=== PATIENT | female | born 1935 | race Caucasian/White ===

== ENCOUNTER → 2016-07-08 | Outpatient (CLI) | payer OTHER, BC ==
--- NOTE | 2016-07-09 07:48 | DX ---
DEXA Bone Densitometry Technique: DEXA scan was performed on The [employer] W Bone Densitometer Indication: Osteopenia Comparator Study: March 2014 Results: Lumbar Spine BMD: 1.370 T-score: +2.9 Total Hip (Right) BMD: 0.627 T-score: -2.4 Prior BMD: 0.686 % Change: -5.6% Femoral Neck (Right) BMD: 0.632 T-score: -2.0 1/3 Radius BMD: 0.594 T-score: -1.5 % change: -8.8% CONCLUSION: Osteopenia In comparison to the prior study from March 2014, the patient measured BMD in the total hip has d ecreased significantly. The patient's measured BMD in the forearm has decreased significantly ADDITIONAL COMMENTS: By FRA X calculation, the estimated 10 year probability of any major osteoporotic fracture is 15%. T he estimated 10 year probability of hip fracture is 4.2%. This patient meets the national osteoporosis Foundation guidelines for pharmacologic treatment based on 10 year hip fracture risk greater than 3% Recommend further treatment to prevent fractures and increased bone mineral density. Scoliosis is present Severe degenerative changes are present in the lower lumbar spine. This will increase the measured b one density of the lumbar spine. Recommend the use of other sites to assess fracture risk. Consider repeating the study in 2 years NOTE: The risk of osteoporotic fractures increases approximately twofold for each 1.0 SD decrease i n T-score. The T-score represents the standard deviations from a young normal, same sex, reference population. Low bone density is not the only risk factor for fracture. Clinical factors to consider include fal l risk, previous osteoporotic fractures, family history of fractures, smoking, and low body weight. Patients who have an unexpectedly low BMD may need to be evaluated for secondary causes of low bone mineral density. In comparing the present study to a prior study, lack of a significant increase or decrease in BMD m ay signify efficacy of the patient's present treatment. Bone mineral density measurements performed with densitometers produced by different manufacturers a re not comparable. For the most reproducible BMD measurement, subsequent exams should be performed on the same densitometer.
== END ==
LOC: BMCIMAGING 10:25
PROVIDERS: ATTEND Internal Medicine Endocrinology, Diabetes & Metabolism
DX: Z13.820 Encounter for screening for osteoporosis (principal); M85.80 Other specified disorders of bone density and structure, unspecified site

== ENCOUNTER → 2016-07-24 | Outpatient (CLI) | payer OTHER, BC | LOC: BMCIMAGING 09:59 | PROVIDERS: ATTEND Orthopaedic Surgery | PROC: 3E0U3KZ Introduction of Other Diagnostic Substance into Joints, Percutaneous Approach (ICD-10-PCS; principal; 2016-07-24) | DX: M16.11 Unilateral primary osteoarthritis, right hip (principal) ==

== ENCOUNTER 2016-11-28 18:58 | Inpatient (IN) | payer OTHER, BC ==
[2016-11-28] MEDS ORDERED: NS 1,000 ML IV ONE (19:35)
--- NOTE | 2016-11-28 19:39 | EDPHY ---
H & P Time Seen by Provider: 11/28/16 19:20 HPI/ROS: Chief complaint. Left arm pain and swelling HPI. 81-year-old female presents emergency department left arm pain, swelling, redness for 1 day. Yesterday she did feel somewhat lethargic. Today she awoke has increased pain swelling and redness to the left arm. Increased pain with movement. She feels generally weak. Denies shortness of breath though she does have a cough. No chest discomfort. No abdominal pain. Denies urinary symptoms. No trauma to the arm other than leaning on her left elbow while using her walker. She does have a scab on the left elbow. ROS Constitutional. no fever/chills, no weakness Eyes. no problems with vision ENT. no sore throat, no nasal drainage Cardiovascular. no chest pain Respiratory. no shortness of breath, no cough Abdominal. no abdominal pain, no nausea/vomiting, no diarrhea . no problems urinating MS. Left arm redness pain and swelling Skin. no rash Lymph. no swollen glands Neuro. no headache, no dizziness, no difficulty walking or with speech Past Medical/Surgical History: Past medical history pressure wounds, hypertension, hypothyroid, diabetes, GERD , asthma, IBS, hip replacement, pituitary microadenoma, spinal stenosis, osteopenia, anemia Social History: , nonsmoker, no alcohol. Her is currently in the hospital. Smoking Status: Never smoked Physical Exam: General Appearance: Alert well-developed female moderate distress vital signs show the patient be afebrile. O2 sat 91% on room air. Blood pressure is 111/54 Eyes: Pupils equal and round no pallor or injection. ENT, Mouth: Mucous membranes are moist. Respiratory: There are no retractions, lungs are clear to auscultation. Cardiovascular: Regular rate and rhythm. Gastrointestinal: Abdomen is soft and nontender, no masses, bowel sounds normal. Neurological: Awake and alert, sensory and motor exams grossly normal. Skin: Warm and dry, no rashes. Musculoskeletal: Neck is supple nontender. Extremities left arm is erythematous and swollen from the hand to just below the left shoulder. There is a scabbed over abrasion to the left elbow without any drainage. Psychiatric: Patient is oriented X 3, there is no agitation. Constitutional: Initial Vital Signs Temperature (C) 37 C 11/28/16 19:04 Heart Rate 94 11/28/16 19:04 Respiratory Rate 20 11/28/16 19:04 O2 Sat (%) 91 L 11/28/16 19:04 O2 Delivery Mode Room Air O2 (L/minute) 2 Allergies/Adverse Reactions: bacitracin [From Neosporin] Allergy (Intermediate, Verified 02/21/16 10:05) Rash bacitracin zinc [From Neosporin] Allergy (Intermediate, Verified 02/21/16 10:05) Rash gramicidin D [From Neosporin] Allergy (Intermediate, Verified 02/21/16 10:05) Rash neomycin sulfate [From Neosporin] Allergy (Intermediate, Verified 02/21/16 10:05 ) Rash polymyxin B [From Neosporin] Allergy (Intermediate, Verified 02/21/16 10:05) Rash polymyxin B sulfate [From Neosporin] Allergy (Intermediate, Verified 02/21/16 10 :05) Rash esomeprazole magnesium [From Nexium] Allergy (Verified 02/21/16 10:05) Diarrhea lansoprazole [From Prevacid] Allergy (Verified 02/21/16 10:05) Diarrhea omeprazole [From Prilosec] Allergy (Verified 02/21/16 10:05) Diarrhea omeprazole magnesium [From Prilosec] Allergy (Verified 02/21/16 10:05) Diarrhea pantoprazole sodium [From Protonix] Allergy (Verified 02/21/16 10:05) Diarrhea ranitidine HCl [From Zantac] Allergy (Verified 02/21/16 10:05) Diarrhea ENVIRONMENTAL Allergy (Intermediate, Uncoded 12/31/14 21:09) Other-Enter Comments Home Medications: Medication Instructions Recorded Herbals/Supplements -Info Only 1 ea PO DAILY 02/17/15 Ibandronate Sodium 150 mg PO Q30D 01/17/16 Acetaminophen [Tylenol 325mg (*)] 650 mg PO Q4 PRN #0 tab 01/19/16 Calcium Carb W/Vit D [Calcium Carb 500 mg PO BID 04/02/16 W/Vit D 500/200 (*)] Cyanocobalamin [Vitamin B12 (*)] 1,000 mcg PO DAILY 04/02/16 Multivitamins [Multivitamin (*)] 1 tab PO HS 04/02/16 Budesonide/Formoterol 160/4.5 2 puffs IH BID #1 mdi 04/16/16 [Symbicort 160-4.5 Mcg Inh (*)] Cholecalciferol Vit D3 [Vitamin D3 2,000 units PO DAILY #0 each 04/16/16 2000 units tab (OTC)] Estrogens, Conjugated [Premarin] 0.45 mg PO DAILY #30 tablet 04/16/16 Flaxseed Oil 1000mg 1,000 mg PO DAILY 04/16/16 Fluticasone Nasal [Flonase Nasal 2 sprays [place] DAILY #1 mdi 04/16/16 [place]] Hydrocortisone [Cortef 10 mg (*)] 10 mg PO BID #60 tab 04/16/16 Levothyroxine [Synthroid 100 mcg 100 mcg PO DAILY06 #30 tab 04/16/16 (*)] Losartan Potassium [Cozaar] 100 mg PO DAILY #30 tablet 04/16/16 Methocarbamol [Robaxin 750 mg (*)] 750 mg PO TID PRN #60 tab 04/16/16 Metoprolol Tartrate [Lopressor 25 12.5 mg PO BID #14 tab 04/16/16 mg (*)] Montelukast Sodium [Singulair 10 10 mg PO HS #30 tab 04/16/16 mg (*)] Pregabalin [Lyrica] 150 mg PO HS #30 capsule 04/16/16 Rabeprazole Sodium 20 mg PO BID #60 tablet. 04/16/16 Zinc Oxide [Desitin Max Stength 1 gavin TP Q4HRS PRN #0 oint 04/16/16 Oint (*)] amLODIPine BESYLATE [Norvasc 10 mg 10 mg PO DAILY #30 tab 04/16/16 (*)] celeCOXIB [Celebrex (*)] 200 mg PO DAILY #30 cap 04/16/16 guaiFENesin/DEXTROMETHORPHAN 10 ml PO Q4HRS PRN #0 ml 04/16/16 [Robitussin Dm Oral Liquid (*)] oxyCODONE IR [Oxycodone Ir (*)] 5 mg PO Q4HRS PRN #60 tab 04/16/16 Medical Decision Making - Diagnostics EKG Interpretation: EKG interpreted by me shows normal sinus rhythm with normal interval. There is left axis deviation with left bundle branch block. QRS is otherwise normal. There is no significant ST elevation or depression. No arrhythmia. The rate is 92 Imaging Results: Imaging Impressions Chest X-Ray 11/28/16 19:36 Impression: Negative frontal chest radiograph. Extremity Venous Study 11/28/16 19:36 Impression: Thrombosis of left internal jugular vein. I discussed results with Dr. Travis Ho at 2100 hours. One-view chest x-ray reviewed by me is normal Ultrasound reviewed by me and discussed with Dr. Roman shows a thrombosis of the left internal jugular vein but the vessels in her left arm are patent. No evidence for abscess. Procedures: IV normal saline. Septic workup. Tylenol for pain IV vancomycin after cultures ED Course/Re-evaluation: Re-evaluation 8:35 p.m.----patient is stable. The patient and her daughter and I discussed laboratory evaluation, chest x-ray and that the ultrasound result is still pending. We discussed treatment plan including recommendation for admission. They expressed understanding and agreement I consulted and discussed case with Dr. hill, hospitalist, who agrees to the admission Differential Diagnosis: This appears to be cellulitis of the arm. I also considered abscess and veinous thrombosis. She does have thrombosis of the internal jugular vein. - Data Points Laboratory Results: Laboratory Results 11/28/16 20:00 11/28/16 20:00 11/28/16 11/28/16 11/28/16 20:00 20:00 20:00 WBC 25.98 10^3/uL H 10^3/uL (3.80-9.50) RBC 4.49 10^6/uL 10^6/uL (4.18-5.33) Hgb 13.0 g/dL g/dL (12.6-16.3) Hct 40.1 % % (38.0-47.0) MCV 89.3 fL fL (81.5-99.8) MCH 29.0 pg pg (27.9-34.1) MCHC 32.4 g/dL g/dL (32.4-36.7) RDW 14.8 % % (11.5-15.2) Plt Count 152 10^3/uL 10^3/uL (150-400) MPV 11.3 fL fL (8.7-11.7) Neut % (Auto) Not Reported Lymph % (Auto) Not Reported [place] % (Auto) Not Reported Eos % (Auto) Not Reported Baso % (Auto) Not Reported Nucleat RBC Rel Count 0.0 % % (0.0-0.2) Absolute Neuts (auto) Not Reported Absolute Lymphs (auto) Not Reported Absolute Monos (auto) Not Reported Absolute Eos (auto) Not Reported Absolute Basos (auto) Not Reported Absolute Nucleated RBC 0.00 10^3/uL 10^3/uL (0-0.01) Immature Gran % Not Reported Immature Gran # Not Reported Platelet Estimate Pending PT 13.1 SEC SEC (12.0-15.0) INR 1.00 (0.83-1.16) APTT 31.0 SEC SEC (23.0-38.0) VBG Lactic Acid Sodium 133 mEq/L L mEq/L (134-144) Potassium 3.8 mEq/L mEq/L (3.5-5.2) Chloride 101 mEq/L mEq/L (97-110) Carbon Dioxide 21 mEq/l L mEq/l (22-31) Anion Gap 11 mEq/L mEq/L (8-16) BUN 41 mg/dL H mg/dL (7-23) Creatinine 1.7 mg/dL H mg/dL (0.6-1.0) Estimated GFR 29 Glucose 151 mg/dL H mg/dL (70-100) Calcium 8.6 mg/dL mg/dL (8.5-10.4) Total Bilirubin 1.1 mg/dL mg/dL (0.1-1.4) 11/28/16 20:00 WBC RBC Hgb Hct MCV MCH MCHC RDW Plt Count MPV Neut % (Auto) Lymph % (Auto) [place] % (Auto) Eos % (Auto) Baso % (Auto) Nucleat RBC Rel Count Absolute Neuts (auto) Absolute Lymphs (auto) Absolute Monos (auto) Absolute Eos (auto) Absolute Basos (auto) Absolute Nucleated RBC Immature Gran % Immature Gran # Platelet Estimate PT INR APTT VBG Lactic Acid 1.6 mmol/L mmol/L (0.7-2.1) Sodium Potassium Chloride Carbon Dioxide Anion Gap BUN Creatinine Estimated GFR Glucose Calcium Total Bilirubin Medications Given: Discontinued Medications Acetaminophen (Tylenol) 1,000 mg PO EDNOW ONE Stop: 11/28/16 19:53 Last Admin: 11/28/16 20:05 Dose: 1,000 mg Sodium Chloride (Ns) 1,000 mls @ 0 mls/hr IV ONCE ONE; Wide Open PRN Reason: Protocol Stop: 11/28/16 19:36 Last Admin: 11/28/16 20:05 Dose: 1,000 mls Departure - Departure Disposition: [facility] Inpatient Acute Clinical Impression: Cellulitis Qualifiers: Site of cellulitis: extremity Site of cellulitis of extremity: upper extremity Laterality: left Qualified Code(s): L03.114 - Cellulitis of left upper limb Condition: Fair Referrals: Brigette Suresh MD [Primary Care Provider] - As per Instructions
--- NOTE | 2016-11-28 19:42 | CPEKG ---
Heart Rate: 92 RR Interval: 652 P-R Interval: 208 QRSD Interval: 136 QT Interval: 404 QTC Interval: 500 P O'Brien: 75 QRS O'Brien: -56 T Wave O'Brien: 115 EKG Severity - ABNORMAL ECG - EKG Impression: SINUS RHYTHM EKG Impression: ATRIAL PREMATURE COMPLEX EKG Impression: LEFT BUNDLE BRANCH BLOCK Electronically Signed By: Travis Ho 28-Nov-2016 21:18:43
[2016-11-28] MEDS ORDERED: ACETAMINOPHEN 500 MG TAB PO ONE (19:52)
[2016-11-28 20:19] LABS: ADD DIFF? YES; ADD MORPH? NO; ADD SCAN? NO; ATYPICAL LYMPHOCYTE FLAG 0 (0-99); FRAGMENT RBC FLAG 0 (0-99); HEMATOCRIT 40.1 % (38.0-47.0); LEFT SHIFT FLG 30 (0-99); LIPEMIA HEMOLYSIS FLAG 80 (0-99); MEAN CELL HEMOGLOBIN CONCENTR. 32.4 g/dL (32.4-36.7); MEAN CELL VOLUME 89.3 fL (81.5-99.8); MEAN PLATELET VOLUME 11.3 fL (8.7-11.7); PLATELET CLUMPS FLAG 10 (0-99); PLATELET COUNT 152 10^3/uL (150-400); RED BLOOD CELL COUNT 4.49 10^6/uL (4.18-5.33); RED CELL DISTRIBUTION WIDTH 14.8 % (11.5-15.2)
[2016-11-28 20:26] LABS: PROTIME(PATIENT) 13.1 SEC (12.0-15.0)
[2016-11-28 20:31] LABS: ANION GAP 11 mEq/L (8-16); BILIRUBIN,TOTAL 1.1 mg/dL (0.1-1.4); CALCIUM 8.6 mg/dL (8.5-10.4); CARBON DIOXIDE 21 mEq/l (22-31); CHLORIDE 101 mEq/L (97-110); CREATININE 1.7 mg/dL (0.6-1.0); GLOMERULAR FILTRATION RATE 29; GLUCOSE 151 mg/dL (70-100); POTASSIUM 3.8 mEq/L (3.5-5.2); SODIUM 133 mEq/L (134-144)
[2016-11-28] MEDS ORDERED: VANCOMYCIN HCL/NORMAL SALINE 250 ML IV ONE (20:39)
[2016-11-28 21:07] LABS: PLATELET ESTIMATE ADEQUATE (ADEQ)
[2016-11-28] MEDS ORDERED: ONDANSETRON DISINTEGRATING 4 MG TAB PO PRN (21:32)
[2016-11-28] MEDS ORDERED: ONDANSETRON 4 MG/2 ML VIAL IVP PRN (21:32)
[2016-11-28] MEDS ORDERED: HEPARIN 10,000 UNIT/10 ML MDV IVP ONE (21:38)
[2016-11-28] MEDS ORDERED: HEPARIN 10,000 UNIT/10 ML MDV IVP PRN (21:38)
--- NOTE | 2016-11-28 21:43 | PDGENHP ---
History and Physical - Chief Complaint acute upper extremity edema - History of Present Illness primary care provider: Dr. Suresh Primary general surgeon: Dr. Chanel Primary infectious Disease: Dr. Saavedra HPI: 81-year-old female presenting with acute left upper extremity edema and associated erythema, located in the mid proximal left upper extremity and extending distally to the left wrist. Onset of symptoms on the day of presentation and duration has been progressively worsening thereafter. The patient and her daughter notes that she did have abrasion on her left elbow on the day prior to presentation but the edema and erythema seemed to suddenly appear and rapidly expand on the day of this presentation. Pain in the arm is amenable and range of motion is mostly limited secondary to edema and pressure. She otherwise denies any fever or chills but does endorse that she has experienced generalized weakness, oliguria, anorexia on the day of this presentation. History Information - Allergies/Home Medication List Allergies/Adverse Reactions: bacitracin [From Neosporin] Allergy (Intermediate, Verified 02/21/16 10:05) Rash bacitracin zinc [From Neosporin] Allergy (Intermediate, Verified 02/21/16 10:05) Rash gramicidin D [From Neosporin] Allergy (Intermediate, Verified 02/21/16 10:05) Rash neomycin sulfate [From Neosporin] Allergy (Intermediate, Verified 02/21/16 10:05 ) Rash polymyxin B [From Neosporin] Allergy (Intermediate, Verified 02/21/16 10:05) Rash polymyxin B sulfate [From Neosporin] Allergy (Intermediate, Verified 02/21/16 10 :05) Rash esomeprazole magnesium [From Nexium] Allergy (Verified 02/21/16 10:05) Diarrhea lansoprazole [From Prevacid] Allergy (Verified 02/21/16 10:05) Diarrhea omeprazole [From Prilosec] Allergy (Verified 02/21/16 10:05) Diarrhea omeprazole magnesium [From Prilosec] Allergy (Verified 02/21/16 10:05) Diarrhea pantoprazole sodium [From Protonix] Allergy (Verified 02/21/16 10:05) Diarrhea ranitidine HCl [From Zantac] Allergy (Verified 02/21/16 10:05) Diarrhea ENVIRONMENTAL Allergy (Intermediate, Uncoded 12/31/14 21:09) Other-Enter Comments I have personally reviewed and updated: family history, medical history, social history, surgical history - Past Medical History Additional medical history: Long history of sacral pressure ulcer with MR assay and osteomyelitis in 2014. ESBL. Hypertension. Gastroesophageal reflux disease. Adrenal insufficiency. Diabetes mellitus type 2 with most recent hemoglobin A1c 7%. Pseudogout. Asthma. Remote history of upper extremity DVT. Spinal stenosis. Obstructive sleep apnea. Osteopenia. Interval bowel syndrome. Pituitary microadenoma. C difficile colitis in February 2015. Chronic kidney disease stage 3 with baseline creatinine 1.1-1.4 - Surgical History Additional surgical history: primary closure of her sacral ulcer with flap in February of 2016. Left total hip replacement. Lumbar spinal injections. Diskectomy. Right carpal tunnel syndrome release. Basal cell carcinoma. Fibrous breast lumpectomy - Family History Additional family history: both parents age 85, no recent sick family contacts - Social History Smoking Status: Never smoked Alcohol Use: None Drug Use: None Additional social history: currently residing at [facility] Review of Systems ROS: 10pt was reviewed & negative except for what was stated in HPI & below Constitutional: Reports: weakness Genitourinary: Reports: other ( oliguria) Skin: Reports: other ( edema erythema) Physical Exam Temp Pulse Resp BP Pulse Ox 97.1 C H 91 16 118/48 L 99 11/28/16 19:31 11/28/16 21:31 11/28/16 21:31 11/28/16 21:31 11/28/16 21:31 O2 (L/minute) 2 Constitutional: no apparent distress, not in pain, chronically ill appearing, obese Eyes: PERRL, anicteric sclera, EOMI Ears, Nose, Mouth, Throat: hearing normal, other ( tacky mucous membranes) Cardiovascular: systolic murmur ( 2/6 at the sternum), edema ( left upper extremity 2+), No irregularly irregular, No tachycardia Respiratory: no respiratory distress, no rales or rhonchi, clear to auscultation Gastrointestinal: normoactive bowel sounds, soft, non-tender abdomen, no palpable masses, No distension Skin: other ( edema and erythema left upper extremity from wrist to the mid proximal arm, focal abrasion on the skin on the left elbow) Musculoskeletal: other ( tenderness to palpation over the olecranon bursa, full range of motion left wrist without pain, limited range of motion left elbow secondary to edema but no pain) Neurologic: AAOx3, sensation intact bilaterally Psychiatric: interacting appropriately, not anxious, not encephalopathic, thought process linear Lymph, Heme, Immunologic: No lymphangitic streaking Lab Data & Imaging Review 11/28/16 20:00 11/28/16 20:00 WBC 25.98 10^3/uL (3.80-9.50) H 11/28/16 20:00 RBC 4.49 10^6/uL (4.18-5.33) 11/28/16 20:00 Hgb 13.0 g/dL (12.6-16.3) 11/28/16 20:00 Hct 40.1 % (38.0-47.0) 11/28/16 20:00 MCV 89.3 fL (81.5-99.8) 11/28/16 20:00 MCH 29.0 pg (27.9-34.1) 11/28/16 20:00 MCHC 32.4 g/dL (32.4-36.7) 11/28/16 20:00 RDW 14.8 % (11.5-15.2) 11/28/16 20:00 Plt Count 152 10^3/uL (150-400) 11/28/16 20:00 MPV 11.3 fL (8.7-11.7) 11/28/16 20:00 Neut % (Auto) Not Reported 11/28/16 20:00 Lymph % (Auto) Not Reported 11/28/16 20:00 [place] % (Auto) Not Reported 11/28/16 20:00 Eos % (Auto) Not Reported 11/28/16 20:00 Baso % (Auto) Not Reported 11/28/16 20:00 Nucleat RBC Rel Count 0.0 % (0.0-0.2) 11/28/16 20:00 Absolute Neuts (auto) Not Reported 11/28/16 20:00 Absolute Lymphs (auto) Not Reported 11/28/16 20:00 Absolute Monos (auto) Not Reported 11/28/16 20:00 Absolute Eos (auto) Not Reported 11/28/16 20:00 Absolute Basos (auto) Not Reported 11/28/16 20:00 Absolute Nucleated RBC 0.00 10^3/uL (0-0.01) 11/28/16 20:00 Immature Gran % Not Reported 11/28/16 20:00 Seg Neutrophils % 80 % 11/28/16 20:00 Band Neutrophils % 4 % 11/28/16 20:00 Lymphocytes % 5 % 11/28/16 20:00 Monocytes % 10 % 11/28/16 20:00 Eosinophils % 1 % 11/28/16 20:00 Immature Gran # Not Reported 11/28/16 20:00 Absolute Seg Neuts 20.78 10^/uL (1.70-6.50) H 11/28/16 20:00 Absolute Band Neuts 1.04 10^3/uL (0.00-0.70) H 11/28/16 20:00 Absolute Lymphocytes 1.30 10^3/uL (1.00-3.00) 11/28/16 20:00 Absolute Monocytes 2.60 10^3/uL (0.30-0.80) H 11/28/16 20:00 Absolute Eosinophils 0.26 10^3/uL (0.03-0.40) 11/28/16 20:00 RBC/WBC/PLT Morphology NORMAL (NORMAL) 11/28/16 20:00 Platelet Estimate ADEQUATE (ADEQ) 11/28/16 20:00 PT 13.1 SEC (12.0-15.0) 11/28/16 20:00 INR 1.00 (0.83-1.16) 11/28/16 20:00 APTT 31.0 SEC (23.0-38.0) 11/28/16 20:00 VBG Lactic Acid 1.6 mmol/L (0.7-2.1) 11/28/16 20:00 Sodium 133 mEq/L (134-144) L 11/28/16 20:00 Potassium 3.8 mEq/L (3.5-5.2) 11/28/16 20:00 Chloride 101 mEq/L (97-110) 11/28/16 20:00 Carbon Dioxide 21 mEq/l (22-31) L 11/28/16 20:00 Anion Gap 11 mEq/L (8-16) 11/28/16 20:00 BUN 41 mg/dL (7-23) H 11/28/16 20:00 Creatinine 1.7 mg/dL (0.6-1.0) H 11/28/16 20:00 Estimated GFR 29 11/28/16 20:00 Glucose 151 mg/dL (70-100) H 11/28/16 20:00 Calcium 8.6 mg/dL (8.5-10.4) 11/28/16 20:00 Total Bilirubin 1.1 mg/dL (0.1-1.4) 11/28/16 20:00 Visualized and Interpreted Chest x-ray results: Yes Chest X-Ray results: no infiltrate Visualized and Interpreted EKG results: Yes EKG Interpretation: Positive for: left bundle branch block Assessment & Plan Assessment: 81-year-old female presenting with acute cellulitis in the setting of previous MRSA Plan: 1. Cellulitis. Acute, new problem this provider, further workup indicated. Evidenced by erythema, edema left upper extremity with likely source of skin breakage along the left elbow without any evidence of overt olecranon bursitis or deeper joint infection. -ultrasound ruled out upper extremity DVT -blood culture sent, follow -significant leukocytosis, follow white blood cell count on CBC -given her history of MRSA infection, dosed with vancomycin, renally Q 24 hours -given her extensive infectious history, get Infectious Disease consultation as well as wound care consult for the affected area 2. Acute kidney injury on chronic kidney disease stage 3. most likely secondary to hypovolemia in the setting of poor oral intake resulting in oliguria -reviewed outside records including 09/20/2016 most recent outpatient creatinine level, 1.4 -continue IV normal saline overnight, repeat serum creatinine level in a.m., monitor urine output closely -if creatinine worsening in a.m., send urinalysis and fractional excretion of sodium to evaluate for intrinsic renal component, notably ATN 3. Hyponatremia. Acute, secondary to renal hypoperfusion in the setting of above, continue normal saline and repeat level in a.m. 4. Hypoxia. Most likely secondary to underlying obstructive sleep apnea and patient's relative current immobility, continue to monitor -give incentive spirometer -if she so desires, make CPAP available at night 5. Hypertension. Chronic, hold patient's home antihypertensive given her infection 6. Internal jugular vein clot. Present on admission, unusual location not likely to be provoked given that she has not recently been hospitalized -discussed with Dr. John Waller, he has recommended short course of systemic anticoagulation, likely 3 months, with outpatient follow-up and repeat imaging at that time -initiate on heparin drip given her renal insufficiency, bridge to Coumadin, follow up either at primary care provider office or at [facility] cc Diet. Diabetic Prophylaxis. High risk patient, heparin drip Code. Do not resuscitate per patient, her daughter Carol is her MD POA Disposition. Anticipated discharge uncertain this time, anticipated length stay is greater than 48 hours warranting inpatient admission status for acute severe cellulitis in the setting of above high risk comorbid conditions. Patient is a high level of medical complexity patient, with high risk of worsening morbidity and/or mortality, secondary to the issues outlined above.
[2016-11-28] MEDS ORDERED: HEPARIN/DEXTROSE 500 ML IV SCH (21:45)
[2016-11-28] MEDS ORDERED: WARFARIN SODIUM 5 MG TAB PO SCH (21:45)
[2016-11-28] MEDS: NS 1,000 ML IV SCH (22:43)
[2016-11-29] MEDS: HYDROCORTISONE 10 MG TAB PO SCH ×3 (00:29→20:08)
[2016-11-29] MEDS: METHOCARBAMOL 750 MG TAB PO PRN (00:29)
[2016-11-29] MEDS: ACETAMINOPHEN 325 MG TAB PO PRN ×3 (00:30→20:24)
[2016-11-29] MEDS: RABEPRAZOLE SODIUM 20 MG PO SCH ×3 (00:56→20:28)
[2016-11-29] MEDS: FLUTICASONE IH SCH ×3 (00:56→22:15)
[2016-11-29] MEDS: SALMETEROL IH SCH ×3 (00:56→22:15)
[2016-11-29 01:51] LABS: COLOR YELLOW; LEUKOCYTE ESTERASE,URINE 3+ (NEGATIVE); NITRITE,URINE NEGATIVE (NEGATIVE)
[2016-11-29 01:58] LABS: BACTERIA 4+ /hpf (NONE SEEN); MUCUS TRACE /lpf (NONE-1+); WBC,URINE 50-182 /hpf (0-3)
[2016-11-29] MEDS: LEVOTHYROXINE 100 MCG TAB PO SCH (04:18)
[2016-11-29] MEDS: traMADol 50 MG TAB PO PRN ×2 (04:18→17:15)
--- NOTE | 2016-11-29 05:20 | HOSPPROG ---
Hospitalist Progress Note Assessment/Plan: XC note: Called by RN regarding RUE hematoma. She has a small bore IV in right wrist. ARN attempted larger IV in same extremity, but was unable to advance catheter and attempt was aborted. Pressure was held for several minutes and no bleeding was noticed. She was then started on a heparin drip in her original small bore IV and shortly after, RN noted a hematoma in right forearm, thought secondary to IV attempt. The hematoma spread and is now encompassing her entire forearm with fluctuance, but it is not tense. I suspect she bled from the 2nd IV attempt, though cannot rule out infusion of heparin into her tissue with her current sub-optimal IV. The original IV draws back, but I'm not comfortable continuing to infuse heparin in this IV. LULinsey is restricted with edema and cellulitis. Heparin is stopped for now due to active bleeding into her extremity. Will arrange for PICC in am. If hematoma abates, can likely resume heparin. Objective: Vital Signs Temp Pulse Resp BP Pulse Ox 36.7 C 90 14 129/62 H 92 11/29/16 00:00 11/29/16 04:00 11/29/16 04:00 11/29/16 04:00 11/29/16 04:00 11/27/16 11/28/16 11/29/16 05:59 05:59 05:59 Intake Total 2520 Balance 2520 PT 13.1 SEC (12.0-15.0) 11/28/16 20:00 INR 1.00 (0.83-1.16) 11/28/16 20:00 ICD10 Worksheet Patient Problems: Problems Problem Status Onset Cellulitis Acute Acute renal failure Acute C. difficile diarrhea Acute 03/01/15 Decubitus ulcer of buttock Acute Dehydration Acute ESBL (extended spectrum beta-lactamase) producing bacteria infection Acute Hypertensive urgency Acute Hyponatremia Acute Hypoxemia Acute Palliative care encounter Acute UTI (urinary tract infection) Acute Weakness Acute Adrenal insufficiency Chronic Chronic pain Chronic Diabetes Chronic Hypertension Chronic Hypothyroid Chronic
[2016-11-29] MEDS ORDERED: ALTEPLASE 2 MG VIAL IVP PRN (05:29)
[2016-11-29] MEDS ORDERED: Herbals/Supplements -Info Only PO SCH (09:00)
[2016-11-29] MEDS ORDERED: PREGABALIN 150 MG CAP PO SCH (09:00)
[2016-11-29] MEDS: CHOLECALCIFEROL VIT D3 1,000 UNITS TAB PO SCH (09:43)
[2016-11-29] MEDS: CYANO/VITAMIN B12 1000 MCG TAB PO SCH (09:43)
[2016-11-29] MEDS: PRESERVISION AREDS2 FORMULA EYE VIT 1 EACH PO SCH ×2 (09:43→20:08)
[2016-11-29] MEDS: PREGABALIN 75 MG CAP PO SCH ×2 (09:43→20:08)
[2016-11-29] MEDS: METOPROLOL TARTRATE 25 MG TAB PO SCH ×2 (09:44→20:08)
--- NOTE | 2016-11-29 10:05 | HOSPPROG ---
Hospitalist Progress Note Assessment/Plan: * left upper extremity cellulitis * Has received a dose of vancomycin * Would probably continue this as she does have a recent history of MRSA * Infectious Disease will see the patient * right upper extremity hematoma * No evidence of compartment syndrome * Will continue off heparin * left internal jugular vein thrombosis * Probably contributing to left arm swelling * Source of right upper extremity hematoma was the IV * Would like to put PICC line in today and probably restart heparin tomorrow with close watching of hematoma * acute renal failure * Did get some fluid * Will trend * pyuria/bacteriuria * Will defer to Infectious Disease the question of treatment * left bundle branch block * chronic sacral decubitus ulcer * Previous MRSA cellulitis * hypertension * type 2 diabetes * adrenal insufficiency * history of pituitary microadenoma * obstructive sleep apnea * spinal stenosis Subjective: Events overnight noted. Feels overall uncomfortable. Both arms hurt. No shortness of breath Objective: Vital Signs Temp Pulse Resp BP Pulse Ox 36.9 C 90 20 159/73 H 90 L 11/29/16 07:08 11/29/16 09:02 11/29/16 09:02 11/29/16 07:08 11/29/16 09:02 11/28/16 11/29/16 11/30/16 05:59 05:59 05:59 Intake Total 3020 Output Total 700 Balance 2320 PT 13.1 SEC (12.0-15.0) 11/28/16 20:00 INR 1.00 (0.83-1.16) 11/28/16 20:00 - Physical Exam Constitutional: no apparent distress, appears nourished, not in pain Eyes: anicteric sclera, EOMI Ears, Nose, Mouth, Throat: moist mucous membranes, hearing normal Cardiovascular: regular rate and rhythym Respiratory: no respiratory distress, no rales or rhonchi, clear to auscultation , reduced air movement Gastrointestinal: normoactive bowel sounds, soft, non-tender abdomen, no palpable masses Musculoskeletal: other (Right upper extremity with hematoma but no tightness, left upper extremity with significant erythema extending above elbow) Neurologic: AAOx3 Psychiatric: interacting appropriately, not anxious, not encephalopathic, thought process linear ICD10 Worksheet Patient Problems: Problems Problem Status Onset Cellulitis Acute Acute renal failure Acute C. difficile diarrhea Acute 03/01/15 Decubitus ulcer of buttock Acute Dehydration Acute ESBL (extended spectrum beta-lactamase) producing bacteria infection Acute Hypertensive urgency Acute Hyponatremia Acute Hypoxemia Acute Palliative care encounter Acute UTI (urinary tract infection) Acute Weakness Acute Adrenal insufficiency Chronic Chronic pain Chronic Diabetes Chronic Hypertension Chronic Hypothyroid Chronic
--- NOTE | 2016-11-29 10:18 | WOCRNPDOC ---
WOCRN Advanced Assessment Note - Skin Integrity Problem, Advanced Assess Left Elbow Abrasion Dressing Type: Open to Air Exudate Color: Yellow Exudate Characteristic(s): Dried, Serous Jordana Wound Tissue: Erythema (marked to LUE just distal to shoulder), Swollen (+ 3 edema) Jordana Wound Swelling: Moderate Wound Bed Color: Yellow Wound Bed Constitution: Scab Site Measurement - Head-to-Toe Length X Width X Depth (cm): [id number] Skin Integrity Problem Comment: Dried, serous-filled scab noted to L elbow. Entire L arm is very edematous, +3 pitting from hand extending to below the shoulder. Erythema is receding from original markings, and patient denies any pain to site. Recommend covering wound on L elbow, as this was most likely the point of origin for infection. Will put in order for Silvasorb gel and Allevyn. 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 Presently, skin is intact and blanching, w/ no sign of breakdown. Nursing placed foam sacral dressing for prophylaxis, and this is appropriate to continue. In addition, patient has been placed on pressure injury prophylaxis measures, including turns q2 off-loading coccyx at all times and an Accu-max pump on her bed. Wound care will follow up with patient on 12/03.
[2016-11-29] MEDS: FLUTICASONE NASAL 120 SPRAYS/16 GM MDI EACHNARE SCH (11:50)
--- NOTE | 2016-11-29 15:35 | PCMIDPN ---
Assessment/Plan: #EVARISTOE Cellulitis, wound on elbow likely portal. Denies acute injury, reports chronic leaning on elbow. no documented h/o MRSA in our system. 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 She denies any systemic symptoms or specific acute injury. She does note she has had a wound on her left elbow for several weeks. patient received 1 dose of IV vancomycin overnight and does report that her arm is slightly improved. Objective: Vital Signs Temp Pulse Resp BP Pulse Ox 38.1 C 88 20 138/66 H 86 L 11/29/16 11:09 11/29/16 11:09 11/29/16 11:09 11/29/16 11:11/29/16 11:11/28/16 11/29/16 11/30/16 05:59 05:59 05:59 Intake Total 3020 236 Output Total 700 Balance 2320 236 - Physical Exam General Appearance: alert, no apparent distress EENT: pale conjunctiva, dry mucous membranes, No thrush Respiratory: lungs clear, No accessory muscle use Neck: supple Cardiac/Chest: regular rate, rhythm, systolic murmur Extremities: pedal edema, erythema ( Left upper extremity marked swelling and erythema circumferentially encompassing wrist to mid deltoid. 2-3 cm wound with significant slough in the base on elbow), other ( right arm with PICC C/ D/ I with some oozing blood around, right arm ecchymotic) Abdomen: normal bowel sounds, non-tender, soft, No distended Skin: warm/dry, No diaphoresis, No jaundice Neuro/Psych: alert, normal mood/affect, oriented x 3 - Time Spent With Patient Time Spent with Patient: greater than 35 minutes Time Spent with Patient: Greater than 35 minutes spent on this patients care, greater than 50% of time spent counseling, educating, and coordinating care regarding the above mentioned plan. ICD10 Worksheet Patient Problems: Problems Problem Status Onset Cellulitis Acute Acute renal failure Acute C. difficile diarrhea Acute 03/01/15 Decubitus ulcer of buttock Acute Dehydration Acute ESBL (extended spectrum beta-lactamase) producing bacteria infection Acute Hypertensive urgency Acute Hyponatremia Acute Hypoxemia Acute Palliative care encounter Acute UTI (urinary tract infection) Acute Weakness Acute Adrenal insufficiency Chronic Chronic pain Chronic Diabetes Chronic Hypertension Chronic Hypothyroid Chronic
[2016-11-29 16:06] LABS: ADD DIFF? NO; ADD MORPH? NO; ADD SCAN? NO
[2016-11-29 16:57] LABS: ANION GAP 9 mEq/L (8-16); CALCIUM 8.3 mg/dL (8.5-10.4); CARBON DIOXIDE 19 mEq/l (22-31); CHLORIDE 106 mEq/L (97-110); CREATININE 1.4 mg/dL (0.6-1.0); GLOMERULAR FILTRATION RATE 36; GLUCOSE 191 mg/dL (70-100); POTASSIUM 3.8 mEq/L (3.5-5.2); SODIUM 134 mEq/L (134-144)
[2016-11-29] MEDS: MONTELUKAST SODIUM 10 MG TAB PO SCH (17:15)
[2016-11-29] MEDS: MULTIVITAMINS 1 EACH TAB PO SCH (17:15)
[2016-11-29] MEDS ORDERED: VANCOMYCIN 750 MG in D5W 150 ML IV SCH (21:00)
[2016-11-29] MEDS ORDERED: D5W IV SCH (21:00)
[2016-11-29] MEDS ORDERED: VANCOMYCIN 1.25 GM in D5W 250 ML IV SCH (21:00)
[2016-11-29] MEDS ORDERED: VANCOMYCIN IV SCH (21:00)
[2016-11-30] MEDS: NS 1,000 ML IV SCH ×2 (00:37→09:12)
[2016-11-30] MEDS: traMADol 50 MG TAB PO PRN ×3 (01:04→15:05)
[2016-11-30] MEDS: METHOCARBAMOL 750 MG TAB PO PRN ×4 (01:04→21:17)
[2016-11-30] MEDS: LEVOTHYROXINE 100 MCG TAB PO SCH (04:09)
[2016-11-30] MEDS: ACETAMINOPHEN 325 MG TAB PO PRN ×3 (04:09→21:16)
[2016-11-30 05:59] LABS: ANION GAP 9 mEq/L (8-16); CALCIUM 7.8 mg/dL (8.5-10.4); CARBON DIOXIDE 20 mEq/l (22-31); CHLORIDE 107 mEq/L (97-110); CREATININE 1.2 mg/dL (0.6-1.0); GLOMERULAR FILTRATION RATE 43; GLUCOSE 149 mg/dL (70-100); POTASSIUM 3.8 mEq/L (3.5-5.2); SODIUM 136 mEq/L (134-144)
[2016-11-30 06:08] LABS: ADD DIFF? YES; ADD MORPH? NO; ADD SCAN? NO; ATYPICAL LYMPHOCYTE FLAG 0 (0-99); FRAGMENT RBC FLAG 0 (0-99); HEMOGLOBIN 10.9 g/dL (12.6-16.3); LEFT SHIFT FLG 20 (0-99); LIPEMIA HEMOLYSIS FLAG 80 (0-99); MEAN CELL HEMOGLOBIN 29.1 pg (27.9-34.1); MEAN CELL HEMOGLOBIN CONCENTR. 32.1 g/dL (32.4-36.7); MEAN CELL VOLUME 90.7 fL (81.5-99.8); MEAN PLATELET VOLUME 11.7 fL (8.7-11.7); PLATELET CLUMPS FLAG 0 (0-99); PLATELET COUNT 125 10^3/uL (150-400); RED BLOOD CELL COUNT 3.75 10^6/uL (4.18-5.33); RED CELL DISTRIBUTION WIDTH 14.6 % (11.5-15.2)
[2016-11-30 07:06] LABS: PLATELET ESTIMATE DECREASED (ADEQ); POLYCHROMASIA 1+
[2016-11-30] MEDS: RABEPRAZOLE SODIUM 20 MG PO SCH ×2 (08:02→20:46)
[2016-11-30] MEDS: CHOLECALCIFEROL VIT D3 1,000 UNITS TAB PO SCH (09:13)
[2016-11-30] MEDS: METOPROLOL TARTRATE 25 MG TAB PO SCH ×2 (09:13→20:41)
[2016-11-30] MEDS: PREGABALIN 75 MG CAP PO SCH ×2 (09:13→20:40)
[2016-11-30] MEDS: HYDROCORTISONE 10 MG TAB PO SCH ×2 (09:13→20:40)
[2016-11-30] MEDS: CYANO/VITAMIN B12 1000 MCG TAB PO SCH (09:13)
[2016-11-30] MEDS: FLUTICASONE NASAL 120 SPRAYS/16 GM MDI EACHNARE SCH (09:15)
[2016-11-30] MEDS: PRESERVISION AREDS2 FORMULA EYE VIT 1 EACH PO SCH ×2 (09:21→20:40)
[2016-11-30] MEDS ORDERED: HEPARIN 10,000 UNIT/10 ML MDV IVP ONE (09:44)
--- NOTE | 2016-11-30 09:49 | HOSPPROG ---
Hospitalist Progress Note Assessment/Plan: 81-year-old female with multiple medical problems presenting with left arm swelling and cellulitis * left upper extremity cellulitis * Continue IV vancomycin * Infectious Disease is following * left internal jugular vein thrombosis * Probably contributing more to left arm swelling than infection * Restart heparin today * right upper extremity hematoma * Started at previous IV site which has been removed * No evidence of compartment syndrome * Restart heparin with continued close monitoring * acute renal failure * Pretty close to baseline * pyuria/bacteriuria * Will defer to Infectious Disease the question of treatment * left bundle branch block * chronic sacral decubitus ulcer * Previous MRSA cellulitis * Reported when she was at [facility] in fall of last year * hypertension * type 2 diabetes * adrenal insufficiency * history of pituitary microadenoma * obstructive sleep apnea * spinal stenosis Subjective: Left arm feels more swollen Objective: Vital Signs Temp Pulse Resp BP Pulse Ox 36.9 C 93 20 148/96 H 97 11/30/16 08:00 11/30/16 08:00 11/30/16 08:00 11/30/16 08:00 11/30/16 08:00 Microbiology 11/29/16 17:00 Gram Stain - Final Arm - Swab 11/29/16 17:00 Gram Stain - Final Arm - Swab Laboratory Results 11/30/16 04:40 11/30/16 04:40 11/29/16 11/30/16 12/01/16 05:59 05:59 05:59 Intake Total 3020 2487 400 Output Total 700 900 150 Balance 2320 1587 250 PT 13.1 SEC (12.0-15.0) 11/28/16 20:00 INR 1.00 (0.83-1.16) 11/28/16 20:00 - Physical Exam Constitutional: no apparent distress, appears nourished, not in pain Eyes: anicteric sclera, EOMI Ears, Nose, Mouth, Throat: moist mucous membranes, hearing normal, ears appear normal Cardiovascular: regular rate and rhythym, no murmur, rub, or gallop Respiratory: no respiratory distress, no rales or rhonchi, clear to auscultation Gastrointestinal: normoactive bowel sounds, soft, non-tender abdomen, no palpable masses Skin: warm Musculoskeletal: other (Right arm with improvement in hematoma. Left arm with increased swelling but erythema it seems to be less and less warmth) Neurologic: AAOx3 Psychiatric: interacting appropriately, not anxious, not encephalopathic, thought process linear ICD10 Worksheet Patient Problems: Problems Problem Status Onset Cellulitis Acute Acute renal failure Acute C. difficile diarrhea Acute 03/01/15 Decubitus ulcer of buttock Acute Dehydration Acute ESBL (extended spectrum beta-lactamase) producing bacteria infection Acute Hypertensive urgency Acute Hyponatremia Acute Hypoxemia Acute Palliative care encounter Acute UTI (urinary tract infection) Acute Weakness Acute Adrenal insufficiency Chronic Chronic pain Chronic Diabetes Chronic Hypertension Chronic Hypothyroid Chronic
[2016-11-30] MEDS: FLUTICASONE IH SCH ×2 (09:51→21:18)
[2016-11-30] MEDS: SALMETEROL IH SCH ×2 (09:51→21:18)
[2016-11-30 10:26] LABS: INR 1.21 (0.83-1.16); PROTIME(PATIENT) 15.3 SEC (12.0-15.0)
[2016-11-30 10:27] LABS: APTT 30.2 SEC (23.0-38.0)
[2016-11-30] MEDS: HEPARIN/DEXTROSE 500 ML IV SCH (11:22)
[2016-11-30] MEDS ORDERED: D5W IV SCH (11:22)
[2016-11-30] MEDS ORDERED: VANCOMYCIN IV SCH (11:22)
--- NOTE | 2016-11-30 11:22 | PCMIDPN ---
Assessment/Plan: #LUE Cellulitis, wound on elbow likely portal and simultaneous left internal jugular thrombosis. wound cultures now show MRSA. At this point do not think this reflects septic thrombophlebitis as left neck exam is within normal limits and blood cultures negative so far but continue to assess. --Increase dose of vancomycin 1.25 g IV q.day with improving renal function -- continue elevation of left upper extremity -- continue to monitor blood cultures # ARF improving, creatinine 1.2 down from 1.7 #flap closure of a stage IV pressure injury last year - remains healed # klebsiella bacteremia 03/2015 meds vancomycin 1.25gm IV daily, # 3 Microbiology 11/28 blood culture 1 set: NGTD 11/29 blood culture 1 set: Pending 11/29 wound culture from elbow and forearm: MRSA Subjective: patient feels that her left arm is improved. No other complaints Objective: Vital Signs Temp Pulse Resp BP Pulse Ox 37.6 C 96 16 107/98 H 93 11/30/16 11:14 11/30/16 11:14 11/30/16 11:14 11/30/16 11:14 11/30/16 11:14 Microbiology 11/29/16 17:00 Gram Stain - Final Arm - Swab 11/29/16 17:00 Gram Stain - Final Arm - Swab Laboratory Results 11/30/16 04:40 11/30/16 04:40 11/29/16 11/30/16 12/01/16 05:59 05:59 05:59 Intake Total 3020 2487 400 Output Total 700 900 150 Balance 2320 1587 250 - Physical Exam General Appearance: alert, no apparent distress, obese EENT: pale conjunctiva, No scleral icterus Respiratory: other ( shallow inspiratory effort no crackles), No accessory muscle use Neck: supple Cardiac/Chest: regular rate, rhythm Extremities: pedal edema, swelling ( left upper extremity ; right upper extremity also mildly swollen with extensive ecchymosis related to bruising from heparin), erythema ( left upper extremity circumferential, erythema is less intense today as compared to yesterday) Abdomen: non-tender, soft Skin: erythema ( as per extremity exam), No embolic lesions Neuro/Psych: alert, normal mood/affect, oriented x 3 - Line/s RUE PICC Lines: No drainage, No erythema - Time Spent With Patient Time Spent with Patient: greater than 25 minutes Time Spent with Patient: Greater than 25 minutes spent on this patients care, greater than 50% of time spent counseling, educating, and coordinating care regarding the above mentioned plan. ICD10 Worksheet Patient Problems: Problems Problem Status Onset Cellulitis Acute Acute renal failure Acute C. difficile diarrhea Acute 03/01/15 Decubitus ulcer of buttock Acute Dehydration Acute ESBL (extended spectrum beta-lactamase) producing bacteria infection Acute Hypertensive urgency Acute Hyponatremia Acute Hypoxemia Acute Palliative care encounter Acute UTI (urinary tract infection) Acute Weakness Acute Adrenal insufficiency Chronic Chronic pain Chronic Diabetes Chronic Hypertension Chronic Hypothyroid Chronic
[2016-11-30] MEDS: VANCOMYCIN 1.25 GM in D5W 250 ML IV SCH (12:54)
[2016-11-30 13:27] LABS: ALBUMIN 2.5 g/dL (3.5-5.0); BILIRUBIN,TOTAL 0.6 mg/dL (0.1-1.4); BILIRUBIN-CONJUGATED 0.3 mg/dL (0.0-0.5); BILIRUBIN-UNCONJUGATED 0.3 mg/dL (0.0-1.1); TOTAL PROTEIN 4.8 g/dL (6.3-8.2)
[2016-11-30] MEDS: MULTIVITAMINS 1 EACH TAB PO SCH (17:14)
[2016-11-30] MEDS: amLODIPine BESYLATE 5 MG TAB PO SCH (17:14)
[2016-11-30] MEDS: MONTELUKAST SODIUM 10 MG TAB PO SCH (17:14)
[2016-11-30] MEDS: HEPARIN 10,000 UNIT/10 ML MDV IVP PRN (18:33)
[2016-11-30] MEDS ORDERED: amLODIPine BESYLATE 5 MG TAB PO ONE (21:30)
[2016-12-01] MEDS: traMADol 50 MG TAB PO PRN ×4 (00:16→22:11)
[2016-12-01] MEDS: HEPARIN 10,000 UNIT/10 ML MDV IVP PRN ×2 (01:48→22:44)
[2016-12-01] MEDS: HEPARIN/DEXTROSE 500 ML IV SCH ×2 (05:05→21:18)
[2016-12-01] MEDS: LEVOTHYROXINE 100 MCG TAB PO SCH (05:07)
[2016-12-01] MEDS: ACETAMINOPHEN 325 MG TAB PO PRN (05:07)
[2016-12-01] MEDS: METOPROLOL TARTRATE 25 MG TAB PO SCH ×2 (07:33→20:33)
[2016-12-01] MEDS: PREGABALIN 75 MG CAP PO SCH ×2 (07:35→20:33)
[2016-12-01] MEDS: HYDROCORTISONE 10 MG TAB PO SCH ×2 (07:35→20:33)
[2016-12-01] MEDS: CYANO/VITAMIN B12 1000 MCG TAB PO SCH (07:35)
[2016-12-01] MEDS: PRESERVISION AREDS2 FORMULA EYE VIT 1 EACH PO SCH ×2 (07:35→20:33)
[2016-12-01] MEDS: CHOLECALCIFEROL VIT D3 1,000 UNITS TAB PO SCH (07:35)
[2016-12-01] MEDS: FLUTICASONE NASAL 120 SPRAYS/16 GM MDI EACHNARE SCH (07:42)
[2016-12-01] MEDS: RABEPRAZOLE SODIUM 20 MG PO SCH ×2 (07:51→20:35)
[2016-12-01 08:07] LABS: % IMMATURE GRANULYOCYTES 1.2 % (0.0-1.1); ABSOLUTE IMMATURE GRANULOCYTES 0.25 10^3/uL (0.00-0.10); ADD DIFF? NO; ADD MORPH? NO; ADD SCAN? NO; ATYPICAL LYMPHOCYTE FLAG 0 (0-99); FRAGMENT RBC FLAG 0 (0-99); HEMOGLOBIN 10.8 g/dL (12.6-16.3); LEFT SHIFT FLG 30 (0-99); LIPEMIA HEMOLYSIS FLAG 80 (0-99); MEAN CELL HEMOGLOBIN CONCENTR. 32.7 g/dL (32.4-36.7); MEAN CELL VOLUME 88.5 fL (81.5-99.8); MEAN PLATELET VOLUME 11.2 fL (8.7-11.7); PLATELET CLUMPS FLAG 0 (0-99); PLATELET COUNT 128 10^3/uL (150-400); RED BLOOD CELL COUNT 3.73 10^6/uL (4.18-5.33); RED CELL DISTRIBUTION WIDTH 14.6 % (11.5-15.2)
[2016-12-01] MEDS: SALMETEROL IH SCH ×2 (08:07→21:14)
[2016-12-01] MEDS: FLUTICASONE IH SCH ×2 (08:07→21:14)
--- NOTE | 2016-12-01 08:24 | HOSPPROG ---
Hospitalist Progress Note Assessment/Plan: #LUE cellulitis: ID following. Cont IV Vanc. Negative blood culture #LUE swelling: decrease over upper arm today. Radial pulse by doppler, good cap refill. She denies pain, numbness over hand. Monitor closely. Keep elevated #ALPHONSE on CKD: Cr 1.0, at baseline #Thrombocytopenia:due to acute illness. Monitor closely #Left IJ thrombosis: bridging with heparin gtt/coumadin #RUE hematoma: stable #Accelerated HTN: resume Losartan. Cont Norvasc, BB #Hypothyroidism: Lt4 #h/o diastolic dysfunction: on TTE 2014. May add low-dose Lasix, but want to monitor Cr with Losartan first #Type 2 DM #Chronic Stage 4 decubitus ulcer: s/p flap #Pyuria: negative culture #Diet: diabetic #DVT ppx: heparin gtt #Disp: will warrant SNF at [place], awaiting approval once medically clear Subjective: swelling in left arm same. No pain Objective: Vital Signs Temp Pulse Resp BP Pulse Ox 36.7 C 88 16 200/80 H 88 L 12/01/16 07:31 12/01/16 08:11 12/01/16 08:11 12/01/16 07:31 12/01/16 08:11 Microbiology 11/29/16 17:00 Gram Stain - Final Arm - Swab 11/29/16 17:00 Gram Stain - Final Arm - Swab Laboratory Results 12/01/16 07:35 11/30/16 04:40 11/30/16 12/01/16 12/02/16 05:59 05:59 05:59 Intake Total 2487 2142 Output Total 900 2950 425 Balance 1587 -808 -425 PT 15.3 SEC (12.0-15.0) H 11/30/16 10:00 INR 1.21 (0.83-1.16) H 11/30/16 10:00 - Physical Exam Constitutional: no apparent distress, obese Eyes: PERRL Ears, Nose, Mouth, Throat: moist mucous membranes Cardiovascular: regular rate and rhythym, edema (+2-3 LE edema, BL to knees) Respiratory: no respiratory distress, no rales or rhonchi Gastrointestinal: normoactive bowel sounds, soft, non-tender abdomen Genitourinary: no bladder fullness Musculoskeletal: other (LUE with significant swelling to hand. Pulse palpable with doppler, good cap refill. Normal sensation and no pain with touch. Elbow wound healing with some granulation tissue. RUE with swelling, ecchymosis over upper arm. PICC line in place. ) Neurologic: AAOx3, CN II-XII Intact Psychiatric: interacting appropriately ICD10 Worksheet Patient Problems: Problems Problem Status Onset Cellulitis Acute Acute renal failure Acute C. difficile diarrhea Acute 03/01/15 Decubitus ulcer of buttock Acute Dehydration Acute ESBL (extended spectrum beta-lactamase) producing bacteria infection Acute Hypertensive urgency Acute Hyponatremia Acute Hypoxemia Acute Palliative care encounter Acute UTI (urinary tract infection) Acute Weakness Acute Adrenal insufficiency Chronic Chronic pain Chronic Diabetes Chronic Hypertension Chronic Hypothyroid Chronic
[2016-12-01] MEDS ORDERED: hydrALAZINE 10 MG TAB PO PRN (08:48)
[2016-12-01 09:46] LABS: ANION GAP 11 mEq/L (8-16); CALCIUM 8.3 mg/dL (8.5-10.4); CARBON DIOXIDE 20 mEq/l (22-31); CHLORIDE 104 mEq/L (97-110); GLOMERULAR FILTRATION RATE 53; GLUCOSE 196 mg/dL (70-100); POTASSIUM 3.8 mEq/L (3.5-5.2); SODIUM 135 mEq/L (134-144)
[2016-12-01] MEDS: VANCOMYCIN 1.25 GM in D5W 250 ML IV SCH (12:13)
--- NOTE | 2016-12-01 15:45 | PCMIDPN ---
Assessment/Plan: #LUE Cellulitis secondary to MRSA, wound on elbow likely portal and simultaneous left internal jugular thrombosis. Massive swelling of LUE but not tense or painful. Minimal change in redness and swelling today, suspect due to lack of elevation and impaired venous return due to clot --continue vancomycin 1.25 g IV q.day, check trough tomorrow --continue to encourage elevation --re-US to look for extension of clot # ARF resolved. Cr 1.0 # flap closure of a stage IV pressure injury last year - remains healed # klebsiella bacteremia 03/2015 meds vancomycin 1.25gm IV daily, # 4 Microbiology 11/28 blood culture 1 set: NGTD 11/29 blood culture 1 set: NGTD 11/29 wound culture from elbow and forearm: MRSA Subjective: no diarrhea no pain Objective: Vital Signs Temp Pulse Resp BP Pulse Ox 36.6 C 102 H 16 192/118 H 89 L 12/01/16 12:00 12/01/16 15:05 12/01/16 12:00 12/01/16 12:00 12/01/16 15:05 Microbiology 11/29/16 17:00 Gram Stain - Final Arm - Swab Wound Culture - Final MRSA 11/29/16 17:00 Gram Stain - Final Arm - Swab Wound Culture - Final MRSA Laboratory Results 12/01/16 07:35 12/01/16 08:35 11/30/16 12/01/16 12/02/16 05:59 05:59 05:59 Intake Total 2487 2142 Output Total 900 2950 875 Balance 1587 -808 -875 AF General Appearance: alert, no apparent distress, obese EENT: pale conjunctiva, No scleral icterus Respiratory: shallow inspiratory effort, no crackles, No accessory muscle use Neck: supple Cardiac/Chest: regular rate, rhythm Extremities: pedal edema, massive soft swelling left upper extremity, circumferentially, intensity of erythema stable; right upper extremity also mildly swollen with extensive ecchymosis related to bruising from heparin Abdomen: non-tender, soft Skin: erythema LUE, No embolic lesions Neuro/Psych: alert, normal mood/affect, oriented x 3 RUE PICC No drainage, No erythema ICD10 Worksheet Patient Problems: Problems Problem Status Onset Cellulitis Acute Acute renal failure Acute C. difficile diarrhea Acute 03/01/15 Decubitus ulcer of buttock Acute Dehydration Acute ESBL (extended spectrum beta-lactamase) producing bacteria infection Acute Hypertensive urgency Acute Hyponatremia Acute Hypoxemia Acute Palliative care encounter Acute UTI (urinary tract infection) Acute Weakness Acute Adrenal insufficiency Chronic Chronic pain Chronic Diabetes Chronic Hypertension Chronic Hypothyroid Chronic
[2016-12-01] MEDS ORDERED: hydrALAZINE 20 MG/ML VIAL IVP ONE ×2 (16:05)
[2016-12-01] MEDS ORDERED: LOSARTAN POTASSIUM 50 MG TAB PO SCH ×4 (16:09→17:00)
[2016-12-01] MEDS ORDERED: hydrALAZINE 25 MG TAB PO PRN (16:14)
[2016-12-01] MEDS ORDERED: hydrALAZINE 25 MG TAB PO SCH (16:15)
[2016-12-01] MEDS: MULTIVITAMINS 1 EACH TAB PO SCH (17:16)
[2016-12-01] MEDS: amLODIPine BESYLATE 5 MG TAB PO SCH (17:16)
[2016-12-01] MEDS: MONTELUKAST SODIUM 10 MG TAB PO SCH (17:18)
[2016-12-01] MEDS: METHOCARBAMOL 750 MG TAB PO PRN ×2 (18:25→23:17)
[2016-12-02] MEDS: traMADol 50 MG TAB PO PRN ×3 (04:14→23:35)
[2016-12-02 04:29] LABS: ADD DIFF? YES; ADD MORPH? NO; ADD SCAN? NO; ATYPICAL LYMPHOCYTE FLAG 0 (0-99); FRAGMENT RBC FLAG 0 (0-99); HEMATOCRIT 31.9 % (38.0-47.0); HEMOGLOBIN 10.4 g/dL (12.6-16.3); LEFT SHIFT FLG 50 (0-99); LIPEMIA HEMOLYSIS FLAG 80 (0-99); MEAN CELL HEMOGLOBIN 28.5 pg (27.9-34.1); MEAN CELL HEMOGLOBIN CONCENTR. 32.6 g/dL (32.4-36.7); MEAN CELL VOLUME 87.4 fL (81.5-99.8); MEAN PLATELET VOLUME 11.2 fL (8.7-11.7); PLATELET CLUMPS FLAG 0 (0-99); PLATELET COUNT 144 10^3/uL (150-400); RED BLOOD CELL COUNT 3.65 10^6/uL (4.18-5.33); RED CELL DISTRIBUTION WIDTH 14.4 % (11.5-15.2)
[2016-12-02 04:39] LABS: INR 1.21 (0.83-1.16); PROTIME(PATIENT) 15.3 SEC (12.0-15.0)
[2016-12-02 04:42] LABS: ANION GAP 9 mEq/L (8-16); CALCIUM 8.1 mg/dL (8.5-10.4); CARBON DIOXIDE 21 mEq/l (22-31); CHLORIDE 99 mEq/L (97-110); GLOMERULAR FILTRATION RATE 53; GLUCOSE 202 mg/dL (70-100); POTASSIUM 3.8 mEq/L (3.5-5.2); SODIUM 129 mEq/L (134-144)
[2016-12-02 05:07] LABS: PLATELET ESTIMATE ADEQUATE (ADEQ)
[2016-12-02] MEDS: LEVOTHYROXINE 100 MCG TAB PO SCH (06:26)
[2016-12-02] MEDS ORDERED: amLODIPine BESYLATE 5 MG TAB PO SCH ×2 (08:48→10:49)
--- NOTE | 2016-12-02 08:52 | HOSPPROG ---
Hospitalist Progress Note Assessment/Plan: #LUE cellulitis: ID following. Cont IV Vanc. Negative blood culture #LUE swelling: repeat U/S does not show clot progression. Radial pulse by doppler, good cap refill. She denies pain, numbness over hand. Monitor closely. She has not been elevated properly; cont this #ALPHONSE on CKD: Cr 1.0, at baseline #Back spasm: apply warm compress, low-dose Flexeril #Thrombocytopenia: improved. Monitor closely #Left IJ thrombosis: bridging with heparin gtt/coumadin #RUE hematoma: stable #Accelerated HTN: resume home Losartan. Increase Norvasc to 10mg. PRN hydral #Hypothyroidism: LT4 #h/o diastolic dysfunction: on TTE 2014. May add low-dose Lasix, but want to monitor Cr with Losartan first #Type 2 DM: SSI #Chronic Stage 4 decubitus ulcer: s/p flap #Pyuria: negative culture #Diet: diabetic #DVT ppx: heparin gtt #Disp: will warrant SNF at [place], awaiting approval once medically clear Subjective: no pain in left arm, hand. No numbness, tingling. Objective: Vital Signs Temp Pulse Resp BP Pulse Ox 36.9 C 102 H 14 190/131 H 93 12/02/16 08:00 12/02/16 08:00 12/02/16 08:00 12/02/16 08:00 12/02/16 08:00 Microbiology 11/29/16 17:00 Gram Stain - Final Arm - Swab Wound Culture - Final MRSA 11/29/16 17:00 Gram Stain - Final Arm - Swab Wound Culture - Final MRSA Laboratory Results 12/02/16 04:05 12/02/16 04:05 12/01/16 12/02/16 12/03/16 05:59 05:59 05:59 Intake Total 2142 630 Output Total 2950 1975 Balance -808 -1345 PT 15.3 SEC (12.0-15.0) H 12/02/16 04:05 INR 1.21 (0.83-1.16) H 12/02/16 04:05 - Physical Exam Constitutional: no apparent distress, obese Eyes: PERRL, other (conjunctival red) Ears, Nose, Mouth, Throat: moist mucous membranes Cardiovascular: regular rate and rhythym Respiratory: no respiratory distress Gastrointestinal: normoactive bowel sounds Genitourinary: no bladder fullness Skin: warm Musculoskeletal: other (massive LUE swelling in arm and hand. Normal sensation to touch, no numbess. Palpa) Neurologic: AAOx3, CN II-XII Intact Psychiatric: interacting appropriately ICD10 Worksheet Patient Problems: Problems Problem Status Onset Cellulitis Acute Acute renal failure Acute C. difficile diarrhea Acute 03/01/15 Decubitus ulcer of buttock Acute Dehydration Acute ESBL (extended spectrum beta-lactamase) producing bacteria infection Acute Hypertensive urgency Acute Hyponatremia Acute Hypoxemia Acute Palliative care encounter Acute UTI (urinary tract infection) Acute Weakness Acute Adrenal insufficiency Chronic Chronic pain Chronic Diabetes Chronic Hypertension Chronic Hypothyroid Chronic
[2016-12-02] MEDS ORDERED: LOSARTAN POTASSIUM 50 MG TAB PO SCH (09:00)
[2016-12-02] MEDS: PREGABALIN 75 MG CAP PO SCH ×2 (09:00→20:15)
[2016-12-02] MEDS: CYANO/VITAMIN B12 1000 MCG TAB PO SCH (09:32)
[2016-12-02] MEDS: CHOLECALCIFEROL VIT D3 1,000 UNITS TAB PO SCH (09:32)
[2016-12-02] MEDS: METOPROLOL TARTRATE 25 MG TAB PO SCH ×2 (09:33→20:16)
[2016-12-02] MEDS: PRESERVISION AREDS2 FORMULA EYE VIT 1 EACH PO SCH ×2 (09:37→20:15)
[2016-12-02] MEDS: HYDROCORTISONE 10 MG TAB PO SCH ×2 (09:40→20:15)
[2016-12-02] MEDS: LOSARTAN POTASSIUM 50 MG TAB PO SCH (09:41)
[2016-12-02] MEDS: METHOCARBAMOL 750 MG TAB PO PRN ×3 (10:42→20:16)
[2016-12-02] MEDS: FLUTICASONE NASAL 120 SPRAYS/16 GM MDI EACHNARE SCH (10:42)
[2016-12-02] MEDS: RABEPRAZOLE SODIUM 20 MG PO SCH ×2 (10:42→20:18)
[2016-12-02 11:37] LABS: HEMOGLOBIN A1C 6.9 % (4.0-6.0)
[2016-12-02] MEDS: SALMETEROL IH SCH ×2 (12:10→21:05)
[2016-12-02] MEDS: FLUTICASONE IH SCH ×2 (12:10→21:05)
[2016-12-02] MEDS: VANCOMYCIN 1.25 GM in D5W 250 ML IV SCH ×2 (12:36→14:19)
[2016-12-02] MEDS: HEPARIN/DEXTROSE 500 ML IV SCH (13:24)
[2016-12-02] MEDS: CYCLOBENZAPRINE 10 MG TAB PO PRN ×2 (15:19→23:36)
[2016-12-02] MEDS: MULTIVITAMINS 1 EACH TAB PO SCH (17:09)
[2016-12-02] MEDS: MONTELUKAST SODIUM 10 MG TAB PO SCH (17:09)
[2016-12-02] MEDS ORDERED: amLODIPine BESYLATE 5 MG TAB PO ONE (17:16)
[2016-12-02] MEDS ORDERED: hydrALAZINE 20 MG/ML VIAL IVP PRN (17:23)
--- NOTE | 2016-12-02 18:48 | PCMIDPN ---
Assessment/Plan: Assessment: Left upper extremity cellulitis with clot. MRSA cultured from left arm/elbow wound. Covering with vancomycin monotherapy. Patient relates arm is decreasing in size. Will continue the vancomycin monotherapy and observe clinical change. Plan: 1. Continue vancomycin IV monotherapy at current dose. 2. Follow-up appearance of left upper extremity. 12/02/16 18:46 Subjective: Patient resting in her hospital chair. Her left arm is propped up on pillows. She denies any fevers or chills. Appears to be tolerating vancomycin without issue. Patient believes that her left arm is smaller than yesterday. Still with discomfort in the appendage. Objective: Vancomycin # 4 Vital Signs Temp Pulse Resp BP Pulse Ox 37.1 C 103 H 12 165/95 H 96 12/02/16 16:00 12/02/16 16:00 12/02/16 16:00 12/02/16 18:01 12/02/16 16:00 Laboratory Results 12/02/16 04:05 12/02/16 04:05 12/01/16 12/02/16 12/03/16 05:59 05:59 05:59 Intake Total 2142 630 Output Total 2950 [facility] Balance -808 1345 - Physical Exam General Appearance: WD/WN, alert, no apparent distress, non-toxic Respiratory: lungs clear, normal breath sounds, No respiratory distress Cardiac/Chest: regular rate, rhythm, No tachycardia Extremities: inflammation, erythema, No non-tender (Left upper extremity), No normal inspection (Left upper extremity with edema and erythema), No necrosis Skin: normal color, warm/dry, No rash Neuro/Psych: alert, normal mood/affect, oriented x 3 ICD10 Worksheet Patient Problems: Problems Problem Status Onset Cellulitis Acute Acute renal failure Acute C. difficile diarrhea Acute 03/01/15 Decubitus ulcer of buttock Acute Dehydration Acute ESBL (extended spectrum beta-lactamase) producing bacteria infection Acute Hypertensive urgency Acute Hyponatremia Acute Hypoxemia Acute Palliative care encounter Acute UTI (urinary tract infection) Acute Weakness Acute Adrenal insufficiency Chronic Chronic pain Chronic Diabetes Chronic Hypertension Chronic Hypothyroid Chronic
[2016-12-02 19:47] LABS: COLOR YELLOW; LEUKOCYTE ESTERASE,URINE NEGATIVE (NEGATIVE); NITRITE,URINE NEGATIVE (NEGATIVE)
[2016-12-02 20:02] LABS: BACTERIA 2+ /hpf (NONE SEEN); MUCUS TRACE /lpf (NONE-1+)
[2016-12-02] MEDS: hydrALAZINE 25 MG TAB PO PRN (20:16)
[2016-12-03] MEDS: LEVOTHYROXINE 100 MCG TAB PO SCH (05:03)
[2016-12-03] MEDS: HEPARIN/DEXTROSE 500 ML IV SCH (05:13)
[2016-12-03 05:26] LABS: ADD DIFF? YES; ADD MORPH? NO; ADD SCAN? NO; ATYPICAL LYMPHOCYTE FLAG 0 (0-99); FRAGMENT RBC FLAG 0 (0-99); HEMATOCRIT 30.2 % (38.0-47.0); LEFT SHIFT FLG 40 (0-99); LIPEMIA HEMOLYSIS FLAG 80 (0-99); MEAN CELL HEMOGLOBIN 28.3 pg (27.9-34.1); MEAN CELL HEMOGLOBIN CONCENTR. 33.1 g/dL (32.4-36.7); MEAN CELL VOLUME 85.6 fL (81.5-99.8); MEAN PLATELET VOLUME 11.4 fL (8.7-11.7); PLATELET CLUMPS FLAG 10 (0-99); PLATELET COUNT 137 10^3/uL (150-400); RED BLOOD CELL COUNT 3.53 10^6/uL (4.18-5.33); RED CELL DISTRIBUTION WIDTH 14.1 % (11.5-15.2)
[2016-12-03 05:55] LABS: ANION GAP 8 mEq/L (8-16); CALCIUM 7.9 mg/dL (8.5-10.4); CARBON DIOXIDE 21 mEq/l (22-31); CHLORIDE 95 mEq/L (97-110); GLOMERULAR FILTRATION RATE 53; GLUCOSE 201 mg/dL (70-100); POTASSIUM 3.8 mEq/L (3.5-5.2); SODIUM 124 mEq/L (134-144)
[2016-12-03 06:23] LABS: INR 1.15 (0.83-1.16); PROTIME(PATIENT) 14.6 SEC (12.0-15.0)
[2016-12-03 06:36] LABS: PLATELET ESTIMATE ADEQUATE (ADEQ)
[2016-12-03] MEDS: HEPARIN 10,000 UNIT/10 ML MDV IVP PRN ×2 (07:08→14:57)
[2016-12-03] MEDS: PRESERVISION AREDS2 FORMULA EYE VIT 1 EACH PO SCH ×2 (09:00→21:02)
[2016-12-03] MEDS: CHOLECALCIFEROL VIT D3 1,000 UNITS TAB PO SCH (09:00)
[2016-12-03] MEDS: CYANO/VITAMIN B12 1000 MCG TAB PO SCH (09:01)
[2016-12-03] MEDS: METOPROLOL TARTRATE 25 MG TAB PO SCH ×2 (09:01→21:02)
[2016-12-03] MEDS: LOSARTAN POTASSIUM 50 MG TAB PO SCH (09:01)
[2016-12-03] MEDS: hydrALAZINE 25 MG TAB PO PRN (09:01)
[2016-12-03] MEDS: PREGABALIN 75 MG CAP PO SCH ×2 (09:02→21:02)
[2016-12-03] MEDS: HYDROCORTISONE 10 MG TAB PO SCH ×2 (09:02→21:02)
[2016-12-03] MEDS: FLUTICASONE NASAL 120 SPRAYS/16 GM MDI EACHNARE SCH (09:06)
[2016-12-03] MEDS: RABEPRAZOLE SODIUM 20 MG PO SCH ×2 (09:08→21:04)
[2016-12-03] MEDS ORDERED: FUROSEMIDE 20 MG/2 ML VIAL IVP ONE (09:15)
--- NOTE | 2016-12-03 10:10 | HOSPPROG ---
Hospitalist Progress Note Assessment/Plan: #LUE cellulitis: ID following. Cont IV Vanc. Negative blood culture #LUE swelling: repeat U/S does not show clot progression. Thrombolysis not indicated. Radial pulse by doppler, good cap refill. She denies pain, numbness over hand. Monitor closely. She has not been elevated properly -risk of lymphedema with obesity.No prior breast cancer. Can DC with lymphedema PT at [facility] -consider CTA to eval for other anatomical changes, but concerned with kidney function and diuresing. RE-eval in morning #ALPHONSE on CKD: Cr 1.0, at baseline #Leukocytosis: down to 18. Suspect inflammation. Repeat UA NL #Back spasm: apply warm compress, low-dose Flexeril #Thrombocytopenia: stable Monitor closely #Left IJ thrombosis: bridging with heparin gtt/coumadin #RUE hematoma: stable #Accelerated HTN: resume home Losartan. Increase Norvasc to 10mg. PRN hydral #Hypothyroidism: LT4 #h/o diastolic dysfunction: on TTE 2014. May add low-dose Lasix, but want to monitor Cr with Losartan first #Type 2 DM: SSI #Chronic Stage 4 decubitus ulcer: s/p flap #Pyuria: negative culture #Diet: diabetic #DVT ppx: heparin gtt #Disp: will warrant SNF at [place], awaiting approval once medically clear Subjective: pain under right breast. No pain/numbness in left arm Objective: Vital Signs Temp Pulse Resp BP Pulse Ox 36.7 C 95 18 174/136 H 93 12/03/16 07:53 12/03/16 07:53 12/03/16 07:53 12/03/16 07:53 12/03/16 07:53 Laboratory Results 12/03/16 05:00 12/03/16 05:00 12/02/16 12/03/16 12/04/16 05:59 05:59 05:59 Intake Total 630 300 Output Total 1975 1200 Balance -1345 -900 PT 14.6 SEC (12.0-15.0) 12/03/16 05:00 INR 1.15 (0.83-1.16) 12/03/16 05:00 - Physical Exam Constitutional: no apparent distress, obese Eyes: PERRL Ears, Nose, Mouth, Throat: moist mucous membranes Cardiovascular: regular rate and rhythym, no murmur, rub, or gallop, edema (+2- 3 edema to knees) Respiratory: no respiratory distress, no rales or rhonchi Gastrointestinal: normoactive bowel sounds, soft, non-tender abdomen Genitourinary: no bladder fullness Musculoskeletal: other (LUE with massive swelling, no pain, normal sensation. Erythema to shoulder. Elbow ulcer healing with small amount purulence. RUE with PICC, extensive brusing) Neurologic: AAOx3 Psychiatric: interacting appropriately ICD10 Worksheet Patient Problems: Problems Problem Status Onset Cellulitis Acute MRSA (methicillin resistant Staphylococcus aureus) Acute ~11/29/16 Acute renal failure Acute C. difficile diarrhea Acute 03/01/15 Decubitus ulcer of buttock Acute Dehydration Acute ESBL (extended spectrum beta-lactamase) producing bacteria infection Acute Hypertensive urgency Acute Hyponatremia Acute Hypoxemia Acute Palliative care encounter Acute UTI (urinary tract infection) Acute Weakness Acute Adrenal insufficiency Chronic Chronic pain Chronic Diabetes Chronic Hypertension Chronic Hypothyroid Chronic
[2016-12-03] MEDS: SALMETEROL IH SCH ×2 (10:23→20:11)
[2016-12-03] MEDS: FLUTICASONE IH SCH ×2 (10:23→20:11)
--- NOTE | 2016-12-03 10:49 | WOCRNPDOC ---
WOCRN Advanced Assessment Note - Skin Integrity Problem, Advanced Assess Left Elbow Abrasion Dressing Type: Allevyn Life Dressing Description: Clean/Dry, Intact Exudate Amount: Scant Exudate Color: Yellow Exudate Characteristic(s): Cloudy, Thick Integumentary Issue Intervention: Dressing Changed Jordana Wound Tissue: Erythema Wound Bed Color: Yellow Wound Bed Constitution: Loose Slough (100%) Wound Edges: Not Attached Skin Integrity Problem Comment: Moderately adhered slough mechanically debrided with gauze to a clean wound bed. It revealed 50% granular tissue and 50% red non granular tissue. Silvasorb applied and recovered with Alleyvn life. Wound care will round again Wednesday 12/06.
--- NOTE | 2016-12-03 12:09 | PCMIDPN ---
Assessment/Plan: Assessment/Plan: 1. LUE cellulitis with elbow wound secondary to MRSA - Also with IJV clot. ? septic thrombus -Currently on vanco, trough at 9.4. Will slightly increase dose to 1.5gm daily with f/u trough on Friday. -blood cx on and 11/29 ngtd -Continue LUE elevation -Still quite erythematous med vanco 1.25 daily. Subjective: afebrile. Left arm locks tender and red, and swollen. denies sob, abd pain or diarrhea. Objective: Vital Signs Temp Pulse Resp BP Pulse Ox 36.7 C 94 18 174/136 H 93 12/03/16 07:53 12/03/16 10:22 12/03/16 10:22 12/03/16 07:53 12/03/16 10:22 Laboratory Results 12/03/16 05:00 12/03/16 05:00 12/02/16 12/03/16 12/04/16 05:59 05:59 05:59 Intake Total 630 300 Output Total 1975 1200 400 Balance -1345 -900 -400 - Physical Exam General Appearance: alert, no apparent distress Respiratory: lungs clear Cardiac/Chest: regular rate, rhythm Extremities: swelling Abdomen: normal bowel sounds, non-tender, soft, No distended Skin: erythema (LLE: still quite swollen and erythematous. warmth also. wound on elbow noted, wiht slough and some drainage.) ICD10 Worksheet Patient Problems: Problems Problem Status Onset Cellulitis Acute MRSA (methicillin resistant Staphylococcus aureus) Acute ~11/29/16 Acute renal failure Acute C. difficile diarrhea Acute 03/01/15 Decubitus ulcer of buttock Acute Dehydration Acute ESBL (extended spectrum beta-lactamase) producing bacteria infection Acute Hypertensive urgency Acute Hyponatremia Acute Hypoxemia Acute Palliative care encounter Acute UTI (urinary tract infection) Acute Weakness Acute Adrenal insufficiency Chronic Chronic pain Chronic Diabetes Chronic Hypertension Chronic Hypothyroid Chronic
[2016-12-03] MEDS: VANCOMYCIN 1.5 GM in D5W 250 ML IV SCH (12:20)
[2016-12-03 14:16] LABS: ANION GAP 11 mEq/L (8-16); CALCIUM 8.2 mg/dL (8.5-10.4); CARBON DIOXIDE 22 mEq/l (22-31); CHLORIDE 91 mEq/L (97-110); CREATININE 1.1 mg/dL (0.6-1.0); GLOMERULAR FILTRATION RATE 48; GLUCOSE 214 mg/dL (70-100); POTASSIUM 3.7 mEq/L (3.5-5.2); SODIUM 124 mEq/L (134-144)
[2016-12-03] MEDS: amLODIPine BESYLATE 5 MG TAB PO SCH (17:33)
[2016-12-03] MEDS: MONTELUKAST SODIUM 10 MG TAB PO SCH (17:33)
[2016-12-03] MEDS: MULTIVITAMINS 1 EACH TAB PO SCH (17:33)
[2016-12-03] MEDS: traMADol 50 MG TAB PO PRN (23:19)
[2016-12-03] MEDS: CYCLOBENZAPRINE 10 MG TAB PO PRN (23:19)
[2016-12-04] MEDS: METHOCARBAMOL 750 MG TAB PO PRN ×2 (03:48→18:34)
[2016-12-04] MEDS: ACETAMINOPHEN 325 MG TAB PO PRN ×4 (03:48→23:00)
[2016-12-04] MEDS: LEVOTHYROXINE 100 MCG TAB PO SCH (05:15)
[2016-12-04 05:40] LABS: ADD DIFF? YES; ADD MORPH? NO; ADD SCAN? NO; ATYPICAL LYMPHOCYTE FLAG 0 (0-99); FRAGMENT RBC FLAG 0 (0-99); HEMATOCRIT 28.4 % (38.0-47.0); HEMOGLOBIN 9.4 g/dL (12.6-16.3); LEFT SHIFT FLG 40 (0-99); LIPEMIA HEMOLYSIS FLAG 80 (0-99); MEAN CELL HEMOGLOBIN 28.4 pg (27.9-34.1); MEAN CELL HEMOGLOBIN CONCENTR. 33.1 g/dL (32.4-36.7); MEAN CELL VOLUME 85.8 fL (81.5-99.8); PLATELET CLUMPS FLAG 10 (0-99); PLATELET COUNT 153 10^3/uL (150-400); RED BLOOD CELL COUNT 3.31 10^6/uL (4.18-5.33); RED CELL DISTRIBUTION WIDTH 14.1 % (11.5-15.2)
[2016-12-04 05:59] LABS: ANION GAP 9 mEq/L (8-16); CALCIUM 7.9 mg/dL (8.5-10.4); CARBON DIOXIDE 23 mEq/l (22-31); CHLORIDE 91 mEq/L (97-110); CREATININE 1.1 mg/dL (0.6-1.0); GLOMERULAR FILTRATION RATE 48; GLUCOSE 282 mg/dL (70-100); POTASSIUM 3.3 mEq/L (3.5-5.2); SODIUM 123 mEq/L (134-144)
[2016-12-04 06:21] LABS: PLATELET ESTIMATE ADEQUATE (ADEQ)
--- NOTE | 2016-12-04 08:43 | HOSPPROG ---
Hospitalist Progress Note Assessment/Plan: #Left IJ thrombosis: renal fxn ok to change to Lovenox. Add back Coumadin since RUE hematoma improved. #Right axillary pain: suspect misk, but eval with U/S #Hyponatremia: I spoke with Dr. Gaming who rec further fluid restrict to 1000ml, change to Lovenox to cut extra IVFs with hep gtt, glucerna for solute. Repeat BPM #LUE swelling/cellulitis: improving. Repeat U/S shows stable clot.besity. No prior breast cancer. Can DC with lymphedema PT at [place]. Cont IV Vanc. #ALPHONSE on CKD: Cr 1.1, at baseline #Leukocytosis: down to 14. Suspect inflammation. Repeat UA NL #Volume overload: trial PO Lasix, but have to be cautious with kidney function #Back spasm: improved with dose Flexeril #Thrombocytopenia: resolved #RUE hematoma: stable, restart Coumadin today #Accelerated HTN: resume home Losartan. Increase Norvasc to 10mg. PRN hydral #Hypothyroidism: LT4 #h/o diastolic dysfunction: on TTE 2014. BB, Losartan #Type 2 DM: SSI #Chronic Stage 4 decubitus ulcer: s/p flap #Pyuria: negative culture #Diet: diabetic #DVT ppx: heparin gtt #Disp: will warrant SNF at [place], awaiting approval once medically clear Subjective: pain in right axilla, none in left arm Objective: Vital Signs Temp Pulse Resp BP Pulse Ox 36.6 C 88 18 171/97 H 93 12/04/16 07:47 12/04/16 07:47 12/04/16 07:47 12/04/16 07:47 12/04/16 07:47 Microbiology 12/02/16 13:41 Urine Culture - Final Urine,Clean Catch Escherichia Coli Gram Neg Paolo Nonlactose Ferm. Laboratory Results 12/04/16 05:25 12/04/16 05:25 12/03/16 12/04/16 12/05/16 05:59 05:59 05:59 Intake Total 300 957 Output Total 1200 2550 200 Balance -900 -1593 -200 PT 14.6 SEC (12.0-15.0) 12/03/16 05:00 INR 1.15 (0.83-1.16) 12/03/16 05:00 - Physical Exam Constitutional: obese Eyes: PERRL Ears, Nose, Mouth, Throat: moist mucous membranes, hearing normal Cardiovascular: regular rate and rhythym, edema (+3 LE) Respiratory: no respiratory distress, no rales or rhonchi Gastrointestinal: normoactive bowel sounds, soft, non-tender abdomen Genitourinary: no bladder fullness Musculoskeletal: other (left hand swelling nearly resolved and down in rest of arm. Still with erythema. Elbow ulcer healing. RUE hematoma improved, soft, not tense. No axillary rash, warmth or TTP) Neurologic: AAOx3 Psychiatric: interacting appropriately ICD10 Worksheet Patient Problems: Problems Problem Status Onset Cellulitis Acute MRSA (methicillin resistant Staphylococcus aureus) Acute ~11/29/16 Acute renal failure Acute C. difficile diarrhea Acute 03/01/15 Decubitus ulcer of buttock Acute Dehydration Acute ESBL (extended spectrum beta-lactamase) producing bacteria infection Acute Hypertensive urgency Acute Hyponatremia Acute Hypoxemia Acute Palliative care encounter Acute UTI (urinary tract infection) Acute Weakness Acute Adrenal insufficiency Chronic Chronic pain Chronic Diabetes Chronic Hypertension Chronic Hypothyroid Chronic
[2016-12-04] MEDS ORDERED: D50W 25 GM/50 ML SYR IVP PRN ×2 (08:46→09:40)
[2016-12-04] MEDS ORDERED: D10W 250 ML PRN HYPOGLYCEMIA IV (09:00)
[2016-12-04] MEDS: SALMETEROL IH SCH ×2 (09:21→21:37)
[2016-12-04] MEDS: FLUTICASONE IH SCH ×2 (09:21→21:37)
[2016-12-04] MEDS: CYCLOBENZAPRINE 10 MG TAB PO PRN (09:56)
[2016-12-04] MEDS: PREGABALIN 75 MG CAP PO SCH ×2 (09:57→20:12)
[2016-12-04 10:17] LABS: INR 1.08 (0.83-1.16); PROTIME(PATIENT) 13.9 SEC (12.0-15.0)
[2016-12-04] MEDS: METOPROLOL TARTRATE 25 MG TAB PO SCH ×2 (10:19→20:12)
[2016-12-04] MEDS: PRESERVISION AREDS2 FORMULA EYE VIT 1 EACH PO SCH ×2 (10:19→20:12)
[2016-12-04] MEDS: CHOLECALCIFEROL VIT D3 1,000 UNITS TAB PO SCH (10:19)
[2016-12-04] MEDS: CYANO/VITAMIN B12 1000 MCG TAB PO SCH (10:20)
[2016-12-04] MEDS: HYDROCORTISONE 10 MG TAB PO SCH ×2 (10:20→20:12)
[2016-12-04] MEDS: FLUTICASONE NASAL 120 SPRAYS/16 GM MDI EACHNARE SCH (10:22)
[2016-12-04] MEDS: RABEPRAZOLE SODIUM 20 MG PO SCH ×2 (10:23→20:13)
[2016-12-04] MEDS ORDERED: POLYETHYLENE GLYCOL 3350 17 GM PKT PO PRN (10:26)
[2016-12-04] MEDS ORDERED: BISACODYL 10 MG SUPP PR PRN (10:26)
[2016-12-04] MEDS ORDERED: LACTULOSE 20 GM/30 ML UDCUP PO PRN (10:26)
[2016-12-04] MEDS ORDERED: MAGNESIUM HYDROXIDE 30 ML UDCUP PO PRN (10:26)
--- NOTE | 2016-12-04 11:31 | PCMIDPN ---
Assessment/Plan: # LUE Cellulitis secondary to MRSA, wound on elbow likely portal and simultaneous left internal jugular thrombosis. LUE still quite swollen but improved compared to my exam 2 days ago. Cr slightly up at 1.1 today. WBC trending down - generally better! --vancomycin increased slightly yesterday for T 9.4 --monitor Cr closely, planned labs tomorrow --follow up on US # flap closure of a stage IV pressure injury last year - remains healed # klebsiella bacteremia 03/2015 meds vancomycin 1.5gm IV daily, # 6 Microbiology 11/28 blood culture 1 set: NGTD 11/29 blood culture 1 set: NGTD 11/29 wound culture from elbow and forearm: MRSA Subjective: patient denies pain LUE no diarrhea Objective: Vital Signs Temp Pulse Resp BP Pulse Ox 36.6 C 88 18 171/97 H 93 12/04/16 07:47 12/04/16 07:47 12/04/16 07:47 12/04/16 07:47 12/04/16 07:47 Microbiology 12/02/16 13:41 Urine Culture - Final Urine,Clean Catch Escherichia Coli Gram Neg Paolo Nonlactose Ferm. Laboratory Results 12/04/16 05:25 12/04/16 05:25 12/03/16 12/04/16 12/05/16 05:59 05:59 05:59 Intake Total 300 957 640 Output Total 1200 2550 350 Balance -900 -1593 290 Gen pleasant elderly woman NAD o/p no lesions CV: RRR Chest: clear, poor inspiratory effort Abd: soft NT, obese RUE PICC LUE swelling but with some wrinkling still erythematous but less intense, more intense under her upper arm no tenderness to palpation, soft, ROM shoulder and wrist intact. Wound L elbow with less drainage ICD10 Worksheet Patient Problems: Problems Problem Status Onset Cellulitis Acute MRSA (methicillin resistant Staphylococcus aureus) Acute ~11/29/16 Acute renal failure Acute C. difficile diarrhea Acute 03/01/15 Decubitus ulcer of buttock Acute Dehydration Acute ESBL (extended spectrum beta-lactamase) producing bacteria infection Acute Hypertensive urgency Acute Hyponatremia Acute Hypoxemia Acute Palliative care encounter Acute UTI (urinary tract infection) Acute Weakness Acute Adrenal insufficiency Chronic Chronic pain Chronic Diabetes Chronic Hypertension Chronic Hypothyroid Chronic
[2016-12-04] MEDS: ENOXAPARIN 80 MG/0.8 ML SYR SC SCH ×2 (13:09→20:13)
[2016-12-04] MEDS: VANCOMYCIN 1.5 GM in D5W 250 ML IV SCH (13:12)
[2016-12-04] MEDS: INSULIN LISPRO 100 UNIT/ML SC SCH ×2 (14:36→16:57)
[2016-12-04] MEDS: traMADol 50 MG TAB PO PRN ×2 (16:55→22:48)
[2016-12-04] MEDS: amLODIPine BESYLATE 5 MG TAB PO SCH (16:58)
[2016-12-04] MEDS: MONTELUKAST SODIUM 10 MG TAB PO SCH (16:59)
[2016-12-04] MEDS: MULTIVITAMINS 1 EACH TAB PO SCH (16:59)
[2016-12-04] MEDS: WARFARIN SODIUM 5 MG TAB PO SCH (17:00)
[2016-12-04] MEDS: SENNOSIDES/DOCUSATE SODIUM TAB PO SCH (20:12)
[2016-12-04] MEDS ORDERED: oxyCODONE IR 5 MG TAB PO PRN (21:10)
[2016-12-05] MEDS: LEVOTHYROXINE 100 MCG TAB PO SCH (05:39)
[2016-12-05] MEDS: traMADol 50 MG TAB PO PRN ×2 (05:40→15:47)
[2016-12-05 06:02] LABS: HEMATOCRIT 32.2 % (38.0-47.0); HEMOGLOBIN 10.6 g/dL (12.6-16.3); MEAN CELL HEMOGLOBIN 28.2 pg (27.9-34.1); MEAN CELL HEMOGLOBIN CONCENTR. 32.9 g/dL (32.4-36.7); MEAN CELL VOLUME 85.6 fL (81.5-99.8); RED BLOOD CELL COUNT 3.76 10^6/uL (4.18-5.33); RED CELL DISTRIBUTION WIDTH 13.9 % (11.5-15.2)
[2016-12-05 06:12] LABS: INR 1.25 (0.83-1.16); PROTIME(PATIENT) 15.7 SEC (12.0-15.0)
[2016-12-05 06:13] LABS: ANION GAP 10 mEq/L (8-16); CALCIUM 9.1 mg/dL (8.5-10.4); CARBON DIOXIDE 24 mEq/l (22-31); CHLORIDE 95 mEq/L (97-110); CREATININE 1.2 mg/dL (0.6-1.0); GLOMERULAR FILTRATION RATE 43; GLUCOSE 159 mg/dL (70-100); POTASSIUM 3.5 mEq/L (3.5-5.2); SODIUM 129 mEq/L (134-144)
[2016-12-05] MEDS: hydrALAZINE 25 MG TAB PO PRN ×2 (09:27→16:33)
[2016-12-05] MEDS: CYANO/VITAMIN B12 1000 MCG TAB PO SCH (09:28)
[2016-12-05] MEDS: HYDROCORTISONE 10 MG TAB PO SCH ×2 (09:28→20:54)
[2016-12-05] MEDS: METOPROLOL TARTRATE 25 MG TAB PO SCH ×2 (09:28→09:33)
[2016-12-05] MEDS: CHOLECALCIFEROL VIT D3 1,000 UNITS TAB PO SCH (09:28)
[2016-12-05] MEDS: FLUTICASONE IH SCH ×2 (09:28→21:36)
[2016-12-05] MEDS: SALMETEROL IH SCH ×2 (09:28→21:36)
[2016-12-05] MEDS: SENNOSIDES/DOCUSATE SODIUM TAB PO SCH ×2 (09:30→20:54)
[2016-12-05] MEDS: PRESERVISION AREDS2 FORMULA EYE VIT 1 EACH PO SCH ×2 (09:30→20:53)
[2016-12-05] MEDS: ENOXAPARIN 80 MG/0.8 ML SYR SC SCH ×2 (09:31→20:56)
[2016-12-05] MEDS: INSULIN LISPRO 100 UNIT/ML SC SCH ×3 (09:31→16:28)
[2016-12-05] MEDS: FLUTICASONE NASAL 120 SPRAYS/16 GM MDI EACHNARE SCH (09:45)
[2016-12-05] MEDS: PREGABALIN 75 MG CAP PO SCH ×2 (09:46→20:54)
[2016-12-05] MEDS: RABEPRAZOLE SODIUM 20 MG PO SCH ×2 (09:47→21:01)
[2016-12-05] MEDS ORDERED: VANCOMYCIN 1.25 GM in D5W 250 ML IV SCH (12:30)
[2016-12-05 12:40] LABS: ANION GAP 8 mEq/L (8-16); CALCIUM 9.2 mg/dL (8.5-10.4); CARBON DIOXIDE 26 mEq/l (22-31); CHLORIDE 94 mEq/L (97-110); CREATININE 1.2 mg/dL (0.6-1.0); GLOMERULAR FILTRATION RATE 43; GLUCOSE 161 mg/dL (70-100); POTASSIUM 3.5 mEq/L (3.5-5.2); SODIUM 128 mEq/L (134-144)
--- NOTE | 2016-12-05 13:11 | HOSPPROG ---
Hospitalist Progress Note Assessment/Plan: #Volume overload: multifactorial with diastolic HF, proteinuria. Now auto- diuresing (>2.5L since last evening) -Cr remains stable, repeating this evening. Urine studies pending #Left IJ thrombosis: Lovenox and Coumadin #Right axillary pain: suspect musk. US negative for clot #LUE swelling/cellulitis: improved. No prior breast cancer. Can DC with lymphedema PT at [place]. Cont IV Vanc. #ALPHONSE on CKD: Cr 1.2, at baseline. Repeat BMP with significant UOP #Leukocytosis: down to 14. Suspect inflammation. Repeat UA NL #Back spasm: Flexeril #Thrombocytopenia: resolved #RUE hematoma: stable, restart Coumadin #Accelerated HTN: resume home Losartan half dose with tedious volume status/ kidney function #Hypothyroidism: LT4 #h/o diastolic dysfunction: on TTE 2014. BB, Losartan #Type 2 DM: SSI #Chronic Stage 4 decubitus ulcer: s/p flap, q2 turns #Pyuria: negative culture #Diet: diabetic #DVT ppx: heparin gtt #Disp: will warrant SNF at [place], awaiting approval once medically clear Subjective: significant urinary output since last night, >2L. No dizziness Objective: Vital Signs Temp Pulse Resp BP Pulse Ox 36.8 C 97 18 201/123 H 96 12/05/16 11:01 12/05/16 11:01 12/05/16 11:01 12/05/16 11:01 12/05/16 11:01 Microbiology 11/29/16 16:50 Blood Culture - Final Blood 12/02/16 13:41 Urine Culture - Final Urine,Clean Catch Escherichia Coli Gram Neg Paolo Nonlactose Ferm. Laboratory Results 12/05/16 05:40 12/05/16 12:15 12/04/16 12/05/16 12/06/16 05:59 05:59 05:59 Intake Total 957 1530 350 Output Total 2550 1250 1050 Balance -1593 280 -700 PT 15.7 SEC (12.0-15.0) H 12/05/16 05:40 INR 1.25 (0.83-1.16) H 12/05/16 05:40 - Physical Exam Constitutional: no apparent distress, obese Eyes: PERRL, anicteric sclera Ears, Nose, Mouth, Throat: moist mucous membranes, hearing normal Cardiovascular: regular rate and rhythym, no murmur, rub, or gallop, edema (+ 1 pitting edema legs (down from +3 yesterday)) Respiratory: no respiratory distress, no rales or rhonchi Gastrointestinal: normoactive bowel sounds, soft, non-tender abdomen Genitourinary: no bladder fullness Skin: warm Musculoskeletal: other (LUE swelling decreased, less red. Hand with min swelling. Right hand now swollen. PICC in place with no e/o hematoma) Neurologic: AAOx3 Psychiatric: interacting appropriately ICD10 Worksheet Patient Problems: Problems Problem Status Onset Cellulitis Acute MRSA (methicillin resistant Staphylococcus aureus) Acute ~11/29/16 Acute renal failure Acute C. difficile diarrhea Acute 03/01/15 Decubitus ulcer of buttock Acute Dehydration Acute ESBL (extended spectrum beta-lactamase) producing bacteria infection Acute Hypertensive urgency Acute Hyponatremia Acute Hypoxemia Acute Palliative care encounter Acute UTI (urinary tract infection) Acute Weakness Acute Adrenal insufficiency Chronic Chronic pain Chronic Diabetes Chronic Hypertension Chronic Hypothyroid Chronic
[2016-12-05] MEDS: VANCOMYCIN 1.5 GM in D5W 250 ML IV SCH (14:51)
[2016-12-05] MEDS: LOSARTAN POTASSIUM 50 MG TAB PO SCH (15:47)
[2016-12-05] MEDS: WARFARIN SODIUM 5 MG TAB PO SCH (15:47)
[2016-12-05] MEDS: amLODIPine BESYLATE 5 MG TAB PO SCH (16:27)
[2016-12-05] MEDS: MULTIVITAMINS 1 EACH TAB PO SCH (16:27)
[2016-12-05] MEDS: MONTELUKAST SODIUM 10 MG TAB PO SCH (16:28)
--- NOTE | 2016-12-05 18:40 | PCMIDPN ---
Assessment/Plan: Assessment: Left upper extremity cellulitis with clot. MRSA cultured from left arm/elbow wound. Covering with vancomycin monotherapy. Clearly the patient is improving given the decrease in size of her arm from last visit. Repeat Doppler ultrasound shows clot is stable. White blood cells slightly up today. Vancomycin trough is 18.9. Goal trough at 10-15. Plan: 1. Continue vancomycin IV monotherapy at reduced dose of 1.25 g daily. 2. Follow-up appearance of left upper extremity. 3. Follow up vancomycin trough in 2 doses. Subjective: Patient is resting comfortably in her hospital room. She has her left arm propped up on pillows. She notes that her left arm is significantly smaller than it was a couple of days ago. Having no problems tolerating the intravenous vancomycin. Objective: Vancomycin # 7 Vital Signs Temp Pulse Resp BP Pulse Ox 37.4 C 107 H 18 201/123 H 94 12/05/16 15:52 12/05/16 15:52 12/05/16 15:52 12/05/16 16:33 12/05/16 15:52 Microbiology 11/29/16 16:50 Blood Culture - Final Blood Laboratory Results 12/05/16 05:40 12/05/16 12:15 12/04/16 12/05/16 12/06/16 05:59 05:59 05:59 Intake Total 957 1530 840 Output Total 2550 1250 1450 Balance -1593 280 -610 - Physical Exam General Appearance: WD/WN, alert, no apparent distress, non-toxic Respiratory: lungs clear, normal breath sounds, No respiratory distress Cardiac/Chest: regular rate, rhythm, No tachycardia Extremities: non-tender, inflammation (Mild), erythema (Mild), No normal inspection (Left upper extremity with residual edema. Some wrinkling on the skin. Mild erythema.), No necrosis Skin: normal color, warm/dry, No rash Neuro/Psych: alert, normal mood/affect, oriented x 3 ICD10 Worksheet Patient Problems: Problems Problem Status Onset Cellulitis Acute MRSA (methicillin resistant Staphylococcus aureus) Acute ~11/29/16 Acute renal failure Acute C. difficile diarrhea Acute 03/01/15 Decubitus ulcer of buttock Acute Dehydration Acute ESBL (extended spectrum beta-lactamase) producing bacteria infection Acute Hypertensive urgency Acute Hyponatremia Acute Hypoxemia Acute Palliative care encounter Acute UTI (urinary tract infection) Acute Weakness Acute Adrenal insufficiency Chronic Chronic pain Chronic Diabetes Chronic Hypertension Chronic Hypothyroid Chronic
[2016-12-05 19:37] LABS: ANION GAP 10 mEq/L (8-16); CALCIUM 8.7 mg/dL (8.5-10.4); CARBON DIOXIDE 26 mEq/l (22-31); CHLORIDE 93 mEq/L (97-110); CREATININE 1.2 mg/dL (0.6-1.0); GLOMERULAR FILTRATION RATE 43; GLUCOSE 161 mg/dL (70-100); POTASSIUM 3.7 mEq/L (3.5-5.2); SODIUM 129 mEq/L (134-144)
[2016-12-05] MEDS: LABETALOL HCL 100 MG TAB PO SCH (20:53)
[2016-12-06] MEDS: LEVOTHYROXINE 100 MCG TAB PO SCH (04:57)
[2016-12-06 05:11] LABS: HEMATOCRIT 28.3 % (38.0-47.0); HEMOGLOBIN 9.2 g/dL (12.6-16.3); MEAN CELL HEMOGLOBIN 28.5 pg (27.9-34.1); MEAN CELL HEMOGLOBIN CONCENTR. 32.5 g/dL (32.4-36.7); MEAN CELL VOLUME 87.6 fL (81.5-99.8); RED BLOOD CELL COUNT 3.23 10^6/uL (4.18-5.33); RED CELL DISTRIBUTION WIDTH 13.9 % (11.5-15.2)
[2016-12-06 05:20] LABS: INR 1.53 (0.83-1.16); PROTIME(PATIENT) 18.4 SEC (12.0-15.0)
[2016-12-06 05:22] LABS: ANION GAP 9 mEq/L (8-16); CALCIUM 8.6 mg/dL (8.5-10.4); CARBON DIOXIDE 27 mEq/l (22-31); CHLORIDE 95 mEq/L (97-110); CREATININE 1.3 mg/dL (0.6-1.0); GLOMERULAR FILTRATION RATE 39; GLUCOSE 155 mg/dL (70-100); POTASSIUM 3.6 mEq/L (3.5-5.2); SODIUM 131 mEq/L (134-144)
--- NOTE | 2016-12-06 08:08 | WOCRNPDOC ---
WOCRN Advanced Assessment Note - Skin Integrity Problem, Advanced Assess Left Elbow Abrasion Dressing Type: Allevyn Life Dressing Description: Intact Exudate Amount: Scant Exudate Color: Yellow Exudate Characteristic(s): Serous Integumentary Issue Intervention: Dressing Changed, Dressing Initialed & Dated, Silver Gel Applied Jordana Wound Tissue: Erythema, Swollen, Dry Jordana Wound Swelling: Moderate Wound Bed Color: Red Wound Bed Constitution: Granulation Tissue Wound Edges: Epithelizing Site Odor: None Site Measurement - Head-to-Toe Length X Width X Depth (cm): 0.6cmx0.8cmx0.2cm Skin Integrity Problem Comment: Dressing removed, and slough-filled wound noted directly over elbow, dimensions considerably decreased since previous assessment. Slough was easily mechanically debrided using gauze and NS, revealing red, granular wound bed underneath. Jordana-wound skin is dry and flaky, and patient continues to have extensive erythema and swelling in her entire L arm r/t cellulitis. She denies any pain at this time. Despite the overall appearance of her L arm, this wound is healing well. Continue w/ current tx of Silvasorb and Allevyn Q3. Report given to crop setting out machine operator Emma. Wound care will f/u with patient again on Friday, 12/10.
[2016-12-06] MEDS: INSULIN LISPRO 100 UNIT/ML SC SCH ×3 (09:35→17:13)
[2016-12-06] MEDS: LOSARTAN POTASSIUM 50 MG TAB PO SCH (09:36)
[2016-12-06] MEDS: LABETALOL HCL 100 MG TAB PO SCH ×2 (09:36→20:36)
[2016-12-06] MEDS: CHOLECALCIFEROL VIT D3 1,000 UNITS TAB PO SCH (09:36)
[2016-12-06] MEDS: PRESERVISION AREDS2 FORMULA EYE VIT 1 EACH PO SCH ×2 (09:36→20:36)
[2016-12-06] MEDS: CYANO/VITAMIN B12 1000 MCG TAB PO SCH (09:36)
[2016-12-06] MEDS: HYDROCORTISONE 10 MG TAB PO SCH ×2 (09:36→20:36)
[2016-12-06] MEDS: PREGABALIN 75 MG CAP PO SCH ×2 (09:36→20:36)
[2016-12-06] MEDS: traMADol 50 MG TAB PO PRN (09:37)
[2016-12-06] MEDS: SENNOSIDES/DOCUSATE SODIUM TAB PO SCH ×2 (09:37→20:40)
[2016-12-06] MEDS: RABEPRAZOLE SODIUM 20 MG PO SCH ×2 (09:37→20:40)
[2016-12-06] MEDS: FLUTICASONE NASAL 120 SPRAYS/16 GM MDI EACHNARE SCH (09:38)
[2016-12-06] MEDS: ENOXAPARIN 80 MG/0.8 ML SYR SC SCH ×2 (09:38→20:37)
[2016-12-06] MEDS: SALMETEROL IH SCH ×2 (10:15→21:50)
[2016-12-06] MEDS: FLUTICASONE IH SCH ×2 (10:15→21:50)
--- NOTE | 2016-12-06 10:59 | HOSPPROG ---
Hospitalist Progress Note Assessment/Plan: This is a 81-year-old female new to my care today who presented with acute upper extremity edema found to have: #LUE swelling/cellulitis: improved. No prior breast cancer. Can DC with lymphedema PT at [place]. Cont IV vancomycin per Infectious Disease and change to oral antibiotics as instructed by ID # uncontrolled hypertension -increase hydralazine 50 mg p.o. four times daily #Volume overload: multifactorial with diastolic HF, proteinuria. Now auto- diuresing (>2.5L since last evening) -Cr remains stable, repeating this evening. Urine studies pending #Left IJ thrombosis -INR still subtherapeutic #Right axillary pain: suspect musk. US negative for clot #ALPHONSE on CKD: Cr 1.2, at baseline. Repeat BMP with significant UOP #Leukocytosis: down to 14. Suspect inflammation. Repeat UA NL #Back spasm: Flexeril #Thrombocytopenia: resolved #RUE hematoma: stable, restart Coumadin #Hypothyroidism: LT4 #h/o diastolic dysfunction: on TTE 2014. BB, Losartan #Type 2 DM: SSI #Chronic Stage 4 decubitus ulcer: s/p flap, q2 turns #Pyuria: negative culture #Diet: diabetic #DVT ppx: heparin gtt #Disp: will warrant SNF at [place], awaiting approval once medically clear. Patient is high risk. Subjective: Patient states she still weak and has not feeling ready to go to rehab. Her arm swelling is mildly improved. She denies any fevers or chills. She denies any chest pain or shortness of breath. Objective: Vital Signs Temp Pulse Resp BP Pulse Ox 36.8 C 87 18 159/99 H 97 12/06/16 07:48 12/06/16 10:25 12/06/16 10:25 12/06/16 09:36 12/06/16 10:25 Microbiology 11/29/16 16:50 Blood Culture - Final Blood Laboratory Results 12/06/16 04:53 12/06/16 04:53 12/05/16 12/06/16 12/07/16 05:59 05:59 05:59 Intake Total 1530 840 Output Total 1250 1450 Balance 280 -610 PT 18.4 SEC (12.0-15.0) H 12/06/16 04:53 INR 1.53 (0.83-1.16) H 12/06/16 04:53 - Physical Exam Constitutional: no apparent distress, appears nourished, not in pain Cardiovascular: regular rate and rhythym, no murmur, rub, or gallop, edema ( Left upper extremity) Respiratory: no respiratory distress, no rales or rhonchi, clear to auscultation , reduced air movement Gastrointestinal: normoactive bowel sounds, soft, non-tender abdomen, no palpable masses, No guarding, No rebound Neurologic: AAOx3, CN II-XII Intact, No asterixes ICD10 Worksheet Patient Problems: Problems Problem Status Onset MRSA (methicillin resistant Staphylococcus aureus) Acute ~11/29/16 Decubitus ulcer of buttock Acute Hypertension Chronic Hypothyroid Chronic Diabetes Chronic Chronic pain Chronic Hypertensive urgency Acute Acute renal failure Acute Adrenal insufficiency Chronic Hyponatremia Acute C. difficile diarrhea Acute 03/01/15 Hypoxemia Acute Palliative care encounter Acute ESBL (extended spectrum beta-lactamase) producing bacteria infection Acute Weakness Acute UTI (urinary tract infection) Acute Dehydration Acute Cellulitis Acute
[2016-12-06] MEDS ORDERED: hydrALAZINE 25 MG TAB PO PRN (11:00)
[2016-12-06] MEDS: VANCOMYCIN 1.25 GM in D5W 250 ML IV SCH (13:36)
[2016-12-06] MEDS: WARFARIN SODIUM 5 MG TAB PO SCH (16:40)
[2016-12-06] MEDS: MULTIVITAMINS 1 EACH TAB PO SCH (17:12)
[2016-12-06] MEDS: MONTELUKAST SODIUM 10 MG TAB PO SCH (17:13)
--- NOTE | 2016-12-06 18:33 | PCMIDPN ---
Assessment/Plan: Assessment/Plan: * Left upper extremity cellulitis due to MRSA: Clinical findings also suggestive of component of septic olecranon bursitis. Complicated by presence of IJ clot which likely will slow resolution. Continue vancomycin. Dose adjusted yesterday based on trough level. Follow up creatinine in a.m.. Likely will require IV antibiotic therapy to complete course. Suspect can transition to correction facility for this purpose over the weekend. 12/06/16 18:31 Subjective: Notes no change in left upper extremity symptoms. Complains of pain in right axilla. Objective: Vital Signs Temp Pulse Resp BP Pulse Ox 36.8 C 86 18 147/56 H 95 12/06/16 14:55 12/06/16 14:55 12/06/16 14:55 12/06/16 14:55 12/06/16 14:55 Laboratory Results 12/06/16 04:53 12/06/16 04:53 12/05/16 12/06/16 12/07/16 05:59 05:59 05:59 Intake Total 1530 840 560 Output Total 1250 1450 200 Balance 280 -610 360 Vancomycin # 8 - Physical Exam General Appearance: alert, no apparent distress EENT: No thrush, No conjunctival petechiae Cardiac/Chest: regular rate, rhythm Extremities: inflammation (Left upper extremity with erythema and edema around olecranon and dependent portion of upper arm; mild warmth and tenderness present ; bursal thickening present without expressible fluid ; no irritability with range of motion of elbow; no right axillary tenderness to palpation) Abdomen: non-tender, No distended ICD10 Worksheet Patient Problems: Problems Problem Status Onset Cellulitis Acute MRSA (methicillin resistant Staphylococcus aureus) Acute ~11/29/16 Acute renal failure Acute C. difficile diarrhea Acute 03/01/15 Decubitus ulcer of buttock Acute Dehydration Acute ESBL (extended spectrum beta-lactamase) producing bacteria infection Acute Hypertensive urgency Acute Hyponatremia Acute Hypoxemia Acute Palliative care encounter Acute UTI (urinary tract infection) Acute Weakness Acute Adrenal insufficiency Chronic Chronic pain Chronic Diabetes Chronic Hypertension Chronic Hypothyroid Chronic
[2016-12-07] MEDS: LEVOTHYROXINE 100 MCG TAB PO SCH (05:01)
[2016-12-07 05:24] LABS: HEMATOCRIT 27.8 % (38.0-47.0); MEAN CELL HEMOGLOBIN 28.5 pg (27.9-34.1); MEAN CELL HEMOGLOBIN CONCENTR. 32.4 g/dL (32.4-36.7); RED BLOOD CELL COUNT 3.16 10^6/uL (4.18-5.33)
[2016-12-07 05:31] LABS: INR 1.75 (0.83-1.16); PROTIME(PATIENT) 20.5 SEC (12.0-15.0)
[2016-12-07 05:38] LABS: ANION GAP 8 mEq/L (8-16); CALCIUM 8.9 mg/dL (8.5-10.4); CARBON DIOXIDE 27 mEq/l (22-31); CHLORIDE 95 mEq/L (97-110); CREATININE 1.4 mg/dL (0.6-1.0); GLOMERULAR FILTRATION RATE 36; GLUCOSE 144 mg/dL (70-100); POTASSIUM 4.1 mEq/L (3.5-5.2); SODIUM 130 mEq/L (134-144)
[2016-12-07] MEDS: INSULIN LISPRO 100 UNIT/ML SC SCH ×3 (08:50→18:01)
[2016-12-07] MEDS: SALMETEROL IH SCH ×2 (09:09→21:20)
[2016-12-07] MEDS: FLUTICASONE IH SCH ×2 (09:09→21:20)
[2016-12-07] MEDS: PRESERVISION AREDS2 FORMULA EYE VIT 1 EACH PO SCH ×2 (10:50→20:03)
[2016-12-07] MEDS: HYDROCORTISONE 10 MG TAB PO SCH ×2 (10:50→20:04)
[2016-12-07] MEDS: CYANO/VITAMIN B12 1000 MCG TAB PO SCH (10:50)
[2016-12-07] MEDS: ENOXAPARIN 80 MG/0.8 ML SYR SC SCH ×2 (10:51→20:04)
[2016-12-07] MEDS: CHOLECALCIFEROL VIT D3 1,000 UNITS TAB PO SCH (10:51)
[2016-12-07] MEDS: LOSARTAN POTASSIUM 50 MG TAB PO SCH (11:01)
[2016-12-07] MEDS: LABETALOL HCL 100 MG TAB PO SCH ×2 (11:01→20:03)
[2016-12-07] MEDS: PREGABALIN 75 MG CAP PO SCH ×2 (11:01→20:03)
[2016-12-07] MEDS: FLUTICASONE NASAL 120 SPRAYS/16 GM MDI EACHNARE SCH (11:05)
[2016-12-07] MEDS: RABEPRAZOLE SODIUM 20 MG PO SCH ×3 (11:08→20:57)
[2016-12-07] MEDS: SENNOSIDES/DOCUSATE SODIUM TAB PO SCH ×2 (11:13→20:03)
--- NOTE | 2016-12-07 11:54 | PCMIDPN ---
Assessment/Plan: Assessment/Plan: * Left upper extremity cellulitis due to MRSA: Clinical findings also suggestive of component of septic olecranon bursitis. Complicated by presence of IJ clot which likely will slow resolution. Clinically appears improved today with primary findings localized to olecranon region. Continue vancomycin with careful follow-up of creatinine which it has slowly increased again. Assess trough prior to dose today. If creatinine increases further, will consider stopping vancomycin and utilizing daptomycin. 12/07/16 11:52 Subjective: Patient feels like left arm is the same. Right axillary pain resolved. Objective: Vital Signs Temp Pulse Resp BP Pulse Ox 36.7 C 74 18 148/70 H 97 12/07/16 07:57 12/07/16 07:57 12/07/16 07:57 12/07/16 07:57 12/07/16 07:57 Laboratory Results 12/07/16 05:00 12/07/16 05:00 12/06/16 12/07/16 12/08/16 05:59 05:59 05:59 Intake Total 840 910 Output Total 1450 700 Balance -610 210 Vancomycin # 9 - Physical Exam General Appearance: alert, no apparent distress EENT: pharynx normal Extremities: inflammation (Left upper extremity with erythema and edema with mild induration primarily localized around olecranon region; no expressible purulence; tender when held in flexion; no irritability with range of motion) Abdomen: non-tender, No distended - Line/s RUE PICC Lines: No drainage, No erythema ICD10 Worksheet Patient Problems: Problems Problem Status Onset Cellulitis Acute MRSA (methicillin resistant Staphylococcus aureus) Acute ~11/29/16 Acute renal failure Acute C. difficile diarrhea Acute 03/01/15 Decubitus ulcer of buttock Acute Dehydration Acute ESBL (extended spectrum beta-lactamase) producing bacteria infection Acute Hypertensive urgency Acute Hyponatremia Acute Hypoxemia Acute Palliative care encounter Acute UTI (urinary tract infection) Acute Weakness Acute Adrenal insufficiency Chronic Chronic pain Chronic Diabetes Chronic Hypertension Chronic Hypothyroid Chronic
[2016-12-07] MEDS: VANCOMYCIN 1.25 GM in D5W 250 ML IV SCH (13:42)
--- NOTE | 2016-12-07 15:14 | HOSPPROG ---
Hospitalist Progress Note Assessment/Plan: This is a 81-year-old female new to my care today who presented with acute upper extremity edema found to have: #LUE swelling/cellulitis: improved. No prior breast cancer. Can DC with lymphedema PT at [facility]. Cont IV vancomycin per Infectious Disease #worsening deanne on ckd -will keep in house and monitor -consider changing vanco to dapto # uncontrolled hypertension -increase hydralazine 50 mg p.o. four times daily #Volume overload: multifactorial with diastolic HF, proteinuria. Now auto- diuresing (>2.5L since last evening) -Cr remains stable, repeating this evening. Urine studies pending #Left IJ thrombosis -INR still subtherapeutic #Right axillary pain: suspect musk. US negative for clot #Leukocytosis: down to 14. Suspect inflammation. Repeat UA NL #Back spasm: Flexeril #Thrombocytopenia: resolved #RUE hematoma: stable, restart Coumadin #Hypothyroidism: LT4 #h/o diastolic dysfunction: on TTE 2014. BB, Losartan #Type 2 DM: SSI #Chronic Stage 4 decubitus ulcer: s/p flap, q2 turns #Pyuria: negative culture #Diet: diabetic #DVT ppx: heparin gtt #Disp: will warrant SNF at [facility], awaiting approval once medically clear. Patient is high risk. Subjective: arm swelling and redness is improving. no fevers or chills Objective: Vital Signs Temp Pulse Resp BP Pulse Ox 36.6 C 92 20 131/88 H 92 12/07/16 12:00 12/07/16 12:00 12/07/16 12:00 12/07/16 12:00 12/07/16 12:00 Laboratory Results 12/07/16 05:00 12/07/16 05:00 12/06/16 12/07/16 12/08/16 05:59 05:59 05:59 Intake Total 840 910 Output Total 1450 700 Balance -610 210 PT 20.5 SEC (12.0-15.0) H 12/07/16 05:00 INR 1.75 (0.83-1.16) H 12/07/16 05:00 - Physical Exam Constitutional: no apparent distress, appears nourished, not in pain Cardiovascular: regular rate and rhythym, no murmur, rub, or gallop Respiratory: no respiratory distress, no rales or rhonchi, clear to auscultation Gastrointestinal: normoactive bowel sounds, soft, non-tender abdomen, no palpable masses Skin: other (improving erythema left arm) ICD10 Worksheet Patient Problems: Problems Problem Status Onset MRSA (methicillin resistant Staphylococcus aureus) Acute ~11/29/16 Decubitus ulcer of buttock Acute Hypertension Chronic Hypothyroid Chronic Diabetes Chronic Chronic pain Chronic Hypertensive urgency Acute Acute renal failure Acute Adrenal insufficiency Chronic Hyponatremia Acute C. difficile diarrhea Acute 03/01/15 Hypoxemia Acute Palliative care encounter Acute ESBL (extended spectrum beta-lactamase) producing bacteria infection Acute Weakness Acute UTI (urinary tract infection) Acute Dehydration Acute Cellulitis Acute
[2016-12-07] MEDS: WARFARIN SODIUM 5 MG TAB PO SCH (17:11)
[2016-12-07] MEDS: MULTIVITAMINS 1 EACH TAB PO SCH (18:01)
[2016-12-07] MEDS: MONTELUKAST SODIUM 10 MG TAB PO SCH (18:01)
[2016-12-08] MEDS: LEVOTHYROXINE 100 MCG TAB PO SCH (04:55)
[2016-12-08 05:06] LABS: HEMATOCRIT 27.4 % (38.0-47.0); HEMOGLOBIN 8.7 g/dL (12.6-16.3); MEAN CELL HEMOGLOBIN 27.9 pg (27.9-34.1); MEAN CELL HEMOGLOBIN CONCENTR. 31.8 g/dL (32.4-36.7); MEAN CELL VOLUME 87.8 fL (81.5-99.8); RED BLOOD CELL COUNT 3.12 10^6/uL (4.18-5.33); RED CELL DISTRIBUTION WIDTH 13.9 % (11.5-15.2)
[2016-12-08 05:15] LABS: INR 2.12 (0.83-1.16); PROTIME(PATIENT) 23.9 SEC (12.0-15.0)
[2016-12-08 05:24] LABS: ANION GAP 8 mEq/L (8-16); CALCIUM 8.7 mg/dL (8.5-10.4); CARBON DIOXIDE 27 mEq/l (22-31); CHLORIDE 98 mEq/L (97-110); CREATININE 1.3 mg/dL (0.6-1.0); GLOMERULAR FILTRATION RATE 39; GLUCOSE 223 mg/dL (70-100); POTASSIUM 3.8 mEq/L (3.5-5.2); SODIUM 133 mEq/L (134-144)
[2016-12-08] MEDS: FLUTICASONE IH SCH (08:58)
[2016-12-08] MEDS: SALMETEROL IH SCH (08:58)
[2016-12-08] MEDS: ENOXAPARIN 80 MG/0.8 ML SYR SC SCH (09:31)
[2016-12-08] MEDS: HYDROCORTISONE 10 MG TAB PO SCH (09:31)
[2016-12-08] MEDS: CHOLECALCIFEROL VIT D3 1,000 UNITS TAB PO SCH (09:31)
[2016-12-08] MEDS: PREGABALIN 75 MG CAP PO SCH (09:32)
[2016-12-08] MEDS: PRESERVISION AREDS2 FORMULA EYE VIT 1 EACH PO SCH (09:32)
[2016-12-08] MEDS: LABETALOL HCL 100 MG TAB PO SCH (09:32)
[2016-12-08] MEDS: LOSARTAN POTASSIUM 50 MG TAB PO SCH (09:32)
[2016-12-08] MEDS: SENNOSIDES/DOCUSATE SODIUM TAB PO SCH (09:33)
[2016-12-08] MEDS: CYANO/VITAMIN B12 1000 MCG TAB PO SCH (09:33)
[2016-12-08] MEDS: RABEPRAZOLE SODIUM 20 MG PO SCH (09:34)
[2016-12-08] MEDS: INSULIN LISPRO 100 UNIT/ML SC SCH ×3 (09:35→17:09)
[2016-12-08] MEDS: FLUTICASONE NASAL 120 SPRAYS/16 GM MDI EACHNARE SCH (09:35)
[2016-12-08 11:57] VITALS: BP 138/66; PULSE 82; RESP 14; TEMP 99.3; O2SAT 91
[2016-12-08] MEDS ORDERED: VANCOMYCIN 1.5 GM in D5W 250 ML IV SCH (15:00)
--- NOTE | 2016-12-08 15:04 | PCMIDPN ---
Assessment/Plan: Assessment/Plan: * Left upper extremity cellulitis due to MRSA: Clinical findings also suggestive of component of septic olecranon bursitis. Continued clinical improvement with erythema primarily over olecranon with less prominent erythema over dependent portion of upper arm. Based on vancomycin levels, will change dosing to 1.25 g IV Q 48 hours. Plan to continue through 12/12/16. Will have my office arrange for follow-up prior to discontinuation to ensure arm continues to improve. Findings and plan were reviewed with patient and daughter today. 12/08/16 15:01 Subjective: Patient with less arm pain. Objective: Vital Signs Temp Pulse Resp BP Pulse Ox 37.4 C 82 14 138/66 H 91 L 12/08/16 11:55 12/08/16 11:55 12/08/16 11:55 12/08/16 11:55 12/08/16 11:55 Laboratory Results 12/08/16 05:00 12/08/16 05:00 12/07/16 12/08/16 12/09/16 05:59 05:59 05:59 Intake Total 910 800 480 Output Total 700 1300 750 Balance 210 -500 -270 Vancomycin # 10 Laboratory Tests 12/08/16 06:20 Random Vancomycin 13.0 - Physical Exam General Appearance: alert, no apparent distress EENT: No scleral icterus Extremities: inflammation (Left upper extremity with less prominent erythema over olecranon and dependent portion of upper arm; nontender; decreased thickening of bursal region; no purulent drainage) Lymphatic: other (No left upper extremity lymphangitis) ICD10 Worksheet Patient Problems: Problems Problem Status Onset Cellulitis Acute MRSA (methicillin resistant Staphylococcus aureus) Acute ~11/29/16 Acute renal failure Acute C. difficile diarrhea Acute 03/01/15 Decubitus ulcer of buttock Acute Dehydration Acute ESBL (extended spectrum beta-lactamase) producing bacteria infection Acute Hypertensive urgency Acute Hyponatremia Acute Hypoxemia Acute Palliative care encounter Acute UTI (urinary tract infection) Acute Weakness Acute Adrenal insufficiency Chronic Chronic pain Chronic Diabetes Chronic Hypertension Chronic Hypothyroid Chronic
--- NOTE | 2016-12-08 15:07 | PDIAF ---
- Diagnosis Diagnosis: Left upper extremity cellulitis due to MRSA Code Status: Do Not Resuscitate - Medication Management Discharge Medications: Medications to Continue on Transfer C/E/Zn/Cu/OM3/DHA/EPA/LUT/ZEAX [Preservision Areds 2 Softgel] 1 each PO BID 11/09 [Last Taken 11/28/16 1 TAB] Cholecalciferol Vit D3 [Vitamin D3 (*)] 2,000 units PO DAILY 11/28/16 [Last Taken 11/28/16] Cyanocobalamin [Vitamin B12 (*)] 1,000 mcg PO DAILY 11/28/16 [Last Taken ] FLUTICASONE/SALMETEROL [ADVAIR HFA 230-21 MCG INHALER] 1 puffs IH BID 11/28/16 [ Last Taken 11/28/16] Fluticasone Nasal [Flonase Nasal [place]] 1 sprays NASAL DAILY 11/28/16 [Last Taken 11/28/16] Herbals/Supplements -Info Only 1 ea PO DAILY 11/28/16 [Last Taken Unknown] Hydrocortisone [Cortef 10 mg (*)] 10 mg PO BID 11/28/16 [Last Taken 11/28/16 1 TAB] Levothyroxine [Synthroid 100 mcg (*)] 100 mcg PO DAILY06 11/28/16 [Last Taken ] Methocarbamol [Robaxin 750 mg (*)] 750 mg PO QID PRN 11/28/16 [Last Taken Unknown] Montelukast Sodium [Singulair 10 mg (*)] 10 mg PO DAILY@1800 11/28/16 [Last Taken 11/27/16] Multivitamins [Multivitamin (*)] 1 each PO DAILY@18 11/28/16 [Last Taken ] Pregabalin [Lyrica] 150 mg PO BID 11/28/16 [Last Taken 11/28/16 1 CAP] Rabeprazole Sodium [Aciphex] 20 mg PO BID 11/28/16 [Last Taken 11/28/16 1 TBA] amLODIPine BESYLATE [Norvasc 5 mg (*)] 5 mg PO DAILY@18 11/28/16 [Last Taken 10/09] Acetaminophen [Tylenol 325mg (*)] 650 mg PO Q4HRS PRN #0 tab 12/08/16 [Last Taken Unknown] Losartan Potassium [Cozaar 50 mg (*)] 50 mg PO DAILY tab 12/08/16 [Last Taken Unknown] Warfarin Sodium [Coumadin 5MG (*)] 5 mg PO DAILY16 tab 12/08/16 [Last Taken Unknown] traMADol [Ultram 50 mg (*)] 25 mg PO Q6HRS PRN #0 tab 12/08/16 [Last Taken Unknown] Senior Product Analyst Antibiotics: Vancomycin 1.25 g IV Q 48 hours (next dose due 12/10/16) Group Home Antibiotic Stop Date: 12/12/16 Discharge Medications: Refer to the Discharge Home Medication list for PRN reason. PICC Care - Routine: Yes - Orders Isolation Type: MRSA/contact Diet Recommendation: no restrictions on diet Diet Texture: Regular Texture Diet - Labs/Radiology CBC Date: 12/10/16 CMP Date: 12/10/16 Vanco Trough Date and Time: 12/10/2016 Call or Fax Lab and Imaging Results to: Dr. Barone, - Follow Up Care Current Providers and Referrals: Brigette Suresh MD [Primary Care Provider] - As per Instructions
--- NOTE | 2016-12-08 15:13 | PDIAF ---
- Diagnosis Diagnosis: Left upper extremity cellulitis due to MRSA Code Status: Do Not Resuscitate - Medication Management Discharge Medications: Medications to Continue on Transfer C/E/Zn/Cu/OM3/DHA/EPA/LUT/ZEAX [Preservision Areds 2 Softgel] 1 each PO BID 11/09 [Last Taken 11/28/16 1 TAB] Cholecalciferol Vit D3 [Vitamin D3 (*)] 2,000 units PO DAILY 11/28/16 [Last Taken 11/28/16] Cyanocobalamin [Vitamin B12 (*)] 1,000 mcg PO DAILY 11/28/16 [Last Taken ] FLUTICASONE/SALMETEROL [ADVAIR HFA 230-21 MCG INHALER] 1 puffs IH BID 11/28/16 [ Last Taken 11/28/16] Fluticasone Nasal [Flonase Nasal [place]] 1 sprays NASAL DAILY 11/28/16 [Last Taken 11/28/16] Herbals/Supplements -Info Only 1 ea PO DAILY 11/28/16 [Last Taken Unknown] Hydrocortisone [Cortef 10 mg (*)] 10 mg PO BID 11/28/16 [Last Taken 11/28/16 1 TAB] Levothyroxine [Synthroid 100 mcg (*)] 100 mcg PO DAILY06 11/28/16 [Last Taken ] Methocarbamol [Robaxin 750 mg (*)] 750 mg PO QID PRN 11/28/16 [Last Taken Unknown] Montelukast Sodium [Singulair 10 mg (*)] 10 mg PO DAILY@1800 11/28/16 [Last Taken 11/27/16] Multivitamins [Multivitamin (*)] 1 each PO DAILY@18 11/28/16 [Last Taken ] Pregabalin [Lyrica] 150 mg PO BID 11/28/16 [Last Taken 11/28/16 1 CAP] Rabeprazole Sodium [Aciphex] 20 mg PO BID 11/28/16 [Last Taken 11/28/16 1 TBA] amLODIPine BESYLATE [Norvasc 5 mg (*)] 5 mg PO DAILY@18 11/28/16 [Last Taken 10/09] Acetaminophen [Tylenol 325mg (*)] 650 mg PO Q4HRS PRN #0 tab 12/08/16 [Last Taken Unknown] Losartan Potassium [Cozaar 50 mg (*)] 50 mg PO DAILY tab 12/08/16 [Last Taken Unknown] Vancomycin [Vancomycin (*)] 1.25 gm IV Q48H vial 12/08/16 [Last Taken Unknown] Warfarin Sodium [Coumadin 5MG (*)] 5 mg PO DAILY16 tab 12/08/16 [Last Taken Unknown] traMADol [Ultram 50 mg (*)] 25 mg PO Q6HRS PRN #0 tab 12/08/16 [Last Taken Unknown] Penitentiary Antibiotics: Vancomycin 1.25 g IV Q 48 hours (next dose due 12/10/16) Penitentiary Antibiotic Stop Date: 12/12/16 Discharge Medications: Refer to the Discharge Home Medication list for PRN reason. PICC Care - Routine: Yes - Orders Diet Recommendation: no restrictions on diet Diet Texture: Regular Texture Diet - Labs/Radiology CBC Date: 12/10/16 CMP Date: 12/10/16 PT/INR Date: 12/10/16 Vanco Trough Date and Time: 12/10/2016 Call or Fax Lab and Imaging Results to: Dr. Barone, - Follow Up Care Current Providers and Referrals: Brigette Suresh MD [Primary Care Provider] - As per Instructions
[2016-12-08] MEDS: VANCOMYCIN 1.25 GM in D5W 250 ML IV SCH ×2 (15:47→17:14)
[2016-12-08] MEDS: WARFARIN SODIUM 5 MG TAB PO SCH (15:54)
--- NOTE | 2016-12-08 16:20 | GDS ---
[f rep st] DISCHARGE SUMMARY DISCHARGE DIAGNOSES: 1. Left upper extremity swelling and cellulitis with history of methicillin-resistant Staphylococcu s aureus. 2. Left internal jugular thrombosis resulting in left upper extremity swelling with therapeutic INR . 3. Chronic kidney disease. 4. Hypertension. 5. Volume overload. 6. Leukocytosis. 7. Back spasm. 8. Resolved thrombocytopenia. 9. Hypothyroidism. 10. History of diastolic dysfunction. 11. Type 2 diabetes mellitus. 12. Chronic stage IV decubitus ulcer. CONSULTANTS: Dr. Travis Barone, Infectious Disease. HOSPITAL COURSE AND STAY: 1. Left upper extremity cellulitis and swelling: The patient presented to the hospital on 11/29/19 17, with left upper extremity swelling and redness, and was subsequently diagnosed with cellulitis. Ultrasound of the upper extremity was done, which showed a thrombosis of the left internal jugular vein. It was thought that this internal jugular clot was not provoked. It was discussed with Dr. Lisa beauchamp from Oncology, who recommended a short course of systemic anticoagulation of 3 months. She was subsequently initiated on a heparin drip given her renal insufficiency, and warfarin. On day of discharge, her INR is therapeutic. She will need further monitoring of her INR. For her celluliti s, Dr. Barone is recommending that we continue vancomycin at a dose of 1.25 g IV q.48 hours through . 2. Hypertension: The patient's blood pressure has been quite labile throughout the hospital stay. She presented on 5 mg of Norvasc, which for some reason was held during her initial admission. On discharge, the Norvasc dose of 5 mg was resumed. Her home dose of Cozaar 100 mg daily was decreased to 50 mg given her renal insufficiency. As long as her creatinine remained stable, it would be chelsy sonable to either increase her Cozaar over the next few days if her blood pressure is not at goal, o r increase her Norvasc to 10 mg daily. I should note that while in the hospital she was started on hydralazine, which will be stopped on discharge. Another consideration if her blood pressure remain s high would be to resume hydralazine and dose would be 25 mg 3 times a day or 50 mg 3 times a day a s indicated. PHYSICAL EXAMINATION: VITAL SIGNS: On day of discharge, blood pressure 138/66, pulse of 82, respir atory rate 14, O2 sat 91% on 1 L, temperature afebrile. GENERAL: No acute distress. HEART: S1, S 2. LUNGS: Clear. EXTREMITIES: Left upper extremity with improving erythema and edema. PERTINENT LABS AND STUDIES DONE THIS HOSPITAL STAY: Upper extremity Doppler done 11/28/2016, refer to report. DISCHARGE MEDICATIONS: Please refer to discharge medication reconciliation in [facility] for details. DISCHARGE INSTRUCTIONS: The patient will be discharged to the [facility], where once again she shoul d continue IV vancomycin through 12/12/2016. She will need close monitoring of her renal function t o ensure that her creatinine is not increasing. She will also need close monitoring of her INR. Pedro stanford should remain on anticoagulation for 3 months given her unprovoked upper extremity clot. Greater than 30 minutes were spent on the discharge of this patient. /[id number]/MODL
[2016-12-08] MEDS: MONTELUKAST SODIUM 10 MG TAB PO SCH (17:09)
[2016-12-08] MEDS: MULTIVITAMINS 1 EACH TAB PO SCH (17:09)
== END 2016-12-08 18:17 | DRG 299 ==
LOC: F3E 22:20
PROVIDERS: ADMIT Internal Medicine; ATTEND Internal Medicine
PROC: 02HV33Z Insertion of Infusion Device into Superior Vena Cava, Percutaneous Approach (ICD-10-PCS; principal; 2016-11-29)
DX: I82.C12 Acute embolism and thrombosis of left internal jugular vein (principal); L89.154 Pressure ulcer of sacral region, stage 4; L03.114 Cellulitis of left upper limb; I12.9 Hypertensive chronic kidney disease with stage 1 through stage 4 chronic kidney disease, or unspecified chronic kidney disease; N18.9 Chronic kidney disease, unspecified; M62.830 Muscle spasm of back; E03.9 Hypothyroidism, unspecified; D69.6 Thrombocytopenia, unspecified; E11.9 Type 2 diabetes mellitus without complications; Z86.14 Personal history of Methicillin resistant Staphylococcus aureus infection
CPT/HCPCS: 85520-90; 96365; 97110-GP; 97116-GP; 97162-GP; 97166-GO; 97530-GO; 97530-GP; 97535-GO; C1751; G8978-GP-CK; G8979-GP-CI; G8987-GO-CK; G8988-GO-CI; J0360; J1644; J1650; J1815; J1940; J2997; J3370

== ENCOUNTER 2017-02-12 19:51 | Inpatient (IN) | payer OTHER, BC ==
[2017-02-12] MEDS ORDERED: NS 1,000 ML IV ONE (20:00)
[2017-02-12] MEDS ORDERED: TRANEXAMIC ACID 1,000 MG in NS 500 ML IV ONE (20:01)
[2017-02-12] MEDS ORDERED: PHYTONADIONE 10 MG in NS 50 ML IV ONE (20:01)
[2017-02-12] MEDS ORDERED: TRANEXAMIC ACID 1,000 MG in NS 100 ML IV ONE (20:01)
[2017-02-12 20:15] LABS: ADD DIFF? YES; ADD MORPH? NO; ADD SCAN? NO; ATYPICAL LYMPHOCYTE FLAG 0 (0-99); FRAGMENT RBC FLAG 0 (0-99); HEMATOCRIT 27.1 % (38.0-47.0); HEMOGLOBIN 8.4 g/dL (12.6-16.3); LEFT SHIFT FLG 0 (0-99); LIPEMIA HEMOLYSIS FLAG 80 (0-99); MEAN CELL HEMOGLOBIN 27.5 pg (27.9-34.1); MEAN CELL VOLUME 88.9 fL (81.5-99.8); PLATELET CLUMPS FLAG 0 (0-99); PLATELET COUNT 194 10^3/uL (150-400); RED BLOOD CELL COUNT 3.05 10^6/uL (4.18-5.33); RED CELL DISTRIBUTION WIDTH 15.6 % (11.5-15.2)
[2017-02-12] MEDS ORDERED: *PHM DO NOT USE-KCENTRA IV 25 UNITS/KG (INR 2-3.9) PTD MISC SCH (20:15)
[2017-02-12 20:26] LABS: INR 3.94 (0.83-1.16); PROTIME(PATIENT) 39.2 SEC (12.0-15.0)
[2017-02-12 20:27] LABS: APTT 61.5 SEC (23.0-38.0)
[2017-02-12] MEDS ORDERED: HUMAN PROTHROMBIN COMPLX IV ONE (20:30)
[2017-02-12 20:36] LABS: ANION GAP 9 mEq/L (8-16); CALCIUM 8.7 mg/dL (8.5-10.4); CARBON DIOXIDE 22 mEq/l (22-31); CHLORIDE 98 mEq/L (97-110); CREATININE 1.9 mg/dL (0.6-1.0); GLOMERULAR FILTRATION RATE 25; GLUCOSE 161 mg/dL (70-100); POTASSIUM 4.6 mEq/L (3.5-5.2); SODIUM 129 mEq/L (134-144)
--- NOTE | 2017-02-12 20:36 | EDPHY ---
H & P Stated Complaint: wound bleeding LLE Time Seen by Provider: 02/12/17 19:51 HPI/ROS: CHIEF COMPLAINT: Hemorrhage HISTORY OF PRESENT ILLNESS: The patient is an 81-year-old female who comes to the emergency department by EMS for continued bleeding. She pinned her leg between her wheelchair and the lift on Friday. 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 She developed a large hematoma on Friday and earlier this morning presented to the urgent care for they performed a hematoma evacuation. She had continued bleeding there. So she was placed in a tight dressing. Her bleeding continued. Her INR was 2.4 at the clinic. She began feeling lightheaded. She arrives hypotensive. EMS states that when they tried to sit up in the bed she fainted. She denies chest pain. She denies shortness of breath. REVIEW OF SYSTEMS: Constitutional: denies: chills, fever, recent illness, recent injury EENTM: denies: blurred vision, double vision, nose congestion Respiratory: denies: cough, shortness of breath Cardiac: denies: chest pain, irregular heart rate, lightheadedness, palpitations Gastrointestinal/Abdominal: denies: abdominal pain, diarrhea, nausea, vomiting, blood streaked stools Genitourinary: denies: dysuria, frequency, hematuria, pain Musculoskeletal: denies: joint pain, muscle pain Skin: denies: See HPI Neurological: denies: headache, numbness, paresthesia, tingling, dizziness, weakness Hematologic/Lymphatic: denies: blood clots, easy bleeding, easy bruising Immunologic/allergic: denies: HIV/AIDS, transplant EXAM: GENERAL: Pale, weak HEAD: Atraumatic, normocephalic. EYES: Pupils equal round and reactive to light, extraocular movements intact, sclera anicteric, conjunctiva are normal. ENT: TMs normal, nares patent, oropharynx clear without exudates. Moist mucous membranes. NECK: Normal range of motion, supple without lymphadenopathy or JVD. LUNGS: Breath sounds clear to auscultation bilaterally and equal. No wheezes rales or rhonchi. HEART: Regular rate and rhythm without murmurs, rubs or gallops. ABDOMEN: Soft, nontender, normoactive bowel sounds. No guarding, no rebound. No masses appreciated. BACK: No CVA tenderness, no spinal tenderness, step-offs or deformities EXTREMITIES: Left lower extremity with significant bruising, bleeding squirting from her wound when undressed. Not pulsatile.. Stopped After a few seconds. NEUROLOGICAL: Cranial nerves II through XII grossly intact. Normal speech, normal gait. 5/5 strength, normal movement in all extremities, normal sensation PSYCH: Normal mood, normal affect. SKIN: Very pale Source: Patient Exam Limitations: No limitations - Personal History Current Tetanus/Diphtheria Vaccine: Yes Current Tetanus Diphtheria and Acellular Pertussis (TDAP): Yes Tetanus Vaccine Date: 08/09/13 - Medical/Surgical History Hx Asthma: Yes Hx Chronic Respiratory Disease: No Hx Diabetes: Yes Hx Cardiac Disease: No Hx Renal Disease: No Hx Cirrhosis: No Hx Alcoholism: No Hx HIV/AIDS: No Hx Splenectomy or Spleen Trauma: No Other PMH: Stage IV pressure wound, HTN, hypothyroid, DMI II, GERD, basal skin ca x2, asthma, IBS, L total hip, B lens implants, pituitary microadenoma, KEMAL, spinal stenosis, osteopenia, anemia - Social History Smoking Status: Never smoked Constitutional: Initial Vital Signs Temperature (C) 36.5 C 02/12/17 20:04 Heart Rate 72 02/12/17 20:04 Respiratory Rate 17 02/12/17 20:04 Blood Pressure 77/51 L 02/12/17 20:04 O2 Sat (%) 90 L 02/12/17 20:04 O2 Delivery Mode Nasal Cannula O2 (L/minute) 2 Allergies/Adverse Reactions: bacitracin [From Neosporin] Allergy (Intermediate, Verified 02/21/16 10:05) Rash bacitracin zinc [From Neosporin] Allergy (Intermediate, Verified 02/21/16 10:05) Rash gramicidin D [From Neosporin] Allergy (Intermediate, Verified 02/21/16 10:05) Rash neomycin sulfate [From Neosporin] Allergy (Intermediate, Verified 02/21/16 10:05 ) Rash polymyxin B [From Neosporin] Allergy (Intermediate, Verified 02/21/16 10:05) Rash polymyxin B sulfate [From Neosporin] Allergy (Intermediate, Verified 02/21/16 10 :05) Rash esomeprazole magnesium [From Nexium] Allergy (Verified 02/21/16 10:05) Diarrhea lansoprazole [From Prevacid] Allergy (Verified 02/21/16 10:05) Diarrhea omeprazole [From Prilosec] Allergy (Verified 02/21/16 10:05) Diarrhea omeprazole magnesium [From Prilosec] Allergy (Verified 02/21/16 10:05) Diarrhea pantoprazole sodium [From Protonix] Allergy (Verified 02/21/16 10:05) Diarrhea ranitidine HCl [From Zantac] Allergy (Verified 02/21/16 10:05) Diarrhea ENVIRONMENTAL Allergy (Intermediate, Uncoded 12/31/14 21:09) Other-Enter Comments Home Medications: Medication Instructions Recorded C/E/Zn/Cu/OM3/DHA/EPA/LUT/ZEAX 1 each PO BID 11/28/16 [Preservision Areds 2 Softgel] Cholecalciferol Vit D3 [Vitamin D3 2,000 units PO DAILY 11/28/16 (*)] FLUTICASONE/SALMETEROL [ADVAIR HFA 2 puffs IH BID 11/28/16 230-21 MCG INHALER] Fluticasone Nasal [Flonase Nasal 1 - 2 sprays EACHNARE DAILY 11/28/16 [place]] Hydrocortisone [Cortef 10 mg (*)] 10 mg PO BID 11/28/16 Levothyroxine [Synthroid 100 mcg 100 mcg PO DAILY@09 11/28/16 (*)] Methocarbamol [Robaxin 750 mg (*)] 750 mg PO QID PRN 11/28/16 Montelukast Sodium [Singulair 10 10 mg PO DAILY 11/28/16 mg (*)] Multivitamins [Multivitamin (*)] 1 each PO DAILY 11/28/16 Pregabalin [Lyrica] 150 mg PO BID 11/28/16 Rabeprazole Sodium [Aciphex] 20 mg PO BID 11/28/16 Acetaminophen [Tylenol 325mg (*)] 650 mg PO Q4HRS PRN #0 tab 12/08/16 Losartan Potassium [Cozaar 50 mg 50 mg PO DAILY tab 12/08/16 (*)] traMADol [Ultram 50 mg (*)] 25 mg PO Q6HRS PRN #0 tab 12/08/16 Cyanocobalamin (Vitamin B-12) 500 mcg PO DAILY 02/12/17 [Vitamin B-12] Labetalol HCl [Trandate 100 mg (*)] 50 mg PO DAILY 02/12/17 Labetalol HCl [Trandate 100 mg (*)] 100 mg PO HS 02/12/17 Warfarin Sodium [Coumadin 3MG (*)] 3 mg PO DAILY 02/12/17 Medical Decision Making Procedures: Procedure: Ultrasound guidance: Using the linear probe covered in a sterile sheath, a short axis of the vein was obtained. The vein was completely compressible and was identified as separate from the adjacent non-compressible arterial structure. Under real-time guidance, the introducer needle was observed up to the vein, and then punctured it. These images were saved on the database. Central line placement: The indication for the procedure was hypotension. After verbal informed consent from patient; the risks were explained including bleeding, infection, and collapsed lung. Maximal sterile barrier technique was uses including cap, gown, sterile gloves, large sheet, hand washing and chlorhexidine prep. The area anesthetized with 1% lidocaine. The right IJ was punctured with a 19 gauge finder needle, then a wire introducer was placed, a the triple-lumen was placed using Seldinger technique. There were no complications. Blood return low pressure, dark blood. The patient tolerated procedure well. CXR results: good placement as interpreted by myself. Radiologist interpretation is pending. The procedure was performed by [myself]. ED Course/Re-evaluation: The patient's blood pressure is 70/40 on arrival. She is pale. I ordered blood we brought her to trauma room for central line placement. Fluid is being bolused. Kacentra and vitamin K have been ordered.. 8:45 p.m. I discussed the case with Dr. Taj Stallworth. He will consult and recommends admission to hospitalist service. The patient's blood pressure is currently 120/40. Heart rate is 80. She is being transfused O negative I will place an ICU bed. 8:50 p.m. I discussed the case with Dr. Dain Orona who will admit to the medical service. Differential Diagnosis: Partial list of the Differential diagnosis considered include but were not limited to; anemia, hemorrhage and although unlikely based on the history and physical exam, I also considered infection, sepsis, PE, acute coronary disease. Critical Care Time: Critical care time spent by me, Dr. Rozeski exclusive with this patient was 45 minutes, exclusive of the PA time exclusive of procedures. The organ system that was at risk was cardiovascular and I gave fluids, constipation, admission, central line placement to prevent worsening of the patient's condition - Data Points Laboratory Results: Laboratory Results 02/12/17 20:05 02/12/17 20:05 02/12/17 20:05 Patient ABO/Rh B POSITIVE Antibody Screen NEGATIVE Crossmatch IS Only See Detail Medications Given: Hydrocortisone (Solucortef) 50 mg IVP Q8HRS [facility] Stop: 08/11/17 21:59 Last Admin: 02/13/17 05:34 Dose: 50 mg Insulin Human Lispro (Humalog Lispro) 0 unit SC TIDMEAL CHERELLE PRN Reason: Protocol Stop: 08/12/17 07:59 Last Admin: 02/13/17 13:04 Dose: Not Given Oxycodone HCl (Oxycodone Ir) 5 mg PO Q3HRS PRN PRN Reason: Pain, Severe Able to Take PO Stop: 02/22/17 21:43 Last Admin: 02/13/17 05:34 Dose: 5 mg Discontinued Medications Sodium Chloride (Ns) 1,000 mls @ 0 mls/hr IV ONCE ONE; Wide Open PRN Reason: Protocol Stop: 02/12/17 20:01 Last Admin: 02/12/17 20:26 Dose: 1,000 mls Phytonadione 10 mg/ Sodium (Chloride) 51 mls @ 102 mls/hr IV ONCE ONE Stop: 02/12/17 20:30 Last Admin: 02/12/17 21:01 Dose: 51 mls Tranexamic Acid 1,000 mg/ (Sodium Chloride) 110 mls @ 660 mls/hr IV ONCE ONE Stop: 02/12/17 20:10 Last Admin: 02/12/17 20:26 Dose: 110 mls Tranexamic Acid 1,000 mg/ (Sodium Chloride) 510 mls @ 63.75 mls/hr IV ONCE ONE Stop: 02/13/17 04:00 Last Admin: 02/12/17 20:45 Dose: 510 mls Prothrombin Complex Concent ( Human) 2,000 unit/ IV Miscellaneous Supplies 80 mls @ 0 mls/hr IV ONCE ONE; Per Protocol PRN Reason: Protocol Stop: 02/12/17 20:31 Last Admin: 02/12/17 20:41 Dose: 80 mls Departure - Departure Disposition: [facility] Inpatient Acute Clinical Impression: Hemorrhage Hypotension Qualifiers: Hypotension type: postprocedural hypotension Qualified Code(s): I95.81 - Postprocedural hypotension Condition: Critical
[2017-02-12 20:51] LABS: PLATELET ESTIMATE ADEQUATE (ADEQ); POLYCHROMASIA 1+
[2017-02-12] MEDS ORDERED: ONDANSETRON DISINTEGRATING 4 MG TAB PO PRN (21:44)
[2017-02-12] MEDS ORDERED: ONDANSETRON 4 MG/2 ML VIAL IVP PRN (21:44)
[2017-02-12] MEDS ORDERED: D50W 25 GM/50 ML SYR IVP PRN (21:56)
[2017-02-12] MEDS: oxyCODONE IR 5 MG TAB PO PRN (21:57)
--- NOTE | 2017-02-12 22:27 | GHP ---
[f rep st] HISTORY AND PHYSICAL DATE OF ADMISSION: 02/12/2017 HISTORY OF PRESENT ILLNESS: The patient is an 81-year-old female, history of DVT on Coumadin, who reese stained a bruise or an injury to her left leg about several days ago. She fell, pinning between pinc sánchez the wheelchair and chair. She developed a large hematoma on Friday. She went to urgent care t manohar at [facility]. They performed a hematoma evacuation which had persistent bleeding, so much so that she was placed in a tight dressing and referred to the emergency department. Her INR was 2.4 there. It is 3.9 here. She began feeling lightheaded and was hypertensive on arrival. She also had orthostatic syncope when sat up in bed, per EMS. When I spoke with Dr. Womack, it sounds like they removed the pressure dressing, another 100 cc or s o blood came out. They applied pressure dressing and gave her a bunch of procoagulants including Kce ntra and tranexamic acid, and vitamin K and they transfused her blood. When I speak with the patient, she says she feels much better than on arrival. She is alert and ment ating and very clear. She is having no chest pain. No chest pressure. Her leg feels well. Her lef t foot is neurovascularly intact. It is a bit edematous. It is difficult to feel a pulse but it is warm with capillary refill. She is pale but looks well. She says she has been using a wheelchair since the hematoma. CODE STATUS: She confirms DNI status, do not resuscitate status. REVIEW OF SYSTEMS: Complete 10-point review of systems conducted and negative except as noted in the HPI. PAST MEDICAL HISTORY: 1. 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 2. Sacral pressure ulcer with MRSA and osteomyelitis, it is closed. 3. ESBL. 4. History of C diff. 5. Hypertension. 6. Reflux. 7. Adrenal insufficiency on chronic hydrocortisone. 8. Diabetes mellitus type 2. 9. Pseudogout. 10. Asthma. 11. Spinal stenosis. 12. Obstructive sleep apnea. 13. Osteopenia. 14. Irritable bowel syndrome. 15. Pituitary microadenoma. 16. C diff colitis. 17. Chronic kidney disease with baseline creatinine 1.1-1.4. 18. ALLERGIES: Bacitracin, gramicidin, neomycin, polymyxin, esomeprazole, lansoprazole, omeprazole, pant oprazole, ranitidine, environmental. SOCIAL HISTORY: Lives in [place] with her . Nonsmoker and nondrinker. FAMILY HISTORY: Parents . PHYSICAL EXAM: VITAL SIGNS: Presenting vitals, blood pressure 77/51, pulse 72, breathing 17 times a minute, 98% on room air, temp 36.5. Blood pressure, now 106/47. GENERAL: Very pale with no acute distress. HEENT: Sclerae are anicteric. Oropharynx is clear. Mucous membranes are dry. NECK: Reese pple. There is a right IJ in place. HEART: S1, S2. Tachycardic. ABDOMEN: Soft, nontender, nondi stended. LUNGS: Clear to auscultation anterolaterally. LOWER EXTREMITIES: There is a large left lo wer extremity hematoma with a pressure dressing. No apparent active bleeding although I did not yin ve the dressing. It extends all the way up into her thigh. Her foot is neurovascularly intact. Her right lower extremity is unremarkable except for trace edema. LABS: White count 10.4, hematocrit 27, platelets are 194,000. INR is 3.9, it was last 2.1 earlier. Sodium is 129, potassium 4.6, chloride 98, bicarb 22, BUN 47, creatinine 1.9. This is greater than b aseline of 1.3. Glucose is 161. Chest x-ray, interpreted by me, shows right IJ in place without pne umothorax and no significant cardiopulmonary disease. I discussed the case with Dr. Isauro Womack. ASSESSMENT/PLAN: An 81-year-old female presents with acute blood loss anemia and hypotension. 1. Acute blood loss anemia. The source is her leg hematoma and elevated INR. Surgery has seen her. She has received vitamin K, procoagulants and has been seen by surgery. We will cycle her hematocr it q.6h. I will repeat her INR in the morning. Her next hematocrit is due here shortly. 2. Hypotension. This is hypovolemic hypotension that appears to have been resolved with adequate an d appropriate volume resuscitation, including 1 L of IV fluids and blood products. I will add stress dose steroids given her history of adrenal insufficiency. 3. Elevated INR. This has been reversed given her life-threatening bleeding. The decision to recom mend anticoagulation can be made in the coming days. 4. History of internal jugular deep venous thrombosis. It is notable she has an IJ triple lumen in place. We will continue that for now as she needs secure IV access. This should be removed at the e arliest possible date. 5. Code status. Do not resuscitate. 6. Diabetes. I will write her for lispro sliding scale at a low dose. DISPOSITION: ICU. Do not resuscitate. /[id number]/MODL
[2017-02-12] MEDS: HYDROCORTISONE 100 MG/2 ML VIAL IVP SCH (23:00)
--- NOTE | 2017-02-12 23:08 | PDCONSULT ---
Computer Repair Technician Note: Surgical Consult was requested by Dr. Womack. Jennifer in a 81 year female on Coumadin for a LUE DVT who presented to the [facility] today after she pinched her left leg against a chair. She developed a large hematoma that was drained in the UC by Dr. Kumar and Dr. Xavier and a pressure dressing was applied. She was transferred to the [facility] ED when she was noted to have hypotension. On arrival she had a BP of [address] Womack resucitated her with crystaloid and PRBC. A right IJ cath was placed in the ED and she responded to volume replacement. She received PCC, Tranexamic Acid and vit K in the ED. She has not received FFP. She is now resting comfortably in the ICU. She is on contact precautions for a hx of MRSA and C diff infections. PMH: IDDM, CKD, LUE/IJ DVT, chronic sacral decubitus all: bacitracin, neomycin non-smoker SH: lives independently with her FH: NC ROS: denies chest pain/SOB, abd pain, fever PE: BP 120/76 P 74 R 16 T 36.4 pleasant elderly female in NAD/somnolent Right IJ 3x lumen cath/uncomplicated Lungs CTA CVS RRR Abd: soft/nontender Ext: bruising LLE ankle to knee, dressing taken down: medial distal calf hematoma with 2 parallel incisions without active bleeding/some accumlated clot deep subdermal DP pulses +1 right/doppler left Hct 27% INR 3.94 Imp: LLE hematoma secondary to minor trauma anticoagulation above therapeutic range Rec: reverse anticoagulation/compression dressing LLE for now wound care consult supportive care Mateo Stallworth MD, FACS
[2017-02-13 00:29] LABS: INR 1.35 (0.83-1.16); PROTIME(PATIENT) 16.7 SEC (12.0-15.0)
[2017-02-13] MEDS: oxyCODONE IR 5 MG TAB PO PRN (05:34)
[2017-02-13] MEDS: HYDROCORTISONE 100 MG/2 ML VIAL IVP SCH ×3 (05:34→21:48)
[2017-02-13 06:03] LABS: INR 1.12 (0.83-1.16); PROTIME(PATIENT) 14.3 SEC (12.0-15.0)
[2017-02-13 06:45] LABS: ANION GAP 7 mEq/L (8-16); CALCIUM 7.4 mg/dL (8.5-10.4); CARBON DIOXIDE 21 mEq/l (22-31); CHLORIDE 104 mEq/L (97-110); CREATININE 1.5 mg/dL (0.6-1.0); GLOMERULAR FILTRATION RATE 33; GLUCOSE 164 mg/dL (70-100); POTASSIUM 4.4 mEq/L (3.5-5.2); SODIUM 132 mEq/L (134-144)
[2017-02-13] MEDS ORDERED: FLU VACC QS 2017-18 (3YR+)/PF 0.5 ML SYR (FLUARIX QUAD) IM ONE ×2 (09:08→16:29)
[2017-02-13] MEDS: INSULIN LISPRO 100 UNIT/ML SC SCH ×3 (09:09→18:21)
--- NOTE | 2017-02-13 10:33 | SOAPPROG ---
SOAP Progress Note Assessment/Plan: Assessment: 81-year-old female status post left lower extremity trauma after hitting her leg on her recliner. On admission, patient was hypotensive and bleeding, her coagulopathy has been since corrected. On examination, there is a necrotic portion of her left calf which needs to be debrided. Will plan operative debridement today. Plan: 02/13/17 10:32 Subjective: Denies pain, states she is overall doing well. Objective: Vital Signs Temp Pulse Resp BP Pulse Ox 37.1 C 79 12 119/60 96 02/13/17 08:00 02/13/17 08:00 02/13/17 08:00 02/13/17 08:00 02/13/17 08:00 Laboratory Results 02/13/17 10:05 02/13/17 05:30 02/12/17 02/13/17 02/14/17 05:59 05:59 05:59 Intake Total 3750 Output Total 400 550 Balance 3350 -550 PT 14.3 SEC (12.0-15.0) 02/13/17 05:30 INR 1.12 (0.83-1.16) 02/13/17 05:30 ICD10 Worksheet Patient Problems: Problems Problem Status Onset Hemorrhage Acute Hypotension Acute Acute renal failure Acute C. difficile diarrhea Acute 03/01/15 Cellulitis Acute Decubitus ulcer of buttock Acute Dehydration Acute ESBL (extended spectrum beta-lactamase) producing bacteria infection Acute Hypertensive urgency Acute Hyponatremia Acute Hypoxemia Acute MRSA (methicillin resistant Staphylococcus aureus) Acute ~11/29/16 Palliative care encounter Acute UTI (urinary tract infection) Acute Weakness Acute Adrenal insufficiency Chronic Chronic pain Chronic Diabetes Chronic Hypertension Chronic Hypothyroid Chronic
--- NOTE | 2017-02-13 12:46 | ASMTCMCOM ---
CM Note CM Note Notes: Pt normally lives at [facility] living w/. Pt to OR today for debridement of LE wound. D/W RN who said pt w/ poor mobility today. Will see how pt does w/therapies tomorrow to help determine dc needs. CHRISTOPH w/f. Date Signed: 02/13/2017 12:46 PM Electronically Signed By:Isadora Ventura RN
[2017-02-13] MEDS ORDERED: LR 1,000 ML IV ONE (13:16)
[2017-02-13] MEDS ORDERED: BUPIVACAINE 0.5% 30 ML SDV ONE (13:43)
--- NOTE | 2017-02-13 13:47 | PDHPUP ---
History & Physical Update H&P update statement: This history and physical update is based on an assessment of the patient which was completed after admission or registration (within 24 hours), but prior to the surgery/procedure. H&P update: H&P reviewed & patient examined, no change in patient's condition since H&P completed
--- NOTE | 2017-02-13 13:53 | PDANEPAE ---
ANE History of Present Illness 81 yo F w hematoma LLE, here for evacuation ANE Past Medical History - Cardiovascular History Hx Hypertension: Yes Hx Arrhythmias: No Hx Coronary Artery / Peripheral Vascular Disease: No Hx CHF / Valvular Disease: No Cardiovascular History Comment: ABNL EKG-INFARCT, DR GAINES DOESNT BELIEVE DE. NO CP - Pulmonary History Hx COPD: No Hx Asthma/Reactive Airway Disease: Yes Hx Recent Upper Respiratory Infection: No Hx Oxygen in Use at Home: No Hx Sleep Apnea: Yes Sleep Apnea Screening Result - Last Documented: Positive Pulmonary History Comment: ASTHMA. SLOW STAIR USE, BUT NO SOB. POS KEMAL, USES O2 2L AT NITE - Neurologic History Hx Cerebrovascular Accident: No Hx Seizures: No Hx Dementia: No Neurologic History Comment: R ARM N AND T - Endocrine History Hx Diabetes: Yes Endocrine History Comment: DIABETES CONTROLLED W DIET. LOW THYROID - Renal History Hx Renal Disorders: Yes Renal History Comment: OCC INCONTINENCE, WEARS PAD - Liver History Hx Hepatic Disorders: No - Neurological & Psychiatric Hx Hx Neurological and Psychiatric Disorders: No - Cancer History Hx Cancer: Yes Cancer History Comment: SKIN CA- BASAL CELL - Congenital Disorder History Hx Congenital Disorders: No - GI History Hx Gastrointestinal Disorders: Yes Gastrointestinal History Comment: GERD. IBS HX, CONSTIPATION - Other Health History Other Health History: ADRENAL INSUFF. BRUSES EASILY. SPINAL STENOSIS, SCOLIOSIS. DDD, OA - Chronic Pain History Chronic Pain: Yes (LOW BACK) - Surgical History Prior Surgeries: R SHOULDER 12-6-13. PRESSURE ULCER DEBRIDEMENT '11. L BREAST BX. MARIANNA CATARACTS. HYST. L GIAN ANE Review of Systems Review of Systems: - Exercise capacity METS (RN): 4 METS ANE Patient History - Allergies Allergies/Adverse Reactions: bacitracin [From Neosporin] Allergy (Intermediate, Verified 02/21/16 10:05) Rash bacitracin zinc [From Neosporin] Allergy (Intermediate, Verified 02/21/16 10:05) Rash gramicidin D [From Neosporin] Allergy (Intermediate, Verified 02/21/16 10:05) Rash neomycin sulfate [From Neosporin] Allergy (Intermediate, Verified 02/21/16 10:05 ) Rash polymyxin B [From Neosporin] Allergy (Intermediate, Verified 02/21/16 10:05) Rash polymyxin B sulfate [From Neosporin] Allergy (Intermediate, Verified 02/21/16 10 :05) Rash esomeprazole magnesium [From Nexium] Allergy (Verified 02/21/16 10:05) Diarrhea lansoprazole [From Prevacid] Allergy (Verified 02/21/16 10:05) Diarrhea omeprazole [From Prilosec] Allergy (Verified 02/21/16 10:05) Diarrhea omeprazole magnesium [From Prilosec] Allergy (Verified 02/21/16 10:05) Diarrhea pantoprazole sodium [From Protonix] Allergy (Verified 02/21/16 10:05) Diarrhea ranitidine HCl [From Zantac] Allergy (Verified 02/21/16 10:05) Diarrhea ENVIRONMENTAL Allergy (Intermediate, Uncoded 12/31/14 21:09) Other-Enter Comments - Home Medications Home Medications: C/E/Zn/Cu/OM3/DHA/EPA/LUT/ZEAX [Preservision Areds 2 Softgel] 1 each PO BID 11/09 [Last Taken 02/12/17] Cholecalciferol Vit D3 [Vitamin D3 (*)] 2,000 units PO DAILY 11/28/16 [Last Taken 02/12/17] FLUTICASONE/SALMETEROL [ADVAIR HFA 230-21 MCG INHALER] 2 puffs IH BID 11/28/16 [ Last Taken 3 Weeks Ago ~01/22/17] Fluticasone Nasal [Flonase Nasal [place]] 1 - 2 sprays EACHNARE DAILY 11/28/16 [ Last Taken 3 Days Ago ~02/09/17] Hydrocortisone [Cortef 10 mg (*)] 10 mg PO BID 11/28/16 [Last Taken 02/12/17 09: 00] Levothyroxine [Synthroid 100 mcg (*)] 100 mcg PO DAILY@11/28/16 [Last Taken 02/12/17] Methocarbamol [Robaxin 750 mg (*)] 750 mg PO QID PRN 11/28/16 [Last Taken Unknown] Montelukast Sodium [Singulair 10 mg (*)] 10 mg PO DAILY 11/28/16 [Last Taken ] Multivitamins [Multivitamin (*)] 1 each PO DAILY 11/28/16 [Last Taken 02/12/17] Pregabalin [Lyrica] 150 mg PO BID 11/28/16 [Last Taken 02/12/17] Rabeprazole Sodium [Aciphex] 20 mg PO BID 11/28/16 [Last Taken 02/12/17] Cyanocobalamin (Vitamin B-12) [Vitamin B-12] 500 mcg PO DAILY 02/12/17 [Last Taken 02/12/17] Labetalol HCl [Trandate 100 mg (*)] 50 mg PO DAILY 02/12/17 [Last Taken 02/12/17 ] Labetalol HCl [Trandate 100 mg (*)] 100 mg PO HS 02/12/17 [Last Taken 02/11/17] Warfarin Sodium [Coumadin 3MG (*)] 3 mg PO DAILY 02/12/17 [Last Taken 02/12/17] - NPO status NPO Status: no food or drink >8 hours NPO Since - Liquids (Date): 02/13/17 NPO Since - Liquids (Time): 08:00 NPO Since - Solids (Date): 02/12/17 NPO Since - Solids (Time): 20:00 - Anes Hx Anes Hx: no prior problems - Smoking Hx Smoking Status: Never smoked - Alcohol Use Alcohol Use: Rarely - Family Anes Hx Family Anes Hx: none Family Hx Anesthesia Complications: NONE ANE Labs/Vital Signs - Labs Result Diagrams: 02/13/17 10:05 02/13/17 05:30 - Vital Signs Blood Pressure: 144/59 Heart Rate: 76 Respiratory Rate: 13 O2 Sat (%): 99 Height: 162.56 cm Weight: 91.4 kg ANE Physical Exam - Airway Neck exam: FROM Mallampati Score: Class 2 Mouth exam: normal dental/mouth exam - Pulmonary Pulmonary: no respiratory distress, clear to auscultation - Cardiovascular Cardiovascular: regular rate and rhythym, no murmur, rub, or gallop - ASA Status ASA Status: III ANE Anesthesia Plan Anesthesia Plan: GA w LMA
[2017-02-13] MEDS ORDERED: fentaNYL 100 MCG/2 ML INJ ONE (14:00)
[2017-02-13] MEDS ORDERED: PROPOFOL 200 MG/20 ML VIAL ONE (14:00)
[2017-02-13] MEDS ORDERED: LIDOCAINE 2% 100 MG/5 ML SYR ONE (14:04)
[2017-02-13] MEDS ORDERED: PHENYLEPHRINE HCL 100 MCG/ML SYR ONE (14:47)
[2017-02-13] MEDS ORDERED: fentaNYL 100 MCG/2 ML INJ IVP PRN (14:49)
[2017-02-13] MEDS ORDERED: NALOXONE HCL 0.4 MG/ML INJ IVP PRN (14:49)
[2017-02-13] MEDS ORDERED: ONDANSETRON 4 MG/2 ML VIAL IVP PRN (14:49)
[2017-02-13] MEDS ORDERED: HYDROmorphONE/DILAUDID 1 MG/ML INJ IVP PRN (14:49)
--- NOTE | 2017-02-13 15:13 | POSTANESTH ---
Post Anesthetic Evaluation Cardiovascular Status: Normal, Stable, Similar to Pre-Op Cond Respiratory Status: Normal, Stable, Similar to Pre-op Cond. Level of Consciousness/Mental Status: Can Participate in Eval, Alert and Oriented Pain Control: Adequate, Prn Tx Ordered Nausea/Vomiting Control: Adequate, Prn Tx Ordered Complications Possibly Related to Anesthesia: None Noted
--- NOTE | 2017-02-13 16:11 | POSTOPPROG ---
Post Op Note Date of Operation: 02/13/17 Surgeon: Oren Baldwin Anesthesiologist: Mahi Anesthesia: LMA Pre-op Diagnosis: LLE hematoma, necrosos Post-op Diagnosis: same Procedure: Incisional debridement of LLE abscess [id number] Findings: Large necrotic area with underlying hematoma. No active extrav identified Inf/Abcess present in the surg proc area at time of surgery?: Yes Depth: Superfical (Skin SQ) EBL: 50-100 Total fluids administered: 3000cc irrigation Specimen(s): Cx taken
--- NOTE | 2017-02-13 18:25 | HOSPPROG ---
Hospitalist Progress Note Assessment/Plan: 81 yo F with MMI including hx of recent DVT on AC presenting with acute blood loss anemia in setting of hematoma of leg with elevated inr # ABLA: in setting of over-AC and leg hematoma, s/p tx 1 u prbc, trending h/h #leg hematoma: surgery has taken for evacuation and debridement of necrotic tissue post reversal of INR, spontaneous in setting of coagulopathy # hypotension: fluid responsive, related to anemia # coagulopathy: presented with elevated INR and bleed into leg, s/p tranxemic acid and vitamin K and INR now 1 # IJ DVT: fairly recently started on AC for this, holding for now given above # DM: following, ssi # DNR # IP status--may need snf after dc Subjective: no significant overnight events, patient feels weak, but otherwise no sig complaints Objective: Vital Signs Temp Pulse Resp BP Pulse Ox 36.6 C 84 16 139/58 H 92 02/13/17 16:00 02/13/17 16:00 02/13/17 16:00 02/13/17 16:00 02/13/17 16:00 Microbiology 02/13/17 14:43 Gram Stain - Final Leg - Tissue Laboratory Results 02/13/17 10:05 02/13/17 05:30 02/12/17 02/13/17 02/14/17 05:59 05:59 05:59 Intake Total 3750 1300 Output Total 400 1600 Balance 3350 -300 PT 14.3 SEC (12.0-15.0) 02/13/17 05:30 INR 1.12 (0.83-1.16) 02/13/17 05:30 awake alert pale anicteric op clear rrr no mrg cta soft nt nd lle with ecchymosis and hemotoma and wound warm pale oriented approriate ICD10 Worksheet Patient Problems: Problems Problem Status Onset Hemorrhage Acute Hypotension Acute MRSA (methicillin resistant Staphylococcus aureus) Acute ~11/29/16 Decubitus ulcer of buttock Acute Hypertension Chronic Hypothyroid Chronic Diabetes Chronic Chronic pain Chronic Hypertensive urgency Acute Acute renal failure Acute Adrenal insufficiency Chronic Hyponatremia Acute C. difficile diarrhea Acute 03/01/15 Hypoxemia Acute Palliative care encounter Acute ESBL (extended spectrum beta-lactamase) producing bacteria infection Acute Weakness Acute UTI (urinary tract infection) Acute Dehydration Acute Cellulitis Acute
--- NOTE | 2017-02-13 18:32 | GOP ---
[f rep st] OPERATIVE REPORT DATE OF OPERATION: 02/13/2017 SURGEON: Oren Baldwin MD SLASHER SAWYER: None. ANESTHESIA: General endotracheal. ANESTHESIOLOGIST: Dr. Champagne. PREOPERATIVE DIAGNOSIS: Left lower extremity hematoma with necrosis. POSTOPERATIVE DIAGNOSIS: Left lower extremity hematoma with necrosis. PROCEDURE PERFORMED: Incisional debridement of left lower extremity abscess 15 x 10 cm down to fasci a. FINDINGS: Large necrotic area with underlying hematoma successfully evacuated. All necrotic skin re moved down to the level of the fascia. No active extravasation identified. SPECIMENS: Cultures were taken. ESTIMATED BLOOD LOSS: 100 cc of old blood. Only 5 cc of new blood loss. DESCRIPTION OF PROCEDURE: The patient was greeted in the preoperative suite. Once again, risks, alon efits, and alternatives were discussed. Consent was signed. She was then brought back to the operat zander suite, placed on the OR table in a supine position. After all anesthesia machines, including SCD s, were on and functioning, [employer] time-out was performed. After successful induc tion of general anesthesia, the patient's left lower extremity was prepped and draped in typical ster ile fashion. I commenced the procedure by making an incision over the area of necrosis and greatest fluctuance. Just deep to this, I encountered a large cavity of old clotted blood. The entire area o f overlying skin and fat was completely , and I debrided this. The approximate debrided cavity w as about 15 x [address] down to the fascia in some sites. I removed all the and necroti c tissue and all of the old blood. There was some tracking superiorly and I did increase my cavity s omewhat. After I removed all necrotic tissue and old blood, I packed the area with Kerlix to obtain hemostasis. After hemostasis was obtained, I packed the area with Betadine-soaked Kerlix, covered it with ABDs and a sterile dressing. The patient was then extubated in the operative suite and taken t o the PACU in satisfactory condition. COUNTS: All reported as correct x2. /[id number]/MODL
[2017-02-14] MEDS: NS 1,000 ML IV SCH ×2 (04:32→11:29)
[2017-02-14 04:56] LABS: INR 1.07 (0.83-1.16); PROTIME(PATIENT) 13.8 SEC (12.0-15.0)
[2017-02-14 05:12] LABS: ANION GAP 9 mEq/L (8-16); CALCIUM 7.5 mg/dL (8.5-10.4); CARBON DIOXIDE 21 mEq/l (22-31); CHLORIDE 109 mEq/L (97-110); CREATININE 1.1 mg/dL (0.6-1.0); GLOMERULAR FILTRATION RATE 48; GLUCOSE 189 mg/dL (70-100); POTASSIUM 4.2 mEq/L (3.5-5.2); SODIUM 139 mEq/L (134-144)
[2017-02-14] MEDS: HYDROCORTISONE 100 MG/2 ML VIAL IVP SCH (05:43)
[2017-02-14] MEDS: INSULIN LISPRO 100 UNIT/ML SC SCH ×3 (09:03→19:55)
[2017-02-14 09:37] LABS: % IMMATURE GRANULYOCYTES 0.9 % (0.0-1.1); ABSOLUTE IMMATURE GRANULOCYTES 0.09 10^3/uL (0.00-0.10); ADD DIFF? NO; ADD MORPH? YES; ADD SCAN? NO; ATYPICAL LYMPHOCYTE FLAG 10 (0-99); FRAGMENT RBC FLAG 0 (0-99); HEMATOCRIT 21.5 % (38.0-47.0); LEFT SHIFT FLG 0 (0-99); LIPEMIA HEMOLYSIS FLAG 80 (0-99); MEAN CELL HEMOGLOBIN 27.8 pg (27.9-34.1); MEAN CELL HEMOGLOBIN CONCENTR. 31.6 g/dL (32.4-36.7); MEAN CELL VOLUME 87.8 fL (81.5-99.8); MEAN PLATELET VOLUME 11.2 fL (8.7-11.7); PLATELET CLUMPS FLAG 10 (0-99); PLATELET COUNT 156 10^3/uL (150-400); RED BLOOD CELL COUNT 2.45 10^6/uL (4.18-5.33); RED CELL DISTRIBUTION WIDTH 16.9 % (11.5-15.2)
[2017-02-14 09:44] LABS: HEMOGLOBIN 6.8 g/dL (12.6-16.3)
[2017-02-14 10:06] LABS: PLATELET ESTIMATE ADEQUATE (ADEQ)
--- NOTE | 2017-02-14 11:35 | HOSPPROG ---
Hospitalist Progress Note Assessment/Plan: 81 yo F with MMI including hx of recent DVT on AC presenting with acute blood loss anemia in setting of hematoma of leg with elevated inr ABLA: in setting of over-AC and leg hematoma, s/p tx 1 u prbc, trending h/h give add'l 2 units today leg hematoma: surgery has taken for evacuation and debridement of necrotic tissue post reversal of INR wound vac Dr Baldwin suspects she will need add'l debridement hypotension: fluid responsive, related to anemia coagulopathy: presented with elevated INR and bleed into leg, s/p tranxemic acid and vitamin K and INR now 1 hold warfarin until no loger needs surgery IJ DVT: fairly recently started on AC for this, holding for now given above remove TLC soon DM: following, ssi DNR # IP status--may need snf after dc Subjective: case d/w dr baldwin. anemic Objective: Vital Signs Temp Pulse Resp BP Pulse Ox 36.7 C 87 16 200/90 H 98 02/14/17 08:35 02/14/17 08:35 02/14/17 08:35 02/14/17 08:35 02/14/17 08:35 Microbiology 02/13/17 14:43 Gram Stain - Final Leg - Tissue Laboratory Results 02/14/17 09:20 02/14/17 04:39 02/13/17 02/14/17 02/15/17 05:59 05:59 05:59 Intake Total 3750 3211 Output Total 400 1825 450 Balance 3350 1386 -450 PT 13.8 SEC (12.0-15.0) 02/14/17 04:39 INR 1.07 (0.83-1.16) 02/14/17 04:39 - Physical Exam Constitutional: no apparent distress, appears nourished Eyes: PERRL, anicteric sclera Ears, Nose, Mouth, Throat: moist mucous membranes, hearing normal Cardiovascular: regular rate and rhythym, no murmur, rub, or gallop Respiratory: no respiratory distress, no rales or rhonchi Gastrointestinal: normoactive bowel sounds, soft, non-tender abdomen Genitourinary: no bladder fullness, No fernandez in urethra Skin: warm, normal color Musculoskeletal: other (12 cm incsion LLE) Neurologic: AAOx3 ICD10 Worksheet Patient Problems: Problems Problem Status Onset Hemorrhage Acute Hypotension Acute Acute renal failure Acute C. difficile diarrhea Acute 03/01/15 Cellulitis Acute Decubitus ulcer of buttock Acute Dehydration Acute ESBL (extended spectrum beta-lactamase) producing bacteria infection Acute Hypertensive urgency Acute Hyponatremia Acute Hypoxemia Acute MRSA (methicillin resistant Staphylococcus aureus) Acute ~11/29/16 Palliative care encounter Acute UTI (urinary tract infection) Acute Weakness Acute Adrenal insufficiency Chronic Chronic pain Chronic Diabetes Chronic Hypertension Chronic Hypothyroid Chronic
[2017-02-14] MEDS: HYDROmorphONE/DILAUDID 1 MG/ML INJ IVP PRN ×2 (11:40→11:50)
[2017-02-14] MEDS: traMADol 50 MG TAB PO PRN (11:43)
--- NOTE | 2017-02-14 13:14 | WOCRNPDOC ---
IVETHCRN Advanced Assessment Note - Skin Integrity Problem, Advanced Assess Left Lower Leg Dressing Type: Abdominal Pads, Coban, Gauze, Kerlix Dressing Description: Shadowed Exudate Amount: Minimal Exudate Color: Red Exudate Characteristic(s): Bloody Integumentary Issue Intervention: Dressing Applied Jordana Wound Tissue: Ecchymotic, Swollen Jordana Wound Swelling: Mild Wound Bed Color: Red, Yellow Wound Bed Constitution: Granulation Tissue, Undermining (2cmfrom 12-1 o'clock), Subcutaneous Fat, Fascia Site Odor: Slight Site Measurement - Head-to-Toe Length X Width X Depth (cm): [id number] Skin Integrity Problem Comment: Large surgical wound on R medial lower leg, previously a hematoma. This was surgically debrided by Dr. Baldwin in the OR yesterday. Due to patient's elevated INR, this wound has been oozing bloody exudate since surgery yesterday. Assessed w/ Dr. Baldwin at the bedside to day, and no obvious bleeding was observed. Decision made to place a wound vac, w / caveat that nursing will continue to monitor for bleeding and notify surgeon if patient's 500mL cannister fills up in the next 24 hours. Wound bed comprised of fascia covering muscle, w/ subcutaneous fat and granulation tissue along margins. There is some undermining in proximal portion of wound. Three pieces of black foam applied to wound bed, and vac set at -125mmHg, low continuous suction. Patient administered Dilaudid IV before dressing change. Wound RN will follow up with patient on Saturday 02/17.
--- NOTE | 2017-02-14 14:42 | SOAPPROG ---
SOAP Progress Note Assessment/Plan: Assessment: POD#1 s/p I&D of LLE necrotic wound - saw the patient with the wound care team this AM. site is dry, there may be some more necrotic tissue deep but will let demarcate. Made decision to place VAC to the area. Will assess Friday what else needs to be done. Appreciate wound care assistance. Agree with transfusion Plan: 02/13/17 10:32 02/14/17 14:40 02/14/17 14:41 Subjective: No complaints, pain controlled Objective: Vital Signs Temp Pulse Resp BP Pulse Ox 36.7 C 87 16 170/72 H 95 02/14/17 12:09 02/14/17 12:09 02/14/17 12:09 02/14/17 12:09 02/14/17 12:09 Microbiology 02/13/17 14:43 Gram Stain - Final Leg - Tissue Laboratory Results 02/14/17 09:20 02/14/17 04:39 02/13/17 02/14/17 02/15/17 05:59 05:59 05:59 Intake Total 3750 3211 Output Total 400 1825 450 Balance 3350 1386 -450 PT 13.8 SEC (12.0-15.0) 02/14/17 04:39 INR 1.07 (0.83-1.16) 02/14/17 04:39 ICD10 Worksheet Patient Problems: Problems Problem Status Onset Hemorrhage Acute Hypotension Acute Acute renal failure Acute C. difficile diarrhea Acute 03/01/15 Cellulitis Acute Decubitus ulcer of buttock Acute Dehydration Acute ESBL (extended spectrum beta-lactamase) producing bacteria infection Acute Hypertensive urgency Acute Hyponatremia Acute Hypoxemia Acute MRSA (methicillin resistant Staphylococcus aureus) Acute ~11/29/16 Palliative care encounter Acute UTI (urinary tract infection) Acute Weakness Acute Adrenal insufficiency Chronic Chronic pain Chronic Diabetes Chronic Hypertension Chronic Hypothyroid Chronic
--- NOTE | 2017-02-14 16:25 | ASMTCMCOM ---
CM Note CM Note Notes: Chart reviewed. Met with patient to discuss discharge poc. She has had previous experience with [facility] that was positive for her. She ask that I confirm with her that this is appropriate and that family in agreement.. Attempted to reach him by phone and left message for him to return our call. In the interim, referral made to [facility]. Awaiting response. CM to follow. Date Signed: 02/14/2017 04:24 PM Electronically Signed By:Quyen Camarena RN
[2017-02-14] MEDS: HYDROCORTISONE 10 MG TAB PO SCH ×2 (17:19→21:19)
[2017-02-14] MEDS ORDERED: LIDOCAINE HCL 4% TOPICAL SOLN 50ML MM PRN (17:31)
[2017-02-14] MEDS ORDERED: RABEPRAZOLE SODIUM 20 MG PO SCH (21:00)
[2017-02-14] MEDS: PRESERVISION AREDS2 FORMULA EYE VIT 1 EACH PO SCH (21:19)
[2017-02-14] MEDS: LABETALOL HCL 100 MG TAB PO SCH (21:19)
[2017-02-14] MEDS: PREGABALIN 150 MG CAP PO SCH (21:19)
[2017-02-14] MEDS: FLUTICASONE/SALMETER 500/50MCG DISKUS IH SCH (22:02)
[2017-02-15] MEDS: NS 1,000 ML IV SCH (05:12)
[2017-02-15 05:34] LABS: % IMMATURE GRANULYOCYTES 1.2 % (0.0-1.1); ABSOLUTE NRBC COUNT 0.02 10^3/uL (0-0.01); ADD DIFF? NO; ADD MORPH? NO; ADD SCAN? NO; ATYPICAL LYMPHOCYTE FLAG 0 (0-99); FRAGMENT RBC FLAG 20 (0-99); HEMATOCRIT 28.4 % (38.0-47.0); LEFT SHIFT FLG 0 (0-99); LIPEMIA HEMOLYSIS FLAG 80 (0-99); MEAN CELL HEMOGLOBIN 27.9 pg (27.9-34.1); MEAN CELL HEMOGLOBIN CONCENTR. 31.7 g/dL (32.4-36.7); MEAN CELL VOLUME 87.9 fL (81.5-99.8); MEAN PLATELET VOLUME 10.8 fL (8.7-11.7); NRBC-AUTO% 0.2 % (0.0-0.2); PLATELET CLUMPS FLAG 0 (0-99); PLATELET COUNT 144 10^3/uL (150-400); RED BLOOD CELL COUNT 3.23 10^6/uL (4.18-5.33); RED CELL DISTRIBUTION WIDTH 17.7 % (11.5-15.2)
[2017-02-15 05:55] LABS: ANION GAP 7 mEq/L (8-16); CALCIUM 7.3 mg/dL (8.5-10.4); CARBON DIOXIDE 21 mEq/l (22-31); CHLORIDE 109 mEq/L (97-110); GLOMERULAR FILTRATION RATE 53; GLUCOSE 140 mg/dL (70-100); POTASSIUM 3.9 mEq/L (3.5-5.2); SODIUM 137 mEq/L (134-144)
[2017-02-15] MEDS: INSULIN LISPRO 100 UNIT/ML SC SCH ×3 (07:44→17:59)
[2017-02-15] MEDS: LABETALOL HCL 100 MG TAB PO SCH ×2 (08:59→21:35)
[2017-02-15] MEDS: PRESERVISION AREDS2 FORMULA EYE VIT 1 EACH PO SCH ×2 (08:59→21:35)
[2017-02-15] MEDS: MULTIVITAMINS 1 EACH TAB PO SCH (09:00)
[2017-02-15] MEDS: MONTELUKAST SODIUM 10 MG TAB PO SCH (09:00)
[2017-02-15] MEDS ORDERED: LOSARTAN POTASSIUM 50 MG TAB PO SCH (09:00)
[2017-02-15] MEDS ORDERED: CYANOCOBALAMIN 500 MCG PO SCH (09:00)
[2017-02-15] MEDS: CYANO/VITAMIN B12 1000 MCG TAB PO SCH (09:01)
[2017-02-15] MEDS: LEVOTHYROXINE 100 MCG TAB PO SCH (09:01)
[2017-02-15] MEDS: HYDROCORTISONE 10 MG TAB PO SCH ×2 (09:01→21:35)
[2017-02-15] MEDS: PREGABALIN 150 MG CAP PO SCH ×2 (09:02→21:36)
[2017-02-15] MEDS: FLUTICASONE NASAL 120 SPRAYS/16 GM MDI EACHNARE SCH (09:07)
[2017-02-15] MEDS: oxyCODONE IR 5 MG TAB PO PRN ×2 (09:17→21:35)
[2017-02-15] MEDS: FLUTICASONE/SALMETER 500/50MCG DISKUS IH SCH ×2 (09:33→19:54)
--- NOTE | 2017-02-15 17:24 | SOAPPROG ---
SOAP Progress Note Assessment/Plan: Assessment: AFEBRILE/DRESSING DRY AND INTACT/OFF ANTICOAGULATION Plan: DRESSING CHANGE IN THE A.M. TO EVALUATE FOR WOUND VAC/ARTERIAL STUDIES TO EVALUATE FOR HEALING POTENTIAL 02/15/17 17:23 Objective: Vital Signs Temp Pulse Resp BP Pulse Ox 36.7 C 94 20 170/88 H 92 02/15/17 16:00 02/15/17 16:00 02/15/17 16:00 02/15/17 16:00 02/15/17 16:00 Microbiology 02/13/17 14:43 Gram Stain - Final Leg - Tissue Laboratory Results 02/15/17 05:15 02/15/17 05:15 02/14/17 02/15/17 02/16/17 05:59 05:59 05:59 Intake Total 3211 2605 Output Total 1825 1300 Balance 1386 1305 PT 13.8 SEC (12.0-15.0) 02/14/17 04:39 INR 1.07 (0.83-1.16) 02/14/17 04:39 ICD10 Worksheet Patient Problems: Problems Problem Status Onset Hemorrhage Acute Hypotension Acute Acute renal failure Acute C. difficile diarrhea Acute 03/01/15 Cellulitis Acute Decubitus ulcer of buttock Acute Dehydration Acute ESBL (extended spectrum beta-lactamase) producing bacteria infection Acute Hypertensive urgency Acute Hyponatremia Acute Hypoxemia Acute MRSA (methicillin resistant Staphylococcus aureus) Acute ~11/29/16 Palliative care encounter Acute UTI (urinary tract infection) Acute Weakness Acute Adrenal insufficiency Chronic Chronic pain Chronic Diabetes Chronic Hypertension Chronic Hypothyroid Chronic
--- NOTE | 2017-02-15 17:39 | SOAPPROG ---
SOAP Progress Note Assessment/Plan: Assessment: AFEBRILE/DRESSING DRY AND INTACT/OFF ANTICOAGULATION Plan: DRESSING CHANGE IN THE A.M. TO EVALUATE FOR WOUND VAC/ARTERIAL STUDIES TO EVALUATE FOR HEALING POTENTIAL 02/15/17 17:23 02/15/17 17:39 WOUND VAC FUNCTIONING WELL/NO PROBLEMS/VAC CHANGE ON FRIDAY Objective: Vital Signs Temp Pulse Resp BP Pulse Ox 36.7 C 94 20 170/88 H 92 02/15/17 16:00 02/15/17 16:00 02/15/17 16:00 02/15/17 16:00 02/15/17 16:00 Microbiology 02/13/17 14:43 Gram Stain - Final Leg - Tissue Laboratory Results 02/15/17 05:15 02/15/17 05:15 02/14/17 02/15/17 02/16/17 05:59 05:59 05:59 Intake Total 3211 2605 Output Total 1825 1300 Balance 1386 1305 PT 13.8 SEC (12.0-15.0) 02/14/17 04:39 INR 1.07 (0.83-1.16) 02/14/17 04:39 ICD10 Worksheet Patient Problems: Problems Problem Status Onset Hemorrhage Acute Hypotension Acute Acute renal failure Acute C. difficile diarrhea Acute 03/01/15 Cellulitis Acute Decubitus ulcer of buttock Acute Dehydration Acute ESBL (extended spectrum beta-lactamase) producing bacteria infection Acute Hypertensive urgency Acute Hyponatremia Acute Hypoxemia Acute MRSA (methicillin resistant Staphylococcus aureus) Acute ~11/29/16 Palliative care encounter Acute UTI (urinary tract infection) Acute Weakness Acute Adrenal insufficiency Chronic Chronic pain Chronic Diabetes Chronic Hypertension Chronic Hypothyroid Chronic
--- NOTE | 2017-02-15 20:36 | HOSPPROG ---
Hospitalist Progress Note Assessment/Plan: The patient is a female with PMH COPD, morbid obesity, Charcot foot, diabetes mellitus type 2 who was admitted for right foot wound. ASSESSMENT/PLAN: RLE hematoma, s/p surgical drainage and debridement, wound vac Acute blood loss anemia, s/p 3u PRBC Chronic AC - on hold. IJ DVT DM2 Morbid obesity -Wound RN and Gen Surg to reassess wound on Friday, possibly to do BKA surgery. -Hold warfarin for potential surgery. -Pt refusing Lovnoex for VTE ppx, Refused to discuss the matter w/ me VTE prophylaxis: Lovenox. Patient is refusing injections. Code Status: DNR Status: Inpatient for greater than 2 midnight stay. Disposition: Med surge with discharge not anticipated soon. ____ SUBJECTIVE: Today patient has no new complaints. OBJECTIVE: Physical Exam: General: The patient is a morbidly obese middle-aged female who is alert and in no acute distress. HEENT: normocephalic, extraocular movements intact, conjunctivae clear. Mucous membranes moist. Neck: trachea midline, no visible masses. CV: +S1/S2, RRR, no MRG. Resp: unlabored, CTAB no RRW. Abd: soft and nondistended. Musculoskeletal: Normal muscle tone/bulk. Right foot is in a soft boot. Neuro: cranial nerves II XII grossly intact. Intact gross motor and sensory function. Psych: irritable mood and appropriate affect. Skin: Mild pallor. No petechiae. Labs/Imaging/Other Tests: Personally reviewed/interpreted. This patient is new to me. Reviewed patient's chart/records for this visit. Objective: Vital Signs Temp Pulse Resp BP Pulse Ox 36.8 C 83 18 168/83 H 95 02/15/17 19:15 02/15/17 19:15 02/15/17 19:15 02/15/17 19:15 02/15/17 19:15 Microbiology 02/13/17 14:43 Gram Stain - Final Leg - Tissue Laboratory Results 02/15/17 05:15 02/15/17 05:15 02/14/17 02/15/17 02/16/17 05:59 05:59 05:59 Intake Total 3211 2605 1600 Output Total 1825 1300 Balance 1386 1305 1600 PT 13.8 SEC (12.0-15.0) 02/14/17 04:39 INR 1.07 (0.83-1.16) 02/14/17 04:39 ICD10 Worksheet Patient Problems: Problems Problem Status Onset Hemorrhage Acute Hypotension Acute Acute renal failure Acute C. difficile diarrhea Acute 03/01/15 Cellulitis Acute Decubitus ulcer of buttock Acute Dehydration Acute ESBL (extended spectrum beta-lactamase) producing bacteria infection Acute Hypertensive urgency Acute Hyponatremia Acute Hypoxemia Acute MRSA (methicillin resistant Staphylococcus aureus) Acute ~11/29/16 Palliative care encounter Acute UTI (urinary tract infection) Acute Weakness Acute Adrenal insufficiency Chronic Chronic pain Chronic Diabetes Chronic Hypertension Chronic Hypothyroid Chronic
[2017-02-15] MEDS: METHOCARBAMOL 750 MG TAB PO PRN (21:36)
[2017-02-16 05:14] LABS: % IMMATURE GRANULYOCYTES 0.9 % (0.0-1.1); ABSOLUTE NRBC COUNT 0.02 10^3/uL (0-0.01); ADD DIFF? NO; ADD MORPH? NO; ADD SCAN? NO; ATYPICAL LYMPHOCYTE FLAG 0 (0-99); FRAGMENT RBC FLAG 20 (0-99); HEMATOCRIT 26.5 % (38.0-47.0); HEMOGLOBIN 8.3 g/dL (12.6-16.3); LEFT SHIFT FLG 0 (0-99); LIPEMIA HEMOLYSIS FLAG 80 (0-99); MEAN CELL HEMOGLOBIN 27.5 pg (27.9-34.1); MEAN CELL HEMOGLOBIN CONCENTR. 31.3 g/dL (32.4-36.7); MEAN CELL VOLUME 87.7 fL (81.5-99.8); MEAN PLATELET VOLUME 10.6 fL (8.7-11.7); NRBC-AUTO% 0.2 % (0.0-0.2); PLATELET CLUMPS FLAG 0 (0-99); PLATELET COUNT 162 10^3/uL (150-400); RED BLOOD CELL COUNT 3.02 10^6/uL (4.18-5.33)
[2017-02-16 05:23] LABS: ANION GAP 8 mEq/L (8-16); CARBON DIOXIDE 21 mEq/l (22-31); CHLORIDE 105 mEq/L (97-110); GLOMERULAR FILTRATION RATE 53; GLUCOSE 137 mg/dL (70-100); INR 1.14 (0.83-1.16); POTASSIUM 4.2 mEq/L (3.5-5.2); PROTIME(PATIENT) 14.5 SEC (12.0-15.0); SODIUM 134 mEq/L (134-144)
[2017-02-16] MEDS: Fluticasone/Salmeterol [Advair Hfa 230-21 Mcg Inhaler] IH SCH ×2 (08:44→20:17)
[2017-02-16] MEDS: CYANO/VITAMIN B12 1000 MCG TAB PO SCH (08:57)
[2017-02-16] MEDS: LEVOTHYROXINE 100 MCG TAB PO SCH (08:58)
[2017-02-16] MEDS: PRESERVISION AREDS2 FORMULA EYE VIT 1 EACH PO SCH ×2 (08:58→21:43)
[2017-02-16] MEDS: HYDROCORTISONE 10 MG TAB PO SCH ×2 (08:58→21:43)
[2017-02-16] MEDS: LOSARTAN POTASSIUM 50 MG TAB PO SCH (08:58)
[2017-02-16] MEDS: MULTIVITAMINS 1 EACH TAB PO SCH (08:58)
[2017-02-16] MEDS: MONTELUKAST SODIUM 10 MG TAB PO SCH (08:58)
[2017-02-16] MEDS: LABETALOL HCL 100 MG TAB PO SCH ×2 (08:59→21:44)
[2017-02-16] MEDS: PREGABALIN 150 MG CAP PO SCH ×2 (08:59→21:44)
[2017-02-16] MEDS ORDERED: FUROSEMIDE 40 MG/4 ML VIAL IVP ONE (09:09)
[2017-02-16] MEDS: INSULIN LISPRO 100 UNIT/ML SC SCH ×3 (09:58→19:21)
[2017-02-16] MEDS: FLUTICASONE NASAL 120 SPRAYS/16 GM MDI EACHNARE SCH (11:03)
--- NOTE | 2017-02-16 11:54 | SOAPPROG ---
SOAP Progress Note Assessment/Plan: Assessment: AFEBRILE/DRESSING DRY AND INTACT/OFF ANTICOAGULATION Plan: DRESSING CHANGE IN THE A.M. TO EVALUATE FOR WOUND VAC/ARTERIAL STUDIES TO EVALUATE FOR HEALING POTENTIAL 02/15/17 17:23 02/15/17 17:39 WOUND VAC FUNCTIONING WELL/NO PROBLEMS/VAC CHANGE ON Friday02/16/17 11:53 AFEBRILE/VITAL SIGNS STABLE/WOUND VAC IN PLACE AND FUNCTIONING WELL/NO NEW ISSUES PLAN WOUND VAC CHANGE TOMORROW Objective: Vital Signs Temp Pulse Resp BP Pulse Ox 36.8 C 82 16 192/87 H 95 02/16/17 07:56 02/16/17 08:59 02/16/17 08:51 02/16/17 08:59 02/16/17 08:51 Microbiology 02/13/17 14:43 Gram Stain - Final Leg - Tissue Laboratory Results 02/16/17 05:05 02/16/17 05:05 02/15/17 02/16/17 02/17/17 05:59 05:59 05:59 Intake Total 2605 2100 Output Total 1300 1000 Balance 1305 1100 PT 14.5 SEC (12.0-15.0) 02/16/17 05:05 INR 1.14 (0.83-1.16) 02/16/17 05:05 ICD10 Worksheet Patient Problems: Problems Problem Status Onset Hemorrhage Acute Hypotension Acute Acute renal failure Acute C. difficile diarrhea Acute 03/01/15 Cellulitis Acute Decubitus ulcer of buttock Acute Dehydration Acute ESBL (extended spectrum beta-lactamase) producing bacteria infection Acute Hypertensive urgency Acute Hyponatremia Acute Hypoxemia Acute MRSA (methicillin resistant Staphylococcus aureus) Acute ~11/29/16 Palliative care encounter Acute UTI (urinary tract infection) Acute Weakness Acute Adrenal insufficiency Chronic Chronic pain Chronic Diabetes Chronic Hypertension Chronic Hypothyroid Chronic
--- NOTE | 2017-02-16 12:56 | ASMTCMCOM ---
CM Note CM Note Notes: Rec'd response from [facility] that they can accept pt when ready for dc. Pt not yet ready for dc, going for wound vac change tomorrow. CHRISTOPH w/f. Date Signed: 02/16/2017 12:56 PM Electronically Signed By:Isadora Ventura RN
[2017-02-16 17:58] LABS: COLOR PALE YELLOW; LEUKOCYTE ESTERASE,URINE NEGATIVE (NEGATIVE); NITRITE,URINE NEGATIVE (NEGATIVE)
[2017-02-16] MEDS: FLUTICASONE/SALMETER 500/50MCG DISKUS IH SCH (20:15)
--- NOTE | 2017-02-16 20:41 | HOSPPROG ---
Hospitalist Progress Note Assessment/Plan: The patient is a female with PMH obesity, diabetes mellitus type 2, HTN, IJ DVT who was admitted for L foot hematoma/necrotic wound. ASSESSMENT/PLAN: LLE hematoma, s/p surgical drainage and debridement, wound vac Acute blood loss anemia, s/p 3u PRBC Chronic AC - on hold IJ DVT DM2 Morbid obesity -Wound RN and Gen Surg to reassess wound on Friday. -Hold warfarin for potential surgical revision, bleeding/oozing wound. If no further surgery, recommend to restart AC for h/o VTE. -UA negative for UTI. Gave her Lasix today for vol OL and difficulty urinating. Subsequently she had incontinence - ordered [place] temporarily to help keep wound clean/dry. VTE prophylaxis: on hold Code Status: DNR Status: Inpatient for greater than 2 midnight stay. Disposition: [facility] with discharge not anticipated soon. ____ SUBJECTIVE: Today patient continues to feel edematous. Has not been urinating much. OBJECTIVE: Physical Exam: General: The patient is a morbidly obese middle-aged female who is alert and in no acute distress. HEENT: normocephalic, extraocular movements intact, conjunctivae clear. Mucous membranes moist. Neck: trachea midline, no visible masses. CV: +S1/S2, RRR, no MRG. Resp: unlabored, CTAB no RRW. Abd: soft and nondistended. Musculoskeletal: Normal muscle tone/bulk. L lower leg w/ wound vac. Neuro: cranial nerves II XII grossly intact. Intact gross motor and sensory function. Psych: appropriate mood and appropriate affect. Skin: Mild pallor. No petechiae. Heme/Lymph: +nonpitting periph edema. Labs/Imaging/Other Tests: Personally reviewed/interpreted. Objective: Vital Signs Temp Pulse Resp BP Pulse Ox 36.6 C 75 14 152/67 H 91 L 02/16/17 20:01 02/16/17 20:01 02/16/17 20:01 02/16/17 20:01 02/16/17 20:01 Microbiology 02/13/17 14:43 Gram Stain - Final Leg - Tissue Laboratory Results 02/16/17 05:05 02/16/17 05:05 02/15/17 02/16/17 02/17/17 05:59 05:59 05:59 Intake Total 2605 2100 150 Output Total 1300 1000 1350 Balance 1305 1100 -1200 PT 14.5 SEC (12.0-15.0) 02/16/17 05:05 INR 1.14 (0.83-1.16) 02/16/17 05:05 ICD10 Worksheet Patient Problems: Problems Problem Status Onset Hemorrhage Acute Hypotension Acute Acute renal failure Acute C. difficile diarrhea Acute 03/01/15 Cellulitis Acute Decubitus ulcer of buttock Acute Dehydration Acute ESBL (extended spectrum beta-lactamase) producing bacteria infection Acute Hypertensive urgency Acute Hyponatremia Acute Hypoxemia Acute MRSA (methicillin resistant Staphylococcus aureus) Acute ~11/29/16 Palliative care encounter Acute UTI (urinary tract infection) Acute Weakness Acute Adrenal insufficiency Chronic Chronic pain Chronic Diabetes Chronic Hypertension Chronic Hypothyroid Chronic
[2017-02-17] MEDS: oxyCODONE IR 5 MG TAB PO PRN ×3 (00:41→22:17)
[2017-02-17 04:29] LABS: ADD DIFF? YES; ADD MORPH? NO; ADD SCAN? NO; ATYPICAL LYMPHOCYTE FLAG 0 (0-99); FRAGMENT RBC FLAG 0 (0-99); HEMATOCRIT 24.6 % (38.0-47.0); HEMOGLOBIN 7.9 g/dL (12.6-16.3); LEFT SHIFT FLG 0 (0-99); LIPEMIA HEMOLYSIS FLAG 80 (0-99); MEAN CELL HEMOGLOBIN CONCENTR. 32.1 g/dL (32.4-36.7); MEAN CELL VOLUME 87.2 fL (81.5-99.8); MEAN PLATELET VOLUME 10.4 fL (8.7-11.7); PLATELET CLUMPS FLAG 10 (0-99); PLATELET COUNT 165 10^3/uL (150-400); RED BLOOD CELL COUNT 2.82 10^6/uL (4.18-5.33); RED CELL DISTRIBUTION WIDTH 17.7 % (11.5-15.2)
[2017-02-17 04:44] LABS: INR 1.2 (0.83-1.16); PROTIME(PATIENT) 15.2 SEC (12.0-15.0)
[2017-02-17 04:45] LABS: ANION GAP 7 mEq/L (8-16); CALCIUM 6.8 mg/dL (8.5-10.4); CARBON DIOXIDE 24 mEq/l (22-31); CHLORIDE 104 mEq/L (97-110); GLOMERULAR FILTRATION RATE 53; GLUCOSE 139 mg/dL (70-100); POTASSIUM 3.6 mEq/L (3.5-5.2); SODIUM 135 mEq/L (134-144)
[2017-02-17 05:11] LABS: PLATELET ESTIMATE ADEQUATE (ADEQ); POLYCHROMASIA 1+
[2017-02-17] MEDS: hydrALAZINE 20 MG/ML VIAL IVP PRN ×2 (08:43→17:33)
[2017-02-17] MEDS: LABETALOL HCL 100 MG TAB PO SCH ×2 (08:44→22:18)
[2017-02-17] MEDS: HYDROCORTISONE 10 MG TAB PO SCH ×2 (08:45→22:17)
[2017-02-17] MEDS: LEVOTHYROXINE 100 MCG TAB PO SCH (08:45)
[2017-02-17] MEDS: CYANO/VITAMIN B12 1000 MCG TAB PO SCH (08:45)
[2017-02-17] MEDS: INSULIN LISPRO 100 UNIT/ML SC SCH ×3 (08:49→17:32)
[2017-02-17] MEDS: PRESERVISION AREDS2 FORMULA EYE VIT 1 EACH PO SCH ×2 (08:52→22:17)
[2017-02-17] MEDS: PREGABALIN 150 MG CAP PO SCH ×2 (08:52→22:18)
[2017-02-17] MEDS: Fluticasone/Salmeterol [Advair Hfa 230-21 Mcg Inhaler] IH SCH ×2 (08:55→20:35)
[2017-02-17] MEDS: MULTIVITAMINS 1 EACH TAB PO SCH (08:59)
[2017-02-17] MEDS: LOSARTAN POTASSIUM 50 MG TAB PO SCH (08:59)
[2017-02-17] MEDS: HYDROmorphONE/DILAUDID 1 MG/ML INJ IVP PRN (09:08)
--- NOTE | 2017-02-17 09:58 | HOSPPROG ---
Hospitalist Progress Note Assessment/Plan: DIAGNOSES: LLE hematoma, s/p surgical drainage and debridement, wound vac Acute blood loss anemia, s/p 3u PRBC Pain Management Uncontrolled HTN History of IJ DVT, Chronic AntiCoag - on hold DM2, currently well controlled here Morbid obesity PLANS: -continue current wound care, will increase pain medicine before her dressing changes for the future -Hold warfarin until clear no further surgery indicated, then restart AC for h/ o VTE. -R[place] temporarily to help keep wound clean/dry. -will make further adjustments to her blood pressure regimen -VTE prophylaxis: Medication on hold, will review with surgery whether compression devices are safe for her wound but a rather management will be too painful for her to tolerate Code Status: DNR SUBJECTIVE: Today she is having a tremendous amount of pain during dressing change, recieved 2 mg I V dilaudid prior to this Otherwise pain management has been ok no fever sxs slept ok eating ok OBJECTIVE Vitals reviewed: Hypertension still uncontrolled otherwise stable without fever Exam: I examined the patient during her dressing change with the wound care nurse, and she was having a dramatic amount of pain from the dressing change; otherwise her wound base looks good with granulation alert oriented skin warm dry color ok resps not labored lungs clear BSs heart regular abd soft nondistended nontender, bowel sounds present limbs warm, no edema iv site ok Lab data: Hg with slight decrease renal fxn and sugars stable Objective: Vital Signs Temp Pulse Resp BP Pulse Ox 36.7 C 92 16 110/70 99 02/17/17 08:20 02/17/17 08:57 02/17/17 08:57 02/17/17 09:27 02/17/17 08:57 Microbiology 02/13/17 14:43 Gram Stain - Final Leg - Tissue Laboratory Results 02/17/17 04:20 02/17/17 04:20 02/16/17 02/17/17 02/18/17 06:59 06:59 06:59 Intake Total 2100 600 Output Total 1000 2000 Balance 1100 -1400 PT 15.2 SEC (12.0-15.0) H 02/17/17 04:20 INR 1.20 (0.83-1.16) H 02/17/17 04:20 ICD10 Worksheet Patient Problems: Problems Problem Status Onset Hemorrhage Acute Hypotension Acute Acute renal failure Acute C. difficile diarrhea Acute 03/01/15 Cellulitis Acute Decubitus ulcer of buttock Acute Dehydration Acute ESBL (extended spectrum beta-lactamase) producing bacteria infection Acute Hypertensive urgency Acute Hyponatremia Acute Hypoxemia Acute MRSA (methicillin resistant Staphylococcus aureus) Acute ~11/29/16 Palliative care encounter Acute UTI (urinary tract infection) Acute Weakness Acute Adrenal insufficiency Chronic Chronic pain Chronic Diabetes Chronic Hypertension Chronic Hypothyroid Chronic
[2017-02-17] MEDS ORDERED: HYDROmorphONE/DILAUDID 1 MG/ML INJ IVP ONE ×2 (10:00→11:00)
[2017-02-17] MEDS ORDERED: HYDROmorphONE/DILAUDID 1 MG/ML INJ IVP PRN (10:17)
--- NOTE | 2017-02-17 10:46 | WOCRNPDOC ---
WOCRN Advanced Assessment Note - Skin Integrity Problem, Advanced Assess Left Lower Leg Dressing Type: Black Vac Foam (x2), Wound Vac Other Dressing Type: x1 Dressing Description: Intact Exudate Characteristic(s): Bloody (mimimal) Integumentary Issue Intervention: Dressing Changed Jordana Wound Tissue: Ecchymotic, Erythema, Intact Wound Bed Color: Red, Yellow Wound Bed Constitution: Smooth Tissue (100%), Undermining (from 12 o'clock to 3 o'clock, most pronounced at 12 o'clock measuring 2.5cm), Fascia Site Measurement - Head-to-Toe Length X Width X Depth (cm): 18.5cmx9.5cmx2.4cm Skin Integrity Problem Comment: Before taking down wound vac dressing, foam injected with 10ml lidocaine. Small amount of bloody drainage cleaned away from wound with gauze. Skin prep applied to wound edges and draped. 3 pieces large black granufoam placed in wound bed and draped. Trac pad placed and -125mmHg suction applied with good seal. Patient tolerated the procedure well with addtional dose of pain medication. Recommend pre-medicating this patient for future vac changes. Tahmina GASTON present at bedside. Anticipate that this patient will need 6-8 weeks of wound vac therapy.
[2017-02-17] MEDS: traMADol 50 MG TAB PO PRN (14:56)
[2017-02-17] MEDS: FLUTICASONE NASAL 120 SPRAYS/16 GM MDI EACHNARE SCH (19:04)
[2017-02-17] MEDS: MONTELUKAST SODIUM 10 MG TAB PO SCH (19:05)
[2017-02-17] MEDS ORDERED: HYDROmorphONE/DILAUDID 2 MG/ML INJ IVP PRN (22:00)
[2017-02-17] MEDS: HYDROmorphONE/DILAUDID 2 MG/ML INJ IVP PRN (22:29)
[2017-02-17] MEDS: RABEPRAZOLE SODIUM 20 MG PO SCH (22:53)
[2017-02-18] MEDS: LEVOTHYROXINE 100 MCG TAB PO SCH (08:43)
[2017-02-18] MEDS: MULTIVITAMINS 1 EACH TAB PO SCH (08:45)
[2017-02-18] MEDS: PRESERVISION AREDS2 FORMULA EYE VIT 1 EACH PO SCH ×2 (08:45→20:15)
[2017-02-18] MEDS: PREGABALIN 150 MG CAP PO SCH ×2 (08:46→20:14)
[2017-02-18] MEDS: MONTELUKAST SODIUM 10 MG TAB PO SCH (08:46)
[2017-02-18] MEDS: HYDROCORTISONE 10 MG TAB PO SCH ×2 (08:52→20:15)
[2017-02-18] MEDS: LOSARTAN POTASSIUM 50 MG TAB PO SCH (08:56)
[2017-02-18] MEDS: LABETALOL HCL 100 MG TAB PO SCH ×2 (08:57→20:14)
[2017-02-18] MEDS: CYANO/VITAMIN B12 1000 MCG TAB PO SCH (08:58)
[2017-02-18] MEDS: INSULIN LISPRO 100 UNIT/ML SC SCH ×3 (08:59→18:33)
[2017-02-18] MEDS: FLUTICASONE NASAL 120 SPRAYS/16 GM MDI EACHNARE SCH (09:11)
[2017-02-18] MEDS: Fluticasone/Salmeterol [Advair Hfa 230-21 Mcg Inhaler] IH SCH ×2 (09:19→22:33)
[2017-02-18] MEDS: HYDROmorphONE/DILAUDID 2 MG/ML INJ IVP PRN (10:09)
[2017-02-18] MEDS: RABEPRAZOLE SODIUM 20 MG PO SCH ×2 (10:15→20:18)
--- NOTE | 2017-02-18 10:18 | SOAPPROG ---
SOAP Progress Note Assessment/Plan: Assessment: POD#4 s/p I&D of LLE necrotic wound - VAC working well, taken down earlier today and there does not appear to be a significant area which would need debridement. Spoke with Dr Lizama who thinks that she will remain inpatient as long as she needs significant pain meds for VAC changes. Will cont to follow Plan: 02/13/17 10:32 02/14/17 14:40 02/14/17 14:41 02/18/17 10:16 Subjective: Doing well, VAC taken down and changed earlier today. Had significant pain with change but otherwise stable Objective: Vital Signs Temp Pulse Resp BP Pulse Ox 36.8 C 88 18 126/65 H 94 02/18/17 07:43 02/18/17 09:20 02/18/17 09:20 02/18/17 08:57 02/18/17 09:20 Microbiology 02/13/17 14:43 Gram Stain - Final Leg - Tissue Laboratory Results 02/17/17 04:20 02/17/17 04:20 02/17/17 02/18/17 02/19/17 05:59 05:59 05:59 Intake Total 600 950 Output Total 1999 1125 Balance -1400 -175 PT 15.2 SEC (12.0-15.0) H 02/17/17 04:20 INR 1.20 (0.83-1.16) H 02/17/17 04:20 ICD10 Worksheet Patient Problems: Problems Problem Status Onset Hemorrhage Acute Hypotension Acute Acute renal failure Acute C. difficile diarrhea Acute 03/01/15 Cellulitis Acute Decubitus ulcer of buttock Acute Dehydration Acute ESBL (extended spectrum beta-lactamase) producing bacteria infection Acute Hypertensive urgency Acute Hyponatremia Acute Hypoxemia Acute MRSA (methicillin resistant Staphylococcus aureus) Acute ~11/29/16 Palliative care encounter Acute UTI (urinary tract infection) Acute Weakness Acute Adrenal insufficiency Chronic Chronic pain Chronic Diabetes Chronic Hypertension Chronic Hypothyroid Chronic
--- NOTE | 2017-02-18 13:07 | WOCRNPDOC ---
IRMA Advanced Assessment Note - Skin Integrity Problem, Advanced Assess Left Lower Leg Skin Integrity Problem Comment: Spoke w/ CHRISTOPH Avalos this afternoon regarding patient's ongoing wound care needs. 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 Recommend placement in an LTAC, if patient is amenable.
--- NOTE | 2017-02-18 14:13 | SOAPPROG ---
SOAP Progress Note Assessment/Plan: Assessment: 81yo F POD#5 s/p debridement of LLE traumatic wound Wound vac in place to suction Required significant IV pain medication during vac change yesterday Will change vac dressing tomorrow - hopeful to use Amniofill to accelerate wound healing and decrease frequency of vac changes Appreciate hospitalist management of comorbidities Seen c Dr. Chanel S: Pain with vac change yesterday. No pain at this time. No complaints O: Laying in bed, comfortable, NAD No increased WOB Significant peripheral edema LLE wound vac to suction Objective: Vital Signs Temp Pulse Resp BP Pulse Ox 36.8 C 88 18 126/65 H 94 02/18/17 07:43 02/18/17 09:20 02/18/17 09:20 02/18/17 08:57 02/18/17 09:20 Microbiology 02/13/17 14:43 Gram Stain - Final Leg - Tissue Laboratory Results 02/17/17 04:20 02/17/17 04:20 02/17/17 02/18/17 02/19/17 05:59 05:59 05:59 Intake Total 600 950 Output Total 1999 1125 Balance -1400 -175 PT 15.2 SEC (12.0-15.0) H 02/17/17 04:20 INR 1.20 (0.83-1.16) H 02/17/17 04:20 ICD10 Worksheet Patient Problems: Problems Problem Status Onset Hemorrhage Acute Hypotension Acute Acute renal failure Acute C. difficile diarrhea Acute 03/01/15 Cellulitis Acute Decubitus ulcer of buttock Acute Dehydration Acute ESBL (extended spectrum beta-lactamase) producing bacteria infection Acute Hypertensive urgency Acute Hyponatremia Acute Hypoxemia Acute MRSA (methicillin resistant Staphylococcus aureus) Acute ~11/29/16 Palliative care encounter Acute UTI (urinary tract infection) Acute Weakness Acute Adrenal insufficiency Chronic Chronic pain Chronic Diabetes Chronic Hypertension Chronic Hypothyroid Chronic
--- NOTE | 2017-02-18 16:13 | ASMTCMCOM ---
CM Note CM Note Notes: Spoke with patient about Wound Cares recommendation that she go to an LTAC as opposed to [facility]. Patient said she would go there if her were in agreement. Called her who said he would agree since she was at [facility] one year ago.. Spoke with Dr. Lizama who said he felt that would be appropriate. Left message for Ester Del Valle at [facility] [place] and requested an assessment of patient. Waiting for Ester to call back. Case Management will follow. Date Signed: 02/18/2017 04:13 PM Electronically Signed By:SHAHLA Lopez
[2017-02-18] MEDS ORDERED: FUROSEMIDE 20 MG TAB PO ONE (18:39)
--- NOTE | 2017-02-18 18:40 | HOSPPROG ---
Hospitalist Progress Note Assessment/Plan: DIAGNOSES: LLE hematoma, s/p surgical drainage and debridement, wound vac Acute blood loss anemia, s/p 3u PRBC Pain Management Uncontrolled HTN History of IJ DVT, Chronic AntiCoag - on hold DM2, currently well controlled here Morbid obesity PLANS: -continue current wound care, will increase pain medicine before her dressing changes for the future -Hold warfarin until clear no further surgery indicated, then restart AC for h/ o VTE. -[place] temporarily to help keep wound clean/dry. -will give further diuresis for her edema hypoxemia -Code Status: DNR per her wish SUBJECTIVE: Pain today, without dressing change today, is well controlled per patient Eating well Cook No fever or respiratory symptoms OBJECTIVE Vitals reviewed: Hypertension still uncontrolled otherwise stable without fever Exam: alert oriented skin warm dry color ok resps not labored lungs clear BSs heart regular abd soft nondistended nontender, bowel sounds present limbs warm, some edema iv site ok Lab data: sugars stable Objective: Vital Signs Temp Pulse Resp BP Pulse Ox 37.0 C 96 16 104/63 96 02/18/17 16:00 02/18/17 16:00 02/18/17 16:00 02/18/17 16:00 02/18/17 16:00 Microbiology 02/13/17 14:43 Gram Stain - Final Leg - Tissue Laboratory Results 02/17/17 04:20 02/17/17 04:20 02/17/17 02/18/17 02/19/17 06:59 06:59 06:59 Intake Total 600 950 750 Output Total 2000 1125 275 Balance -1400 -175 475 PT 15.2 SEC (12.0-15.0) H 02/17/17 04:20 INR 1.20 (0.83-1.16) H 02/17/17 04:20 ICD10 Worksheet Patient Problems: Problems Problem Status Onset Hemorrhage Acute Hypotension Acute Acute renal failure Acute C. difficile diarrhea Acute 03/01/15 Cellulitis Acute Decubitus ulcer of buttock Acute Dehydration Acute ESBL (extended spectrum beta-lactamase) producing bacteria infection Acute Hypertensive urgency Acute Hyponatremia Acute Hypoxemia Acute MRSA (methicillin resistant Staphylococcus aureus) Acute ~11/29/16 Palliative care encounter Acute UTI (urinary tract infection) Acute Weakness Acute Adrenal insufficiency Chronic Chronic pain Chronic Diabetes Chronic Hypertension Chronic Hypothyroid Chronic
[2017-02-18] MEDS: oxyCODONE IR 5 MG TAB PO PRN (20:13)
[2017-02-18] MEDS: FUROSEMIDE 20 MG TAB PO SCH (20:13)
[2017-02-19] MEDS: ACETAMINOPHEN 325 MG TAB PO PRN (00:51)
[2017-02-19 04:34] LABS: ABSOLUTE NRBC COUNT 0.03 10^3/uL (0-0.01); ADD DIFF? YES; ADD MORPH? YES; ADD SCAN? NO; ATYPICAL LYMPHOCYTE FLAG 0 (0-99); FRAGMENT RBC FLAG 20 (0-99); HEMATOCRIT 21.5 % (38.0-47.0); LEFT SHIFT FLG 40 (0-99); LIPEMIA HEMOLYSIS FLAG 80 (0-99); MEAN CELL HEMOGLOBIN 27.7 pg (27.9-34.1); MEAN CELL HEMOGLOBIN CONCENTR. 32.1 g/dL (32.4-36.7); MEAN CELL VOLUME 86.3 fL (81.5-99.8); MEAN PLATELET VOLUME 10.6 fL (8.7-11.7); NRBC-AUTO% 0.2 % (0.0-0.2); PLATELET CLUMPS FLAG 10 (0-99); PLATELET COUNT 197 10^3/uL (150-400); RED BLOOD CELL COUNT 2.49 10^6/uL (4.18-5.33); RED CELL DISTRIBUTION WIDTH 17.3 % (11.5-15.2)
[2017-02-19 04:37] LABS: HEMOGLOBIN 6.9 g/dL (12.6-16.3)
[2017-02-19 04:49] LABS: ANION GAP 5 mEq/L (8-16); CALCIUM 6.6 mg/dL (8.5-10.4); CARBON DIOXIDE 22 mEq/l (22-31); CHLORIDE 94 mEq/L (97-110); CREATININE 1.6 mg/dL (0.6-1.0); GLOMERULAR FILTRATION RATE 31; GLUCOSE 124 mg/dL (70-100); SODIUM 121 mEq/L (134-144)
[2017-02-19 05:10] LABS: PLATELET ESTIMATE ADEQUATE (ADEQ); POLYCHROMASIA 1+
[2017-02-19] MEDS: Fluticasone/Salmeterol [Advair Hfa 230-21 Mcg Inhaler] IH SCH ×2 (08:46→20:43)
[2017-02-19] MEDS: INSULIN LISPRO 100 UNIT/ML SC SCH ×3 (09:07→17:24)
[2017-02-19] MEDS: LABETALOL HCL 100 MG TAB PO SCH ×2 (09:14→20:53)
[2017-02-19] MEDS: CYANO/VITAMIN B12 1000 MCG TAB PO SCH (09:16)
[2017-02-19] MEDS: PRESERVISION AREDS2 FORMULA EYE VIT 1 EACH PO SCH ×2 (09:16→20:53)
[2017-02-19] MEDS: HYDROCORTISONE 10 MG TAB PO SCH ×2 (09:17→20:53)
[2017-02-19] MEDS: MONTELUKAST SODIUM 10 MG TAB PO SCH (09:17)
[2017-02-19] MEDS: PREGABALIN 150 MG CAP PO SCH ×2 (09:17→20:52)
[2017-02-19] MEDS: LEVOTHYROXINE 100 MCG TAB PO SCH (09:17)
[2017-02-19] MEDS: LOSARTAN POTASSIUM 50 MG TAB PO SCH (09:17)
[2017-02-19] MEDS: MULTIVITAMINS 1 EACH TAB PO SCH (09:18)
[2017-02-19] MEDS: FUROSEMIDE 20 MG TAB PO SCH ×2 (09:18→15:27)
[2017-02-19] MEDS: FLUTICASONE NASAL 120 SPRAYS/16 GM MDI EACHNARE SCH (09:20)
[2017-02-19] MEDS: RABEPRAZOLE SODIUM 20 MG PO SCH ×2 (09:21→20:55)
--- NOTE | 2017-02-19 09:43 | HOSPPROG ---
Hospitalist Progress Note Assessment/Plan: DIAGNOSES: LLE massive hematoma while on anticoag, s/p surgical drainage and debridement, wound vac Acute blood loss anemia, s/p 3u PRBC, now with notably worse, but in setting of edema; no bleeding noted anywhere Acute Renal Failure, ? cause, is volume overloaded, making urine but low output despite diuretic; (only renal toxic med is chronic angiotensin jai Hyponatremia in setting of marked hypervolemia, may be due to that Volume overload ongoing despite lasix Pain Management soing well at present Uncontrolled HTN - muc h better at this time History of IJ DVT, Chronic AntiCoag - on hold DM2, currently well controlled here Morbid obesity PLANS: -continue current wound care, with increase pain medicine before her dressing changes -Hold warfarin until clear no further surgery indicated, then restart AC for h/ o VTE, will review w surgery today -[place] temporarily to help keep wound clean/dry. -will give further diuresis for her edema hypoxemia -oral fluid restriction due to hypervolemic low Na -renal US to assess new renal insuff -her anemia is severe enough by nubmers at present to warrant further transfusion, but she is quite volume overloaded and developing renal insuff - will check renal US and echo before considering transfusion -Code Status: DNR per her wish SUBJECTIVE: No pain so far today slept ok no chills or sob OBJECTIVE Vitals reviewed: Hypertension now well controlled otherwise stable without fever Exam: alert oriented skin warm dry color ok resps not labored lungs clear BSs heart regular abd soft nondistended nontender, bowel sounds present limbs warm, some edema her leg with wound vac in place functioning well, good seal, no cellulitis iv site ok Lab data: sugars stable Anemia notably worse today 6.9 creat now up to 1.6 form 1.0 Na down suddenly to 121 Objective: Vital Signs Temp Pulse Resp BP Pulse Ox 36.6 C 95 14 160/68 H 97 02/19/17 07:36 02/19/17 08:52 02/19/17 08:52 02/19/17 07:36 02/19/17 08:52 Microbiology 02/13/17 14:43 Gram Stain - Final Leg - Tissue Laboratory Results 02/19/17 04:18 02/19/17 04:18 02/18/17 02/19/17 02/20/17 06:59 06:59 06:59 Intake Total 950 1450 Output Total 1125 425 Balance -175 1025 PT 15.2 SEC (12.0-15.0) H 02/17/17 04:20 INR 1.20 (0.83-1.16) H 02/17/17 04:20 ICD10 Worksheet Patient Problems: Problems Problem Status Onset Hemorrhage Acute Hypotension Acute Acute renal failure Acute C. difficile diarrhea Acute 03/01/15 Cellulitis Acute Decubitus ulcer of buttock Acute Dehydration Acute ESBL (extended spectrum beta-lactamase) producing bacteria infection Acute Hypertensive urgency Acute Hyponatremia Acute Hypoxemia Acute MRSA (methicillin resistant Staphylococcus aureus) Acute ~11/29/16 Palliative care encounter Acute UTI (urinary tract infection) Acute Weakness Acute Adrenal insufficiency Chronic Chronic pain Chronic Diabetes Chronic Hypertension Chronic Hypothyroid Chronic
--- NOTE | 2017-02-19 11:54 | GPN ---
[f rep st] PROCEDURE NOTE PREPROCEDURE DIAGNOSIS: Left lower extremity traumatic wound. SECONDARY DIAGNOSIS: Left lower extremity traumatic wound. ANESTHESIA: None. SPECIMENS: None. INDICATIONS: The patient is an 81-year-old woman who sustained a traumatic hematoma to her left lowe r extremity. She has taken to the operating room for debridement of skin and soft tissue to the leve l of the fascia. The wound continues to heal with the use of wound VAC therapy. She would benefit f rom accelerated wound healing with use of AmnioFil. FINDINGS: AmnioFil 1000 mg, [id number], expiration 09/23/2021. Wound measures 18.4 x 9 x 1.8 cm. There is a small area of tunneling approximately 1 cm in the 12 o'clock position. PROCEDURE: The patient was lying comfortably in her bed. She was verbally consented for the procedu re. A timeout was performed. The wound did not require sharp debridement. The wound was cleansed w ith normal saline. There was 100% granulation tissue in the base of the wound. The AmnioFil was gavin lied followed by the wound VAC dressing. The VAC was set to suction at 125 mmHg without any evidence of leak. She tolerated the procedure well. The wound VAC will stay in place for 1 week and does no t need to be changed in the meantime. /[id number]/MODL
[2017-02-19] MEDS: traMADol 50 MG TAB PO PRN (12:52)
[2017-02-19] MEDS: oxyCODONE IR 5 MG TAB PO PRN ×2 (12:52→20:52)
--- NOTE | 2017-02-19 16:43 | ASMTCMCOM ---
CM Note CM Note Notes: Spoke with Ester [phone] from [facility]. She wasn't sure they would be able to take pt as they are not taking many wound care pts at this time. She will review it with their team and get back to us. Referral sent via [employer]. PT/OT recommending SNF. Pt s/p debridement today. Date Signed: 02/19/2017 04:42 PM Electronically Signed By:SHAHLA Swanson
[2017-02-20 04:41] LABS: % IMMATURE GRANULYOCYTES 1.6 % (0.0-1.1); ABSOLUTE IMMATURE GRANULOCYTES 0.26 10^3/uL (0.00-0.10); ABSOLUTE NRBC COUNT 0.02 10^3/uL (0-0.01); ADD DIFF? NO; ADD MORPH? NO; ADD SCAN? NO; ATYPICAL LYMPHOCYTE FLAG 0 (0-99); FRAGMENT RBC FLAG 20 (0-99); HEMATOCRIT 22.7 % (38.0-47.0); HEMOGLOBIN 7.1 g/dL (12.6-16.3); LEFT SHIFT FLG 30 (0-99); LIPEMIA HEMOLYSIS FLAG 80 (0-99); MEAN CELL HEMOGLOBIN CONCENTR. 31.3 g/dL (32.4-36.7); MEAN CELL VOLUME 86.3 fL (81.5-99.8); MEAN PLATELET VOLUME 10.5 fL (8.7-11.7); NRBC-AUTO% 0.1 % (0.0-0.2); PLATELET CLUMPS FLAG 0 (0-99); PLATELET COUNT 197 10^3/uL (150-400); RED BLOOD CELL COUNT 2.63 10^6/uL (4.18-5.33); RED CELL DISTRIBUTION WIDTH 17.1 % (11.5-15.2)
[2017-02-20 04:53] LABS: ANION GAP 9 mEq/L (8-16); CALCIUM 6.6 mg/dL (8.5-10.4); CARBON DIOXIDE 21 mEq/l (22-31); CHLORIDE 94 mEq/L (97-110); CREATININE 1.6 mg/dL (0.6-1.0); GLOMERULAR FILTRATION RATE 31; GLUCOSE 122 mg/dL (70-100); POTASSIUM 4.5 mEq/L (3.5-5.2); SODIUM 124 mEq/L (134-144)
[2017-02-20] MEDS: INSULIN LISPRO 100 UNIT/ML SC SCH ×3 (07:53→17:37)
[2017-02-20] MEDS: FLUTICASONE NASAL 120 SPRAYS/16 GM MDI EACHNARE SCH (09:23)
[2017-02-20] MEDS: traMADol 50 MG TAB PO PRN ×2 (09:24→23:43)
[2017-02-20] MEDS: PRESERVISION AREDS2 FORMULA EYE VIT 1 EACH PO SCH ×2 (09:25→21:08)
[2017-02-20] MEDS: PREGABALIN 150 MG CAP PO SCH ×2 (09:25→21:08)
[2017-02-20] MEDS: LABETALOL HCL 100 MG TAB PO SCH ×2 (09:26→21:19)
[2017-02-20] MEDS: MONTELUKAST SODIUM 10 MG TAB PO SCH (09:27)
[2017-02-20] MEDS: LEVOTHYROXINE 100 MCG TAB PO SCH (09:27)
[2017-02-20] MEDS: CYANO/VITAMIN B12 1000 MCG TAB PO SCH (09:27)
[2017-02-20] MEDS: HYDROCORTISONE 10 MG TAB PO SCH ×2 (09:28→21:08)
[2017-02-20] MEDS: FUROSEMIDE 20 MG TAB PO SCH ×2 (09:28→15:24)
[2017-02-20] MEDS: MULTIVITAMINS 1 EACH TAB PO SCH (09:28)
[2017-02-20] MEDS: RABEPRAZOLE SODIUM 20 MG PO SCH ×2 (09:40→21:17)
[2017-02-20] MEDS: Fluticasone/Salmeterol [Advair Hfa 230-21 Mcg Inhaler] IH SCH ×2 (09:46→21:08)
--- NOTE | 2017-02-20 11:18 | HOSPPROG ---
Hospitalist Progress Note Assessment/Plan: DIAGNOSES: LLE massive hematoma while on anticoag, s/p surgical drainage and debridement, wound vac Acute blood loss anemia, s/p 3u PRBC, now with notably worse, but in setting of edema; no bleeding noted anywhere Acute Renal Failure, ? cause, is volume overloaded, making urine but low output despite diuretic; (only renal toxic med is chronic angiotensin jai Hyponatremia in setting of marked hypervolemia, may be due to that Volume overload ongoing despite lasix Pain Management soing well at present Uncontrolled HTN - muc h better at this time History of IJ DVT, Chronic AntiCoag - on hold DM2, currently well controlled here Morbid obesity PLANS: -transfusion of 1 unit packed red blood cells today and recheck KALEY -follow renal function closely -continue current wound care, with increase pain medicine before her dressing changes -Hold warfarin until clear no further surgery indicated, then restart AC for h/ o VTE, will review w surgery today -[place] temporarily to help keep wound clean/dry. -will give further diuresis for her edema hypoxemia -oral fluid restriction due to hypervolemic low Na -Code Status: DNR per her wish SUBJECTIVE: some neck pain today without radicular symptoms, but no leg pain at rest No nausea or chills Eating okay OBJECTIVE Vitals reviewed: Hypertension now well controlled otherwise stable without fever Exam: alert oriented skin warm dry color ok resps not labored lungs clear BSs heart regular abd soft nondistended nontender, bowel sounds present limbs warm there is diffuse edema her leg with wound vac in place functioning well, good seal, no cellulitis iv site ok Lab data: sugars stable Anemia unchanged at 7.1 today creat unchanged at 1.6 with 1.0 baseline Na recovered somewhat to 124 Objective: Vital Signs Temp Pulse Resp BP Pulse Ox 36.7 C 89 16 134/67 H 97 02/20/17 07:33 02/20/17 07:33 02/20/17 07:33 02/20/17 07:33 02/20/17 07:33 Microbiology 02/13/17 14:43 Gram Stain - Final Leg - Tissue Laboratory Results 02/20/17 04:20 02/20/17 04:20 02/19/17 02/20/17 02/21/17 06:59 06:59 06:59 Intake Total 1450 550 250 Output Total 425 1450 450 Balance 1025 -900 -200 PT 15.2 SEC (12.0-15.0) H 02/17/17 04:20 INR 1.20 (0.83-1.16) H 02/17/17 04:20 ICD10 Worksheet Patient Problems: Problems Problem Status Onset Hemorrhage Acute Hypotension Acute Acute renal failure Acute C. difficile diarrhea Acute 03/01/15 Cellulitis Acute Decubitus ulcer of buttock Acute Dehydration Acute ESBL (extended spectrum beta-lactamase) producing bacteria infection Acute Hypertensive urgency Acute Hyponatremia Acute Hypoxemia Acute MRSA (methicillin resistant Staphylococcus aureus) Acute ~11/29/16 Palliative care encounter Acute UTI (urinary tract infection) Acute Weakness Acute Adrenal insufficiency Chronic Chronic pain Chronic Diabetes Chronic Hypertension Chronic Hypothyroid Chronic
--- NOTE | 2017-02-20 14:25 | SOAPPROG ---
SOAP Progress Note Assessment/Plan: Assessment: wound vac to suction next vac change 02/26 either as inpatient or outpatient will ultimately need split thickness skin graft as health stabilizes, either as inpatient or outpatient Plan: 02/20/17 14:24 Objective: Vital Signs Temp Pulse Resp BP Pulse Ox 36.8 C 83 20 115/58 L 94 02/20/17 12:35 02/20/17 12:35 02/20/17 12:35 02/20/17 12:35 02/20/17 12:35 Microbiology 02/13/17 14:43 Gram Stain - Final Leg - Tissue Anaerobic Culture - Final Laboratory Results 02/20/17 04:20 02/20/17 04:20 02/19/17 02/20/17 02/21/17 05:59 05:59 05:59 Intake Total 1450 550 250 Output Total 425 1450 450 Balance 1025 -900 -200 PT 15.2 SEC (12.0-15.0) H 02/17/17 04:20 INR 1.20 (0.83-1.16) H 02/17/17 04:20 ICD10 Worksheet Patient Problems: Problems Problem Status Onset Hemorrhage Acute Hypotension Acute Acute renal failure Acute C. difficile diarrhea Acute 03/01/15 Cellulitis Acute Decubitus ulcer of buttock Acute Dehydration Acute ESBL (extended spectrum beta-lactamase) producing bacteria infection Acute Hypertensive urgency Acute Hyponatremia Acute Hypoxemia Acute MRSA (methicillin resistant Staphylococcus aureus) Acute ~11/29/16 Palliative care encounter Acute UTI (urinary tract infection) Acute Weakness Acute Adrenal insufficiency Chronic Chronic pain Chronic Diabetes Chronic Hypertension Chronic Hypothyroid Chronic
[2017-02-20] MEDS: oxyCODONE IR 5 MG TAB PO PRN (15:34)
--- NOTE | 2017-02-20 16:18 | ASMTCMCOM ---
CM Note CM Note Notes: Met with pt to discuss DC plan. Pt is hoping that [facility]. CSpoke with Ester in adm to see what they have decided. She stated that due to mu;tiple admissions and placements this year, she needs to know how many Medicare days pt has used. Will ask pt in am. Also A\asked pt for SNF choice in case [facility] declines. Pt chose [facility]. Faxed referral to them. C/M will continue to follow. Date Signed: 02/20/2017 04:17 PM Electronically Signed By:Mindy Gonzales LCSW
[2017-02-21] MEDS: ACETAMINOPHEN 325 MG TAB PO PRN ×2 (03:50→17:54)
[2017-02-21 04:10] LABS: ABSOLUTE IMMATURE GRANULOCYTES 0.12 10^3/uL (0.00-0.10); ABSOLUTE NRBC COUNT 0.07 10^3/uL (0-0.01); ADD DIFF? NO; ADD MORPH? NO; ADD SCAN? NO; ATYPICAL LYMPHOCYTE FLAG 0 (0-99); FRAGMENT RBC FLAG 20 (0-99); HEMATOCRIT 25.6 % (38.0-47.0); HEMOGLOBIN 8.3 g/dL (12.6-16.3); LEFT SHIFT FLG 10 (0-99); LIPEMIA HEMOLYSIS FLAG 80 (0-99); MEAN CELL HEMOGLOBIN 27.8 pg (27.9-34.1); MEAN CELL HEMOGLOBIN CONCENTR. 32.4 g/dL (32.4-36.7); MEAN CELL VOLUME 85.6 fL (81.5-99.8); MEAN PLATELET VOLUME 10.5 fL (8.7-11.7); NRBC-AUTO% 0.6 % (0.0-0.2); PLATELET CLUMPS FLAG 0 (0-99); PLATELET COUNT 223 10^3/uL (150-400); RED BLOOD CELL COUNT 2.99 10^6/uL (4.18-5.33); RED CELL DISTRIBUTION WIDTH 17.2 % (11.5-15.2)
[2017-02-21 04:15] LABS: ANION GAP 8 mEq/L (8-16); CALCIUM 7.3 mg/dL (8.5-10.4); CARBON DIOXIDE 22 mEq/l (22-31); CHLORIDE 96 mEq/L (97-110); CREATININE 1.4 mg/dL (0.6-1.0); GLOMERULAR FILTRATION RATE 36; GLUCOSE 140 mg/dL (70-100); POTASSIUM 4.6 mEq/L (3.5-5.2); SODIUM 126 mEq/L (134-144)
[2017-02-21] MEDS: INSULIN LISPRO 100 UNIT/ML SC SCH ×3 (08:04→17:52)
--- NOTE | 2017-02-21 09:17 | SOAPPROG ---
SOAP Progress Note Assessment/Plan: Assessment: wound vac to suction next vac change 02/26 either as inpatient or outpatient will ultimately need split thickness skin graft as health stabilizes, either as inpatient or outpatient Will not plan on seeing this weekend. Oren Baldwin on for the practice if there are needs I will see her on Friday or if discharged, can follow up in my office on Friday Plan: 02/20/17 14:24 02/21/17 09:16 Objective: Vital Signs Temp Pulse Resp BP Pulse Ox 36.5 C 91 18 179/95 H 94 02/21/17 07:56 02/21/17 07:56 02/21/17 07:56 02/21/17 07:56 02/21/17 07:56 Microbiology 02/13/17 14:43 Gram Stain - Final Leg - Tissue Anaerobic Culture - Final Laboratory Results 02/21/17 04:00 02/21/17 04:00 02/20/17 02/21/17 02/22/17 05:59 05:59 05:59 Intake Total 550 1300 Output Total 1450 2600 Balance -900 -1300 PT 15.2 SEC (12.0-15.0) H 02/17/17 04:20 INR 1.20 (0.83-1.16) H 02/17/17 04:20 ICD10 Worksheet Patient Problems: Problems Problem Status Onset Hemorrhage Acute Hypotension Acute Acute renal failure Acute C. difficile diarrhea Acute 03/01/15 Cellulitis Acute Decubitus ulcer of buttock Acute Dehydration Acute ESBL (extended spectrum beta-lactamase) producing bacteria infection Acute Hypertensive urgency Acute Hyponatremia Acute Hypoxemia Acute MRSA (methicillin resistant Staphylococcus aureus) Acute ~11/29/16 Palliative care encounter Acute UTI (urinary tract infection) Acute Weakness Acute Adrenal insufficiency Chronic Chronic pain Chronic Diabetes Chronic Hypertension Chronic Hypothyroid Chronic
[2017-02-21] MEDS: PRESERVISION AREDS2 FORMULA EYE VIT 1 EACH PO SCH ×2 (09:38→20:23)
[2017-02-21] MEDS: CYANO/VITAMIN B12 1000 MCG TAB PO SCH (09:38)
[2017-02-21] MEDS: MULTIVITAMINS 1 EACH TAB PO SCH (09:39)
[2017-02-21] MEDS: LABETALOL HCL 100 MG TAB PO SCH ×2 (09:39→20:24)
[2017-02-21] MEDS: PREGABALIN 150 MG CAP PO SCH ×2 (09:39→20:23)
[2017-02-21] MEDS: HYDROCORTISONE 10 MG TAB PO SCH ×2 (09:40→20:23)
[2017-02-21] MEDS: LEVOTHYROXINE 100 MCG TAB PO SCH (09:40)
[2017-02-21] MEDS: MONTELUKAST SODIUM 10 MG TAB PO SCH (09:40)
[2017-02-21] MEDS: FUROSEMIDE 20 MG TAB PO SCH ×2 (09:40→13:58)
[2017-02-21] MEDS: FLUTICASONE NASAL 120 SPRAYS/16 GM MDI EACHNARE SCH (09:42)
[2017-02-21] MEDS: Fluticasone/Salmeterol [Advair Hfa 230-21 Mcg Inhaler] IH SCH ×2 (09:43→20:25)
[2017-02-21] MEDS: RABEPRAZOLE SODIUM 20 MG PO SCH ×2 (09:46→20:33)
--- NOTE | 2017-02-21 12:26 | ASMTCMCOM ---
CM Note CM Note Notes: Pt [facility] asked that referral be refaxed. They also want to know the total no of days pt has been in hospital in last 60 days. LTACs are paid by Medicare part A and so far pt has used up 20 of 50 days including current hospital stay. Will check with to see if there are other days. [facility] is paid by Medicare part B and pt's [employer]. Pt has used up 19 of 20 days Medicare will cover. [employer] will pay for an add'l 10 days only. After that the cost to pt would be $164.50 per day. Met with pt to discuss this. She stated she does not have the funds to pay for a stay past 11 days at [facility]. [facility] is currently reviewing referral and will decide if they can take pt. C/M to follow. Date Signed: 02/21/2017 12:25 PM Electronically Signed By:Mindy Gonzales LCSW
[2017-02-21] MEDS: traMADol 50 MG TAB PO PRN (13:58)
--- NOTE | 2017-02-21 18:26 | HOSPPROG ---
Hospitalist Progress Note Assessment/Plan: DIAGNOSES: LLE massive hematoma while on anticoag, s/p surgical drainage and debridement, wound vac Acute blood loss anemia, s/p 3u PRBC, now with notably worse, but in setting of edema; no bleeding noted anywhere Acute Renal Failure, ? 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 She does still have some swelling of her left arm where she has DVT -[place] temporarily to help keep wound clean/dry. -oral fluid restriction due to hypervolemic low Na -Code Status: DNR per her wish SUBJECTIVE: Overall no real change in how she feels. No abdominal pain. Her leg is not painful were not doing dressing changes. She has no shortness of breath. No fever symptoms. Eating well. No neck discomfort today. OBJECTIVE Vitals reviewed: Blood pressures notably higher today otherwise stable without fever Better diuresis past 24 hours after transfusion yesterday Exam: alert oriented skin warm dry color ok resps not labored lungs clear BSs heart regular abd soft nondistended nontender, bowel sounds present limbs warm there is diffuse edema her leg with wound vac in place functioning well, good seal, no cellulitis iv site ok Lab data: sugars stable Hemoglobin up to 8 today after transfusion yesterday Creatinine improved at 1.4 today with 1.0 baseline, diuresis better so far in setting of all this. Na recovered further to 126 Objective: Vital Signs Temp Pulse Resp BP Pulse Ox 36.7 C 95 20 185/93 H 94 02/21/17 15:03 02/21/17 15:03 02/21/17 15:03 02/21/17 15:03 02/21/17 15:03 Microbiology 02/13/17 14:43 Gram Stain - Final Leg - Tissue Anaerobic Culture - Final Laboratory Results 02/21/17 04:00 02/21/17 04:00 02/20/17 02/21/17 02/22/17 06:59 06:59 06:59 Intake Total 550 1300 Output Total 1455 2605 1275 Balance -900 -1300 -3226 PT 15.2 SEC (12.0-15.0) H 02/17/17 04:20 INR 1.20 (0.83-1.16) H 02/17/17 04:20 ICD10 Worksheet Patient Problems: Problems Problem Status Onset Hemorrhage Acute Hypotension Acute Acute renal failure Acute C. difficile diarrhea Acute 03/01/15 Cellulitis Acute Decubitus ulcer of buttock Acute Dehydration Acute ESBL (extended spectrum beta-lactamase) producing bacteria infection Acute Hypertensive urgency Acute Hyponatremia Acute Hypoxemia Acute MRSA (methicillin resistant Staphylococcus aureus) Acute ~11/29/16 Palliative care encounter Acute UTI (urinary tract infection) Acute Weakness Acute Adrenal insufficiency Chronic Chronic pain Chronic Diabetes Chronic Hypertension Chronic Hypothyroid Chronic
--- NOTE | 2017-02-21 18:27 | HOSPPROG ---
Hospitalist Progress Note Assessment/Plan: DIAGNOSES: LLE massive hematoma while on anticoag, s/p surgical drainage and debridement, wound vac Acute blood loss anemia, s/p 3u PRBC, now with notably worse, but in setting of edema; no bleeding noted anywhere Acute Renal Failure, ? 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 She does still have some swelling of her left arm where she has DVT -will add Norvasc at this time for better blood pressure control -[place] temporarily to help keep wound clean/dry. -oral fluid restriction due to hypervolemic low Na -Code Status: DNR per her wish SUBJECTIVE: Overall no real change in how she feels. No abdominal pain. Her leg is not painful were not doing dressing changes. She has no shortness of breath. No fever symptoms. Eating well. No neck discomfort today. OBJECTIVE Vitals reviewed: Blood pressures notably higher today otherwise stable without fever Better diuresis past 24 hours after transfusion yesterday Exam: alert oriented skin warm dry color ok resps not labored lungs clear BSs heart regular abd soft nondistended nontender, bowel sounds present limbs warm there is diffuse edema her leg with wound vac in place functioning well, good seal, no cellulitis iv site ok Lab data: sugars stable Hemoglobin up to 8 today after transfusion yesterday Creatinine improved at 1.4 today with 1.0 baseline, diuresis better so far in setting of all this. Na recovered further to 126 Objective: Vital Signs Temp Pulse Resp BP Pulse Ox 36.7 C 95 20 185/93 H 94 02/21/17 15:03 02/21/17 15:03 02/21/17 15:03 02/21/17 15:03 02/21/17 15:03 Laboratory Results 02/21/17 04:00 02/21/17 04:00 09/02/21/17 02/22/17 06:59 06:59 06:59 Intake Total 550 1300 Output Total 4611 6295 4563 Balance -900 -1300 -322 PT 15.2 SEC (12.0-15.0) H 02/17/17 04:20 INR 1.20 (0.83-1.16) H 02/17/17 04:20 ICD10 Worksheet Patient Problems: Problems Problem Status Onset Hemorrhage Acute Hypotension Acute Acute renal failure Acute C. difficile diarrhea Acute 03/01/15 Cellulitis Acute Decubitus ulcer of buttock Acute Dehydration Acute ESBL (extended spectrum beta-lactamase) producing bacteria infection Acute Hypertensive urgency Acute Hyponatremia Acute Hypoxemia Acute MRSA (methicillin resistant Staphylococcus aureus) Acute ~11/29/16 Palliative care encounter Acute UTI (urinary tract infection) Acute Weakness Acute Adrenal insufficiency Chronic Chronic pain Chronic Diabetes Chronic Hypertension Chronic Hypothyroid Chronic
[2017-02-22 05:19] LABS: ABSOLUTE NRBC COUNT 0.03 10^3/uL (0-0.01); ADD DIFF? NO; ADD MORPH? NO; ADD SCAN? NO; ATYPICAL LYMPHOCYTE FLAG 0 (0-99); FRAGMENT RBC FLAG 20 (0-99); HEMATOCRIT 28.5 % (38.0-47.0); LEFT SHIFT FLG 0 (0-99); LIPEMIA HEMOLYSIS FLAG 80 (0-99); MEAN CELL HEMOGLOBIN 27.1 pg (27.9-34.1); MEAN CELL HEMOGLOBIN CONCENTR. 31.6 g/dL (32.4-36.7); MEAN CELL VOLUME 85.8 fL (81.5-99.8); MEAN PLATELET VOLUME 10.8 fL (8.7-11.7); NRBC-AUTO% 0.3 % (0.0-0.2); PLATELET CLUMPS FLAG 0 (0-99); PLATELET COUNT 247 10^3/uL (150-400); RED BLOOD CELL COUNT 3.32 10^6/uL (4.18-5.33); RED CELL DISTRIBUTION WIDTH 17.2 % (11.5-15.2)
[2017-02-22 05:56] LABS: ANION GAP 6 mEq/L (8-16); CARBON DIOXIDE 26 mEq/l (22-31); CHLORIDE 100 mEq/L (97-110); CREATININE 1.1 mg/dL (0.6-1.0); GLOMERULAR FILTRATION RATE 48; GLUCOSE 154 mg/dL (70-100); POTASSIUM 4.5 mEq/L (3.5-5.2); SODIUM 132 mEq/L (134-144)
[2017-02-22] MEDS: INSULIN LISPRO 100 UNIT/ML SC SCH ×3 (08:00→17:06)
[2017-02-22] MEDS: PRESERVISION AREDS2 FORMULA EYE VIT 1 EACH PO SCH ×2 (08:00→20:33)
[2017-02-22] MEDS: MULTIVITAMINS 1 EACH TAB PO SCH (08:00)
[2017-02-22] MEDS: PREGABALIN 150 MG CAP PO SCH ×2 (08:00→20:33)
[2017-02-22] MEDS: amLODIPine BESYLATE 5 MG TAB PO SCH (08:01)
[2017-02-22] MEDS: CYANO/VITAMIN B12 1000 MCG TAB PO SCH (08:01)
[2017-02-22] MEDS: LEVOTHYROXINE 100 MCG TAB PO SCH (08:01)
[2017-02-22] MEDS: MONTELUKAST SODIUM 10 MG TAB PO SCH (08:01)
[2017-02-22] MEDS: HYDROCORTISONE 10 MG TAB PO SCH ×2 (08:02→20:32)
[2017-02-22] MEDS: FUROSEMIDE 20 MG TAB PO SCH ×2 (08:02→16:43)
[2017-02-22] MEDS: LABETALOL HCL 100 MG TAB PO SCH ×2 (08:02→20:33)
[2017-02-22] MEDS: FLUTICASONE NASAL 120 SPRAYS/16 GM MDI EACHNARE SCH (08:10)
[2017-02-22] MEDS: RABEPRAZOLE SODIUM 20 MG PO SCH ×2 (08:11→21:02)
[2017-02-22] MEDS: Fluticasone/Salmeterol [Advair Hfa 230-21 Mcg Inhaler] IH SCH ×2 (08:50→20:36)
--- NOTE | 2017-02-22 16:42 | ASMTCMCOM ---
CM Note CM Note Notes: [facility] give updates yesterday and DR Lizama spoke with Ester from [facility]. They have still not indicated if they can accept pt. Pt's dtr visiting her today and let her know the Medicare Part A & B issues and possible DC plan. C/M to follow Date Signed: 02/22/2017 04:42 PM Electronically Signed By:Mindy Gonzales LCSW
--- NOTE | 2017-02-22 17:58 | HOSPPROG ---
Hospitalist Progress Note Assessment/Plan: DIAGNOSES: LLE massive hematoma while on anticoag, s/p surgical drainage and debridement, wound vac Acute blood loss anemia, s/p 4u PRBC, due to the hematoma in her leg, no further bleeding and stable now Acute Renal Failure, likely due to obesity related physiology and diuresis but actually improving nicely at this time and back to baseline Hyponatremia in setting of marked hypervolemia, may be due to that; Volume overload improving nicely so far with lasix Pain Management soing well at present Uncontrolled HTN - remains poorly controlled at this time despite adding Norvasc on February 21 History of IJ DVT, anticoagulation has been held due to her large hematoma but will resume prophylactic heparin dosing at this time DM2, currently well controlled here Morbid obesity PLANS: -continue diuresis, follow renal function closely -continue current wound care, with increased pain medicine before her dressing changes -resume prophylactic heparin dosing -will continue Norvasc at this time but may need further increase or change to another medicine -[place] temporarily to help keep wound clean/dry. -oral fluid restriction due to hypervolemic low Na -Code Status: DNR per her wish SUBJECTIVE: Overall no real change in how she feels. No abdominal pain. Her leg is not painful were not doing dressing changes. She has no shortness of breath. No fever symptoms. Eating well. No neck discomfort today. OBJECTIVE Vitals reviewed: Blood pressures remain higher today otherwise stable without fever Better diuresis past 24 hours after transfusion yesterday Exam: alert oriented skin warm dry color ok resps not labored lungs clear BSs heart regular abd soft nondistended nontender, bowel sounds present limbs warm there is notable decrease in her diffuse edema her leg with wound vac in place functioning well, good seal, no cellulitis iv site ok Objective: Vital Signs Temp Pulse Resp BP Pulse Ox 36.8 C 94 20 173/85 H 94 02/22/17 15:40 02/22/17 15:40 02/22/17 15:40 02/22/17 15:40 02/22/17 15:40 Laboratory Results 02/22/17 05:00 02/22/17 05:00 02/21/17 02/22/17 02/23/17 06:59 06:59 06:59 Intake Total 1300 Output Total 2600 5250 Balance -1300 -5250 PT 15.2 SEC (12.0-15.0) H 02/17/17 04:20 INR 1.20 (0.83-1.16) H 02/17/17 04:20 ICD10 Worksheet Patient Problems: Problems Problem Status Onset Hemorrhage Acute Hypotension Acute Acute renal failure Acute C. difficile diarrhea Acute 03/01/15 Cellulitis Acute Decubitus ulcer of buttock Acute Dehydration Acute ESBL (extended spectrum beta-lactamase) producing bacteria infection Acute Hypertensive urgency Acute Hyponatremia Acute Hypoxemia Acute MRSA (methicillin resistant Staphylococcus aureus) Acute ~11/29/16 Palliative care encounter Acute UTI (urinary tract infection) Acute Weakness Acute Adrenal insufficiency Chronic Chronic pain Chronic Diabetes Chronic Hypertension Chronic Hypothyroid Chronic
[2017-02-22] MEDS: traMADol 50 MG TAB PO PRN (20:33)
[2017-02-23] MEDS: METHOCARBAMOL 750 MG TAB PO PRN (02:55)
[2017-02-23] MEDS: traMADol 50 MG TAB PO PRN ×3 (04:24→22:07)
[2017-02-23] MEDS: oxyCODONE IR 5 MG TAB PO PRN (05:30)
[2017-02-23 06:04] LABS: ANION GAP 7 mEq/L (8-16); CALCIUM 8.4 mg/dL (8.5-10.4); CARBON DIOXIDE 29 mEq/l (22-31); CHLORIDE 96 mEq/L (97-110); GLOMERULAR FILTRATION RATE 53; GLUCOSE 143 mg/dL (70-100); POTASSIUM 4.1 mEq/L (3.5-5.2); SODIUM 132 mEq/L (134-144)
[2017-02-23] MEDS: INSULIN LISPRO 100 UNIT/ML SC SCH ×3 (08:19→18:37)
[2017-02-23] MEDS: CYANO/VITAMIN B12 1000 MCG TAB PO SCH (09:25)
[2017-02-23] MEDS: PRESERVISION AREDS2 FORMULA EYE VIT 1 EACH PO SCH ×2 (09:25→21:56)
[2017-02-23] MEDS: HYDROCORTISONE 10 MG TAB PO SCH ×2 (09:25→21:56)
[2017-02-23] MEDS: MULTIVITAMINS 1 EACH TAB PO SCH (09:26)
[2017-02-23] MEDS: LABETALOL HCL 100 MG TAB PO SCH ×2 (09:26→21:57)
[2017-02-23] MEDS: PREGABALIN 150 MG CAP PO SCH ×2 (09:26→21:55)
[2017-02-23] MEDS: amLODIPine BESYLATE 5 MG TAB PO SCH (09:26)
[2017-02-23] MEDS: Fluticasone/Salmeterol [Advair Hfa 230-21 Mcg Inhaler] IH SCH ×2 (09:27→10:13)
[2017-02-23] MEDS: FLUTICASONE NASAL 120 SPRAYS/16 GM MDI EACHNARE SCH (09:27)
[2017-02-23] MEDS: LEVOTHYROXINE 100 MCG TAB PO SCH (09:27)
[2017-02-23] MEDS: MONTELUKAST SODIUM 10 MG TAB PO SCH (09:27)
[2017-02-23] MEDS: FUROSEMIDE 20 MG TAB PO SCH ×2 (09:27→15:57)
[2017-02-23] MEDS: RABEPRAZOLE SODIUM 20 MG PO SCH ×2 (09:28→22:02)
--- NOTE | 2017-02-23 14:00 | HOSPPROG ---
Hospitalist Progress Note Assessment/Plan: 81 yo male with left lower extremity bleeding, now with wound vac post surgical drainage. Patient new to me today -LLE massive hematoma with on anticoag, s/p drainag e and debridement, wound vac -ABLA, s/p 4 units PRBC, no further bleeding -A renal failure: now back to baseline -hyponatremia 2/2 hypervolemia -volume overload, improving with diuresis -HTN: poorly controlled, -h/o IJ DVT, on anticoag; now on proplylactic for DVT prevention, no signs of bleeding -DM 2: controlled Plan -continue diuresis, -continue wound vac, dressing changes; possible graft -DVT proply: heparin -HTN controlled -code: DNR per her wishes Objective: Vital Signs Temp Pulse Resp BP Pulse Ox 36.4 C 80 16 151/77 H 93 02/23/17 07:46 02/23/17 10:19 02/23/17 10:19 02/23/17 07:46 02/23/17 10:19 Laboratory Results 02/22/17 05:00 02/23/17 05:30 02/22/17 02/23/17 02/24/17 05:59 05:59 05:59 Intake Total 400 Output Total 5250 3025 Balance -5250 -2625 PT 15.2 SEC (12.0-15.0) H 02/17/17 04:20 INR 1.20 (0.83-1.16) H 02/17/17 04:20 - Time Spent With Patient Time Spent with Patient: greater than 35 minutes Time Spent with Patient: Greater than 35 minutes spent on this patients care, greater than 50% of time spent counseling, educating, and coordinating care regarding the above mentioned plan. - Pending Discharge Pending Discharge Within 24 Hours: No Pending Discharge Within 48 Hours: No - Physical Exam Constitutional: no apparent distress Eyes: PERRL, anicteric sclera Ears, Nose, Mouth, Throat: moist mucous membranes, hearing normal Cardiovascular: regular rate and rhythym, no murmur, rub, or gallop Respiratory: no respiratory distress, no rales or rhonchi, clear to auscultation Gastrointestinal: normoactive bowel sounds, soft, non-tender abdomen, no palpable masses Genitourinary: no bladder fullness Skin: warm Musculoskeletal: generalized weakness, other (Wound VAC noted in operating well without surrounding induration or erythema.) Neurologic: AAOx3, CN II-XII Intact Psychiatric: interacting appropriately ICD10 Worksheet Patient Problems: Problems Problem Status Onset Hemorrhage Acute Hypotension Acute MRSA (methicillin resistant Staphylococcus aureus) Acute ~11/29/16 Decubitus ulcer of buttock Acute Hypertension Chronic Hypothyroid Chronic Diabetes Chronic Chronic pain Chronic Hypertensive urgency Acute Acute renal failure Acute Adrenal insufficiency Chronic Hyponatremia Acute C. difficile diarrhea Acute 03/01/15 Hypoxemia Acute Palliative care encounter Acute ESBL (extended spectrum beta-lactamase) producing bacteria infection Acute Weakness Acute UTI (urinary tract infection) Acute Dehydration Acute Cellulitis Acute
[2017-02-23] MEDS: hydrALAZINE 25 MG TAB PO SCH ×3 (15:56→21:56)
[2017-02-23] MEDS: HEPARIN 5,000 UNIT/0.5 ML SYR SC SCH (21:56)
[2017-02-23] MEDS: ACETAMINOPHEN 325 MG TAB PO PRN (23:25)
[2017-02-24] MEDS: oxyCODONE IR 5 MG TAB PO PRN ×2 (00:21→10:53)
[2017-02-24 04:49] LABS: ANION GAP 5 mEq/L (8-16); CALCIUM 8.4 mg/dL (8.5-10.4); CARBON DIOXIDE 32 mEq/l (22-31); CHLORIDE 92 mEq/L (97-110); CREATININE 1.1 mg/dL (0.6-1.0); GLOMERULAR FILTRATION RATE 48; GLUCOSE 166 mg/dL (70-100); POTASSIUM 4.5 mEq/L (3.5-5.2); SODIUM 129 mEq/L (134-144)
[2017-02-24] MEDS: hydrALAZINE 25 MG TAB PO SCH ×5 (05:43→20:57)
[2017-02-24] MEDS: INSULIN LISPRO 100 UNIT/ML SC SCH ×3 (08:45→18:40)
[2017-02-24] MEDS: HEPARIN 5,000 UNIT/0.5 ML SYR SC SCH ×2 (08:45→20:57)
[2017-02-24] MEDS: HYDROCORTISONE 10 MG TAB PO SCH ×2 (08:47→20:56)
[2017-02-24] MEDS: LABETALOL HCL 100 MG TAB PO SCH ×2 (08:47→20:55)
[2017-02-24] MEDS: PRESERVISION AREDS2 FORMULA EYE VIT 1 EACH PO SCH ×2 (08:47→20:56)
[2017-02-24] MEDS: MONTELUKAST SODIUM 10 MG TAB PO SCH (08:47)
[2017-02-24] MEDS: PREGABALIN 150 MG CAP PO SCH ×2 (08:48→20:56)
[2017-02-24] MEDS: CYANO/VITAMIN B12 1000 MCG TAB PO SCH (08:48)
[2017-02-24] MEDS: MULTIVITAMINS 1 EACH TAB PO SCH (08:49)
[2017-02-24] MEDS: amLODIPine BESYLATE 5 MG TAB PO SCH (08:49)
[2017-02-24] MEDS: FUROSEMIDE 20 MG TAB PO SCH ×2 (08:49→15:45)
[2017-02-24] MEDS: LEVOTHYROXINE 100 MCG TAB PO SCH (08:49)
[2017-02-24] MEDS: Fluticasone/Salmeterol [Advair Hfa 230-21 Mcg Inhaler] IH SCH ×2 (09:52→20:21)
--- NOTE | 2017-02-24 10:12 | HOSPPROG ---
Hospitalist Progress Note Assessment/Plan: 81 yo male with left lower extremity bleeding, now with wound vac post surgical drainage. hGB=9.0 AND stable post 4 units PRBC, persistent edema on lasix 20mg bid, Win is improved with creatinine 1.1 today though slightly elevated BUN at 27 (possibly some GI sources), Na 129 currently, -LLE massive hematoma with on anticoag, s/p drainag e and debridement, wound vac. Hgb = 9.0 today and stable -BP is slightly elevated this am without headache and not persistently elevated. Will give bp meds and watch -ABLA, s/p 4 units PRBC, no further bleeding -A renal failure: now back to baseline with creatinine 1.1 today. Will follow and watch with lasix 20 mg bid for edema -hyponatremia 2/2 hypervolemia; Na 129 -volume overload, improving with diuresis -h/o IJ DVT, on anticoag; now on proplylactic for DVT prevention, no signs of bleeding. On coumadin at admission for prior DVT -DM 2: controlled -Isolation: for ESBL and h/o C-diff -nutrition: eating well, will check albumin and calories Lines: fernandez, right IJ, wound vac to left leg. Plan -continue diuresis, -continue wound vac, dressing changes; possible graft; will discuss with surgery. -DVT proply: heparin -HTN controlled -code: DNR per her wishes -probable SNF placement -continue PT?OT; she is standing currently only Subjective: no complaints. no chest pain, sob. Standing with PT Objective: Vital Signs Temp Pulse Resp BP Pulse Ox 36.6 C 70 18 165/84 H 96 02/24/17 08:00 02/24/17 09:29 02/24/17 09:29 02/24/17 08:00 02/24/17 09:29 Laboratory Results 02/22/17 05:00 02/24/17 04:30 02/23/17 02/24/17 02/25/17 05:59 05:59 05:59 Intake Total 400 200 Output Total 3025 900 Balance -2625 -700 PT 15.2 SEC (12.0-15.0) H 02/17/17 04:20 INR 1.20 (0.83-1.16) H 02/17/17 04:20 - Time Spent With Patient Time Spent with Patient: greater than 35 minutes Time Spent with Patient: Greater than 35 minutes spent on this patients care, greater than 50% of time spent counseling, educating, and coordinating care regarding the above mentioned plan. - Pending Discharge Pending Discharge Within 24 Hours: No Pending Discharge Within 48 Hours: No - Physical Exam Constitutional: no apparent distress Eyes: PERRL, anicteric sclera Ears, Nose, Mouth, Throat: moist mucous membranes, hearing normal Cardiovascular: regular rate and rhythym, no murmur, rub, or gallop Respiratory: no respiratory distress, no rales or rhonchi, clear to auscultation Gastrointestinal: normoactive bowel sounds, soft, non-tender abdomen, no palpable masses Genitourinary: no bladder fullness, other (fernandez) Skin: warm, other (wound vac on LLE, draining well,, no cellulitis. + 2+ edema) Musculoskeletal: generalized weakness Neurologic: AAOx3, CN II-XII Intact Psychiatric: interacting appropriately ICD10 Worksheet Patient Problems: Problems Problem Status Onset Hemorrhage Acute Hypotension Acute Acute renal failure Acute C. difficile diarrhea Acute 03/01/15 Cellulitis Acute Decubitus ulcer of buttock Acute Dehydration Acute ESBL (extended spectrum beta-lactamase) producing bacteria infection Acute Hypertensive urgency Acute Hyponatremia Acute Hypoxemia Acute MRSA (methicillin resistant Staphylococcus aureus) Acute ~11/29/16 Palliative care encounter Acute UTI (urinary tract infection) Acute Weakness Acute Adrenal insufficiency Chronic Chronic pain Chronic Diabetes Chronic Hypertension Chronic Hypothyroid Chronic
[2017-02-24] MEDS: RABEPRAZOLE SODIUM 20 MG PO SCH ×2 (11:39→21:00)
[2017-02-24 14:27] LABS: % IMMATURE GRANULYOCYTES 1.4 % (0.0-1.1); ABSOLUTE IMMATURE GRANULOCYTES 0.22 10^3/uL (0.00-0.10); ADD DIFF? NO; ADD MORPH? NO; ADD SCAN? NO; ATYPICAL LYMPHOCYTE FLAG 0 (0-99); FRAGMENT RBC FLAG 20 (0-99); HEMATOCRIT 29.8 % (38.0-47.0); HEMOGLOBIN 9.5 g/dL (12.6-16.3); LEFT SHIFT FLG 20 (0-99); LIPEMIA HEMOLYSIS FLAG 80 (0-99); MEAN CELL HEMOGLOBIN 28.1 pg (27.9-34.1); MEAN CELL HEMOGLOBIN CONCENTR. 31.9 g/dL (32.4-36.7); MEAN CELL VOLUME 88.2 fL (81.5-99.8); PLATELET CLUMPS FLAG 10 (0-99); PLATELET COUNT 286 10^3/uL (150-400); RED BLOOD CELL COUNT 3.38 10^6/uL (4.18-5.33); RED CELL DISTRIBUTION WIDTH 17.7 % (11.5-15.2)
[2017-02-24 14:54] LABS: ALANINE AMINOTRANSFERASE 41 IU/L (9-52); ALBUMIN 2.6 g/dL (3.5-5.0); ALKALINE PHOSPHATASE 95 IU/L (38-126); ANION GAP 11 mEq/L (8-16); ASPARTATE AMINOTRANSFERASE 17 IU/L (14-46); BILIRUBIN,TOTAL 0.5 mg/dL (0.1-1.4); CALCIUM 8.4 mg/dL (8.5-10.4); CARBON DIOXIDE 28 mEq/l (22-31); CHLORIDE 91 mEq/L (97-110); CREATININE 1.1 mg/dL (0.6-1.0); GLOMERULAR FILTRATION RATE 48; GLUCOSE 226 mg/dL (70-100); POTASSIUM 4.5 mEq/L (3.5-5.2); SODIUM 130 mEq/L (134-144)
[2017-02-24] MEDS: traMADol 50 MG TAB PO PRN (16:05)
[2017-02-24] MEDS: FLUTICASONE NASAL 120 SPRAYS/16 GM MDI EACHNARE SCH (16:10)
[2017-02-25] MEDS: traMADol 50 MG TAB PO PRN ×2 (03:15→23:41)
[2017-02-25 03:42] LABS: ALANINE AMINOTRANSFERASE 40 IU/L (9-52); ALBUMIN 2.8 g/dL (3.5-5.0); ALKALINE PHOSPHATASE 94 IU/L (38-126); ANION GAP 10 mEq/L (8-16); ASPARTATE AMINOTRANSFERASE 15 IU/L (14-46); BILIRUBIN,TOTAL 0.5 mg/dL (0.1-1.4); CALCIUM 8.5 mg/dL (8.5-10.4); CARBON DIOXIDE 30 mEq/l (22-31); CHLORIDE 93 mEq/L (97-110); GLOMERULAR FILTRATION RATE 53; GLUCOSE 176 mg/dL (70-100); POTASSIUM 4.7 mEq/L (3.5-5.2); SODIUM 133 mEq/L (134-144); TOTAL PROTEIN 5.3 g/dL (6.3-8.2)
[2017-02-25 03:50] LABS: % IMMATURE GRANULYOCYTES 1.9 % (0.0-1.1); ABSOLUTE IMMATURE GRANULOCYTES 0.19 10^3/uL (0.00-0.10); ADD DIFF? NO; ADD MORPH? NO; ADD SCAN? NO; ATYPICAL LYMPHOCYTE FLAG 0 (0-99); FRAGMENT RBC FLAG 20 (0-99); HEMATOCRIT 30.8 % (38.0-47.0); HEMOGLOBIN 9.7 g/dL (12.6-16.3); LEFT SHIFT FLG 10 (0-99); LIPEMIA HEMOLYSIS FLAG 80 (0-99); MEAN CELL HEMOGLOBIN 27.6 pg (27.9-34.1); MEAN CELL HEMOGLOBIN CONCENTR. 31.5 g/dL (32.4-36.7); MEAN CELL VOLUME 87.5 fL (81.5-99.8); MEAN PLATELET VOLUME 10.2 fL (8.7-11.7); PLATELET CLUMPS FLAG 0 (0-99); PLATELET COUNT 301 10^3/uL (150-400); RED BLOOD CELL COUNT 3.52 10^6/uL (4.18-5.33); RED CELL DISTRIBUTION WIDTH 17.4 % (11.5-15.2)
[2017-02-25] MEDS: hydrALAZINE 25 MG TAB PO SCH ×4 (05:59→20:16)
[2017-02-25] MEDS: MULTIVITAMINS 1 EACH TAB PO SCH (08:47)
[2017-02-25] MEDS: CYANO/VITAMIN B12 1000 MCG TAB PO SCH (08:47)
[2017-02-25] MEDS: PRESERVISION AREDS2 FORMULA EYE VIT 1 EACH PO SCH ×2 (08:48→20:13)
[2017-02-25] MEDS: LABETALOL HCL 100 MG TAB PO SCH ×2 (08:48→20:13)
[2017-02-25] MEDS: LEVOTHYROXINE 100 MCG TAB PO SCH (08:49)
[2017-02-25] MEDS: FUROSEMIDE 20 MG TAB PO SCH ×2 (08:49→17:16)
[2017-02-25] MEDS: amLODIPine BESYLATE 5 MG TAB PO SCH (08:49)
[2017-02-25] MEDS: HYDROCORTISONE 10 MG TAB PO SCH ×2 (08:49→20:14)
[2017-02-25] MEDS: PREGABALIN 150 MG CAP PO SCH ×2 (08:49→20:14)
[2017-02-25] MEDS: MONTELUKAST SODIUM 10 MG TAB PO SCH (08:49)
[2017-02-25] MEDS: INSULIN LISPRO 100 UNIT/ML SC SCH ×3 (08:50→19:06)
[2017-02-25] MEDS: RABEPRAZOLE SODIUM 20 MG PO SCH ×2 (08:50→20:18)
[2017-02-25] MEDS: FLUTICASONE NASAL 120 SPRAYS/16 GM MDI EACHNARE SCH (08:51)
[2017-02-25] MEDS: HEPARIN 5,000 UNIT/0.5 ML SYR SC SCH ×2 (08:51→20:15)
[2017-02-25] MEDS: Fluticasone/Salmeterol [Advair Hfa 230-21 Mcg Inhaler] IH SCH ×2 (09:04→21:27)
--- NOTE | 2017-02-25 11:37 | HOSPPROG ---
Hospitalist Progress Note Assessment/Plan: 81 yo male with left lower extremity bleeding, now with wound vac post surgical drainage. hGB=9.0 AND stable post 4 units PRBC, persistent edema on lasix 20mg bid, Win is improved with creatinine 1.1 today though slightly elevated BUN at 27 (possibly some GI sources), Na -LLE massive hematoma with on anticoag, s/p drainag e and debridement, wound vac. Hgb = 9.0 today and stable. She is a patient in wound care clinic and can followup there -BP is slightly elevated this am without headache and not persistently elevated. persists wlwvated without tachycardia will increase hydralazine -hypoxemia: persistent possibly 2/2 chf with DD, will continue diuresis. Does not usually require O2 -ABLA, s/p 4 units PRBC, no further bleeding -A renal failure: now back to baseline with creatinine 1.1 today. Will follow and watch with lasix 20 mg bid for edema. i&O ->2000cc -hyponatremia 2/2 hypervolemia; Na 129 -volume overload, improving with diuresis -h/o IJ DVT, on anticoag; now on proplylactic for DVT prevention, no signs of bleeding. On coumadin at admission for prior DVT -DM 2: controlled -Isolation: for ESBL and h/o C-diff. No diarrhes or dysuria -nutrition: eating well, will check albumin and calories Lines: fernandez, right IJ, wound vac to left leg. Fernandez to protect wound Plan -continue diuresis, -continue wound vac, dressing changes; possible graft; F/U in wound care clinic Dr Chanel -DVT proply: heparin -HTN increase hydralzine -code: DNR per her wishes -disposition: LTAC placement in [facility] in [place] when approved -continue PT?OT; she is standing currently only Subjective: No complaints Objective: Vital Signs Temp Pulse Resp BP Pulse Ox 36.5 C 73 18 159/89 H 95 02/25/17 08:45 02/25/17 09:04 02/25/17 09:04 02/25/17 08:45 02/25/17 09:04 Laboratory Results 02/25/17 03:20 02/25/17 03:20 02/24/17 02/25/17 02/26/17 05:59 05:59 05:59 Intake Total 200 650 Output Total 900 2650 Balance -700 -2000 PT 15.2 SEC (12.0-15.0) H 02/17/17 04:20 INR 1.20 (0.83-1.16) H 02/17/17 04:20 - Time Spent With Patient Time Spent with Patient: greater than 35 minutes Time Spent with Patient: Greater than 35 minutes spent on this patients care, greater than 50% of time spent counseling, educating, and coordinating care regarding the above mentioned plan. - Pending Discharge Pending Discharge Within 24 Hours: No Pending Discharge Within 48 Hours: Yes Pending Discharge Date: 02/27/17 Pending Discharge Time: 11:00 - Physical Exam Constitutional: no apparent distress Eyes: PERRL, anicteric sclera Ears, Nose, Mouth, Throat: moist mucous membranes, hearing normal Cardiovascular: regular rate and rhythym, no murmur, rub, or gallop Respiratory: no respiratory distress, no rales or rhonchi, clear to auscultation , reduced air movement Gastrointestinal: normoactive bowel sounds, soft, non-tender abdomen, no palpable masses Genitourinary: no bladder fullness Skin: warm Musculoskeletal: generalized weakness, other (can sit at side of bed and stand with assistance) Neurologic: AAOx3, CN II-XII Intact Psychiatric: interacting appropriately ICD10 Worksheet Patient Problems: Problems Problem Status Onset Hemorrhage Acute Hypotension Acute MRSA (methicillin resistant Staphylococcus aureus) Acute ~11/29/16 Decubitus ulcer of buttock Acute Hypertension Chronic Hypothyroid Chronic Diabetes Chronic Chronic pain Chronic Hypertensive urgency Acute Acute renal failure Acute Adrenal insufficiency Chronic Hyponatremia Acute C. difficile diarrhea Acute 03/01/15 Hypoxemia Acute Palliative care encounter Acute ESBL (extended spectrum beta-lactamase) producing bacteria infection Acute Weakness Acute UTI (urinary tract infection) Acute Dehydration Acute Cellulitis Acute
--- NOTE | 2017-02-25 17:40 | ASMTCMCOM ---
CM Note CM Note Notes: Met with patient to let her know that [facility] declined to accept her. Also discussed that wound care had recommended that she go to LTAC instead of SNF because of her wound care needs. C/M contacted [facility] in [place], Uri [phone], who was reviewing the records that had been sent by [facility]. He requested that [facility] wound care nurse contact their wound care nurse to discuss the patient Shailesh [phone]. Text sent to Tahmina asking her to call him. Uri said he hoped to be able to get back to C/M on . 02/26/17. Case management will continue to follow. Date Signed: 02/25/2017 05:39 PM Electronically Signed By:SHAHLA Lopez
[2017-02-25] MEDS: oxyCODONE IR 5 MG TAB PO PRN (20:14)
[2017-02-26] MEDS: oxyCODONE IR 5 MG TAB PO PRN (02:14)
[2017-02-26] MEDS: hydrALAZINE 25 MG TAB PO SCH ×4 (05:54→23:11)
[2017-02-26 06:07] LABS: % IMMATURE GRANULYOCYTES 1.3 % (0.0-1.1); ABSOLUTE IMMATURE GRANULOCYTES 0.11 10^3/uL (0.00-0.10); ADD DIFF? NO; ADD MORPH? NO; ADD SCAN? NO; ATYPICAL LYMPHOCYTE FLAG 0 (0-99); FRAGMENT RBC FLAG 20 (0-99); HEMATOCRIT 27.5 % (38.0-47.0); HEMOGLOBIN 8.6 g/dL (12.6-16.3); LEFT SHIFT FLG 0 (0-99); LIPEMIA HEMOLYSIS FLAG 80 (0-99); MEAN CELL HEMOGLOBIN 27.5 pg (27.9-34.1); MEAN CELL HEMOGLOBIN CONCENTR. 31.3 g/dL (32.4-36.7); MEAN CELL VOLUME 87.9 fL (81.5-99.8); MEAN PLATELET VOLUME 10.1 fL (8.7-11.7); PLATELET CLUMPS FLAG 0 (0-99); PLATELET COUNT 292 10^3/uL (150-400); RED BLOOD CELL COUNT 3.13 10^6/uL (4.18-5.33); RED CELL DISTRIBUTION WIDTH 17.4 % (11.5-15.2)
[2017-02-26 06:36] LABS: ALANINE AMINOTRANSFERASE 33 IU/L (9-52); ALBUMIN 2.4 g/dL (3.5-5.0); ALKALINE PHOSPHATASE 76 IU/L (38-126); ANION GAP 7 mEq/L (8-16); ASPARTATE AMINOTRANSFERASE 14 IU/L (14-46); BILIRUBIN,TOTAL 0.4 mg/dL (0.1-1.4); CALCIUM 8.4 mg/dL (8.5-10.4); CARBON DIOXIDE 32 mEq/l (22-31); CHLORIDE 93 mEq/L (97-110); GLOMERULAR FILTRATION RATE 53; GLUCOSE 153 mg/dL (70-100); POTASSIUM 4.5 mEq/L (3.5-5.2); SODIUM 132 mEq/L (134-144); TOTAL PROTEIN 4.6 g/dL (6.3-8.2)
[2017-02-26] MEDS ORDERED: HYDROmorphONE/DILAUDID 1 MG/ML INJ IVP PRN ×2 (08:30→22:24)
[2017-02-26] MEDS ORDERED: D10W 250 ML PRN HYPOGLYCEMIA IV (08:30)
[2017-02-26] MEDS: Fluticasone/Salmeterol [Advair Hfa 230-21 Mcg Inhaler] IH SCH ×2 (08:55→22:19)
[2017-02-26] MEDS: INSULIN LISPRO 100 UNIT/ML SC SCH ×3 (09:02→19:13)
[2017-02-26] MEDS: CYANO/VITAMIN B12 1000 MCG TAB PO SCH (11:19)
[2017-02-26] MEDS: MONTELUKAST SODIUM 10 MG TAB PO SCH (11:20)
[2017-02-26] MEDS: HYDROCORTISONE 10 MG TAB PO SCH ×2 (11:22→23:12)
[2017-02-26] MEDS: LEVOTHYROXINE 100 MCG TAB PO SCH (11:22)
[2017-02-26] MEDS: MULTIVITAMINS 1 EACH TAB PO SCH (11:23)
[2017-02-26] MEDS: LABETALOL HCL 100 MG TAB PO SCH ×2 (11:23→23:11)
[2017-02-26] MEDS: FUROSEMIDE 20 MG TAB PO SCH ×2 (11:25→16:25)
[2017-02-26] MEDS: FLUTICASONE NASAL 120 SPRAYS/16 GM MDI EACHNARE SCH (11:26)
[2017-02-26] MEDS: amLODIPine BESYLATE 5 MG TAB PO SCH (11:31)
[2017-02-26] MEDS: PREGABALIN 150 MG CAP PO SCH ×2 (11:32→23:11)
[2017-02-26] MEDS: PRESERVISION AREDS2 FORMULA EYE VIT 1 EACH PO SCH ×2 (11:32→23:11)
[2017-02-26] MEDS: HEPARIN 5,000 UNIT/0.5 ML SYR SC SCH (11:34)
[2017-02-26] MEDS: RABEPRAZOLE SODIUM 20 MG PO SCH ×2 (11:38→23:12)
--- NOTE | 2017-02-26 11:44 | GPN ---
[f rep st] PROCEDURE NOTE DATE OF PROCEDURE: 02/26/2017 LONG FILLER CIGAR ROLLER MACHINE: QUINCY Gunn. ANESTHESIA: None. PREOPERATIVE DIAGNOSIS: Traumatic wound, left lower extremity. POSTPROCEDURE DIAGNOSIS: Traumatic wound, left lower extremity. PROCEDURE PERFORMED: Application tissue-derived skin substitute and wound VAC. FINDINGS: AmnioFill 500, [id number], expiration 09/23/2021. The wound measures 18.5 x 8 x 1 cm. There is healthy granulation tissue at the base. INDICATIONS: The patient is an 81-year-old woman who hit her leg on her recliner. She sustained a large wound which was debrided by my partner, Dr. Baldwin. We placed a wound VAC last week with AmnioFill. It has decreased dramatically in size. DESCRIPTION OF PROCEDURE: The patient was at bedside. The old wound VAC was taken down. The wound was cleansed. A new wound VAC with AmnioFill 500mg was placed. She is ready for a skin graft. I have reached out to the hospitalist to find timing for this procedure. /[id number]/MODL MTDD
--- NOTE | 2017-02-26 14:20 | SOAPPROG ---
SOAP Progress Note Assessment/Plan: Assessment: Ready to skin graft Will skin graft prior to discharge to LTAC Will need vac in place until friday then can discharge Will go to OR tonight Risks and benefits discussed Plan: 02/20/17 14:24 02/21/17 09:16 02/26/17 14:19 Objective: Vital Signs Temp Pulse Resp BP Pulse Ox 36.9 C 79 16 160/63 H 96 02/26/17 11:16 02/26/17 11:23 02/26/17 09:27 02/26/17 11:31 02/26/17 11:16 Laboratory Results 02/26/17 05:48 02/26/17 05:48 02/25/17 02/26/17 02/27/17 05:59 05:59 05:59 Intake Total 650 1200 Output Total 2650 3300 550 Balance -2000 -2100 -550 PT 15.2 SEC (12.0-15.0) H 02/17/17 04:20 INR 1.20 (0.83-1.16) H 02/17/17 04:20 ICD10 Worksheet Patient Problems: Problems Problem Status Onset Hemorrhage Acute Hypotension Acute MRSA (methicillin resistant Staphylococcus aureus) Acute ~11/29/16 Decubitus ulcer of buttock Acute Hypertension Chronic Hypothyroid Chronic Diabetes Chronic Chronic pain Chronic Hypertensive urgency Acute Acute renal failure Acute Adrenal insufficiency Chronic Hyponatremia Acute C. difficile diarrhea Acute 03/01/15 Hypoxemia Acute Palliative care encounter Acute ESBL (extended spectrum beta-lactamase) producing bacteria infection Acute Weakness Acute UTI (urinary tract infection) Acute Dehydration Acute Cellulitis Acute
--- NOTE | 2017-02-26 16:16 | HOSPPROG ---
Hospitalist Progress Note Assessment/Plan: 81 yo male with left lower extremity bleeding, now with wound vac post surgical drainage. hGB=9.0 AND stable post 4 units PRBC, persistent edema on lasix 20mg bid, Win is improved with creatinine 1.1 today though slightly elevated BUN at 27 (possibly some GI sources), Na . Today patient will have skin graft to wound on LLE -LLE massive hematoma with on anticoag, s/p drainag e and debridement, wound vac. Hgb = 9.0 today and stable. To have skin graft today. No c/o chest pain or sob. Lungs clear, heart normal. ECHO 2014 showed EF 65%, + diastolic dysfunction. Clear for surgery tonight. Will check an INR. Hold lovenox. bp in good control -BP is slightly elevated this am without headache and not persistently elevated. persists wlwvated without tachycardia will increase hydralazine -hypoxemia: persistent possibly 2/2 chf with DD, will continue diuresis. Does not usually require O2 -ABLA, s/p 4 units PRBC, no further bleeding -A renal failure: now back to baseline with creatinine 1.1 today. Will follow and watch with lasix 20 mg bid for edema. i&O ->2000cc -hyponatremia 2/2 hypervolemia; Na 129 -volume overload, improving with diuresis -h/o IJ DVT, on anticoag; now on proplylactic for DVT prevention, no signs of bleeding. On coumadin at admission for prior DVT -DM 2: controlled -Isolation: for ESBL and h/o C-diff. No diarrhes or dysuria -nutrition: eating well, will check albumin and calories Lines: fernandez, right IJ, wound vac to left leg. Fernandez to protect wound Plan -continue diuresis, -wound graft today -DVT proply: heparin -HTN increase hydralzine -code: DNR per her wishes -disposition: LTAC placement in [facility] in [place] when approved -continue PT?OT; she is standing currently only Subjective: no complaints. Objective: Vital Signs Temp Pulse Resp BP Pulse Ox 36.9 C 79 16 160/63 H 96 02/26/17 11:16 02/26/17 11:23 02/26/17 09:27 02/26/17 11:31 02/26/17 11:16 Laboratory Results 02/26/17 05:48 02/26/17 05:48 02/25/17 02/26/17 02/27/17 05:59 05:59 05:59 Intake Total 650 1200 Output Total 2650 3300 550 Balance -2000 -2100 -550 PT 15.2 SEC (12.0-15.0) H 02/17/17 04:20 INR 1.20 (0.83-1.16) H 02/17/17 04:20 - Time Spent With Patient Time Spent with Patient: greater than 35 minutes Time Spent with Patient: Greater than 35 minutes spent on this patients care, greater than 50% of time spent counseling, educating, and coordinating care regarding the above mentioned plan. - Pending Discharge Pending Discharge Within 24 Hours: No Pending Discharge Within 48 Hours: No - Physical Exam Constitutional: no apparent distress Eyes: PERRL, anicteric sclera Ears, Nose, Mouth, Throat: moist mucous membranes, hearing normal, other (right I J line) Cardiovascular: regular rate and rhythym, no murmur, rub, or gallop Respiratory: no respiratory distress, no rales or rhonchi, clear to auscultation Gastrointestinal: normoactive bowel sounds, soft, non-tender abdomen, no palpable masses Genitourinary: no bladder fullness, other (fernandez) Skin: warm Musculoskeletal: generalized weakness Neurologic: AAOx3, CN II-XII Intact Psychiatric: interacting appropriately ICD10 Worksheet Patient Problems: Problems Problem Status Onset Hemorrhage Acute Hypotension Acute Acute renal failure Acute C. difficile diarrhea Acute 03/01/15 Cellulitis Acute Decubitus ulcer of buttock Acute Dehydration Acute ESBL (extended spectrum beta-lactamase) producing bacteria infection Acute Hypertensive urgency Acute Hyponatremia Acute Hypoxemia Acute MRSA (methicillin resistant Staphylococcus aureus) Acute ~11/29/16 Palliative care encounter Acute UTI (urinary tract infection) Acute Weakness Acute Adrenal insufficiency Chronic Chronic pain Chronic Diabetes Chronic Hypertension Chronic Hypothyroid Chronic
--- NOTE | 2017-02-26 16:51 | ASMTCMCOM ---
CM Note CM Note Notes: Today Uri from [facility] wanted some updates on Pt's situation. MDs consulted with each other and it was decided that Pt. would have Dr. Chanel perform surgery to close her wound this evening. CM to keep in touch with Uri about new wound post surgery and if LTAC is still appropriate as d/c plan over time. Date Signed: 02/26/2017 04:51 PM Electronically Signed By:Aida Dee LCSW
[2017-02-26 17:11] LABS: INR 1.02 (0.83-1.16); PROTIME(PATIENT) 13.3 SEC (12.0-15.0)
[2017-02-26] MEDS ORDERED: THROMBIN (BOVINE) 20,000 UNIT SPRAY TP ONE (18:44)
[2017-02-26] MEDS ORDERED: BUPIVACAINE 0.5% 30 ML SDV ONE (18:45)
[2017-02-26] MEDS ORDERED: MINERAL OIL 10 ML VIAL ONE ×2 (18:48→21:21)
[2017-02-26] MEDS ORDERED: ceFAZolin 2 GM in D5W 100 ML IV ONE (20:00)
--- NOTE | 2017-02-26 20:27 | PDANEPAE ---
ANE History of Present Illness 81 yo for debridement and skin graft LLE ANE Past Medical History - Cardiovascular History Hx Hypertension: Yes Hx Arrhythmias: No Hx Coronary Artery / Peripheral Vascular Disease: No Hx CHF / Valvular Disease: No Cardiovascular History Comment: ABNL EKG-INFARCT, DR GAINES DOESNT BELIEVE [place]. NO CP - Pulmonary History Hx COPD: No Hx Asthma/Reactive Airway Disease: Yes Hx Recent Upper Respiratory Infection: No Hx Oxygen in Use at Home: No Hx Sleep Apnea: Yes Sleep Apnea Screening Result - Last Documented: Positive Pulmonary History Comment: ASTHMA. SLOW STAIR USE, BUT NO SOB. POS KEMAL, USES O2 2L AT NITE - Neurologic History Hx Cerebrovascular Accident: No Hx Seizures: No Hx Dementia: No Neurologic History Comment: R ARM N AND T - Endocrine History Hx Diabetes: Yes Endocrine History Comment: DIABETES CONTROLLED W DIET. LOW THYROID - Renal History Hx Renal Disorders: Yes Renal History Comment: OCC INCONTINENCE, WEARS PAD - Liver History Hx Hepatic Disorders: No - Neurological & Psychiatric Hx Hx Neurological and Psychiatric Disorders: No - Cancer History Hx Cancer: Yes Cancer History Comment: SKIN CA- BASAL CELL - Congenital Disorder History Hx Congenital Disorders: No - GI History Hx Gastrointestinal Disorders: Yes Gastrointestinal History Comment: GERD. IBS HX, CONSTIPATION - Other Health History Other Health History: ADRENAL INSUFF. BRUSES EASILY. SPINAL STENOSIS, SCOLIOSIS. DDD, OA - Chronic Pain History Chronic Pain: Yes (LOW BACK) - Surgical History Prior Surgeries: R SHOULDER 12-6-13. PRESSURE ULCER DEBRIDEMENT '11. L BREAST BX. MARIANNA CATARACTS. HYST. L GIAN ANE Review of Systems Review of Systems: - Exercise capacity METS (RN): 4 METS ANE Patient History - Allergies Allergies/Adverse Reactions: bacitracin [From Neosporin] Allergy (Intermediate, Verified 02/21/16 10:05) Rash bacitracin zinc [From Neosporin] Allergy (Intermediate, Verified 02/21/16 10:05) Rash gramicidin D [From Neosporin] Allergy (Intermediate, Verified 02/21/16 10:05) Rash neomycin sulfate [From Neosporin] Allergy (Intermediate, Verified 02/21/16 10:05 ) Rash polymyxin B [From Neosporin] Allergy (Intermediate, Verified 02/21/16 10:05) Rash polymyxin B sulfate [From Neosporin] Allergy (Intermediate, Verified 02/21/16 10 :05) Rash esomeprazole magnesium [From Nexium] Allergy (Verified 02/21/16 10:05) Diarrhea lansoprazole [From Prevacid] Allergy (Verified 02/21/16 10:05) Diarrhea omeprazole [From Prilosec] Allergy (Verified 02/21/16 10:05) Diarrhea omeprazole magnesium [From Prilosec] Allergy (Verified 02/21/16 10:05) Diarrhea pantoprazole sodium [From Protonix] Allergy (Verified 02/21/16 10:05) Diarrhea ranitidine HCl [From Zantac] Allergy (Verified 02/21/16 10:05) Diarrhea ENVIRONMENTAL Allergy (Intermediate, Uncoded 12/31/14 21:09) Other-Enter Comments - Home Medications Home Medications: C/E/Zn/Cu/OM3/DHA/EPA/LUT/ZEAX [Preservision Areds 2 Softgel] 1 each PO BID 11/09 [Last Taken 02/12/17] Cholecalciferol Vit D3 [Vitamin D3 (*)] 2,000 units PO DAILY 11/28/16 [Last Taken 02/12/17] FLUTICASONE/SALMETEROL [ADVAIR HFA 230-21 MCG INHALER] 2 puffs IH BID 11/28/16 [ Last Taken 3 Weeks Ago ~01/22/17] Fluticasone Nasal [Flonase Nasal [place]] 1 - 2 sprays [place] DAILY 11/28/16 [ Last Taken 3 Days Ago ~02/09/17] Hydrocortisone [Cortef 10 mg (*)] 10 mg PO BID 11/28/16 [Last Taken 02/12/17 09: 00] Levothyroxine [Synthroid 100 mcg (*)] 100 mcg PO DAILY@11/28/16 [Last Taken 02/12/17] Methocarbamol [Robaxin 750 mg (*)] 750 mg PO QID PRN 11/28/16 [Last Taken Unknown] Montelukast Sodium [Singulair 10 mg (*)] 10 mg PO DAILY 11/28/16 [Last Taken ] Multivitamins [Multivitamin (*)] 1 each PO DAILY 11/28/16 [Last Taken 02/12/17] Pregabalin [Lyrica] 150 mg PO BID 11/28/16 [Last Taken 02/12/17] Rabeprazole Sodium [Aciphex] 20 mg PO BID 11/28/16 [Last Taken 02/12/17] Cyanocobalamin (Vitamin B-12) [Vitamin B-12] 500 mcg PO DAILY 02/12/17 [Last Taken 02/12/17] Labetalol HCl [Trandate 100 mg (*)] 50 mg PO DAILY 02/12/17 [Last Taken 02/12/17 ] Labetalol HCl [Trandate 100 mg (*)] 100 mg PO HS 02/12/17 [Last Taken 02/11/17] Warfarin Sodium [Coumadin 3MG (*)] 3 mg PO DAILY 02/12/17 [Last Taken 02/12/17] - NPO status NPO Since - Liquids (Date): 02/13/17 NPO Since - Liquids (Time): 08:00 NPO Since - Solids (Date): 02/12/17 NPO Since - Solids (Time): 20:00 - Smoking Hx Smoking Status: Never smoked - Alcohol Use Alcohol Use: Rarely - Family Anes Hx Family Hx Anesthesia Complications: NONE ANE Labs/Vital Signs - Labs Result Diagrams: 02/26/17 05:48 02/26/17 05:48 - Vital Signs Blood Pressure: 135/72 Heart Rate: 79 Respiratory Rate: 16 O2 Sat (%): 91 Height: 5 ft 4 in Weight: 91.4 kg ANE Physical Exam - Airway Mallampati Score: Class 2 Mouth exam: normal dental/mouth exam - Pulmonary Pulmonary: no respiratory distress - Cardiovascular Cardiovascular: regular rate and rhythym - ASA Status ASA Status: III ANE Anesthesia Plan Anesthesia Plan: general endotracheal anesthesia
[2017-02-26] MEDS ORDERED: MIDAZOLAM 2 MG/2 ML VIAL ONE (20:31)
[2017-02-26] MEDS ORDERED: CEFAZOLIN 2 GM/DEXTROSE/100 ML BAG IV ONE (20:31)
[2017-02-26] MEDS ORDERED: REMIFENTANIL HCL 1 MG VIAL ONE (20:34)
[2017-02-26] MEDS ORDERED: fentaNYL 100 MCG/2 ML INJ ONE (20:34)
[2017-02-26] MEDS ORDERED: PROPOFOL/EMULSION 500 MG/50 ML BOTTLE IV ONE (20:35)
[2017-02-26] MEDS ORDERED: ALBUTEROL 3 ML DEYVIAL IH PRN (21:37)
[2017-02-26] MEDS ORDERED: ONDANSETRON 4 MG/2 ML VIAL IVP PRN (21:37)
[2017-02-26] MEDS ORDERED: NALOXONE HCL 0.4 MG/ML INJ IVP PRN (21:37)
[2017-02-26] MEDS ORDERED: fentaNYL 100 MCG/2 ML INJ IVP PRN (21:37)
--- NOTE | 2017-02-26 22:26 | POSTOPPROG ---
Post Op Note Date of Operation: 02/26/17 Surgeon: Beatriz Chanel Anesthesiologist: chelsey Anesthesia: GET(General Endotracheal) Pre-op Diagnosis: traumatic wound LLE Post-op Diagnosis: same Indication: 81 yo with traumatic wound LLE Procedure: debride and STSG Findings: 15.5x10x0.7 Inf/Abcess present in the surg proc area at time of surgery?: No EBL: Minimal Drains: Wound Vac Specimen(s): none
--- NOTE | 2017-02-27 00:34 | POSTANESTH ---
Post Anesthetic Evaluation Cardiovascular Status: Normal, Stable Respiratory Status: Normal, Stable Level of Consciousness/Mental Status: Can Participate in Eval Pain Control: Adequate, Prn Tx Ordered Nausea/Vomiting Control: Adequate, Prn Tx Ordered Complications Possibly Related to Anesthesia: None Noted
[2017-02-27] MEDS: hydrALAZINE 25 MG TAB PO SCH ×4 (05:18→21:39)
[2017-02-27 05:28] LABS: % IMMATURE GRANULYOCYTES 1.2 % (0.0-1.1); ABSOLUTE IMMATURE GRANULOCYTES 0.08 10^3/uL (0.00-0.10); ADD DIFF? NO; ADD MORPH? NO; ADD SCAN? NO; ATYPICAL LYMPHOCYTE FLAG 0 (0-99); FRAGMENT RBC FLAG 20 (0-99); HEMATOCRIT 28.1 % (38.0-47.0); HEMOGLOBIN 8.7 g/dL (12.6-16.3); LEFT SHIFT FLG 0 (0-99); LIPEMIA HEMOLYSIS FLAG 80 (0-99); MEAN CELL HEMOGLOBIN 26.9 pg (27.9-34.1); MEAN PLATELET VOLUME 10.3 fL (8.7-11.7); PLATELET CLUMPS FLAG 10 (0-99); PLATELET COUNT 281 10^3/uL (150-400); RED BLOOD CELL COUNT 3.23 10^6/uL (4.18-5.33)
[2017-02-27 05:43] LABS: ALANINE AMINOTRANSFERASE 30 IU/L (9-52); ALBUMIN 2.5 g/dL (3.5-5.0); ALKALINE PHOSPHATASE 81 IU/L (38-126); ANION GAP 5 mEq/L (8-16); ASPARTATE AMINOTRANSFERASE 17 IU/L (14-46); BILIRUBIN,TOTAL 0.4 mg/dL (0.1-1.4); CALCIUM 8.7 mg/dL (8.5-10.4); CARBON DIOXIDE 33 mEq/l (22-31); CHLORIDE 91 mEq/L (97-110); CREATININE 1.1 mg/dL (0.6-1.0); GLOMERULAR FILTRATION RATE 48; GLUCOSE 225 mg/dL (70-100); POTASSIUM 4.7 mEq/L (3.5-5.2); SODIUM 129 mEq/L (134-144); TOTAL PROTEIN 4.9 g/dL (6.3-8.2)
--- NOTE | 2017-02-27 05:53 | GOP ---
[f rep st] OPERATIVE REPORT DATE OF OPERATION: 02/26/2017 SURGEON: Beatriz Chanel MD ANESTHESIA: Dr. Lucinda Rabago/general. 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 PROCEDURE PERFORMED: Debridement skin soft tissue, 150 sq cm with split- thickness skin graft, left lower extremity. FINDINGS: The wound on the left lower extremity measures 15.5 x 10 x 0.8. There is healthy granulation tissue at the base to the level of the subcutaneous tissue. SPECIMENS: None. ESTIMATED BLOOD LOSS: 10 cc. INDICATIONS: The patient is an 81-year-old woman who sustained an injury to her left lower extremity with a recliner. She had debridement of the skin soft tissue, she is now ready for skin grafting. DESCRIPTION OF PROCEDURE: The patient was brought into the operating room, placed supine on the table, and general anesthesia was administered. Her left leg was prepped and draped in the usual sterile fashion. I debrided the wound base with a curette until there was 100% healthy granulation tissue. The wound measured 15.5 x 10 x 0.8 cm. I then took a split-thickness skin graft from her left upper thigh with the dermatome 1/12,000 of an inch. I hand pie crusted and stapled this into place. An epinephrine soaked sponge was placed on the donor site. I applied Adaptic Touch and a wound VAC over the graft. Hemostasis was achieved on the donor site with electrocautery. Mepilex transfer and a Tegaderm were placed on the donor site. She was awakened in the operating room, extubated, transferred to PACU in stable condition. /[id number]/MODL MTDD
[2017-02-27] MEDS: Fluticasone/Salmeterol [Advair Hfa 230-21 Mcg Inhaler] IH SCH ×2 (08:42→22:08)
[2017-02-27] MEDS: CYANO/VITAMIN B12 1000 MCG TAB PO SCH (08:51)
[2017-02-27] MEDS: MONTELUKAST SODIUM 10 MG TAB PO SCH (08:51)
[2017-02-27] MEDS: amLODIPine BESYLATE 5 MG TAB PO SCH (08:52)
[2017-02-27] MEDS: HYDROCORTISONE 10 MG TAB PO SCH ×2 (08:52→21:39)
[2017-02-27] MEDS: INSULIN LISPRO 100 UNIT/ML SC SCH ×3 (08:52→16:07)
[2017-02-27] MEDS: FUROSEMIDE 20 MG TAB PO SCH (08:52)
[2017-02-27] MEDS: LABETALOL HCL 100 MG TAB PO SCH ×2 (08:52→21:38)
[2017-02-27] MEDS: PREGABALIN 150 MG CAP PO SCH ×2 (08:52→21:39)
[2017-02-27] MEDS: PRESERVISION AREDS2 FORMULA EYE VIT 1 EACH PO SCH ×2 (08:52→21:38)
[2017-02-27] MEDS: MULTIVITAMINS 1 EACH TAB PO SCH (08:52)
[2017-02-27] MEDS: LEVOTHYROXINE 100 MCG TAB PO SCH (08:52)
[2017-02-27] MEDS: RABEPRAZOLE SODIUM 20 MG PO SCH ×2 (08:53→22:33)
[2017-02-27] MEDS: FLUTICASONE NASAL 120 SPRAYS/16 GM MDI EACHNARE SCH (08:53)
[2017-02-27] MEDS: HEPARIN 5,000 UNIT/0.5 ML SYR SC SCH ×2 (10:07→21:38)
[2017-02-27] MEDS: traMADol 50 MG TAB PO PRN (10:53)
--- NOTE | 2017-02-27 13:20 | HOSPPROG ---
Hospitalist Progress Note Assessment/Plan: #Chronic left leg wound: debrided 02/26, wound vac in place #Acute blood loss anemia: s/p 4 units. H/H stable #Acute hypoxic resp failure: due to diastolic HF. Hold PO Lasix. Dry on exam. #Diastolic HF: hold lasix. Looks dry on exam #Hypothyroidism: LT4 #Hyponatremia: appears dry on exam. Hold Lasix. Check urine lytes #Accelerated HTN: improved. Can increase Labetalol if needed #Diabetes with hyperglycemia: exacerbated by steroids #Adrenal insufficiency: cont Cortef #Deconditioning: to SNF at [facility] #Diet:regular #Disp: cont inpatient admission for wound care, BMP, medication adjustment Subjective: she does not think she is drinking enough water Objective: Vital Signs Temp Pulse Resp BP Pulse Ox 36.7 C 82 14 131/76 H 96 02/27/17 08:00 02/27/17 08:45 02/27/17 08:45 02/27/17 12:09 02/27/17 08:45 Laboratory Results 02/27/17 05:15 02/27/17 05:15 02/26/17 02/27/17 02/28/17 05:59 05:59 05:59 Intake Total 1200 Output Total 3300 3075 450 Balance -2100 -3075 -450 PT 13.3 SEC (12.0-15.0) 02/26/17 16:30 INR 1.02 (0.83-1.16) 02/26/17 16:30 - Physical Exam Constitutional: no apparent distress Eyes: PERRL Ears, Nose, Mouth, Throat: dry mucous membranes Cardiovascular: regular rate and rhythym, no murmur, rub, or gallop Respiratory: no respiratory distress, no rales or rhonchi Gastrointestinal: normoactive bowel sounds Genitourinary: no bladder fullness Skin: warm Musculoskeletal: other (left leg with wound vac in place) Neurologic: AAOx3 Psychiatric: interacting appropriately ICD10 Worksheet Patient Problems: Problems Problem Status Onset Hemorrhage Acute Hypotension Acute Acute renal failure Acute C. difficile diarrhea Acute 03/01/15 Cellulitis Acute Decubitus ulcer of buttock Acute Dehydration Acute ESBL (extended spectrum beta-lactamase) producing bacteria infection Acute Hypertensive urgency Acute Hyponatremia Acute Hypoxemia Acute MRSA (methicillin resistant Staphylococcus aureus) Acute ~11/29/16 Palliative care encounter Acute UTI (urinary tract infection) Acute Weakness Acute Adrenal insufficiency Chronic Chronic pain Chronic Diabetes Chronic Hypertension Chronic Hypothyroid Chronic
--- NOTE | 2017-02-27 17:21 | SOAPPROG ---
SOAP Progress Note Assessment/Plan: Assessment: POD # 1 s.p skin graft LLE Doing very well Minimal pain Wound vac to suction continuous until friday or friday. Change thigh dressing with transfer and tegaderm Q 4 days and prn Will continue to follow S: Feeling well O: Dressings dry. Minimal drainage on thigh Plan: 02/20/17 14:24 02/21/17 09:16 02/26/17 14:19 02/27/17 17:19 Objective: Vital Signs Temp Pulse Resp BP Pulse Ox 37.0 C 76 12 130/54 H 94 02/27/17 15:47 02/27/17 15:47 02/27/17 15:47 02/27/17 16:07 02/27/17 15:47 Laboratory Results 02/27/17 05:15 02/27/17 05:15 02/26/17 02/27/17 02/28/17 05:59 05:59 05:59 Intake Total 1200 Output Total 3300 3075 450 Balance -2100 -3075 -450 PT 13.3 SEC (12.0-15.0) 02/26/17 16:30 INR 1.02 (0.83-1.16) 02/26/17 16:30 ICD10 Worksheet Patient Problems: Problems Problem Status Onset Hemorrhage Acute Hypotension Acute Acute renal failure Acute C. difficile diarrhea Acute 03/01/15 Cellulitis Acute Decubitus ulcer of buttock Acute Dehydration Acute ESBL (extended spectrum beta-lactamase) producing bacteria infection Acute Hypertensive urgency Acute Hyponatremia Acute Hypoxemia Acute MRSA (methicillin resistant Staphylococcus aureus) Acute ~11/29/16 Palliative care encounter Acute UTI (urinary tract infection) Acute Weakness Acute Adrenal insufficiency Chronic Chronic pain Chronic Diabetes Chronic Hypertension Chronic Hypothyroid Chronic
[2017-02-27] MEDS ORDERED: NS 1,000 ML IV SCH (18:15)
[2017-02-28] MEDS: hydrALAZINE 25 MG TAB PO SCH ×4 (05:56→20:28)
[2017-02-28] MEDS: Fluticasone/Salmeterol [Advair Hfa 230-21 Mcg Inhaler] IH SCH ×2 (08:28→21:39)
[2017-02-28] MEDS: INSULIN LISPRO 100 UNIT/ML SC SCH ×3 (09:05→18:11)
[2017-02-28] MEDS: RABEPRAZOLE SODIUM 20 MG PO SCH (09:06)
[2017-02-28] MEDS: HYDROCORTISONE 10 MG TAB PO SCH ×2 (09:46→20:29)
[2017-02-28] MEDS: MULTIVITAMINS 1 EACH TAB PO SCH (09:46)
[2017-02-28] MEDS: LABETALOL HCL 100 MG TAB PO SCH ×2 (09:46→20:29)
[2017-02-28] MEDS: ACETAMINOPHEN 325 MG TAB PO PRN (09:46)
[2017-02-28] MEDS: amLODIPine BESYLATE 5 MG TAB PO SCH (09:47)
[2017-02-28] MEDS: PRESERVISION AREDS2 FORMULA EYE VIT 1 EACH PO SCH ×2 (09:47→20:28)
[2017-02-28] MEDS: CYANO/VITAMIN B12 1000 MCG TAB PO SCH (09:48)
[2017-02-28] MEDS: LEVOTHYROXINE 100 MCG TAB PO SCH (09:48)
[2017-02-28] MEDS: PREGABALIN 150 MG CAP PO SCH ×2 (09:49→20:29)
[2017-02-28] MEDS: HEPARIN 5,000 UNIT/0.5 ML SYR SC SCH ×3 (09:52→20:30)
[2017-02-28] MEDS: FLUTICASONE NASAL 120 SPRAYS/16 GM MDI EACHNARE SCH (09:52)
--- NOTE | 2017-02-28 11:14 | SOAPPROG ---
SOAP Progress Note Assessment/Plan: Assessment: 81yo F POD #2 s/p skin graft LLE Doing very well Minimal pain Wound vac to suction continuous until Friday morning. Change thigh dressing with transfer and tegaderm Q 4 days and PRN saturation Appreciate hospitalist management of comorbidities Dispo: does not need to go to [facility] for [facility] care since she has graft. will work on placement. Seen c Dr. Chanel. Discussed c Dr. Pedroza S: Doing well. No pain at this time. No complaints O: Laying in bed, comfortable, NAD No increased WOB 1+ peripheral edema B LLE wound vac to suction. L upper thigh dressing saturated - will need to be changed. Objective: Vital Signs Temp Pulse Resp BP Pulse Ox 36.8 C 62 18 161/64 H 96 02/28/17 08:58 02/28/17 09:46 02/28/17 08:58 02/28/17 09:47 02/28/17 08:58 Laboratory Results 02/27/17 05:15 02/27/17 05:15 02/27/17 02/28/17 03/01/17 05:59 05:59 05:59 Intake Total 890 Output Total 3075 2050 Balance -3075 -1160 PT 13.3 SEC (12.0-15.0) 02/26/17 16:30 INR 1.02 (0.83-1.16) 02/26/17 16:30 ICD10 Worksheet Patient Problems: Problems Problem Status Onset Hemorrhage Acute Hypotension Acute Acute renal failure Acute C. difficile diarrhea Acute 03/01/15 Cellulitis Acute Decubitus ulcer of buttock Acute Dehydration Acute ESBL (extended spectrum beta-lactamase) producing bacteria infection Acute Hypertensive urgency Acute Hyponatremia Acute Hypoxemia Acute MRSA (methicillin resistant Staphylococcus aureus) Acute ~11/29/16 Palliative care encounter Acute UTI (urinary tract infection) Acute Weakness Acute Adrenal insufficiency Chronic Chronic pain Chronic Diabetes Chronic Hypertension Chronic Hypothyroid Chronic
[2017-02-28] MEDS: MONTELUKAST SODIUM 10 MG TAB PO SCH (12:29)
[2017-02-28 13:11] LABS: HEMATOCRIT 28.2 % (38.0-47.0); HEMOGLOBIN 8.8 g/dL (12.6-16.3); MEAN CELL HEMOGLOBIN 27.4 pg (27.9-34.1); MEAN CELL HEMOGLOBIN CONCENTR. 31.2 g/dL (32.4-36.7); MEAN CELL VOLUME 87.9 fL (81.5-99.8); RED BLOOD CELL COUNT 3.21 10^6/uL (4.18-5.33); RED CELL DISTRIBUTION WIDTH 17.2 % (11.5-15.2)
[2017-02-28 13:49] LABS: ANION GAP 9 mEq/L (8-16); CALCIUM 8.8 mg/dL (8.5-10.4); CARBON DIOXIDE 31 mEq/l (22-31); CHLORIDE 90 mEq/L (97-110); CREATININE 1.2 mg/dL (0.6-1.0); GLOMERULAR FILTRATION RATE 43; GLUCOSE 238 mg/dL (70-100); POTASSIUM 4.4 mEq/L (3.5-5.2); SODIUM 130 mEq/L (134-144)
--- NOTE | 2017-02-28 13:55 | HOSPPROG ---
Hospitalist Progress Note Assessment/Plan: #Chronic left leg wound: debrided 02/26, wound vac in place until #Acute blood loss anemia: s/p 4 units. H/H stable #Acute hypoxic resp failure: due to diastolic HF. Hold PO Lasix. Dry on exam. #ALPHONSE: Cr 1.2 today. Due to dehydration. Gentle IVFs #Diastolic HF: hold lasix as dry on exam #Hypothyroidism: LT4 #Hyponatremia: pre-renal based on urine lytes. Hold Lasix. give gentle IVFs today #Accelerated HTN: improved. Can increase Labetalol if needed #Diabetes with hyperglycemia: exacerbated by steroids #Adrenal insufficiency: cont Cortef #Deconditioning: to SNF at [facility] #Diet:regular #Disp: cont inpatient admission for wound care, BMP, medication adjustment. LTC not warranted now, CM assisting with SNF placement Subjective: no pain today. No CP or SOB Objective: Vital Signs Temp Pulse Resp BP Pulse Ox 36.8 C 62 18 161/64 H 96 02/28/17 08:58 02/28/17 09:46 02/28/17 08:58 02/28/17 12:29 02/28/17 08:58 Laboratory Results 02/28/17 13:00 02/28/17 13:00 02/27/17 02/28/17 03/01/17 05:59 05:59 05:59 Intake Total 890 Output Total 3075 0 Balance -3075 -1160 PT 13.3 SEC (12.0-15.0) 02/26/17 16:30 INR 1.02 (0.83-1.16) 02/26/17 16:30 - Physical Exam Constitutional: no apparent distress Eyes: PERRL Ears, Nose, Mouth, Throat: moist mucous membranes Cardiovascular: regular rate and rhythym, edema (trace pedal edema LLE) Respiratory: no respiratory distress Genitourinary: fernandez in urethra Skin: warm Musculoskeletal: other (left leg wound with vac in place) Neurologic: AAOx3, CN II-XII Intact Psychiatric: interacting appropriately ICD10 Worksheet Patient Problems: Problems Problem Status Onset Hemorrhage Acute Hypotension Acute Acute renal failure Acute C. difficile diarrhea Acute 03/01/15 Cellulitis Acute Decubitus ulcer of buttock Acute Dehydration Acute ESBL (extended spectrum beta-lactamase) producing bacteria infection Acute Hypertensive urgency Acute Hyponatremia Acute Hypoxemia Acute MRSA (methicillin resistant Staphylococcus aureus) Acute ~11/29/16 Palliative care encounter Acute UTI (urinary tract infection) Acute Weakness Acute Adrenal insufficiency Chronic Chronic pain Chronic Diabetes Chronic Hypertension Chronic Hypothyroid Chronic
[2017-02-28] MEDS ORDERED: NS 1,000 ML IV SCH (14:00)
--- NOTE | 2017-02-28 15:45 | ASMTCMCOM ---
CM Note CM Note Notes: Pt had LLE skin graft on 02/26. She has a wound vac in place until early next week. Spoke with Uri at [facility] and faxed updates. Uri is not sure if pt is still lTAC appropriate w/o wound vac. He would like to reevaluate on Friday. C/M will continue to follow. Date Signed: 02/28/2017 03:45 PM Electronically Signed By:Mindy Gonzales LCSW
[2017-02-28] MEDS: WARFARIN SODIUM 2 MG TAB PO SCH (17:08)
[2017-02-28] MEDS: traMADol 50 MG TAB PO PRN (20:35)
[2017-02-28] MEDS: oxyCODONE IR 5 MG TAB PO PRN (20:36)
[2017-03-01] MEDS: RABEPRAZOLE SODIUM 20 MG PO SCH ×3 (02:16→21:58)
[2017-03-01 04:05] LABS: ANION GAP 9 mEq/L (8-16); CARBON DIOXIDE 31 mEq/l (22-31); CHLORIDE 94 mEq/L (97-110); CREATININE 1.1 mg/dL (0.6-1.0); GLOMERULAR FILTRATION RATE 48; GLUCOSE 183 mg/dL (70-100); POTASSIUM 4.8 mEq/L (3.5-5.2); SODIUM 134 mEq/L (134-144)
[2017-03-01 04:23] LABS: INR 1.02 (0.83-1.16); PROTIME(PATIENT) 13.3 SEC (12.0-15.0)
[2017-03-01] MEDS: hydrALAZINE 25 MG TAB PO SCH ×4 (06:20→21:53)
[2017-03-01] MEDS: HEPARIN 5,000 UNIT/0.5 ML SYR SC SCH ×3 (06:20→21:52)
[2017-03-01] MEDS: INSULIN LISPRO 100 UNIT/ML SC SCH ×3 (08:08→17:43)
[2017-03-01] MEDS: MONTELUKAST SODIUM 10 MG TAB PO SCH (08:09)
[2017-03-01] MEDS: CYANO/VITAMIN B12 1000 MCG TAB PO SCH (08:09)
[2017-03-01] MEDS: MULTIVITAMINS 1 EACH TAB PO SCH (08:09)
[2017-03-01] MEDS: HYDROCORTISONE 10 MG TAB PO SCH ×2 (08:09→21:52)
[2017-03-01] MEDS: PREGABALIN 150 MG CAP PO SCH ×2 (08:09→21:53)
[2017-03-01] MEDS: LABETALOL HCL 100 MG TAB PO SCH ×2 (08:09→21:53)
[2017-03-01] MEDS: amLODIPine BESYLATE 5 MG TAB PO SCH (08:09)
[2017-03-01] MEDS: LEVOTHYROXINE 100 MCG TAB PO SCH (08:09)
[2017-03-01] MEDS: PRESERVISION AREDS2 FORMULA EYE VIT 1 EACH PO SCH ×2 (08:09→21:53)
[2017-03-01] MEDS: Fluticasone/Salmeterol [Advair Hfa 230-21 Mcg Inhaler] IH SCH ×2 (08:14→21:29)
[2017-03-01] MEDS: FLUTICASONE NASAL 120 SPRAYS/16 GM MDI EACHNARE SCH (08:19)
--- NOTE | 2017-03-01 13:36 | HOSPPROG ---
Hospitalist Progress Note Assessment/Plan: #Chronic left leg wound: debrided 02/26, wound vac in place until #IJ DVT: restart coumadin cautiously with leg hematoma. Will not bridge given bleeding risks #Acute blood loss anemia: s/p 4 units. H/H stable. Monitor closely with coumadin #Acute hypoxic resp failure: due to diastolic HF. Hold PO Lasix. Dry on exam. #ALPHONSE: Cr 1.1, improved with IVFs. #Diastolic HF: hold lasix as dry on exam #Hypothyroidism: LT4 #Hyponatremia: resolved with IVFs. #Accelerated HTN: improved. Can increase Labetalol if needed #Diabetes with hyperglycemia: exacerbated by steroids #Adrenal insufficiency: cont Cortef #Deconditioning: to SNF at [facility] #Diet:regular #Disp: cont inpatient admission for wound care, BMP, medication adjustment. LTC not warranted now, CM assisting with SNF placement, DC once accepted Subjective: no pain in leg. No SOB Objective: Vital Signs Temp Pulse Resp BP Pulse Ox 36.3 C 68 20 165/71 H 96 03/01/17 07:57 03/01/17 07:57 03/01/17 07:57 03/01/17 13:09 03/01/17 07:57 Laboratory Results 02/28/17 13:00 03/01/17 03:35 02/28/17 03/01/17 03/02/17 05:59 05:59 05:59 Intake Total 890 200 Output Total 2050 1675 525 Balance -1160 -1475 -525 PT 13.3 SEC (12.0-15.0) 03/01/17 03:35 INR 1.02 (0.83-1.16) 03/01/17 03:35 - Physical Exam Constitutional: no apparent distress Eyes: PERRL Ears, Nose, Mouth, Throat: moist mucous membranes, hearing normal Cardiovascular: regular rate and rhythym, edema (trace BL LE, L>R ) Respiratory: no respiratory distress, no rales or rhonchi Gastrointestinal: normoactive bowel sounds, soft, non-tender abdomen Genitourinary: no bladder fullness, No fernandez in urethra Skin: warm Musculoskeletal: full muscle strength, other (left leg wound vac in place, no surrounding cellulitis) Neurologic: AAOx3, CN II-XII Intact Psychiatric: interacting appropriately ICD10 Worksheet Patient Problems: Problems Problem Status Onset Hemorrhage Acute Hypotension Acute MRSA (methicillin resistant Staphylococcus aureus) Acute ~11/29/16 Decubitus ulcer of buttock Acute Hypertension Chronic Hypothyroid Chronic Diabetes Chronic Chronic pain Chronic Hypertensive urgency Acute Acute renal failure Acute Adrenal insufficiency Chronic Hyponatremia Acute C. difficile diarrhea Acute 03/01/15 Hypoxemia Acute Palliative care encounter Acute ESBL (extended spectrum beta-lactamase) producing bacteria infection Acute Weakness Acute UTI (urinary tract infection) Acute Dehydration Acute Cellulitis Acute
[2017-03-01] MEDS: WARFARIN SODIUM 2 MG TAB PO SCH (16:39)
[2017-03-01] MEDS: METHOCARBAMOL 750 MG TAB PO PRN (21:52)
[2017-03-01] MEDS: traMADol 50 MG TAB PO PRN (21:54)
[2017-03-02] MEDS: HEPARIN 5,000 UNIT/0.5 ML SYR SC SCH ×3 (06:40→22:17)
[2017-03-02] MEDS: hydrALAZINE 25 MG TAB PO SCH ×3 (06:40→22:22)
[2017-03-02 07:48] LABS: ANION GAP 8 mEq/L (8-16); CALCIUM 9.2 mg/dL (8.5-10.4); CARBON DIOXIDE 32 mEq/l (22-31); CHLORIDE 93 mEq/L (97-110); GLOMERULAR FILTRATION RATE 53; GLUCOSE 144 mg/dL (70-100); POTASSIUM 4.6 mEq/L (3.5-5.2); SODIUM 133 mEq/L (134-144)
[2017-03-02] MEDS: INSULIN LISPRO 100 UNIT/ML SC SCH ×3 (09:04→18:01)
[2017-03-02] MEDS: PREGABALIN 150 MG CAP PO SCH ×2 (09:11→22:19)
[2017-03-02] MEDS: MULTIVITAMINS 1 EACH TAB PO SCH (09:11)
[2017-03-02] MEDS: HYDROCORTISONE 10 MG TAB PO SCH ×2 (09:11→22:20)
[2017-03-02] MEDS: LABETALOL HCL 100 MG TAB PO SCH ×2 (09:11→22:21)
[2017-03-02] MEDS: amLODIPine BESYLATE 5 MG TAB PO SCH (09:12)
[2017-03-02] MEDS: PRESERVISION AREDS2 FORMULA EYE VIT 1 EACH PO SCH ×2 (09:12→22:19)
[2017-03-02] MEDS: CYANO/VITAMIN B12 1000 MCG TAB PO SCH (09:12)
[2017-03-02] MEDS: LEVOTHYROXINE 100 MCG TAB PO SCH (09:12)
[2017-03-02] MEDS: MONTELUKAST SODIUM 10 MG TAB PO SCH (09:12)
[2017-03-02] MEDS: FLUTICASONE NASAL 120 SPRAYS/16 GM MDI EACHNARE SCH (09:21)
[2017-03-02] MEDS: RABEPRAZOLE SODIUM 20 MG PO SCH ×2 (09:21→22:22)
[2017-03-02] MEDS ORDERED: D50W 25 GM/50 ML SYR IVP PRN (10:19)
[2017-03-02] MEDS: Fluticasone/Salmeterol [Advair Hfa 230-21 Mcg Inhaler] IH SCH ×2 (10:33→19:29)
[2017-03-02 11:59] LABS: INR 0.95 (0.83-1.16); PROTIME(PATIENT) 12.6 SEC (12.0-15.0)
[2017-03-02] MEDS: INSULIN GLARGINE 100 UNITS/ML SYRINGE SC SCH (12:39)
--- NOTE | 2017-03-02 13:03 | HOSPPROG ---
Hospitalist Progress Note Assessment/Plan: #Chronic left leg wound: debrided 02/26, wound vac in place until #IJ DVT: restart coumadin cautiously with leg hematoma. Will not bridge given bleeding risks #Acute blood loss anemia: s/p 4 units. H/H stable. Monitor closely with coumadin #Acute hypoxic resp failure: due to diastolic HF. Hold PO Lasix. Dry on exam. #ALPHONSE: resolved with IVFs. #Diastolic HF: no e/o volume overload #Hypothyroidism: LT4 #Hyponatremia: resolved with IVFs. #Accelerated HTN: increased Norvasc to 10mg, cont Hydral TID, can uptitrate as well. #Diabetes with hyperglycemia: add Glargine 5, SSI #Adrenal insufficiency: cont Cortef #Deconditioning: to SNF at [facility] #Diet:regular #Disp: cont inpatient admission for wound care, BMP, medication adjustment. LTC not warranted now, CM assisting with SNF placement, DC once accepted Subjective: no pain. No MARTE, CP or SOB Objective: Vital Signs Temp Pulse Resp BP Pulse Ox 36.6 C 64 14 164/68 H 97 03/02/17 08:00 03/02/17 08:00 03/02/17 08:00 03/02/17 08:00 03/02/17 08:00 Laboratory Results 02/28/17 13:00 03/02/17 07:00 03/01/17 03/02/17 03/03/17 05:59 05:59 05:59 Intake Total 200 900 Output Total 1675 1415 Balance -1475 -515 PT 12.6 SEC (12.0-15.0) 03/02/17 11:43 INR 0.95 (0.83-1.16) 03/02/17 11:43 - Physical Exam Constitutional: no apparent distress Eyes: PERRL Ears, Nose, Mouth, Throat: moist mucous membranes, other (right IJ in place) Cardiovascular: regular rate and rhythym, edema (+1 edema left leg, trace on right) Respiratory: no respiratory distress, other (decreased BS at bases) Gastrointestinal: normoactive bowel sounds Genitourinary: no bladder fullness, No fernandez in urethra Skin: other Musculoskeletal: other (wound vac left leg. No surrounding cellulitis) Neurologic: AAOx3, CN II-XII Intact Psychiatric: interacting appropriately ICD10 Worksheet Patient Problems: Problems Problem Status Onset Hemorrhage Acute Hypotension Acute Acute renal failure Acute C. difficile diarrhea Acute 03/01/15 Cellulitis Acute Decubitus ulcer of buttock Acute Dehydration Acute ESBL (extended spectrum beta-lactamase) producing bacteria infection Acute Hypertensive urgency Acute Hyponatremia Acute Hypoxemia Acute MRSA (methicillin resistant Staphylococcus aureus) Acute ~11/29/16 Palliative care encounter Acute UTI (urinary tract infection) Acute Weakness Acute Adrenal insufficiency Chronic Chronic pain Chronic Diabetes Chronic Hypertension Chronic Hypothyroid Chronic
[2017-03-02] MEDS ORDERED: WARFARIN SODIUM 4 MG TAB PO ONE (16:00)
--- NOTE | 2017-03-02 17:21 | ASMTCMCOM ---
CM Note CM Note Notes: Reviewed chart, spoke w/ KEESHA Yang re: d/c poc, pt's progress. Per notes, pt had wound debridement 02/26/17; wound vac in place until 03/04; LTAC/LTC no longer warranted. Per prior CM notes, [facility] to re-eval pt Fri; [facility]. If SNF is indicated as per MD notes, [facility]. Pt only has 11 skilled days remaining this year and will need to explore financial implications after 11 days have been used. CM will need to f/u on 03/03 w/ and pt to finalize discharge plan. Date Signed: 03/02/2017 05:20 PM Electronically Signed By:Lashay Bashir RN
[2017-03-02] MEDS: oxyCODONE IR 5 MG TAB PO PRN (22:19)
[2017-03-02] MEDS: METHOCARBAMOL 750 MG TAB PO PRN (22:20)
[2017-03-02] MEDS: traMADol 50 MG TAB PO PRN (22:21)
[2017-03-03] MEDS: HEPARIN 5,000 UNIT/0.5 ML SYR SC SCH ×3 (07:07→21:50)
[2017-03-03 07:21] LABS: INR 1.04 (0.83-1.16); PROTIME(PATIENT) 13.5 SEC (12.0-15.0)
[2017-03-03 07:23] LABS: ANION GAP 7 mEq/L (8-16); CALCIUM 9.2 mg/dL (8.5-10.4); CARBON DIOXIDE 29 mEq/l (22-31); CHLORIDE 95 mEq/L (97-110); CREATININE 1.1 mg/dL (0.6-1.0); GLOMERULAR FILTRATION RATE 48; GLUCOSE 138 mg/dL (70-100); POTASSIUM 4.7 mEq/L (3.5-5.2); SODIUM 131 mEq/L (134-144)
[2017-03-03] MEDS: Fluticasone/Salmeterol [Advair Hfa 230-21 Mcg Inhaler] IH SCH ×2 (08:34→20:26)
[2017-03-03] MEDS: MULTIVITAMINS 1 EACH TAB PO SCH (09:47)
[2017-03-03] MEDS: LEVOTHYROXINE 100 MCG TAB PO SCH (09:47)
[2017-03-03] MEDS: CYANO/VITAMIN B12 1000 MCG TAB PO SCH (09:47)
[2017-03-03] MEDS: PRESERVISION AREDS2 FORMULA EYE VIT 1 EACH PO SCH ×2 (09:47→21:52)
[2017-03-03] MEDS: PREGABALIN 150 MG CAP PO SCH ×2 (09:47→21:53)
[2017-03-03] MEDS: HYDROCORTISONE 10 MG TAB PO SCH ×2 (09:47→21:53)
[2017-03-03] MEDS: MONTELUKAST SODIUM 10 MG TAB PO SCH (09:48)
[2017-03-03] MEDS: hydrALAZINE 25 MG TAB PO SCH (09:48)
[2017-03-03] MEDS: LABETALOL HCL 100 MG TAB PO SCH ×2 (09:49→21:52)
[2017-03-03] MEDS: FLUTICASONE NASAL 120 SPRAYS/16 GM MDI EACHNARE SCH (09:53)
[2017-03-03] MEDS: INSULIN GLARGINE 100 UNITS/ML SYRINGE SC SCH (10:00)
[2017-03-03] MEDS: amLODIPine BESYLATE 5 MG TAB PO SCH (10:02)
[2017-03-03] MEDS: INSULIN LISPRO 100 UNIT/ML SC SCH ×3 (10:03→17:38)
[2017-03-03] MEDS: RABEPRAZOLE SODIUM 20 MG PO SCH ×2 (10:04→21:54)
--- NOTE | 2017-03-03 10:23 | SOAPPROG ---
SOAP Progress Note Assessment/Plan: Assessment: 81yo F POD #5 s/p skin graft LLE Doing very well Minimal pain Wound vac to suction continuous until Friday morning. Change thigh dressing with transfer and tegaderm Q 4 days and PRN saturation Appreciate hospitalist management of comorbidities Dispo: does not need to go to [facility] for [facility] care since she has graft. likely to SNF tomorrow after vac taken down S: Doing well. No pain at this time. No complaints O: Laying in bed, comfortable, NAD No increased WOB 1+ peripheral edema B LLE wound vac to suction. L upper thigh dressing intact Objective: Vital Signs Temp Pulse Resp BP Pulse Ox 36.4 C 58 L 16 194/68 H 100 03/03/17 08:10 03/03/17 08:10 03/03/17 08:10 03/03/17 08:10 03/03/17 08:10 Laboratory Results 02/28/17 13:00 03/03/17 07:00 03/02/17 03/03/17 03/04/17 05:59 05:59 05:59 Intake Total 900 900 Output Total 1415 220 Balance -515 900 -220 PT 13.5 SEC (12.0-15.0) 03/03/17 07:00 INR 1.04 (0.83-1.16) 03/03/17 07:00 ICD10 Worksheet Patient Problems: Problems Problem Status Onset Hemorrhage Acute Hypotension Acute Acute renal failure Acute C. difficile diarrhea Acute 03/01/15 Cellulitis Acute Decubitus ulcer of buttock Acute Dehydration Acute ESBL (extended spectrum beta-lactamase) producing bacteria infection Acute Hypertensive urgency Acute Hyponatremia Acute Hypoxemia Acute MRSA (methicillin resistant Staphylococcus aureus) Acute ~11/29/16 Palliative care encounter Acute UTI (urinary tract infection) Acute Weakness Acute Adrenal insufficiency Chronic Chronic pain Chronic Diabetes Chronic Hypertension Chronic Hypothyroid Chronic
[2017-03-03] MEDS ORDERED: hydrALAZINE 25 MG TAB PO SCH ×2 (10:40→10:48)
--- NOTE | 2017-03-03 10:43 | HOSPPROG ---
Hospitalist Progress Note Assessment/Plan: #Chronic left leg wound: debrided 02/26. Surgery to remove wound vac tomorrow and then can DC with dressing changes #IJ DVT: restart coumadin cautiously with leg hematoma. Will not bridge given bleeding risks #Acute blood loss anemia: s/p 4 units. H/H stable. Monitor closely with coumadin #Acute hypoxic resp failure: due to diastolic HF. Can consider Lasix Cr stable #ALPHONSE: BL CR 1-1.3. Resolved with IVFs. #Diastolic HF: no e/o volume overload #Hypothyroidism: LT4 #Hyponatremia: baseline 128-133. Caution with lasix #Accelerated HTN: Norvasc 10mg, labetalol. Restart Cozaar half-dose (50mg at home). PRN hydral #Diabetes with hyperglycemia: add Glargine 5, SSI #Adrenal insufficiency: cont Cortef #Deconditioning: to SNF at Dc #Diet:regular #Disp: cont inpatient admission for wound care, BMP, medication adjustment. LTC not warranted now, CM assisting with SNF placement, DC once accepted Subjective: no acute events. No MARTE, CP or SOB Objective: Vital Signs Temp Pulse Resp BP Pulse Ox 36.4 C 58 L 16 194/68 H 100 03/03/17 08:10 03/03/17 08:10 03/03/17 08:10 03/03/17 08:10 03/03/17 08:10 Laboratory Results 02/28/17 13:00 03/03/17 07:00 03/02/17 03/03/17 03/04/17 05:59 05:59 05:59 Intake Total 900 900 Output Total 1415 220 Balance -515 900 -220 PT 13.5 SEC (12.0-15.0) 03/03/17 07:00 INR 1.04 (0.83-1.16) 03/03/17 07:00 - Physical Exam Constitutional: no apparent distress Eyes: PERRL Ears, Nose, Mouth, Throat: moist mucous membranes, hearing normal Cardiovascular: regular rate and rhythym, edema (+1 left leg edema, trace on right) Respiratory: no respiratory distress, no rales or rhonchi Gastrointestinal: normoactive bowel sounds, soft, non-tender abdomen Genitourinary: no bladder fullness Skin: warm Musculoskeletal: full muscle strength, other (left leg wound vac in place) Neurologic: AAOx3, CN II-XII Intact Psychiatric: interacting appropriately ICD10 Worksheet Patient Problems: Problems Problem Status Onset Hemorrhage Acute Hypotension Acute Acute renal failure Acute C. difficile diarrhea Acute 03/01/15 Cellulitis Acute Decubitus ulcer of buttock Acute Dehydration Acute ESBL (extended spectrum beta-lactamase) producing bacteria infection Acute Hypertensive urgency Acute Hyponatremia Acute Hypoxemia Acute MRSA (methicillin resistant Staphylococcus aureus) Acute ~11/29/16 Palliative care encounter Acute UTI (urinary tract infection) Acute Weakness Acute Adrenal insufficiency Chronic Chronic pain Chronic Diabetes Chronic Hypertension Chronic Hypothyroid Chronic
[2017-03-03] MEDS ORDERED: hydrALAZINE 25 MG TAB PO PRN (10:58)
[2017-03-03] MEDS ORDERED: LABETALOL HCL 100 MG TAB PO SCH (11:00)
[2017-03-03] MEDS ORDERED: LISINOPRIL 5 MG TAB PO SCH (11:00)
[2017-03-03] MEDS: LOSARTAN POTASSIUM 25 MG TAB PO SCH ×2 (12:35)
--- NOTE | 2017-03-03 14:12 | ASMTCMCOM ---
CM Note CM Note Notes: Spoke w/Yamilex at [facility] to clarify insurance days left for SNF. Yamilex clarified that pt has 11 days left before she will start to be in co-pay days. She said that Dee had talked w/pt's dtr (who is Dr Abraham) about this and that they are are aware. Wound vac will likely come off tomorrow but if it stays on at dc will need to alert [facility] to this ahead of time. CHRISTOPH w/f. Date Signed: 03/03/2017 02:11 PM Electronically Signed By:Isadora Ventura RN
[2017-03-03] MEDS ORDERED: WARFARIN SODIUM 2 MG TAB PO SCH (16:00)
[2017-03-03] MEDS ORDERED: WARFARIN SODIUM 4 MG TAB PO ONE (16:00)
[2017-03-03] MEDS ORDERED: INSULIN GLARGINE 100 UNITS/ML SYRINGE SC SCH (17:36)
[2017-03-03] MEDS: ACETAMINOPHEN 325 MG TAB PO PRN (21:52)
[2017-03-03] MEDS: traMADol 50 MG TAB PO PRN (21:52)
[2017-03-03] MEDS: oxyCODONE IR 5 MG TAB PO PRN (21:53)
[2017-03-03] MEDS: METHOCARBAMOL 750 MG TAB PO PRN (21:53)
[2017-03-04] MEDS: HEPARIN 5,000 UNIT/0.5 ML SYR SC SCH ×2 (04:50→15:12)
[2017-03-04 06:32] LABS: HEMATOCRIT 28.8 % (38.0-47.0); HEMOGLOBIN 8.8 g/dL (12.6-16.3); MEAN CELL HEMOGLOBIN CONCENTR. 30.6 g/dL (32.4-36.7); MEAN CELL VOLUME 88.3 fL (81.5-99.8); RED BLOOD CELL COUNT 3.26 10^6/uL (4.18-5.33); RED CELL DISTRIBUTION WIDTH 17.2 % (11.5-15.2)
[2017-03-04 07:24] LABS: ANION GAP 6 mEq/L (8-16); CALCIUM 9.1 mg/dL (8.5-10.4); CARBON DIOXIDE 29 mEq/l (22-31); CHLORIDE 98 mEq/L (97-110); CREATININE 1.1 mg/dL (0.6-1.0); GLOMERULAR FILTRATION RATE 48; GLUCOSE 141 mg/dL (70-100); POTASSIUM 4.7 mEq/L (3.5-5.2); SODIUM 133 mEq/L (134-144)
[2017-03-04 07:46] VITALS: TEMP 98.1; O2SAT 98
[2017-03-04] MEDS: amLODIPine BESYLATE 5 MG TAB PO SCH (08:27)
[2017-03-04] MEDS: PRESERVISION AREDS2 FORMULA EYE VIT 1 EACH PO SCH (08:28)
[2017-03-04] MEDS: PREGABALIN 150 MG CAP PO SCH (08:28)
[2017-03-04] MEDS: LABETALOL HCL 100 MG TAB PO SCH (08:29)
[2017-03-04] MEDS: MULTIVITAMINS 1 EACH TAB PO SCH (08:29)
[2017-03-04] MEDS: MONTELUKAST SODIUM 10 MG TAB PO SCH (08:30)
[2017-03-04] MEDS: HYDROCORTISONE 10 MG TAB PO SCH (08:30)
[2017-03-04] MEDS: CYANO/VITAMIN B12 1000 MCG TAB PO SCH (08:31)
[2017-03-04] MEDS: LEVOTHYROXINE 100 MCG TAB PO SCH (08:31)
[2017-03-04] MEDS: LOSARTAN POTASSIUM 25 MG TAB PO SCH ×2 (08:31→08:41)
[2017-03-04] MEDS: INSULIN LISPRO 100 UNIT/ML SC SCH ×2 (08:32→12:29)
[2017-03-04] MEDS: FLUTICASONE NASAL 120 SPRAYS/16 GM MDI EACHNARE SCH (08:33)
[2017-03-04] MEDS: RABEPRAZOLE SODIUM 20 MG PO SCH (08:44)
[2017-03-04] MEDS: Fluticasone/Salmeterol [Advair Hfa 230-21 Mcg Inhaler] IH SCH (09:57)
--- NOTE | 2017-03-04 13:14 | SOAPPROG ---
SOAP Progress Note Assessment/Plan: Assessment: 81yo F POD #6 s/p skin graft LLE Doing very well Minimal pain Wound vac removed this morning. Change graft site dressing q2d and PRN. Change donor site dressing PRN. Appreciate hospitalist management of comorbidities Dispo: to [facility] later today. Will f/u with us in 1 week (make appt for 03/13 ) for staple removal. Seen with Dr. Chanel. S: Doing well. No pain at this time. No complaints O: Sitting upright in chair, comfortable, NAD No increased WOB 1+ peripheral edema B LLE graft site CDE. Dressed c adaptic touch, fluffed 4x4s, ABD, kerlix and TRACY Donor site dressing CDI Objective: Vital Signs Temp Pulse Resp BP Pulse Ox 36.7 C 62 14 136/68 H 98 03/04/17 07:43 03/04/17 09:58 03/04/17 09:58 03/04/17 08:31 03/04/17 09:58 Laboratory Results 03/04/17 06:15 03/04/17 06:15 03/03/17 03/04/17 03/05/17 05:59 05:59 05:59 Intake Total 900 1630 Output Total 895 Balance 900 735 PT 13.5 SEC (12.0-15.0) 03/03/17 07:00 INR 1.04 (0.83-1.16) 03/03/17 07:00 ICD10 Worksheet Patient Problems: Problems Problem Status Onset Hemorrhage Acute Hypotension Acute Acute renal failure Acute C. difficile diarrhea Acute 03/01/15 Cellulitis Acute Decubitus ulcer of buttock Acute Dehydration Acute ESBL (extended spectrum beta-lactamase) producing bacteria infection Acute Hypertensive urgency Acute Hyponatremia Acute Hypoxemia Acute MRSA (methicillin resistant Staphylococcus aureus) Acute ~11/29/16 Palliative care encounter Acute UTI (urinary tract infection) Acute Weakness Acute Adrenal insufficiency Chronic Chronic pain Chronic Diabetes Chronic Hypertension Chronic Hypothyroid Chronic
--- NOTE | 2017-03-04 14:30 | PDIAF ---
- Diagnosis Diagnosis: Hematoma of leg; skin graft to leg; int jug dvt; CKD Code Status: Do Not Resuscitate - Medication Management Discharge Medications: Medications to Continue on Transfer C/E/Zn/Cu/OM3/DHA/EPA/LUT/ZEAX [Preservision Areds 2 Softgel] 1 each PO BID 11/09 [Last Taken 02/12/17] Cholecalciferol Vit D3 [Vitamin D3 (*)] 2,000 units PO DAILY 11/28/16 [Last Taken 02/12/17] FLUTICASONE/SALMETEROL [ADVAIR HFA 230-21 MCG INHALER] 2 puffs IH BID 11/28/16 [ Last Taken 3 Weeks Ago ~01/22/17] Fluticasone Nasal [Flonase Nasal [place]] 1 - 2 sprays EACHNARE DAILY 11/28/16 [ Last Taken 3 Days Ago ~02/09/17] Hydrocortisone [Cortef 10 mg (*)] 10 mg PO BID 11/28/16 [Last Taken 02/12/17 09: 00] Levothyroxine [Synthroid 100 mcg (*)] 100 mcg PO DAILY@11/28/16 [Last Taken 02/12/17] Methocarbamol [Robaxin 750 mg (*)] 750 mg PO QID PRN 11/28/16 [Last Taken Unknown] Montelukast Sodium [Singulair 10 mg (*)] 10 mg PO DAILY 11/28/16 [Last Taken ] Multivitamins [Multivitamin (*)] 1 each PO DAILY 11/28/16 [Last Taken 02/12/17] Pregabalin [Lyrica] 150 mg PO BID 11/28/16 [Last Taken 02/12/17] Rabeprazole Sodium [Aciphex] 20 mg PO BID 11/28/16 [Last Taken 02/12/17] traMADol [Ultram 50 mg (*)] 25 mg PO Q6HRS PRN #0 tab 12/08/16 [Last Taken 02/12] Cyanocobalamin (Vitamin B-12) [Vitamin B-12] 500 mcg PO DAILY 02/12/17 [Last Taken 02/12/17] Labetalol HCl [Trandate 100 mg (*)] 50 mg PO DAILY 02/12/17 [Last Taken 02/12/17 ] Labetalol HCl [Trandate 100 mg (*)] 100 mg PO HS 02/12/17 [Last Taken 02/11/17] Heparin [Heparin SC 5000 unit/0.5 ml (*)] 5,000 unit SC Q8HRS syr 03/04/17 [ Last Taken Unknown] Insulin Glargine [Lantus 100 UNITS/ML (*)] 8 units SC DAILY ml 03/04/17 [Last Taken Unknown] Insulin Lispro [humALOG LISPRO 100 units/ml (*)] 0 unit SC TIDMEAL unit [Last Taken Unknown] Losartan Potassium [Cozaar 25 mg (*)] 25 mg PO DAILY tab 03/04/17 [Last Taken Unknown] Warfarin Sodium [Coumadin 4MG (*)] 4 mg PO DAILY16 #1 tab 03/04/17 [Last Taken Unknown] amLODIPine BESYLATE [Norvasc 5 mg (*)] 10 mg PO DAILY tab 03/04/17 [Last Taken Unknown] oxyCODONE IR [Oxycodone Ir (*)] 5 mg PO Q3HRS PRN tab 03/04/17 [Last Taken Unknown] Discharge Medications: Refer to the Discharge Home Medication list for PRN reason. - Orders Services needed: Registered Nurse, Certified Barkeeper, Master Surveillance Director , Physical Therapy, Occupational Therapy Diet Recommendation: sodium restricted Diet Texture: Regular Texture Diet Wound Care Instructions: Change dressing over skin graft site Q 48 hours. Apply Adaptic touch dressing, covered with fluffed 4x4s and wrapped gently with Kerlix to hold in place. Contact Dr. Beatriz Chanel with any questions regarding the skin graft or dressings or other related issues. Change dressing on skin graft harvest site as needed Activity/Weight Bearing Restrictions: As tolerated - Labs/Radiology PT/INR Date: 03/05/17 (Daily INR check until INR therapeutic range) - Follow Up Care Current Providers and Referrals: Beatriz Chanel MD [Medical Doctor] - (Call to make an appointment on 03/13/2017 )
--- NOTE | 2017-03-04 14:32 | PDDCSUM ---
Discharge Summary Discharge Summary: #Chronic left leg wound: debrided 02/26. Surgery to remove wound vac tomorrow and then can DC with dressing changes #IJ DVT: restart coumadin cautiously with leg hematoma. Will not bridge given bleeding risks #Acute blood loss anemia: s/p 4 units. H/H stable. Monitor closely with coumadin #Acute hypoxic resp failure: due to diastolic HF. Can consider Lasix Cr stable #ALPHONSE: BL CR 1-1.3. Resolved with IVFs. #Diastolic HF: no e/o volume overload #Hypothyroidism: LT4 #Hyponatremia: baseline 128-133. Caution with lasix #Accelerated HTN: Norvasc 10mg, labetalol. Restart Cozaar half-dose (50mg at home). PRN hydral #Diabetes with hyperglycemia: add Glargine 5, SSI #Adrenal insufficiency: cont Cortef #Deconditioning: to SNF at Dc DISCHARGE DIAGNOSES: -large hematoma of left leg due to anticoagulation, requiring extensive surgical evaluation with some tissue necrosis and subsequent wound debridements , and finally skin graft placement of the left calf with harvest from the thigh -acute blood loss anemia, requiring 4 units of red blood cell transfusion -acute on chronic kidney disease, hemodynamic -Diastolic congestive heart failure with volume overload responding well to diuresis here -hypervolemic hyponatremia, improved with fluid restriction and diuresis -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 Oren March are or and Beatriz Chanel of surgery PROCEDURES: Surgical resection and debridement of large soft tissue hematoma with soft tissue necrosis in the left calf Debridement of wound Skin graft to wound on left leg HOSPITAL COURSE SUMMARY: This patient who is chronically fairly debilitated but on anticoagulation for and internal jugular vein clot, came into the hospital with acute large hematoma in her left calf with some tissue necrosis. This required surgical debridement and resection. She then had ongoing wound care with further surgical debridement required. Eventually she was able to get skin grafting done which has been done now and is successful. Her graft is doing well at this time. Lungs away she had exacerbations of chronic diastolic heart failure, chronic renal insufficiency chronic respiratory issues, some hyponatremia, and exacerbation of chronic kidney disease. All these were treated medically and responded well and she is at her baseline in all regards. At this time the patient is stable for discharge from hospital. She is now at a point where she can be treated for her wound care at rehab and she is being transferred from hospital to receive this ongoing care. PENDING TEST RESULTS: None MEDICATION CHANGES: Addition of amlodipine for hypertension Increase in Coumadin dose to 4 mg daily FOLLOW-UP PLAN: She will see Dr. Alvarez in in follow-up for her wound and skin graft Greater than 35 minutes bedside and care coordination time today
--- NOTE | 2017-03-04 14:46 | ASMTCMCOM ---
CM Note CM Note Notes: Chart reviewed. Discussed with hopsitalist. Patient ok to dc to [facility] in [place]. Final orders sent. Spoke to patient's and he is aware of transfer and room number. Patient to leave about 4:30 via whellchair van with oxygen. RN texted report number. CM available if other needs arise. Date Signed: 03/04/2017 02:45 PM Electronically Signed By:Quyen Camarena RN
[2017-03-04 15:09] VITALS: BP 142/60; PULSE 65; RESP 18
[2017-03-04] MEDS ORDERED: WARFARIN SODIUM 3 MG TAB PO SCH (16:00)
--- NOTE | 2017-03-05 10:58 | ASDISCHSUM ---
Discharge Information Plan Status:SNF Medically Cleared to Leave:03/04/2017 Discharge Date:03/04/2017 04:54 PM D/C Disposition:[facility] Facility ADT D/C Disposition:Home, Routine, Self-Care Projected Discharge Date:03/03/2017 11:00 AM Transportation at D/C:Wheelchair Van Discharge Delay Reason: Follow-Up Date:03/03/2017 11:00 AM Discharge Slot: Final Diagnosis: Placement Information Referral Type:[facility] Referral ID:[id number] Provider Name: Address 1: Phone Number: Address 2: Fax Number: City: Selection Factors: State: Referral Type:*Alf/SNF Referral ID:[id number] Provider Name:[facility] Address 1:[address] [place] [address] Address 2: City:[place] Selection Factors: State:[place] Referral Type:[facility] Referral ID:[id number] Provider Name: Address 1: Phone Number: Address 2: Fax Number: City: Selection Factors: State: Patient Contact Information Contact Name:GENE Relationship: Address:[address] City:[place] Alternate Phone: State/Zip Code:[place] [address] Email: Financial Information Financial Class: Primary Plan Desc:MEDICARE OUTPATIENT Primary Plan Number:[id number] Secondary Plan Desc:[employer] [facility] Secondary Plan Number:[id number] Assessment Information [facility] Progress Note CM Note CM Note Notes: Pt normally lives at [facility] living w/. Pt to OR today for debridement of LE wound. D/W RN who said pt w/ poor mobility today. Will see how pt does w/therapies tomorrow to help determine dc needs. CM w/f. Date Signed: 02/13/2017 12:46 PM Electronically Signed By:Isadora Ventura RN [facility] CM Progress Note CM Note CM Note Notes: Chart reviewed. Met with patient to discuss discharge poc. She has had previous experience with [facility] that was positive for her. She ask that I confirm with her that this is appropriate and that family in agreement.. Attempted to reach him by phone and left message for him to return our call. In the interim, referral made to [facility]. Awaiting response. CM to follow. Date Signed: 02/14/2017 04:24 PM Electronically Signed By:Quyen Camarena RN [facility] CM Progress Note CM Note CM Note Notes: Rec'd response from [facility] that they can accept pt when ready for dc. Pt not yet ready for dc, going for wound vac change tomorrow. CM w/f. Date Signed: 02/16/2017 12:56 PM Electronically Signed By:Isadora Ventura RN [facility] CM Progress Note CM Note CM Note Notes: Spoke with patient about [facility] recommendation that she go to an LTAC as opposed to [facility]. Patient said she would go there if her were in agreement. Called her who said he would agree since she was at [facility] one year ago.. Spoke with Dr. Lizama who said he felt that would be appropriate. Left message for Ester Del Valle at [facility] and requested an assessment of patient. Waiting for Ester to call back. Case Management will follow. Date Signed: 02/18/2017 04:13 PM Electronically Signed By:SHAHLA Lopez [facility] CM Progress Note CM Note CM Note Notes: Spoke with Ester [phone] from [facility]. She wasn't sure they would be able to take pt as they are not taking many wound care pts at this time. She will review it with their team and get back to us. Referral sent via [employer]. PT/OT recommending SNF. Pt s/p debridement today. Date Signed: 02/19/2017 04:42 PM Electronically Signed By:SHAHLA Swanson [facility] CM Progress Note CM Note CM Note Notes: Met with pt to discuss DC plan. Pt is hoping that [facility] will accept her. CSpoke with Ester in adm to see what they have decided. She stated that due to mu;tiple admissions and placements this year, she needs to know how many Medicare days pt has used. Will ask pt in am. Also A\asked pt for SNF choice in case [facility] declines. Pt chose [facility] [place]. Faxed referral to them. C/M will continue to follow. Date Signed: 02/20/2017 04:17 PM Electronically Signed By:Mindy Gonzales LCSW [facility] CM Progress Note CM Note CM Note Notes: Pt [facility] go to [facility] [place] [facility]. [facility] asked that referral be refaxed. They also want to know the total no of days pt has been in hospital in last 60 days. LTACs are paid by Medicare part A and so far pt has used up 20 of 50 days including current hospital stay. Will check with to see if there are other days. [facility] part B and pt's [employer]. Pt has used up 19 of 20 days Medicare will cover. [employer] will pay for an add'l 10 days only. After that the cost to pt would be $164.50 per day. Met with pt to discuss this. She stated she does not have the funds to pay for a stay past 11 days at [facility]. [facility] is currently reviewing referral and will decide if they can take pt. C/M to follow. Date Signed: 02/21/2017 12:25 PM Electronically Signed By:Mindy Gonzales LCSW [facility] CM Progress Note CM Note CM Note Notes: [facility] give updates yesterday and DR Lizama spoke with Ester from [facility]. They have still not indicated if they can accept pt. Pt's dtr visiting her today and let her know the Medicare Part A & B issues and possible DC plan. C/M to follow Date Signed: 02/22/2017 04:42 PM Electronically Signed By:Mindy Gonzales LCSW [facility] CM Progress Note CM Note CM Note Notes: Met with patient to let her know that [facility] has declined to accept her. Also discussed that wound care had recommended that she go to LTAC instead of SNF because of her wound care needs. C/M contacted [facility] in [place], Uri [phone], who was reviewing the records that had been sent by [employer]. He requested that Tahmina [facility] wound care nurse contact their wound care nurse to discuss the patient Shailesh [phone]. Text sent to Tahmina asking her to call him. Uri said he hoped to be able to get back to C/M on . 02/26/17. Case management will continue to follow. Date Signed: 02/25/2017 05:39 PM Electronically Signed By:SHAHLA Lopez [facility] CM Progress Note CM Note CM Note Notes: Today Uri from [facility] wanted some updates on Pt's situation. MDs consulted with each other and it was decided that Pt. would have Dr. Chanel perform surgery to close her wound this evening. CM to keep in touch with Uri about new wound post surgery and if LTAC is still appropriate as d/c plan over time. Date Signed: 02/26/2017 04:51 PM Electronically Signed By:Aida Dee LCSW [facility] CM Progress Note CM Note CM Note Notes: Pt had LLE skin graft on 02/26. She has a wound vac in place until early next week. Spoke with Uri at [facility] and faxed updates. Uri is not sure if pt is still lTAC appropriate w/o wound vac. He would like to reevaluate on Friday. C/M will continue to follow. Date Signed: 02/28/2017 03:45 PM Electronically Signed By:Mindy Gonzales LCSW [facility] CM Progress Note CM Note CM Note Notes: Reviewed chart, spoke w/ KEESHA Yang re: d/c poc, pt's progress. Per notes, pt had wound debridement 02/26/17; wound vac in place until 03/04; LTAC/LTC no longer warranted. Per prior CM notes, [facility] to re-eval pt Fri; [facility]. If SNF is indicated as per notes, pt wishes to go to [facility]. Pt only has 11 skilled days remaining this year and will need to explore financial implications after 11 days have been used. CM will need to f/u on 03/03 w/ and pt to finalize discharge plan. Date Signed: 03/02/2017 05:20 PM Electronically Signed By:Lashay Bashir RN [facility] CM Progress Note CM Note CM Note Notes: Spoke w/Yamilex at [facility] to clarify insurance days left for SNF. Yamilex clarified that pt has 11 days left before she will start to be in co-pay days. She said that Dee had talked w/pt's dtr (who is Dr Abraham) about this and that they are are aware. Wound vac will likely come off tomorrow but if it stays on at dc will need to alert [facility] to this ahead of time. CM w/f. Date Signed: 03/03/2017 02:11 PM Electronically Signed By:Isadora Ventuar RN [facility] CM Progress Note CM Note CM Note Notes: Chart reviewed. Discussed with hopsitalist. Patient ok to dc to [facility] in [place]. Final orders sent. Spoke to patient's and he is aware of transfer and room number. Patient to leave about 4:30 via whellchair van with oxygen. RN texted report number. CM available if other needs arise. Date Signed: 03/04/2017 02:45 PM Electronically Signed By:Quyen Camarena RN Intervention Information Intervention Type:*IM-Signed Date of Service:03/04/2017 02:55 PM Patient Type:Inpatient Staff Member:Almita Schmidt Hours: Discipline: Severity: Comment:
== END 2017-03-04 16:54 | DRG 576 ==
LOC: EDUNIT# → OBSVTOIN 21:44 → F2N 21:50 → F1N 02-14 08:44
PROVIDERS: ADMIT Internal Medicine; ATTEND Internal Medicine
PROC: 30233N1 Transfusion of Nonautologous Red Blood Cells into Peripheral Vein, Percutaneous Approach (ICD-10-PCS; 2017-02-12)
PROC: 02HV33Z Insertion of Infusion Device into Superior Vena Cava, Percutaneous Approach (ICD-10-PCS; 2017-02-12)
PROC: 30283B1 Transfusion of Nonautologous 4-Factor Prothrombin Complex Concentrate into Vein, Percutaneous Approach (ICD-10-PCS; 2017-02-12)
PROC: 0HCLXZZ Extirpation of Matter from Left Lower Leg Skin, External Approach (ICD-10-PCS; 2017-02-13)
PROC: 0JBP0ZZ Excision of Left Lower Leg Subcutaneous Tissue and Fascia, Open Approach (ICD-10-PCS; 2017-02-13)
PROC: 0YU Anatomical Regions, Lower Extremities, Supplement (ICD-10-PCS; 2017-02-19)
PROC: 2W1RX7Z Compression of Left Lower Leg using Intermittent Pressure Device (ICD-10-PCS; 2017-02-19)
PROC: 0HRLX74 Replacement of Left Lower Leg Skin with Autologous Tissue Substitute, Partial Thickness, External Approach (ICD-10-PCS; principal; 2017-02-26 20:00)
PROC: 0HBJXZZ Excision of Left Upper Leg Skin, External Approach (ICD-10-PCS; principal; 2017-02-26 20:00)
PROC: 2W1RX7Z Compression of Left Lower Leg using Intermittent Pressure Device (ICD-10-PCS; principal; 2017-02-26 20:00)
PROC: 0HBLXZZ Excision of Left Lower Leg Skin, External Approach (ICD-10-PCS; principal; 2017-02-26 20:00)
DX: S80.12XA Contusion of left lower leg, initial encounter (principal); S81.802A Unspecified open wound, left lower leg, initial encounter; I96 Gangrene, not elsewhere classified; D62 Acute posthemorrhagic anemia; J96.01 Acute respiratory failure with hypoxia; D68.4 Acquired coagulation factor deficiency; T45.515A Adverse effect of anticoagulants, initial encounter; N17.9 Acute kidney failure, unspecified; E87.1 Hypo-osmolality and hyponatremia; I13.0 Hypertensive heart and chronic kidney disease with heart failure and stage 1 through stage 4 chronic kidney disease, or unspecified chronic kidney disease; N18.9 Chronic kidney disease, unspecified; I50.30 Unspecified diastolic (congestive) heart failure; E11.65 Type 2 diabetes mellitus with hyperglycemia; K21.9 Gastro-esophageal reflux disease without esophagitis; E27.40 Unspecified adrenocortical insufficiency; E66.01 Morbid (severe) obesity due to excess calories; Z68.34 Body mass index [BMI] 34.0-34.9, adult; E03.9 Hypothyroidism, unspecified; G47.33 Obstructive sleep apnea (adult) (pediatric); J45.909 Unspecified asthma, uncomplicated; M85.80 Other specified disorders of bone density and structure, unspecified site; M10.9 Gout, unspecified; Z86.718 Personal history of other venous thrombosis and embolism; Z79.01 Long term (current) use of anticoagulants; Z96.642 Presence of left artificial hip joint; Z86.14 Personal history of Methicillin resistant Staphylococcus aureus infection; Z66 Do not resuscitate
CPT/HCPCS: 82947-QW; 96365; 97110-GP; 97116-GP; 97162-GP; 97166-GO; 97530-GO; 97530-GP; 97535-GO; C9132; G0008; G8978-GP-CJ; G8978-GP-CK; G8979-GP-CI; G8979-GP-CJ; G8987-GO-CJ; G8987-GO-CK; G8988-GO-CI; J0171; J0360; J0690; J1170; J1815; J1940; J2001; J2250; J2370; J2704; J3010; J3430; P9016

== ENCOUNTER → 2017-02-12 | Outpatient (CLI) | payer OTHER, BC | LOC: BMCIMAGING 18:06 | PROVIDERS: ATTEND Family Medicine | DX: M79.89 Other specified soft tissue disorders (principal) ==

== ENCOUNTER → 2017-04-23 | Outpatient (CLI) | payer OTHER, BC | LOC: BMCIMAGING 09:28 | PROVIDERS: ATTEND Physician Assistant | DX: M16.11 Unilateral primary osteoarthritis, right hip (principal); M19.012 Primary osteoarthritis, left shoulder; M24.012 Loose body in left shoulder ==

== ENCOUNTER → 2017-06-10 | Outpatient (CLI) | payer OTHER, BC | LOC: BMCIMAGING 13:57 | PROVIDERS: ATTEND Orthopaedic Surgery | DX: M25.551 Pain in right hip (principal) ==

== ENCOUNTER 2017-07-24 13:02 | Inpatient (IN) | payer OTHER, BC ==
--- NOTE | 2017-07-24 13:15 | CPEKG ---
Heart Rate: 63 RR Interval: 952 P-R Interval: 212 QRSD Interval: 138 QT Interval: 480 QTC Interval: 492 P [place]: 23 QRS [place]: 110 T Wave [place]: -40 EKG Severity - ABNORMAL ECG - EKG Impression: SINUS RHYTHM EKG Impression: NONSPECIFIC INTRAVENTRICULAR CONDUCTION DELAY EKG Impression: ABNRM R PROG, CONSIDER ASMI OR LEAD PLACEMENT EKG Impression: MINIMAL ST DEPRESSION, INFERIOR LEADS Electronically Signed By: Noa Santiago 24-Jul-2017 21:21:11
--- NOTE | 2017-07-24 13:16 | EDPHY ---
HPI/HX/ROS/PE/MDM Narrative: CHIEF COMPLAINT: Shortness of breath, leg swelling HISTORY OF PRESENT ILLNESS: The patient is an 82 y/o female with a history of a DVT, hypertension, and asthma arriving via EMS complaining of shortness of breath and leg swelling. While moving around, she is more short of breath than normal. Her legs have been swelling more than normal, but the swelling usually decreases during the night. Her aid has noticed that the redness in her legs has become worse, but it usually decreases at night like the swelling. Last night she had a spontaneous nose bleed and high blood pressure in the morning which concerned her. She was advised by her PCP to present to the urgent care, so the patient decided to go to the ED. No history of ME, stents, or blockage. Does not take an anticoagulant or insulin. No fever, chills, chest pain, palpitations, vomiting, diarrhea, urinary complaints, headache, lightheadedness. Prior medical records reviewed including History and Physical and discharge summary for her admission on 02/12/17. REVIEW OF SYSTEMS: Aside from elements discussed in the HPI, a comprehensive 10-point review of systems was reviewed and is negative. PAST MEDICAL HISTORY: Internal jugular DVT, C. diff, hypertension, asthma, Type 2 Diabetes, spinal stenosis, sleep apnea, IBS SOCIAL HISTORY: Lives in [facility] [place], , retired VITAL SIGNS: BP: 164/92, others reviewed by me GENERAL: Well-developed, well-nourished, resting comfortably in no respiratory distress. HEENT: Atraumatic. Eyes: No icterus, no injection. Mouth: moist mucous membranes. No erythema or lesions. Neck: supple with no adenopathy. LUNGS: Clear to auscultation bilaterally, no wheezes, rhonchi or rales. CARDIAC: Disant heart sounds. Regular rate and rhythm, no rubs, murmurs or gallops. ABDOMEN: Soft, nontender, nondistended, bowel sounds normal. BACK: No CVA tenderness. EXTREMITIES: 2-3+ pitting edema from knees to toes bilaterally with erythema over lower tib-fib. Redness is not warm. Left leg edema runs up through popliteal fossa. Bilateral discomfort of edema to palpation, right worse than left. Left leg post-surgical soft tissue deformity noted. No trauma. Range of motion is normal throughout. NEURO: Alert and oriented, grossly nonfocal. SKIN: Warm and dry, no rash. PSYCHIATRIC: Normal mentation, no agitation. Portions of this note were transcribed by a medical territory manager. I personally performed a history, physical exam, medical decision making, and confirmed accuracy of information the transcribed note. ED Course: The patient is an 82 y/o female with a history of a DVT, hypertension, and asthma arriving via EMS presenting with bilateral leg swelling. On exam she has 2-3+ pitting edema from knees to toes bilaterally with erythema over lower tib- fib. The left leg edema runs up through the popliteal fossa. She also has bilateral discomfort of her edema to palpation, right worse than left. Labs, EKG , chest x-ray, lower extremity US ordered. 324mg PO Aspirin administered. 1323: 12-LEAD EKG: Please see the full report in Trace Master. My interpretation: Sinus rhythm with a rate of 65, LBBB 1457: Patient has an elevated BNP. She will need to be admitted for possible CHF. 1517: Spoke with Dr. Soto, radiologist, there are no DVT's on patient's US. Patient's chest x-ray is negative for acute findings. 1610: Spoke with hospitalist service, accepts admission of this patient. Reassessed patient and discussed laboratory and imaging results. She is comfortable with plan for admission. Her chest CT will be preformed after she is transferred to the floor. MDM: Differential diagnosis for the patient's shortness of breath was considered including but not limited to pulmonary infectious processes, COPD exacerbation, pulmonary emboli, pulmonary edema, congestive heart failure, and cardiac causes. - Data Points Imaging: Discussed imaging studies w/ call box wirer Radiologist, I viewed and interpreted images myself Laboratory Results: Laboratory Results 07/24/17 15:46 07/24/17 13:55 Medications Given: Discontinued Medications Acetaminophen (Tylenol) 650 mg PO Q4HRS PRN PRN Reason: Pain, Mild/Fever, Can Take PO Stop: 01/20/18 17:20 Last Admin: 07/28/17 08:29 Dose: 650 mg Amlodipine Besylate (Norvasc) 5 mg PO DAILY@18 PENDING SALE TO [facility] Stop: 01/21/18 17:59 Last Admin: 07/25/17 17:58 Dose: 5 mg Amlodipine Besylate (Norvasc) 10 mg PO DAILY@18 PENDING SALE TO [facility] Stop: 01/21/18 17:59 Last Admin: 07/28/17 17:42 Dose: 10 mg Ascorbic Acid (Vitamin C) 500 mg PO DAILY CHERELLE Stop: 01/22/18 08:59 Last Admin: 07/28/17 08:31 Dose: 500 mg Aspirin (Aspirin) 324 mg PO EDNOW ONE Stop: 07/24/17 14:00 Last Admin: 07/24/17 14:14 Dose: 324 mg Calcium/Vitamin D (Calcium Carb W/Vit D) 500 mg PO BID CHERELLE Stop: 01/21/18 20:59 Last Admin: 07/28/17 08:31 Dose: 500 mg Cholecalciferol (Vitamin D) 2,000 units PO DAILY CHERELLE Stop: 01/22/18 08:59 Last Admin: 07/28/17 08:30 Dose: 2,000 units Enoxaparin Sodium (Lovenox) 30 mg SC DAILY CHERELLE Stop: 01/22/18 08:59 Last Admin: 07/26/17 08:57 Dose: 30 mg Enoxaparin Sodium (Lovenox) 40 mg SC DAILY CHERELLE Stop: 01/23/18 08:59 Last Admin: 07/28/17 08:31 Dose: 40 mg Ferrous Sulfate (Ferrous Sulfate) 325 mg PO BID CHERELLE Stop: 01/21/18 20:59 Last Admin: 07/28/17 08:31 Dose: 325 mg Furosemide (Lasix Injection) 20 mg IVP DAILY ONE Stop: 07/24/17 18:07 Last Admin: 07/24/17 18:41 Dose: 20 mg Furosemide (Lasix Injection) 20 mg IVP DAILY [facility]END[facility] SALE TO [facility] Stop: 01/20/18 18:29 Last Admin: 07/27/17 09:59 Dose: 20 mg Furosemide (Lasix Injection) 40 mg IVP ONCE ONE Stop: 07/25/17 15:07 Last Admin: 07/25/17 15:55 Dose: 40 mg Furosemide (Lasix Injection) 20 mg IVP BIDDIUR PENDING SALE TO [facility] Stop: 01/24/18 08:59 Last Admin: 07/28/17 17:42 Dose: Not Given Furosemide (Lasix Injection) 20 mg IVP ONCE ONE Stop: 07/27/17 15:29 Last Admin: 07/27/17 16:00 Dose: 20 mg Heparin Sodium (Porcine) (Heparin Sc Injection) 5,000 unit SC Q8HRS PENDING SALE TO [facility] Stop: 01/20/18 21:59 Last Admin: 07/26/17 05:29 Dose: 5,000 unit Hydrocortisone (Cortef) 10 mg PO BID HCERELLE Stop: 01/20/18 20:59 Last Admin: 07/25/17 08:26 Dose: 10 mg Hydrocortisone (Cortef) 10 mg PO BID [facility]END[facility] S[facility] TO [facility] Stop: 01/21/18 14:59 Last Admin: 07/28/17 08:31 Dose: 10 mg Cefazolin Sodium/Dextrose (Ancef 1 Gm (Premix)) 50 mls @ 200 mls/hr IV Q8H PENDING SALE TO [facility] PRN Reason: Protocol Stop: 08/23/17 18:29 Last Admin: 07/25/17 10:14 Dose: 50 mls Vancomycin/Sodium Chloride (Vancomycin 1 Gm (Premix)) 250 mls @ 250 mls/hr IV DAILY@1600 PENDING SALE TO [facility] PRN Reason: Protocol Stop: 08/24/17 15:59 Last Admin: 07/25/17 16:02 Dose: 250 mls Vancomycin HCl 1 gm/ Sodium (Chloride) 250 mls @ 250 mls/hr IV DAILY@1600 PENDING SALE TO [facility] Stop: 08/25/17 15:59 Last Admin: 07/26/17 16:01 Dose: 250 mls Sodium Chloride (Ns) 1,000 mls @ 100 mls/hr IV CONT PENDING SALE TO [facility] Stop: 07/27/17 00:59 Last Admin: 07/26/17 15:13 Dose: 1,000 mls Vancomycin/Sodium Chloride (Vancomycin 1 Gm (Premix)) 250 mls @ 250 mls/hr IV DAILY@1600 PENDING SALE TO [facility] Stop: 08/26/17 15:59 Last Admin: 07/28/17 17:42 Dose: Not Given Insulin Glargine (Lantus Syringe) 8 units SC DAILY PEND[facility] SALE TO [facility] Stop: 01/21/18 08:59 Last Admin: 07/28/17 08:31 Dose: 8 units Insulin Human Lispro (Humalog Lispro) 0 unit SC TIDMEAL PENDING SALE TO [facility] PRN Reason: Protocol Stop: 01/21/18 07:59 Last Admin: 07/28/17 12:19 Dose: 1 unit Labetalol HCl (Trandate) 50 mg PO DAILY [facility]END[facility] SALE TO [facility] Stop: 01/21/18 08:59 Last Admin: 07/25/17 08:23 Dose: 50 mg Labetalol HCl (Trandate) 50 mg PO DAILY PENDING SALE TO [facility] Stop: 01/22/18 08:59 Last Admin: 07/28/17 08:30 Dose: 50 mg Labetalol HCl (Trandate) 100 mg PO HS CHERELLE Stop: 01/21/18 20:59 Last Admin: 07/27/17 20:44 Dose: 100 mg Levothyroxine Sodium (Synthroid) 100 mcg PO DAILY06 CHERELLE Stop: 01/22/18 05:59 Last Admin: 07/28/17 04:58 Dose: 100 mcg Losartan Potassium (Cozaar) 100 mg PO DAILY CHERELLE Stop: 01/21/18 15:04 Last Admin: 07/28/17 08:31 Dose: 100 mg Metformin HCl (Glucophage) 500 mg PO BIDMEAL PENDING SALE TO [facility] Stop: 01/24/18 17:59 Last Admin: 07/28/17 17:41 Dose: 500 mg Methocarbamol (Robaxin) 750 mg PO QID PRN PRN Reason: Pain, Mild Stop: 01/21/18 14:55 Last Admin: 07/28/17 08:29 Dose: 750 mg Miscellaneous Medication (Estrogens, Conjugated [Premarin]) 0.45 mg PO DAILY CHERELLE Stop: 01/22/18 08:59 Last Admin: 07/28/17 08:33 Dose: Not Given Miscellaneous Medication (Fluticasone/Salmeterol [Advair Hfa 230-21 Mcg Inhaler] ) 2 puffs IH BID PENDING SALE TO [facility] Stop: 01/21/18 20:59 Last Admin: 07/26/17 08:41 Dose: Not Given Miscellaneous Medication (Rabeprazole Sodium [Aciphex]) 20 mg PO BID CHERELLE Stop: 01/21/18 20:59 Last Admin: 07/28/17 08:33 Dose: Not Given Montelukast Sodium (Singulair) 10 mg PO DAILY@18 CHERELLE Stop: 01/21/18 17:59 Last Admin: 07/28/17 17:41 Dose: 10 mg Multivitamins (Tab-A-Ameya) 1 each PO DAILY CHERELLE Stop: 01/22/18 08:59 Last Admin: 07/28/17 08:31 Dose: 1 each Multivitamins/Minerals (Preservision Areds2 Formula) 1 each PO BID CHERELLE Stop: 01/21/18 20:59 Last Admin: 03/05/18 08:31 Dose: 1 each Polyethylene Glycol (Miralax) 17 gm PO DAILY CHERELLE Stop: 01/21/18 15:14 Last Admin: 07/28/17 08:32 Dose: Not Given Pregabalin (Lyrica) 150 mg PO BID CHERELLE Stop: 01/21/18 14:59 Last Admin: 07/28/17 08:32 Dose: 150 mg Fluticasone/Salmeterol (Advair) 1 puffs IH BID CHERELLE Stop: 01/22/18 09:59 Last Admin: 07/28/17 09:12 Dose: 1 puffs Vitamin B Complex (Vitamin B12) 1,000 mcg PO DAILY CHERELLE Stop: 01/22/18 08:59 Last Admin: 07/28/17 08:29 Dose: 1,000 mcg General Time Seen by Provider: 07/24/17 13:14 Initial Vital Signs: Initial Vital Signs Temperature (C) 36.6 C 07/24/17 13:26 Heart Rate 68 07/24/17 13:26 Respiratory Rate 20 07/24/17 13:26 Blood Pressure 164/92 H 07/24/17 13:26 O2 Sat (%) 94 07/24/17 13:26 O2 Delivery Mode Room Air Allergies/Adverse Reactions: bacitracin [From Neosporin] Allergy (Intermediate, Verified 02/21/16 10:05) Rash bacitracin zinc [From Neosporin] Allergy (Intermediate, Verified 02/21/16 10:05) Rash gramicidin D [From Neosporin] Allergy (Intermediate, Verified 02/21/16 10:05) Rash neomycin sulfate [From Neosporin] Allergy (Intermediate, Verified 02/21/16 10:05 ) Rash polymyxin B [From Neosporin] Allergy (Intermediate, Verified 02/21/16 10:05) Rash polymyxin B sulfate [From Neosporin] Allergy (Intermediate, Verified 02/21/16 10 :05) Rash esomeprazole magnesium [From Nexium] Allergy (Verified 02/21/16 10:05) Diarrhea lansoprazole [From Prevacid] Allergy (Verified 02/21/16 10:05) Diarrhea omeprazole [From Prilosec] Allergy (Verified 02/21/16 10:05) Diarrhea omeprazole magnesium [From Prilosec] Allergy (Verified 02/21/16 10:05) Diarrhea pantoprazole sodium [From Protonix] Allergy (Verified 02/21/16 10:05) Diarrhea ranitidine HCl [From Zantac] Allergy (Verified 02/21/16 10:05) Diarrhea ENVIRONMENTAL Allergy (Intermediate, Uncoded 12/31/14 21:09) Other-Enter Comments Home Medications: Medication Instructions Recorded C/E/Zn/Cu/OM3/DHA/EPA/LUT/ZEAX 1 each PO BID 11/28/16 [Preservision Areds 2 Softgel] Cholecalciferol Vit D3 [Vitamin D3 2,000 units PO DAILY 11/28/16 (*)] FLUTICASONE/SALMETEROL [ADVAIR HFA 2 puffs IH BID 11/28/16 230-21 MCG INHALER] Fluticasone Nasal [Flonase Nasal 1 - 2 sprays EACHNARE DAILY PRN 11/28/16 Harrah] Hydrocortisone [Cortef 10 mg (*)] 10 mg PO BID 11/28/16 Levothyroxine [Synthroid 100 mcg 100 mcg PO DAILY06 11/28/16 (*)] Methocarbamol [Robaxin 750 mg (*)] 750 mg PO QID PRN 11/28/16 Montelukast Sodium [Singulair 10 10 mg PO DAILY@18 11/28/16 mg (*)] Multivitamins [Multivitamin (*)] 1 each PO DAILY 11/28/16 Pregabalin [Lyrica] 150 mg PO BID 11/28/16 Rabeprazole Sodium [Aciphex] 20 mg PO BID 11/28/16 Labetalol HCl [Trandate 100 mg (*)] 50 mg PO DAILY 02/12/17 Labetalol HCl [Trandate 100 mg (*)] 100 mg PO HS 02/12/17 Ascorbic Acid [Vitamin C 500 mg 500 mg PO DAILY 07/24/17 (*)] Calcium Carb W/Vit D [Calcium Carb 500 mg PO BID 07/24/17 W/Vit D 500/200 (*)] Cyanocobalamin [Vitamin B12 (*)] 1,000 mcg PO DAILY 07/24/17 Estrogens, Conjugated [Premarin] 0.45 mg PO DAILY 07/24/17 Ferrous Sulfate [Ferrous Sulf 325 325 mg PO BID 07/24/17 MG (*)] Herbals/Supplements -Info Only 1 ea PO DAILY 07/24/17 Losartan Potassium [Cozaar 50 mg 100 mg PO DAILY 07/24/17 (*)] Furosemide [Lasix 40 MG (*)] 40 mg PO DAILY #30 tab 07/28/17 Sulfamethoxazole/Trimethoprim 1 each PO BID #6 tablet 07/28/17 [Bactrim 400-80 mg Tablet] amLODIPine BESYLATE [Norvasc 10 mg 10 mg PO DAILY #30 tab 07/28/17 (*)] metFORMIN HCL [Glucophage 500 mg 500 mg PO BIDMEAL #60 tab 07/28/17 (*)] Departure - Departure Disposition: [facility] Inpatient Acute Clinical Impression: Leg edema CHF (congestive heart failure) Qualifiers: Heart failure type: unspecified Heart failure chronicity: unspecified Qualified Code(s): I50.9 - Heart failure, unspecified Pulmonary edema Qualifiers: Chronicity: acute Qualified Code(s): J81.0 - Acute pulmonary edema Condition: Fair Report Scribed for: Noa Santiago Report Scribed by: Roxanne Leal Date of Report: 07/24/17 Time of Report: 13:16
[2017-07-24] MEDS ORDERED: ASPIRIN 81 MG CHEWABLE TAB PO ONE (13:59)
[2017-07-24 15:59] LABS: PLATELET COUNT 163 10^3/uL (150-400)
--- NOTE | 2017-07-24 16:21 | ASMTLACE ---
SANDRA Comorbidities - select Answers: Congestive heart failure all that apply Diabetes (uncontrolled or controlled) # of Emergency department Answers: 1-2 visits in the last 6 months Score: 4 Date Signed: 07/24/2017 04:21 PM Electronically Signed By:Velma Heaton RN
[2017-07-24] MEDS ORDERED: ONDANSETRON 4 MG/2 ML VIAL IVP PRN (17:21)
[2017-07-24] MEDS ORDERED: ONDANSETRON DISINTEGRATING 4 MG TAB PO PRN (17:21)
[2017-07-24 17:47] LABS: INR 0.93 (0.83-1.16); PROTIME(PATIENT) 12.7 SEC (12.0-15.0)
[2017-07-24] MEDS ORDERED: FUROSEMIDE 20 MG/2 ML VIAL IVP ONE (18:06)
[2017-07-24] MEDS ORDERED: hydrALAZINE 10 MG TAB PO PRN (18:08)
[2017-07-24] MEDS ORDERED: D50W 25 GM/50 ML SYR IVP PRN (18:09)
[2017-07-24] MEDS: FUROSEMIDE 20 MG/2 ML VIAL IVP SCH (18:45)
--- NOTE | 2017-07-24 18:55 | GHP ---
[f rep st] HISTORY AND PHYSICAL DATE OF ADMISSION: 07/24/2017 CHIEF COMPLAINT: Lower leg swelling and redness. HISTORY OF PRESENT ILLNESS: An 82-year-old female with history of diastolic heart failure, a left bundle branch block, and chronic left leg wound, which was debrided in February 2017, who presents with bilateral lower leg swelling. Says that her legs do swell during the day, but it subsides at night. However, the swelling has not decreased during the night over the last few evenings. She noticed the redness in her legs is worse, and there is some blistering. She had a spontaneous nosebleed last night and high blood pressure, which concerned her. Her PCP advised her to present to the emergency room. She denies chest pain and shortness of breath during my interview. No PND, pillow orthopnea. No fevers, chills, or sweats. She has a chronic dry cough that has not changed. No dizziness or lightheadedness. REVIEW OF SYSTEMS: I completed a 10-point review of systems, negative except as noted in HPI. PAST MEDICAL HISTORY: 1. 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 2. Left internal jugular DVT, now off Coumadin. 3. Diastolic heart failure. 4. ALPHONSE. Creatinine baseline is 1 to 1.3. 5. Hypothyroidism. 6. Hypertension. 7. Diabetes with hyperglycemia. 8. Adrenal insufficiency. 9. History of sacral pressure ulcer with MRSA and osteomyelitis. 10. History of ESBL. 11. History of C difficile. 12. Reflux. 13. Pseudogout. 14. Asthma. 15. Spinal stenosis. 16. Obstructive sleep apnea. 17. Osteopenia. 18. Irritable bowel syndrome. 19. Pituitary microadenoma. SOCIAL HISTORY: Lives at [facility], has a RESPIRATORY THERAPIST who comes twice a week. Uses a walker. No alcohol, tobacco, or illicits. FAMILY HISTORY: Noncontributory. PAST SURGICAL HISTORY: 02/26/17, debridement of chronic left lower extremity wound. Debridement of sacral decubitus ulcer in March 2015. Carpal tunnel release, a dorsal wrist ganglion cyst. I and D of right shoulder septic joint, 07/07/2012. Excision and flap closure of pressure ulcer, coccyx, 04/2011. ALLERGIES: Bacitracin, Neosporin, polymyxin, esomeprazole, lansoprazole, omeprazole, Protonix, ranitidine. HOME MEDICATIONS: Tramadol 25 mg q.6 hours p.r.n., oxycodone 5 mg q.3 hours p.r.n., Norvasc 10 mg daily. No longer taking Coumadin. AcipHex 20 mg b.i.d., pregabalin 150 mg b.i.d., multivitamin daily, Singulair, Robaxin 750 mg q.i.d., losartan 25 mg daily, Synthroid 100 mcg daily. Labetalol 100 mg q.h.s., 50 in the morning. Glargine 8 daily, Cortef 10 mg b.i.d., Flonase spray, Advair 2 puffs b.i.d., vitamin B12 500 mcg daily, vitamin D3 2000 units daily. PHYSICAL EXAMINATION: VITAL SIGNS: Blood pressure systolic 200 in the ER, repeat on floor is 205/93. Heart rate is in the 60s. Respiration 14. 92% on room air. GENERAL: Sitting in bed. No acute distress. HEENT: PERRLA. EOMI. Oropharynx clear. CV: Regular rate, rhythm. Positive murmur. +3 pitting edema up to knees. LUNGS: Crackles. No wheezing. Rhonchi. ABDOMEN: Soft, mildly distended. Positive bowel sounds. No tenderness. : No suprapubic tenderness. [place]. MUSCULOSKELETAL: Left leg with a chronic wound. Healed graft site on upper thigh. Bilateral lower extremity erythema up to real on the left, a little bit lower on the right, but warm to touch, tender. Has some blistering over both shins. Has a partially broken toenail, big toe on the right, but no surrounding erythema. NEURO: 2 through 12 intact. PSYCH: Alert and oriented x3. Forgetful during exam, did not recall that she was hospitalized in February. LABS: WBC 6, hemoglobin 13, hematocrit 42, platelets 163. D-dimer is 0.9. INR is 0.9, PT 12. Sodium is 138, potassium 4.4, chloride 104, carbon dioxide 22, BUN 30. Creatinine is 1.2; baseline is 1 to 1.3. Glucose is 123. A1c 6.9 in May 2017. Troponin 0.019. BNP 2490 (last was 1260). Chest x-ray was personally reviewed by me. Prominent pulmonary arteries. No effusion or opacity. EKG: Left bundle branch, which is present on prior. Echocardiogram in 2015: EF 75%. Evidence of diastolic heart failure. Trace MR. Trace TR. ASSESSMENT AND PLAN: 1. Lower extremity swelling: Suspect this is decompensated diastolic heart failure. Her troponin is negative. EKG shows left bundle branch block, which is old. She denies any chest pain or shortness of breath. There is no evidence of effusion. Dose IV Lasix 20 mg, check an echocardiogram. 2. Bilateral lower extremity cellulitis, suspect secondary to swelling: We will start IV anx. Afebrile. 3. Chronic kidney disease: Creatinine stable at 1.2. We will monitor closely with diuresis. 4. Accelerated hypertension: We will resume home medications. Currently denies chest pain or shortness of breath. No evidence of end-organ damage. 5. History of left internal jugular deep venous thrombosis: This was treated with 3 months of Coumadin. 6. History of Clostridium difficile: No diarrhea now. 7. Gastroesophageal reflux disease: Ranitidine. 8. Adrenal insufficiency: We will resume Cortef. 9. Diabetes: Glargine and sliding scale. 10. History of asthma: No evidence of exacerbation. 11. Obstructive sleep apnea: Not on oxygen. 12. Diet: Cardiac, 2 L fluid restriction. 13. DM: glargine, SSI 14. Deep venous thrombosis prophylaxis: Subcutaneous heparin with chronic kidney disease. 15. Disposition: Patient warrants inpatient admission, given concern for decompensated diastolic heart failure, warranting IV Lasix as well as IV antibiotics. /[id number]/MODL MTDD
[2017-07-24] MEDS: HEPARIN 5,000 UNIT/0.5 ML SYR SC SCH (20:52)
[2017-07-24] MEDS: HYDROCORTISONE 10 MG TAB PO SCH (20:52)
[2017-07-25 04:33] LABS: INR 0.99 (0.83-1.16); PROTIME(PATIENT) 13.3 SEC (12.0-15.0)
[2017-07-25] MEDS: HEPARIN 5,000 UNIT/0.5 ML SYR SC SCH ×3 (06:08→21:16)
[2017-07-25] MEDS: INSULIN LISPRO 100 UNIT/ML SC SCH ×3 (06:55→18:25)
[2017-07-25] MEDS: FUROSEMIDE 20 MG/2 ML VIAL IVP SCH (08:11)
[2017-07-25] MEDS: INSULIN GLARGINE 100 UNITS/ML UNIT SC SCH (08:15)
[2017-07-25] MEDS: HYDROCORTISONE 10 MG TAB PO SCH ×3 (08:26→20:11)
[2017-07-25] MEDS ORDERED: LABETALOL HCL 100 MG TAB PO SCH (09:00)
--- NOTE | 2017-07-25 10:52 | WOCRNPDOC ---
IRMA Advanced Assessment Note - Skin Integrity Problem, Advanced Assess Left Lower Leg Dressing Type: Open to Air Exudate Characteristic(s): Dried, Sanguinopurulent (expressed from scab on proximal LLE) Jordana Wound Tissue: Erythema (marked), Swollen Jordana Wound Swelling: Mild Wound Bed Color: Brown Wound Bed Constitution: Scab Site Measurement - Head-to-Toe Length X Width X Depth (cm): Proximal: 0.7cmx0.6cmx scab. Distal: 0.6cmx0.6cmx scab Skin Integrity Problem Comment: Two, discrete scabs on patient's LLE, w/in healed graft site. Using blunt end of cotton-tipped applicator, this author was able to express a small amount of sanguinopurulent exudate from the more proximal scab. No palpable fluctuance in periwound tissues. There is marked erythema, still w/in original boundaries, and mild swelling. Patient has very little sensation, and consequently denies pain. Will have nursing apply Silvasorb gel to both scabs, and cover w/ Allevyn dressings. Report given to catering coordinatorKEESHA Watson.
--- NOTE | 2017-07-25 11:18 | PDMN ---
Medical Necessity Medical necessity: Pt meets IP criteria per MD; est los >2 mn for eval/tx of BLE cellulitis & concern for decompensated diastolic heart failure; admit for further workup/monitoring, IV Lasix, IV abx, Wound Care consult & therapies; hx multiple comorbidities; per H&P & order 07/24/17
--- NOTE | 2017-07-25 11:31 | CPEKG ---
Heart Rate: 65 RR Interval: 923 P-R Interval: 216 QRSD Interval: 146 QT Interval: 476 QTC Interval: 495 P Veneta: 54 QRS Veneta: -51 T Wave Veneta: 92 EKG Severity - ABNORMAL ECG - EKG Impression: SINUS RHYTHM EKG Impression: LEFT BUNDLE BRANCH BLOCK Electronically Signed By: Noa Santiago 29-Jul-2017 00:29:05
--- NOTE | 2017-07-25 11:42 | ECHO ---
[email or web address] [address] [address] Main: [phone] Fax: [email or web address] Echocardiogram Name: SRIRAM SOLOMON MR#: [id number] Study Date: 07/25/2017 Study Time: 08:33 AM Date of : 1935 Age: 82 year(s) Height: 157.5 cm (62 in.) Weight: 91.63 kg (202 lb.) BSA: 1.92 m2 Gender: Female Examination: Echo Indication: LE Edema, Volume overload Image Quality: Contrast: Requested by: Adelia Pedroza BP: 179 mmHg/100 mmHg Heart Rate: Rhythm: Normal sinus rhythm Indication: LE Edema, Volume overload Procedure Staff Pharmacy Technologist: Rodney Cage RDCS Reading Physician: Jason Concepcion MD Requesting Provider: Conclusions: No pericardial effusion. Concentric left ventricular hypertrophy. Ejection fraction 50-55%. Septal bounce consistent with bundle branch block. No significant valvular abnormalities by Doppler 2 dimensional study. Measurements: Chambers Valvular Assessment AV/MV Valvular Assessment TV/PV Normal Normal Normal Name Value Range Name Value Range Name Value Range Ao Brit (MM): 3.0 cm (2.2 cm-3.7 AV Vmax: 1.90 m/s (1 m/s-1.7 PV Vmax: 1.60 m/s (0.6 m/s-0.9 cm) m/s) m/s) IVSd (2D): 1.0 cm (0.6 cm-1.1 AV maxP mmHg ( - ) PV PGmax: 10 mmHg ( - ) cm) AV meanP mmHg ( - ) LVDd (2D): 5.6 cm (3.9 cm-5.3 MV E Vmax: 0.95 m/s ( - ) cm) MV A Vmax: 1.16 m/s ( - ) LVDs (2D): 3.5 cm (2.1 cm-4 MV E/A: 0.82 ( - ) cm) MV meanP mmHg ( - ) LVPWd (2D): 1.2 cm ( - ) LVEF (BP): 56 % (>=55 %) Visual EF: 55 % EF Range: 50-55 % Continued Measurements: Chambers Valvular Assessment AV/MV Name Value Name Value LADs Lon.5 cm MV E' Septal: 0.06 m/s LA Area: 20.4 cm2 MV E/E' Septal: 15.70 MV E/E' Lateral: 12.80 MV VTI: 51.60 cm Patient: SRIRAM SOLOMON Study Date: 07/25/2017 Page 1 of 2 08:33 AM Findings: Left Ventricle: Normal size left ventricle. Mild concentric LV hypertrophy. The ejection fraction is estimated to be 50-55 %. The ejection fraction is visually estimated to be 55 %. There is paradoxic septal motion suggestive of bundle branch block, paced cardiac rhythm, or prior cardiac surgery. Diastolic dysfunction is present. . Right Ventricle: Normal size right ventricle. Left Atrium: The left atrium is normal in size. Right Atrium: The right atrium is normal in size. Mitral Valve: The mitral valve is normal in appearance and function. Aortic Valve: Minimal aortic cusp calcification is noted. There is no aortic valve regurgitation. No aortic valve stenosis is present. Tricuspid Valve: The tricuspid valve appears normal. There is no tricuspid valve regurgitation. Pulmonic Valve: The pulmonic valve is normal in appearance and function. Aorta: The aorta is normal. Pericardium: No pericardial effusion. (No Signature Object) Patient: SRIRAM SOLOMON Study Date: 07/25/2017 Page 2 of 2 08:33 AM [id number]
--- NOTE | 2017-07-25 13:50 | ASMTCASEMG ---
Living Arrangements What is your living Answers: With Spouse arrangement? Who do you live with? Type Of Residence What kind of residence do Answers: Assisted Living you live in? Type of Residence Facility Name Notes: [facility] Discharge Plan Comments Coordination Status Comments Notes: Pt is a 82 y/o female admitted for pulmonary edema, peripheral edema and shortness of breath. Therapies have been ordered and awaiting recommendations. Needs are TBD at this time. CM to follow. Plan: TBD Date Signed: 07/25/2017 01:49 PM Electronically Signed By:ABRAN Feliz
[2017-07-25] MEDS ORDERED: FLUTICASONE NASAL 120 SPRAYS/16 GM MDI EACHNARE PRN (14:56)
[2017-07-25] MEDS ORDERED: FUROSEMIDE 40 MG/4 ML VIAL IVP ONE (15:06)
--- NOTE | 2017-07-25 15:12 | HOSPPROG ---
Hospitalist Progress Note Assessment/Plan: 82 yo F w diastolic CHF here w increased bnp, leg swelling and concern for b/l cellulitis ?cellulitis: h/o MRSA change to vancomycin LE wounds: has h/o skin graft on L medial calf referral to wound care diastolic heart failure: acute on chronic diuresis htn: restart meds code: dnr proph: lmwh Subjective: afebrile. cxr w no infiltrate (interp by me) Objective: Vital Signs Temp Pulse Resp BP Pulse Ox 36.7 C 77 14 179/103 H 97 07/25/17 11:44 07/25/17 11:44 07/25/17 11:44 07/25/17 11:44 07/25/17 11:44 Laboratory Results 07/25/17 03:26 07/25/17 03:26 07/24/17 07/25/17 07/26/17 05:59 05:59 05:59 Intake Total 350 730 Output Total 1100 1600 Balance -750 -870 PT 13.3 SEC (12.0-15.0) 07/25/17 03:26 INR 0.99 (0.83-1.16) 07/25/17 03:26 - Physical Exam Constitutional: no apparent distress, appears nourished Eyes: PERRL, anicteric sclera Ears, Nose, Mouth, Throat: moist mucous membranes, hearing normal Cardiovascular: regular rate and rhythym, no murmur, rub, or gallop Respiratory: no respiratory distress, no rales or rhonchi Gastrointestinal: normoactive bowel sounds, soft, non-tender abdomen Genitourinary: no bladder fullness, No fernandez in urethra Skin: warm, other (b/l erythema of legs.w warmth) Musculoskeletal: full muscle strength, no muscle tenderness Neurologic: AAOx3 ICD10 Worksheet Patient Problems: Problems Problem Status Onset CHF (congestive heart failure) Acute Leg edema Acute Pulmonary edema Acute chronic disease mgmt/transitional care Acute Acute renal failure Acute C. difficile diarrhea Acute 03/01/15 Cellulitis Acute Decubitus ulcer of buttock Acute Dehydration Acute ESBL (extended spectrum beta-lactamase) producing bacteria infection Acute Hemorrhage Acute Hypertensive urgency Acute Hyponatremia Acute Hypotension Acute Hypoxemia Acute MRSA (methicillin resistant Staphylococcus aureus) Acute ~11/29/16 Palliative care encounter Acute UTI (urinary tract infection) Acute Weakness Acute Adrenal insufficiency Chronic Chronic pain Chronic Diabetes Chronic Hypertension Chronic Hypothyroid Chronic
[2017-07-25] MEDS: POLYETHYLENE GLYCOL 3350 17 GM PKT PO SCH (15:55)
[2017-07-25] MEDS ORDERED: VANCOMYCIN HCL/NORMAL SALINE 250 ML IV SCH (16:00)
[2017-07-25] MEDS: PREGABALIN 150 MG CAP PO SCH ×2 (17:26→21:16)
[2017-07-25] MEDS: MONTELUKAST SODIUM 10 MG TAB PO SCH (17:58)
[2017-07-25] MEDS ORDERED: amLODIPine BESYLATE 5 MG TAB PO SCH (18:00)
[2017-07-25] MEDS: CALCIUM CARB W/VIT D 500 MG TAB PO SCH (19:55)
[2017-07-25] MEDS: PRESERVISION AREDS2 FORMULA EYE VIT 1 EACH PO SCH (19:55)
[2017-07-25] MEDS: FERROUS SULFATE 325 MG TAB PO SCH (19:55)
[2017-07-25] MEDS: LABETALOL HCL 100 MG TAB PO SCH (20:10)
[2017-07-25] MEDS: RABEPRAZOLE SODIUM 20 MG PO SCH (20:10)
[2017-07-25] MEDS: SALMETEROL IH SCH (21:10)
[2017-07-25] MEDS: FLUTICASONE IH SCH (21:10)
[2017-07-26] MEDS: HEPARIN 5,000 UNIT/0.5 ML SYR SC SCH (05:29)
[2017-07-26] MEDS: LEVOTHYROXINE 100 MCG TAB PO SCH (05:29)
[2017-07-26] MEDS: INSULIN LISPRO 100 UNIT/ML SC SCH ×3 (08:07→18:23)
[2017-07-26] MEDS: FLUTICASONE IH SCH (08:41)
[2017-07-26] MEDS: SALMETEROL IH SCH (08:41)
[2017-07-26] MEDS: CYANO/VITAMIN B12 1000 MCG TAB PO SCH (08:56)
[2017-07-26] MEDS: FERROUS SULFATE 325 MG TAB PO SCH ×2 (08:56→19:49)
[2017-07-26] MEDS: LABETALOL HCL 100 MG TAB PO SCH ×2 (08:56→19:49)
[2017-07-26] MEDS: PREGABALIN 150 MG CAP PO SCH ×2 (08:57→19:49)
[2017-07-26] MEDS: CALCIUM CARB W/VIT D 500 MG TAB PO SCH ×2 (08:57→19:49)
[2017-07-26] MEDS: CHOLECALCIFEROL VIT D3 1,000 UNITS TAB PO SCH (08:57)
[2017-07-26] MEDS: ASCORBIC ACID 500 MG TAB PO SCH (08:57)
[2017-07-26] MEDS: MULTIVITAMINS 1 EACH TAB PO SCH (08:57)
[2017-07-26] MEDS: FUROSEMIDE 20 MG/2 ML VIAL IVP SCH (08:57)
[2017-07-26] MEDS: PRESERVISION AREDS2 FORMULA EYE VIT 1 EACH PO SCH ×2 (08:57→19:49)
[2017-07-26] MEDS: ESTROGENS CONJUGATED 0.45 MG PO SCH (08:58)
[2017-07-26] MEDS: RABEPRAZOLE SODIUM 20 MG PO SCH ×2 (08:58→19:50)
[2017-07-26] MEDS: POLYETHYLENE GLYCOL 3350 17 GM PKT PO SCH (08:58)
[2017-07-26] MEDS: HYDROCORTISONE 10 MG TAB PO SCH ×2 (08:58→19:49)
[2017-07-26] MEDS ORDERED: LOSARTAN POTASSIUM 50 MG TAB PO SCH (09:00)
[2017-07-26] MEDS ORDERED: Herbals/Supplements -Info Only PO SCH (09:00)
[2017-07-26] MEDS ORDERED: ENOXAPARIN 30 MG/0.3 ML SYR SC SCH (09:00)
[2017-07-26] MEDS: LOSARTAN POTASSIUM 50 MG TAB PO SCH (09:16)
[2017-07-26] MEDS: INSULIN GLARGINE 100 UNITS/ML UNIT SC SCH (09:16)
[2017-07-26] MEDS: FLUTICASONE/SALMETER 500/50MCG DISKUS IH SCH ×2 (10:26→21:11)
--- NOTE | 2017-07-26 13:25 | HOSPPROG ---
Hospitalist Progress Note Assessment/Plan: * LE cellulitis -IV vanco * Acute on chronic diastolic CHF -IV lasix * HTN -increase norvasc * Persistent hypoxia, h/o DVT, now off anticoag -check CTA rule out PE * Leg wound s/p debridement * CKD -baseline creatinine 1.3 * DM II -? diet - no meds listed * Adrenal insufficiency -hydrocortisone * Obesity BMI 35 with KEMAL Subjective: No complaints Objective: Vital Signs Temp Pulse Resp BP Pulse Ox 36.6 C 66 18 140/70 H 94 07/26/17 11:12 07/26/17 11:12 07/26/17 11:12 07/26/17 11:12 07/26/17 11:12 Laboratory Results 07/25/17 03:26 07/25/17 03:26 07/25/17 07/26/17 07/27/17 05:59 05:59 05:59 Intake Total 350 1330 400 Output Total 1100 4850 450 Balance -750 -3520 -50 PT 13.3 SEC (12.0-15.0) 07/25/17 03:26 INR 0.99 (0.83-1.16) 07/25/17 03:26 - Physical Exam Constitutional: no apparent distress, appears nourished, not in pain Cardiovascular: regular rate and rhythym, no murmur, rub, or gallop Respiratory: no respiratory distress, no rales or rhonchi, clear to auscultation Gastrointestinal: normoactive bowel sounds, soft, non-tender abdomen, no palpable masses Skin: erythema (improved, petichiae bilateral feet, wound dressed, some erythema ) Neurologic: AAOx3, sensation intact bilaterally Psychiatric: interacting appropriately, not anxious, not encephalopathic, thought process linear ICD10 Worksheet Patient Problems: Problems Problem Status Onset CHF (congestive heart failure) Acute Leg edema Acute Pulmonary edema Acute chronic disease mgmt/transitional care Acute Acute renal failure Acute C. difficile diarrhea Acute 03/01/15 Cellulitis Acute Decubitus ulcer of buttock Acute Dehydration Acute ESBL (extended spectrum beta-lactamase) producing bacteria infection Acute Hemorrhage Acute Hypertensive urgency Acute Hyponatremia Acute Hypotension Acute Hypoxemia Acute MRSA (methicillin resistant Staphylococcus aureus) Acute ~11/29/16 Palliative care encounter Acute UTI (urinary tract infection) Acute Weakness Acute Adrenal insufficiency Chronic Chronic pain Chronic Diabetes Chronic Hypertension Chronic Hypothyroid Chronic
[2017-07-26] MEDS ORDERED: NS 1,000 ML IV SCH (15:00)
--- NOTE | 2017-07-26 15:46 | ASMTCMCOM ---
CM Note CM Note Notes: PT is recommending home care. Pt lives at [facility] with her and has had [facility] in the past - referral sent. Date Signed: 07/26/2017 03:45 PM Electronically Signed By:SHAHLA Swanson
[2017-07-26] MEDS ORDERED: VANCOMYCIN 1 GM in NS 250 ML IV SCH (16:00)
[2017-07-26] MEDS: amLODIPine BESYLATE 5 MG TAB PO SCH (18:21)
[2017-07-26] MEDS: MONTELUKAST SODIUM 10 MG TAB PO SCH (18:22)
[2017-07-26] MEDS ORDERED: IOPAMIDOL (ISOVUE-300) 100 ML BTL ONE (18:43)
[2017-07-26] MEDS ORDERED: IOPAMIDOL (ISOVUE 370) 100 ML BTL IV ONE (18:44)
[2017-07-26] MEDS: METHOCARBAMOL 750 MG TAB PO PRN (19:48)
[2017-07-26] MEDS: ACETAMINOPHEN 325 MG TAB PO PRN (19:48)
[2017-07-27 04:31] LABS: PLATELET COUNT 150 10^3/uL (150-400)
[2017-07-27] MEDS: LEVOTHYROXINE 100 MCG TAB PO SCH (06:01)
[2017-07-27] MEDS: ESTROGENS CONJUGATED 0.45 MG PO SCH (07:39)
[2017-07-27] MEDS: RABEPRAZOLE SODIUM 20 MG PO SCH ×2 (07:40→22:13)
[2017-07-27] MEDS: POLYETHYLENE GLYCOL 3350 17 GM PKT PO SCH (07:40)
[2017-07-27] MEDS: INSULIN LISPRO 100 UNIT/ML SC SCH ×3 (08:48→20:43)
[2017-07-27] MEDS: FLUTICASONE/SALMETER 500/50MCG DISKUS IH SCH ×2 (09:03→19:46)
[2017-07-27] MEDS: ENOXAPARIN 40 MG/0.4 ML SYR SC SCH (09:58)
[2017-07-27] MEDS: PRESERVISION AREDS2 FORMULA EYE VIT 1 EACH PO SCH ×2 (09:59→20:44)
[2017-07-27] MEDS: FERROUS SULFATE 325 MG TAB PO SCH ×2 (09:59→20:44)
[2017-07-27] MEDS: LOSARTAN POTASSIUM 50 MG TAB PO SCH (09:59)
[2017-07-27] MEDS: LABETALOL HCL 100 MG TAB PO SCH ×2 (09:59→20:44)
[2017-07-27] MEDS: CYANO/VITAMIN B12 1000 MCG TAB PO SCH (09:59)
[2017-07-27] MEDS: ASCORBIC ACID 500 MG TAB PO SCH (09:59)
[2017-07-27] MEDS: HYDROCORTISONE 10 MG TAB PO SCH ×2 (09:59→20:44)
[2017-07-27] MEDS: FUROSEMIDE 20 MG/2 ML VIAL IVP SCH (09:59)
[2017-07-27] MEDS: CALCIUM CARB W/VIT D 500 MG TAB PO SCH ×2 (09:59→20:44)
[2017-07-27] MEDS: MULTIVITAMINS 1 EACH TAB PO SCH (09:59)
[2017-07-27] MEDS: CHOLECALCIFEROL VIT D3 1,000 UNITS TAB PO SCH (09:59)
[2017-07-27] MEDS: PREGABALIN 150 MG CAP PO SCH ×2 (09:59→20:44)
[2017-07-27] MEDS: INSULIN GLARGINE 100 UNITS/ML UNIT SC SCH (10:01)
--- NOTE | 2017-07-27 15:01 | GCON ---
[f rep st] CONSULTATION INFECTIOUS DISEASE CONSULTATION DATE OF CONSULTATION: 07/27/2017 REASON FOR CONSULTATION: Cellulitis. CHIEF COMPLAINT: Increased redness from her legs. HISTORY OF PRESENT ILLNESS: This is an 82-year-old female with multiple medical problems, who was ad mitted on the 1st due to increasing bilateral lower extremity swelling and redness. She apparently h ad redness that was extending to the upper real on the left and the lower real on the right. They we re apparently warm to touch. On review of her admitting H and P, there was apparently some blisterin g over the shins. She was initially placed on Ancef, but then changed over to vancomycin apparently due to a 0previous history of MRSA. She has been elevating the legs and that has allowed for some de crease in swelling overall. The areas of redness were demarcated bilaterally and there has been some decrease in redness since that time. Her legs feel better and they are less tender. Upon review of the wound care nurse's notes, she apparently had some scabs that were unroofed and there was some mi nimal purulent material noted from that site. This was swabbed and the cultures are currently pendin g. Gram stain showing gram positive cocci in 1+ gram-negative rods. Blood cultures in progress. In fectious Disease is now consulted for further evaluation and opinion. REVIEW OF SYSTEMS: GENERAL: Denied any fevers or shaking chills. HEAD: No headaches. EYES: No c hange in vision. ENT: No sore throat, difficulty swallowing, ear pain or drainage. CARDIOVASCULAR: No chest pain or rapid heartbeat. RESPIRATORY: No shortness of breath. She has a cough. No sput um production. ABDOMEN: No nausea, vomiting, abdominal pain, diarrhea. : No dysuria or hematuri a. MUSCULOSKELETAL: Denies any joint pains or muscle aches. SKIN: As above. The rest of a 10-point review of systems was essentially negative, except for the above. PAST MEDICAL HISTORY: Significant for hypothyroidism, diabetes, diabetes mellitus, asthma, GERD, irr itable bowel syndrome, hypertension, left internal jugular DVT, diastolic heart failure, acute kidney injury, adrenal insufficiency, history of sacral pressure ulcer with MRSA and osteomyelitis, history of C diff, asthma, spinal stenosis, KEMAL, osteopenia, pituitary microadenoma, anemia, Klebsiella bact eremia. PAST SURGICAL HISTORY: Significant for hip replacement, debridement of left lower extremity in er 2017, carpal tunnel release, dorsal wrist ganglion cyst, I and D of right shoulder septic joint 2012, excision and flap closure of a pressure ulcer April 2011. ALLERGIES: Bacitracin, Neosporin, polymyxin, lansoprazole, omeprazole, esomeprazole, Protonix, ranit idine. FAMILY HISTORY: Reviewed and found to be noncontributory. SOCIAL HISTORY: She lives in [place] independently and she denies any smoking or alcohol. MEDICATIONS: As per JUL. PHYSICAL EXAMINATION: VITAL SIGNS: Temperature current 36.4, pulse is 66, blood pressure 172/70, sa turation 94% on 2 L O2 via nasal cannula, respiratory rate is 18. GENERAL: She is sitting up in the chair. In no acute respiratory distress. Awake, alert, oriented x3. HEENT: Eyes without conjunct ival injection or petechiae. Oropharynx is clear. No posterior erythema or thrush. CARDIOVASCULAR: S1, S2. Regular rate and rhythm. RESPIRATORY: Clear to auscultate bilaterally. No rhonchi or ra les appreciated. ABDOMEN: Positive bowel sounds in all quadrants. Soft, nontender, nondistended. EXTREMITIES: She has some mild lower extremity edema bilaterally. There is erythema involving both legs, particularly anterior real, which appears to have retracted from the demarcated lines. The ski n is mildly warm. She has a graft site involving the left lower extremity. There is some dry skin a nd scaling noted. She has 1 area where there is some mild superficial drainage noted. I expressed t his area all around and could not get any additional pus to come out. As I was expressing her leg al l around this small wound, it was not tender for her to palpate. She has a small kevan on the right g reat toenail and onychomycosis, more severe on the left set of toes. LABORATORY DATA: White blood cell count is 5.7, hemoglobin 11.6, platelets are 150, neutrophil count is 55%. Sodium was 141, potassium 4.3, chloride 102, bicarb 21, BUN 28, creatinine is 1.1 (down fro m 1.3). Wound culture shows Gram stain showing 2+ gram-positive cocci, 1+ gram-negative rods. The w ound culture is pending. She had an ultrasound of the lower extremity without evidence of DVT. She had a chest CT without evidence of PE. ASSESSMENT: Bilateral lower extremity cellulitis. PLAN: Difficult to know exactly how she presented, but given the description in her admitting H and P, she appears to have cellulitis extending up further on her shins. These areas were demarcated fro m that description to where she is clinically now. There has been retraction of the area of erythema bilaterally and the amount of redness is less. She has some chronic skin changes, especially of the left lower extremity, with some small superficial blistering and wounds. She has dry skin and scali ng nature. Would recommend good of skin care, elevation of lower extremities to help redu ce ongoing edema. Appreciate Wound Care's assistance and management regarding these wounds. Continu e with vancomycin, as she has seems to be responding well to this for now. Would likely twisting frame changer to oral therapy in 1-2 days. I thank you very much for the opportunity to care for your patient in consultation. /[id number]/MODL
[2017-07-27] MEDS ORDERED: FUROSEMIDE 20 MG/2 ML VIAL IVP ONE (15:28)
--- NOTE | 2017-07-27 15:31 | HOSPPROG ---
Hospitalist Progress Note Assessment/Plan: * LE cellulitis -IV vanco * Acute on chronic diastolic CHF -IV lasix * HTN -increase norvasc * h/o DVT - no evidence clot by US/CTA * CKD -baseline creatinine 1.3 * DM II -check HgA1c -? diet - no meds listed * Adrenal insufficiency -hydrocortisone * Obesity BMI 35 with KEMAL * Leg hematoma s/p skin graft Subjective: No complaints Objective: Vital Signs Temp Pulse Resp BP Pulse Ox 36.4 C 66 18 172/70 H 94 07/27/17 12:00 07/27/17 12:00 07/27/17 12:00 07/27/17 12:00 07/27/17 13:20 Microbiology 07/26/17 14:00 Gram Stain - Final Leg - Swab Laboratory Results 07/27/17 03:44 07/27/17 03:44 07/26/17 07/27/17 07/28/17 05:59 05:59 05:59 Intake Total 1330 2419 Output Total 4850 2650 900 Balance -3520 -231 -900 PT 13.3 SEC (12.0-15.0) 07/25/17 03:26 INR 0.99 (0.83-1.16) 07/25/17 03:26 - Physical Exam Constitutional: no apparent distress, appears nourished, not in pain Cardiovascular: regular rate and rhythym, no murmur, rub, or gallop Respiratory: no respiratory distress, no rales or rhonchi, clear to auscultation Gastrointestinal: normoactive bowel sounds, soft, non-tender abdomen, no palpable masses Skin: no rashes or abrasions, no fluctuance, no induration Neurologic: AAOx3, sensation intact bilaterally Psychiatric: interacting appropriately, not anxious, not encephalopathic, thought process linear ICD10 Worksheet Patient Problems: Problems Problem Status Onset CHF (congestive heart failure) Acute Leg edema Acute Pulmonary edema Acute chronic disease mgmt/transitional care Acute Acute renal failure Acute C. difficile diarrhea Acute 03/01/15 Cellulitis Acute Decubitus ulcer of buttock Acute Dehydration Acute ESBL (extended spectrum beta-lactamase) producing bacteria infection Acute Hemorrhage Acute Hypertensive urgency Acute Hyponatremia Acute Hypotension Acute Hypoxemia Acute MRSA (methicillin resistant Staphylococcus aureus) Acute ~11/29/16 Palliative care encounter Acute UTI (urinary tract infection) Acute Weakness Acute Adrenal insufficiency Chronic Chronic pain Chronic Diabetes Chronic Hypertension Chronic Hypothyroid Chronic
[2017-07-27] MEDS: VANCOMYCIN HCL/NORMAL SALINE 250 ML IV SCH (16:00)
[2017-07-27] MEDS: MONTELUKAST SODIUM 10 MG TAB PO SCH (18:02)
[2017-07-27] MEDS: amLODIPine BESYLATE 5 MG TAB PO SCH (18:02)
[2017-07-28] MEDS: LEVOTHYROXINE 100 MCG TAB PO SCH (04:58)
[2017-07-28] MEDS: INSULIN LISPRO 100 UNIT/ML SC SCH ×2 (07:26→12:19)
[2017-07-28] MEDS: FUROSEMIDE 20 MG/2 ML VIAL IVP SCH ×2 (08:29→17:42)
[2017-07-28] MEDS: ACETAMINOPHEN 325 MG TAB PO PRN (08:29)
[2017-07-28] MEDS: CYANO/VITAMIN B12 1000 MCG TAB PO SCH (08:29)
[2017-07-28] MEDS: METHOCARBAMOL 750 MG TAB PO PRN (08:29)
[2017-07-28] MEDS: CHOLECALCIFEROL VIT D3 1,000 UNITS TAB PO SCH (08:30)
[2017-07-28] MEDS: LABETALOL HCL 100 MG TAB PO SCH (08:30)
[2017-07-28] MEDS: LOSARTAN POTASSIUM 50 MG TAB PO SCH (08:31)
[2017-07-28] MEDS: HYDROCORTISONE 10 MG TAB PO SCH (08:31)
[2017-07-28] MEDS: MULTIVITAMINS 1 EACH TAB PO SCH (08:31)
[2017-07-28] MEDS: INSULIN GLARGINE 100 UNITS/ML UNIT SC SCH (08:31)
[2017-07-28] MEDS: ENOXAPARIN 40 MG/0.4 ML SYR SC SCH (08:31)
[2017-07-28] MEDS: CALCIUM CARB W/VIT D 500 MG TAB PO SCH (08:31)
[2017-07-28] MEDS: PRESERVISION AREDS2 FORMULA EYE VIT 1 EACH PO SCH (08:31)
[2017-07-28] MEDS: ASCORBIC ACID 500 MG TAB PO SCH (08:31)
[2017-07-28] MEDS: FERROUS SULFATE 325 MG TAB PO SCH (08:31)
[2017-07-28] MEDS: POLYETHYLENE GLYCOL 3350 17 GM PKT PO SCH (08:32)
[2017-07-28] MEDS: PREGABALIN 150 MG CAP PO SCH (08:32)
[2017-07-28] MEDS: ESTROGENS CONJUGATED 0.45 MG PO SCH (08:33)
[2017-07-28] MEDS: RABEPRAZOLE SODIUM 20 MG PO SCH (08:33)
[2017-07-28] MEDS: FLUTICASONE/SALMETER 500/50MCG DISKUS IH SCH (09:12)
--- NOTE | 2017-07-28 14:56 | PCMIDPN ---
Assessment/Plan: Assessment/Plan: * Bilateral lower extremity cellulitis: Cellulitis on right has resolved with mild residual cellulitis on left. Think can transition to oral antibiotics at this point in time (will receive vancomycin dose here today). Culture show growth of MRSA as well as gram-negative yolanda. Will target primarily MRSA as unclear other pathogens are contributing. Most recent MRSA isolate showed doxycycline resistance. Will treat with Bactrim single strength twice daily x3 additional days with follow-up in our office on 07/31/2017 with Tavia Silveira NP. Will reassess creatinine at that point in time with use of Bactrim. 07/28/17 14:53 Subjective: Patient notes less lower extremity pain. Objective: Vital Signs Temp Pulse Resp BP Pulse Ox 36.6 C 99 12 145/68 H 95 07/28/17 11:44 07/28/17 11:44 07/28/17 11:44 07/28/17 11:44 07/28/17 11:44 Microbiology 07/26/17 14:00 Gram Stain - Final Leg - Swab Laboratory Results 07/27/17 03:44 07/28/17 03:45 07/27/17 07/28/17 07/29/17 05:59 05:59 05:59 Intake Total 2419 150 Output Total 2650 2850 Balance -231 -2700 Vancomycin # 4 Wound culture with growth of MRSA, Proteus, and lactose fermenting gram- negative suzanne - Physical Exam General Appearance: alert, no apparent distress EENT: No scleral icterus, No thrush Extremities: inflammation (Right lower extremity erythema resolved from previously demarcated area; left lower extremity with residual erythema, mild warmth without significant tenderness; scattered wounds present under Allevyn dressing without gilda purulent drainage) Abdomen: non-tender, No distended ICD10 Worksheet Patient Problems: Problems Problem Status Onset CHF (congestive heart failure) Acute Leg edema Acute Pulmonary edema Acute chronic disease mgmt/transitional care Acute Acute renal failure Acute C. difficile diarrhea Acute 03/01/15 Cellulitis Acute Decubitus ulcer of buttock Acute Dehydration Acute ESBL (extended spectrum beta-lactamase) producing bacteria infection Acute Hemorrhage Acute Hypertensive urgency Acute Hyponatremia Acute Hypotension Acute Hypoxemia Acute MRSA (methicillin resistant Staphylococcus aureus) Acute ~11/29/16 Palliative care encounter Acute UTI (urinary tract infection) Acute Weakness Acute Adrenal insufficiency Chronic Chronic pain Chronic Diabetes Chronic Hypertension Chronic Hypothyroid Chronic
[2017-07-28 15:13] VITALS: BP 163/68; PULSE 62; RESP 16; TEMP 97.5; O2SAT 98
--- NOTE | 2017-07-28 15:23 | PDIAF ---
- Diagnosis Diagnosis: CHF, cellulitis Code Status: Do Not Resuscitate - Medication Management Discharge Medications: Medications to Continue on Transfer C/E/Zn/Cu/OM3/DHA/EPA/LUT/ZEAX [Preservision Areds 2 Softgel] 1 each PO BID 11/09 [Last Taken 07/24/17] Cholecalciferol Vit D3 [Vitamin D3 (*)] 2,000 units PO DAILY 11/28/16 [Last Taken 07/24/17] FLUTICASONE/SALMETEROL [ADVAIR HFA 230-21 MCG INHALER] 2 puffs IH BID 11/28/16 [ Last Taken 3 Weeks Ago ~01/22/17] Fluticasone Nasal [Flonase Nasal [place]] 1 - 2 sprays EACHNARE DAILY PRN [Last Taken 3 Days Ago ~02/09/17] Hydrocortisone [Cortef 10 mg (*)] 10 mg PO BID 11/28/16 [Last Taken 07/24/17] Levothyroxine [Synthroid 100 mcg (*)] 100 mcg PO DAILY06 11/28/16 [Last Taken ] Methocarbamol [Robaxin 750 mg (*)] 750 mg PO QID PRN 11/28/16 [Last Taken Unknown] Montelukast Sodium [Singulair 10 mg (*)] 10 mg PO DAILY@18 11/28/16 [Last Taken 07/23/17] Multivitamins [Multivitamin (*)] 1 each PO DAILY 11/28/16 [Last Taken 07/24/17] Pregabalin [Lyrica] 150 mg PO BID 11/28/16 [Last Taken 07/24/17] Rabeprazole Sodium [Aciphex] 20 mg PO BID 11/28/16 [Last Taken 07/24/17] Labetalol HCl [Trandate 100 mg (*)] 50 mg PO DAILY 02/12/17 [Last Taken 07/24/17 ] Labetalol HCl [Trandate 100 mg (*)] 100 mg PO HS 02/12/17 [Last Taken 07/23/17] Ascorbic Acid [Vitamin C 500 mg (*)] 500 mg PO DAILY 07/24/17 [Last Taken ] Calcium Carb W/Vit D [Calcium Carb W/Vit D 500/200 (*)] 500 mg PO BID 07/24/17 [ Last Taken 07/24/17] Cyanocobalamin [Vitamin B12 (*)] 1,000 mcg PO DAILY 07/24/17 [Last Taken ] Estrogens, Conjugated [Premarin] 0.45 mg PO DAILY 07/24/17 [Last Taken 07/24/17] Ferrous Sulfate [Ferrous Sulf 325 MG (*)] 325 mg PO BID 07/24/17 [Last Taken 06/12] Herbals/Supplements -Info Only 1 ea PO DAILY 07/24/17 [Last Taken 07/24/17] Losartan Potassium [Cozaar 50 mg (*)] 100 mg PO DAILY 07/24/17 [Last Taken 07/24] amLODIPine BESYLATE [Norvasc 5 mg (*)] 5 mg PO DAILY@18 07/24/17 [Last Taken ] Furosemide [Lasix 40 MG (*)] 40 mg PO DAILY #30 tab 07/28/17 [Last Taken Unknown ] Sulfamethoxazole/Trimethoprim [Bactrim 400-80 mg Tablet] 1 each PO BID #6 tablet 07/28/17 [Last Taken Unknown] metFORMIN HCL [Glucophage 500 mg (*)] 500 mg PO BIDMEAL #60 tab 07/28/17 [Last Taken Unknown] Discharge Medications: Refer to the Discharge Home Medication list for PRN reason. - Orders Services needed: Home Care, Registered Nurse, Physical Therapy, Occupational Therapy Home Care Face to Face: I certify that this patient was under my care and that I had the required [id number] encounter meeting the encounter requirements on the discharge day. My findings support the fact that the patient is homebound as defined in Home Care Face to Face Continued: CMS Chapter 7 Medicare Benefits Manual 30.1.1 , The condition of the patient is such that there exists a normal inability to leave home and consequently, leaving home would require a considerable and taxing effort. Isolation Type: Contact Isolation Diet Recommendation: no restrictions on diet Weigh Patient: daily Wound Care Instructions: wound care LLE per RN - Follow Up Care Current Providers and Referrals: Tavia Silveira NP [Certified Nurse Practioner] - 07/31/17 1:00 pm Patient,NotPresent [Unknown] - As per Instructions
--- NOTE | 2017-07-28 17:21 | PDHOMEO2F ---
Home Oxygen Face to Face Home Orders: I certify that a physician or a nurse practitioner or physician's assistant women's soccer coach has had a [id number] encounter with this patient on the date of this order due to the diagnosis listed, which relates to the primary reason the patient requires home oxygen. Alternative treatments have been tried, or considered, and deemed ineffective. It is anticipated that supplemental oxygen will result in improvement with treatment. Home oxygen qualifying diagnosis: obesity hypoventilation SpO2 on room air (%): 82 Frequency of home oxygen needed: continuous Home oxygen liters per minute: 2 Home oxygen delivery device: nasal cannula Concentrator: Yes E-tanks for mobility and back up: Yes If ordering portable O2, is the patient mobile in the home?: Yes I certify that, based on these findings, the home oxygen is medically necessary for this patient for the following length of time. Length of time home oxygen needed: 99 years
[2017-07-28] MEDS: MONTELUKAST SODIUM 10 MG TAB PO SCH (17:41)
[2017-07-28] MEDS: amLODIPine BESYLATE 5 MG TAB PO SCH (17:42)
[2017-07-28] MEDS: VANCOMYCIN HCL/NORMAL SALINE 250 ML IV SCH (17:42)
[2017-07-28] MEDS ORDERED: metFORMIN HCL 500 MG TAB PO SCH (18:00)
--- NOTE | 2017-07-28 18:01 | GDS ---
[f rep st] DISCHARGE SUMMARY DISCHARGE DIAGNOSES: 1. Lower extremity cellulitis with methicillin-resistant Staphylococcus aureus. 2. Acute on chronic diastolic congestive heart failure. 3. Hypertension. 4. History of deep venous thrombosis. 5. Chronic kidney disease. Baseline creatinine 1.3. 6. Diabetes type 2, uncontrolled. 7. Adrenal insufficiency. 8. Obesity, body mass index 35 with obstructive sleep apnea. 9. History of leg hematoma, status post skin grafting. HISTORY: The patient is an 82-year-old female, who presented with lower extremity edema. She was fe lt to be in diastolic congestive heart failure as well as having lower extremity cellulitis bilateral ly. She was diuresed with IV Lasix and started on IV vancomycin. She is approaching euvolemia and w ill be discharged on a maintenance oral Lasix dose. Regarding her cellulitis, she did have some small pustules related to the wound at her skin graft and these grew MRSA. She received IV vancomycin during this hospitalization and is improved. Infectiou s Disease recommends Bactrim upon hospital discharge, as her MRSA has been doxycycline resistant in t he past. There was concern regarding her renal function and using Bactrim. Dr. Barone has decided on single-strength Bactrim twice daily for 3 more days, and she will follow up in their office closely a nd they will monitor renal function. She was persistently hypoxemic throughout this hospitalization. CT angiogram of chest was negative f or PE. She may have an element of chronic hypoxemia and require home oxygen. There was no evidence of any pulmonary edema. She may have some atelectasis due to her prolonged hospitalization. She als o may have some obesity hypoventilation. She may need home oxygen upon discharge. We will check a r oom air saturation. She does have a history of diabetes type 2 that has been controlled on diet. Her hemoglobin A1c here is 7.5. She will be initiated on low-dose metformin. She has never been on medication treatment fo r diabetes in the past. DISCHARGE MEDICATIONS: Please see computerized record for full detailed list. New medications: 1. Lasix 40 mg p.o. daily. 2. Metformin 500 mg p.o. twice daily. 3. Bactrim single strength 1 tab p.o. twice daily for 3 more days. ADDITIONAL DISCHARGE INSTRUCTIONS: 1. Follow up with primary care regarding diabetes management. 2. Infectious disease, follow up with [facility], July 31 at 1 p.m. 3. Home health for PT, OT, VNS. 4. Home oxygen 2 L. Greater than 30 minutes' time spent arranging this discharge. Patient was seen and examined by me on the day of discharge. /[id number]/MODL
[2017-07-28] MEDS ORDERED: Fluticasone/Salmeterol [Advair Hfa 230-21 Mcg Inhaler] IH SCH (21:00)
== END 2017-07-28 20:11 | disposition home health service (06) | DRG 292 ==
LOC: EDUNIT# → OBSVTOIN 16:01 → F2W 16:45
PROVIDERS: ADMIT Family Medicine; ATTEND Family Medicine
DX: I50.33 Acute on chronic diastolic (congestive) heart failure (principal); L03.116 Cellulitis of left lower limb; L03.115 Cellulitis of right lower limb; B95.62 Methicillin resistant Staphylococcus aureus infection as the cause of diseases classified elsewhere; R09.02 Hypoxemia; E11.22 Type 2 diabetes mellitus with diabetic chronic kidney disease; N18.9 Chronic kidney disease, unspecified; E27.40 Unspecified adrenocortical insufficiency; E03.9 Hypothyroidism, unspecified; E66.9 Obesity, unspecified; Z68.35 Body mass index [BMI] 35.0-35.9, adult; K21.9 Gastro-esophageal reflux disease without esophagitis; J45.909 Unspecified asthma, uncomplicated; Z86.718 Personal history of other venous thrombosis and embolism; Z96.649 Presence of unspecified artificial hip joint
CPT/HCPCS: 97116-GP; 97161-GP; 97166-GO; 97530-GO; 97530-GP; 97535-GO; G8978-GP-CJ; G8979-GP-CI; G8987-GO-CI; G8988-GO-CI; J0690; J1644; J1650; J1815; J1940; J3370; Q9967

== ENCOUNTER → 2017-09-08 | Outpatient (CLI) | payer OTHER, BC | LOC: BMCIMAGING 09:55 | PROVIDERS: ATTEND Orthopaedic Surgery | PROC: 3E0U3KZ Introduction of Other Diagnostic Substance into Joints, Percutaneous Approach (ICD-10-PCS; principal; 2017-09-08) | DX: M16.11 Unilateral primary osteoarthritis, right hip (principal) ==

== ENCOUNTER → 2017-09-23 | Outpatient (CLI) | payer OTHER, BC | LOC: FIMAGING 16:16 | PROVIDERS: ATTEND Emergency Medicine | DX: D41.01 Neoplasm of uncertain behavior of right kidney (principal); I70.0 Atherosclerosis of aorta; K46.9 Unspecified abdominal hernia without obstruction or gangrene; M41.84 Other forms of scoliosis, thoracic region; M41.86 Other forms of scoliosis, lumbar region; M51.36 Other intervertebral disc degeneration, lumbar region; M51.34 Other intervertebral disc degeneration, thoracic region; M48.061 Spinal stenosis, lumbar region without neurogenic claudication; M48.04 Spinal stenosis, thoracic region ==

== ENCOUNTER → 2017-09-29 | Outpatient (CLI) | payer OTHER, BC | LOC: BMCIMAGING 13:24 | PROVIDERS: ATTEND Internal Medicine | DX: R93.421 Abnormal radiologic findings on diagnostic imaging of right kidney (principal) ==

== ENCOUNTER → 2017-12-02 | Outpatient (CLI) | payer OTHER, BC | LOC: BMCIMAGING 18:00 | PROVIDERS: ATTEND Family Medicine | DX: M25.552 Pain in left hip (principal) ==

== ENCOUNTER → 2018-02-04 | Outpatient (CLI) | payer OTHER, BC | LOC: BMCIMAGING 13:22 | PROVIDERS: ATTEND Orthopaedic Surgery | DX: S32.47 Fracture of medial wall of acetabulum (principal); Z96.642 Presence of left artificial hip joint ==

== ENCOUNTER → 2018-02-20 | Outpatient (CLI) | payer OTHER, BC | LOC: BMCIMAGING 13:25 | PROVIDERS: ATTEND Urology | DX: N28.89 Other specified disorders of kidney and ureter (principal) ==

== ENCOUNTER → 2018-03-17 | Outpatient (CLI) | payer OTHER, BC ==
[~2018-03-17] MED LIST: IOPAMIDOL (ISOVUE-300) 100 ML BTL ONE; NS 1,000 ML IV SCH
== END ==
LOC: FIMAGING 08:23
PROVIDERS: ATTEND Urology
DX: N28.89 Other specified disorders of kidney and ureter (principal); N20.0 Calculus of kidney
CPT/HCPCS: 74170; Q9967; 82565-PO

== ENCOUNTER → 2018-03-25 | Outpatient (CLI) | payer OTHER, BC | LOC: BMCIMAGING 10:23 | PROVIDERS: ATTEND Orthopaedic Surgery | DX: M17.12 Unilateral primary osteoarthritis, left knee (principal) ==

== ENCOUNTER → 2018-06-03 | Outpatient (CLI) | payer OTHER, BC | END | disposition home or self-care (01) | LOC: BMCIMAGING 13:10 | PROVIDERS: ATTEND Orthopaedic Surgery | DX: S32.592D Other specified fracture of left pubis, subsequent encounter for fracture with routine healing (principal); Z96.642 Presence of left artificial hip joint ==

== ENCOUNTER 2018-06-04 17:57 | Emergency (ER) | payer OTHER, BC ==
--- NOTE | 2018-06-04 18:22 | EDPHY ---
HPI/HX/ROS/PE/MDM - Data Points Imaging: I viewed and interpreted images myself Narrative: CHIEF COMPLAINT: Bilateral shoulder pain, right eye swollen/bloodshot HPI: This patient is an 82 year old female with past medical history including diabetes mellitus, hypertension, hyperlipidemia, CHF, and chronic kidney disease. She presents today complaining of diarrhea, that her neck is sore laterally and anteriorly, and that her right eye feels swollen and tender. She states she is generally on home oxygen at night only. Her diarrhea, which the patient describes as "cow pie consistency", began around New Years and has persisted. She endorses lack of appetite. Eye symptoms began today. She denies blurred vision or diplopia. She initially went to urgent care at [facility]. She was noted to be hypoxemic, SpO2 78% on room air, was referred to ED for further evaluation. She denies any chest pain, no new or worsening shortness of breath. She denies fever, abdominal pain, vomiting, cough or cold symptoms. She denies any recent trauma. REVIEW OF SYSTEMS: A comprehensive 10 system review of systems is otherwise negative aside from elements mentioned in the history of present illness and medical decision making. PMH: 1. CHF (diastolic) 2. Diabetes mellitus type 2 3. Hypertension 4. Hyperlipidemia 5. Chronic kidney disease 6. GERD 7. Asthma 8. Osteopenia 9. Irritable bowel syndrome 10. History of DVT 11. Adrenal insufficiency 12. Pituitary microadenoma 13. Spinal stenosis 14. Obstructive sleep apnea 15. Orthopedic procedures SOCIAL HISTORY: Lives at [facility]. . No tobacco, drug, or alcohol use. PHYSICAL EXAM: General:Patient is alert, in no acute distress. ENT: Right eye: nonbloody chemosis to lateral aspect of right eye. Left eye: normal appearance. ENT inspection normal. Neck: Normal inspection. Full range of motion. Respiratory:No respiratory distress. Breath sounds normal bilaterally. Cardiovascular: Regular rate and rhythm. Strong peripheral pulses. Normal cap refill. Abdomen:The abdomen is nontender to palpation. There are no peritoneal signs. There are normal bowel sounds. Back: Normal to inspection. No tenderness to palpation. Skin: Normal color. No rash. Warm and dry. Extremities: Normal appearance. Full range of motion. Neuro: Oriented x3. Normal motor function. Normal sensory function. (John Cohen) ED Course: This patient is an 82 year old female with past medical history including diabetes, hypertension, CHF, CKD. She presents with ten day history of diarrhea and one day history of right eye swelling and atraumatic neck pain. On exam, she has a non-bloody chemosis to the right lateral eye. Plan for chest x-ray, labs including CBC, chemistries, BNP, troponin. Reviewed laboratory studies. CBC sample rejected, we will collect another sample and rerun this test. Troponin is negative at 0.03. BNP elevated at 2840, slightly lower than her last laboratory test in July. Patient has known CHF. Patients creatinine is elevated at 1.4, which is baseline for the patient in the setting of her chronic kidney disease. Labs today are otherwise largely unremarkable. Chest x-ray is largely stable, negative for acute processes including CHF exacerbation or pneumonia. 20:50 Reassessed. The initial CBC was rejected, and the new test is pending. Patient would prefer to go home over admission. Plan to discharge home in good condition if CBC is normal. She is overdue for her regular dose of Tramadol, so we will administer this here in the department. Administered 25mg PO Tramadol. 21:00 Care of this patient signed out at shift change to Dr. Santiago pending CBC results. If these are within normal limits, plan to discharge the patient home as above. She has an appointment scheduled with her primary care provider on Friday. (John Cohen) The assumed care of this patient from Dr. Cohen at change of shift. Patient' s CBC demonstrates a slight leukocytosis with a white count [address]. On my examination the patient at this point has obvious discharge from bilateral conjunctival. She and her family report that she does not normally wear oxygen during the day. Chest x-ray was reviewed by myself. Patient does have cardiomegaly and some subsegmental atelectasis. She does have a history of chronic congestive heart failure and her BNP is slightly elevated but consistent with prior BNPs. We discussed possible reasons for hypoxemia including worsening the heart failure, pneumonia, cardiac disease. I again offer the patient admission to the hospital. Patient would prefer to be discharged home with antibiotic eyedrops. She will wear her oxygen 24/7. She was advised to follow up with her primary care physician within the next 1-3 days. She was with her family members. (Noa Santiago) MDM: Differential diagnoses for the patient's symptom complex was considered including but not limited to upper respiratory infection, pneumonia, conjunctivitis, worsening congestive heart failure, coronary artery disease, acute coronary syndrome. (Noa Santiago) - Data Points Imaging Results: Imaging Impressions Chest X-Ray 06/04/18 18:56 Impression: Cardiomegaly with peribronchial thickening and bibasilar subsegmental atelectasis. Laboratory Results: Laboratory Results 06/04/18 21:06 06/04/18 19:22 06/04/18 06/04/18 06/04/18 21:06 19:27 19:22 WBC 11.24 10^3/uL H 10^3/uL (3.80-9.50) RBC 3.99 10^6/uL L 10^6/uL (4.18-5.33) Hgb 11.6 g/dL L g/dL (12.6-16.3) Hct 35.8 % L % (38.0-47.0) MCV 89.7 fL fL (81.5-99.8) MCH 29.1 pg pg (27.9-34.1) MCHC 32.4 g/dL g/dL (32.4-36.7) RDW 14.2 % % (11.5-15.2) Plt Count 146 10^3/uL L 10^3/uL (150-400) MPV 10.9 fL fL (8.7-11.7) Neut % (Auto) Not Reported Lymph % (Auto) Not Reported [place] % (Auto) Not Reported Eos % (Auto) Not Reported Baso % (Auto) Not Reported Nucleat RBC Rel Count Not Reported Absolute Neuts (auto) Not Reported Absolute Lymphs (auto) Not Reported Absolute Monos (auto) Not Reported Absolute Eos (auto) Not Reported Absolute Basos (auto) Not Reported Absolute Nucleated RBC Not Reported Immature Gran % Not Reported Seg Neutrophils % 56.6 % % Band Neutrophils % 0.0 % % Lymphocytes % 17.2 % % Monocytes % 26.2 % % Eosinophils % 0.0 % % Basophils % 0.0 % % Metamyelocytes % 0.0 % % Myelocytes % 0.0 % % Promyelocytes % 0.0 % % Blast Cells % 0.0 % % Immature Gran # Not Reported Absolute Seg Neuts 6.36 10^3/uL 10^3/uL (1.70-6.50) Absolute Band Neuts 0.00 10^3/uL 10^3/uL (0.00-0.70) Absolute Lymphocytes 1.93 10^3/uL 10^3/uL (1.00-3.00) Absolute Monocytes 2.94 10^3/uL H 10^3/uL (0.30-0.80) Absolute Eosinophils 0.00 10^3/uL L 10^3/uL (0.03-0.40) Absolute Basophils 0.00 10^3/uL L 10^3/uL (0.02-0.10) Absolute Metamyelocyte 0.00 10^3/mL 10^3/mL (0.00-0.00) Absolute Myelocytes 0.00 10^3/mL 10^3/mL (0.00-0.00) Absolute Promyelocytes 0.00 10^3/uL 10^3/uL (0.00-0.00) Absolute Plasma Cells 0.00 10^3/uL 10^3/uL (0.00-0.00) Nucleated RBCs 1.0 /100 WBC H /100 WBC (0-0) RBC/WBC/PLT Morphology NORMAL (NORMAL) Absolute Blast Cells 0.00 10^3/uL 10^3/uL (0.00-0.00) Plasma Cells % 0.0 % % Platelet Estimate ADEQUATE (ADEQ) Smear Review By Pending Sodium 133 mEq/L L mEq/L (135-145) Potassium 4.8 mEq/L mEq/L (3.5-5.2) Chloride 99 mEq/L mEq/L (97-110) Carbon Dioxide 25 mEq/l mEq/l (22-31) Anion Gap 9 mEq/L mEq/L (6-14) BUN 18 mg/dL mg/dL (7-23) Creatinine 1.4 mg/dL H mg/dL (0.6-1.0) Estimated GFR 36 Glucose 114 mg/dL H mg/dL (70-100) Calcium 9.1 mg/dL mg/dL (8.5-10.4) POC Troponin I 0.03 ng/mL ng/mL (0.00-0.08) NT-Pro-B Natriuret Pep 2840 pg/mL H pg/mL (0-450) 06/04/18 19:22 WBC REJ RBC REJ Hgb REJ Hct REJ MCV REJ MCH REJ MCHC REJ RDW REJ Plt Count REJ MPV REJ Neut % (Auto) REJ Lymph % (Auto) REJ [place] % (Auto) REJ Eos % (Auto) REJ Baso % (Auto) REJ Nucleat RBC Rel Count REJ Absolute Neuts (auto) REJ Absolute Lymphs (auto) REJ Absolute Monos (auto) REJ Absolute Eos (auto) REJ Absolute Basos (auto) REJ Absolute Nucleated RBC REJ Immature Gran % REJ Seg Neutrophils % Band Neutrophils % Lymphocytes % Monocytes % Eosinophils % Basophils % Metamyelocytes % Myelocytes % Promyelocytes % Blast Cells % Immature Gran # REJ Absolute Seg Neuts Absolute Band Neuts Absolute Lymphocytes Absolute Monocytes Absolute Eosinophils Absolute Basophils Absolute Metamyelocyte Absolute Myelocytes Absolute Promyelocytes Absolute Plasma Cells Nucleated RBCs RBC/WBC/PLT Morphology Absolute Blast Cells Plasma Cells % Platelet Estimate Smear Review By Sodium Potassium Chloride Carbon Dioxide Anion Gap BUN Creatinine Estimated GFR Glucose Calcium POC Troponin I NT-Pro-B Natriuret Pep Medications Given: Discontinued Medications Ofloxacin (Ocuflox 0.3% Opht Drops Prepack) 1 btl TAKEHOME EDNOW ONE Stop: 06/04/18 21:52 Last Admin: 06/04/18 22:22 Dose: 1 btl Tramadol HCl (Ultram) 25 mg PO EDNOW ONE Stop: 06/04/18 21:03 Last Admin: 06/04/18 21:44 Dose: 25 mg Point of Care Test Results: Chemistry 06/04/18 19:27 POC Troponin I 0.03 ng/mL ng/mL (0.00-0.08) General Time Seen by Provider: 06/04/18 18:20 Initial Vital Signs: Initial Vital Signs Temperature (C) 37.6 C 06/04/18 18:05 Heart Rate 87 06/04/18 18:05 Respiratory Rate 18 06/04/18 18:05 Blood Pressure 152/85 H 06/04/18 18:05 O2 Sat (%) 91 L 06/04/18 18:05 O2 Delivery Mode Room Air O2 (L/minute) 2 Allergies/Adverse Reactions: bacitracin [From Neosporin] Allergy (Intermediate, Verified 06/04/18 18:15) Rash bacitracin zinc [From Neosporin] Allergy (Intermediate, Verified 06/04/18 18:15) Rash gramicidin D [From Neosporin] Allergy (Intermediate, Verified 06/04/18 18:15) Rash neomycin sulfate [From Neosporin] Allergy (Intermediate, Verified 06/04/18 18:15 ) Rash polymyxin B [From Neosporin] Allergy (Intermediate, Verified 06/04/18 18:15) Rash polymyxin B sulfate [From Neosporin] Allergy (Intermediate, Verified 06/04/18 18 :15) Rash esomeprazole magnesium [From Nexium] Allergy (Verified 06/04/18 18:15) Diarrhea lansoprazole [From Prevacid] Allergy (Verified 06/04/18 18:15) Diarrhea omeprazole [From Prilosec] Allergy (Verified 06/04/18 18:15) Diarrhea omeprazole magnesium [From Prilosec] Allergy (Verified 06/04/18 18:15) Diarrhea pantoprazole sodium [From Protonix] Allergy (Verified 06/04/18 18:15) Diarrhea ranitidine HCl [From Zantac] Allergy (Verified 06/04/18 18:15) Diarrhea ENVIRONMENTAL Allergy (Intermediate, Uncoded 12/31/14 21:09) Other-Enter Comments Home Medications: Medication Instructions Recorded Advair Hfa 230-21 1 puffs IH BID 04/15/18 Ascorbic Acid [Vitamin C 500 mg 500 mg PO DAILY 04/15/18 (*)] C/E/Zn/Cu/OM3/DHA/EPA/LUT/ZEAX 1 each PO BID 04/15/18 [Preservision Areds 2 Softgel] Calcium Carb W/Vit D [Calcium Carb 500 mg PO BIDMEAL 04/15/18 W/Vit D 500/200 (*)] Cholecalciferol Vit D3 [Vitamin D3 2,000 units PO DAILY 04/15/18 (*)] Cyanocobalamin [Vitamin B12 (*)] 1,000 mcg PO DAILY 04/15/18 Estrogens, Conjugated [Premarin] 0.45 mg PO DAILY 04/15/18 Ferrous Sulfate [Ferrous Sulf 325 325 mg PO BIDMEAL 04/15/18 MG (*)] Fluticasone Nasal [Flonase Nasal 1 sprays NASAL DAILY PRN 04/15/18 [place]] Herbals/Supplements -Info Only 1 ea PO DAILY 04/15/18 Hydrocortisone [Cortef 10 mg (*)] 10 mg PO BIDMEAL 04/15/18 Labetalol HCl [Trandate 100 mg (*)] 50 mg PO DAILY 04/15/18 Labetalol HCl [Trandate 100 mg (*)] 100 mg PO HS 04/15/18 Levothyroxine [Synthroid 100 mcg 100 mcg PO DAILY06 04/15/18 (*)] Losartan Potassium [Cozaar 50 mg 100 mg PO DAILY 04/15/18 (*)] Methocarbamol [Robaxin 750 mg (*)] 750 mg PO QID PRN 04/15/18 Montelukast Sodium [Singulair 10 10 mg PO DAILY@1800 04/15/18 mg (*)] Multivitamins [Multivitamin (*)] 1 each PO DAILY 04/15/18 Pregabalin [Lyrica 150mg (*)] 150 mg PO BID 04/15/18 Rabeprazole Sodium 20 mg PO BID 04/15/18 amLODIPine BESYLATE [Amlodipine 5 mg PO HS 04/15/18 Besylate] metFORMIN HCL [Glucophage 500 mg 500 mg PO BIDMEAL 04/15/18 (*)] Cephalexin [Keflex (*)] 500 mg PO Q6HRS cap 04/19/18 Departure - Departure Disposition: Home, Routine, Self-Care Clinical Impression: Neck pain, Hypoxia Acute conjunctivitis of both eyes Qualifiers: Acute conjunctivitis type: unspecified Qualified Code(s): H10.33 - Unspecified acute conjunctivitis, bilateral Condition: Good Instructions: Additional Information, Acute Neck Pain (ED) Additional Instructions: Follow up with your primary care provider on Friday as scheduled. It appears that you have an eye infection. Please use the eyedrops as directed. 1-2 drops every 6 times a day while awake for the next day. After that, you may decrease to 1-2 drops 4 times a day for an additional 4 days. Please wear your oxygen during the day. 2 L at all times. Please check your oxygen level during the day her and be sure that your 2 L of action is enough. You may be needing the oxygen during the day because you seem to have a little bit of excess fluid in her lungs. You have been offered admission to the hospital. If he developed chest pain, worsening neck pain, shortness of breath, or other concerns, please return to the emergency department or seek care urgently. Return to the emergency department for severe neck pain, numbness, weakness, tingling, headache, difficulty walking or other complaints. Referrals: Brigette Suresh MD [Primary Care Provider] - As per Instructions Report Scribed for: John Cohen Report Scribed by: Corinne Slater Date of Report: 06/04/18 Time of Report: 18:22 Physician Review and Approval Statement: Portions of this note were transcribed by an ED scribe. I personally performed the history, physical exam, and medical decision making; and confirm the accuracy of the information in the transcribed note.
[2018-06-04] MEDS ORDERED: HYDROmorphONE/DILAUDID 1 MG/ML INJ ONE (18:43)
[2018-06-04] MEDS ORDERED: traMADol 50 MG TAB PO ONE (21:02)
[2018-06-04 21:13] LABS: PLATELET COUNT 146 10^3/uL (150-400)
[2018-06-04] MEDS ORDERED: OFLOXACIN 0.3% SOLN PREPACK OPHT.BTL TAKEHOME ONE (21:51)
[2018-06-04 22:49] VITALS: BP 129/87
--- NOTE | 2018-06-06 22:48 | CPEKG ---
Test Reason : OPEN Blood Pressure : / mmHG Vent. Rate : 084 BPM Atrial Rate : 085 BPM P-R Int : 197 ms QRS Dur : 147 ms QT Int : 401 ms P-R-T Axes : 040 -40 107 degrees QTc Int : 475 ms Sinus rhythm Left bundle branch block Confirmed by Noa Santiago ([id number]) on 06/06/2018 10:48:24 PM Referred By: Confirmed By:Noa Santiago
== END 2018-06-04 22:30 | disposition home or self-care (01) ==
DX: H10.33 Unspecified acute conjunctivitis, bilateral (principal); M54.2 Cervicalgia; R09.02 Hypoxemia; R19.7 Diarrhea, unspecified; E11.9 Type 2 diabetes mellitus without complications; I13.0 Hypertensive heart and chronic kidney disease with heart failure and stage 1 through stage 4 chronic kidney disease, or unspecified chronic kidney disease; N18.9 Chronic kidney disease, unspecified; I50.30 Unspecified diastolic (congestive) heart failure
CPT/HCPCS: 71046; 93005; 99285; J1170; 84484-ER

== ENCOUNTER 2018-06-05 20:12 | Inpatient (IN) | payer OTHER, BC ==
[2018-06-05] MEDS ORDERED: ACETAMINOPHEN 500 MG TAB PO ONE (20:36)
--- NOTE | 2018-06-05 20:38 | EDPHY ---
H & P Time Seen by Provider: 06/05/18 20:28 HPI/ROS: CHIEF COMPLAINT: Fever HISTORY OF PRESENT ILLNESS: Patient was seen here yesterday with right eye swelling and shoulder pain. She had evaluation including initial oxygen saturation 78% on room air. Today she presents with fever as well as pain in her left wrist. Fevers persistent and moderate. Left wrist pain just started over the last 24 hr. She also continues to have shoulder pain and neck pain which she had yesterday and has had for the past several days. Denies headache or weakness or numbness in extremities. Shoulder and neck pain is a little bit worse with movement including rotation of her neck and palpation including touching her shoulders. REVIEW OF SYSTEMS: Eye: no change in vision ENT: no sore throat Cardiac: no chest pain or syncope Pulmonary: Patient has increased shortness of breath but is not coughing Abdomen: No vomiting or abdominal pain but she has had diarrhea for about the last week and half. Musculoskeletal: Back pain unchanged from typical Skin: Left leg redness which is unchanged from usual per the family. Neuro: no headache Constitutional: Fever now : Decreased in darker urine A comprehensive 10 point review of systems is otherwise negative aside from elements mentioned in the history of present illness. PAST MEDICAL HISTORY: Includes diabetes, hypertension, hyperlipidemia, CHF, chronic kidney disease. History of DVT, irritable bowel, spinal stenosis Social history: Here with family, nonsmoker General Appearance: Alert and conversant, cooperative. Eyes: Conjunctival erythema and exudate right greater than left. ENT, Mouth: Normal mucous membranes. Respiratory: Bibasilar crackles. Increased respiratory effort. Cardiovascular: Regular rate and rhythm. Gastrointestinal: Abdomen is soft and non tender. Neurological: Alert, face symmetric, normal motor and sensory in extremities. Skin: Patient has a old surgical site on the left posterior leg and anterior left real redness which is warm to the touch but not painful to palpation and the patient and family say that is old. A little bit of chronic venous stasis changes on the right real. Musculoskeletal: Patient's left wrist is slightly tender to palpation but I can range it passively. She has good range of motion of other joints. She has swelling and the left leg greater than the right as noted under skin exam. The patient can flex and extend her neck but has pain with turning it and rotation. Psychiatric: Not agitated. Emergency Department course/MDM: Clinically I think she is unlikely to have septic joint or meningitis. I can range her wrist and neck, I think it is more likely that her fever is related to her worsening hypoxemia and abnormal chest x-ray. She does have fever now and differential is broad including but not limited to pneumonia, cellulitis, influenza, sepsis. 2154: chest X-ray discussed with Terrell bilateral infiltrates. More likely to be pneumonia with elevated white blood cell count, pulmonary infiltrates, influenza negative. 2158: Blood pressure 85/45, severe sepsis declared, IV fluid bolus and cefepime 2 g IV and vancomycin 1 g IV. Antibiotics chosen for possible soft tissue infection as well as possible healthcare acquired pneumonia with hospitalization at the end of March of last year. Smoking Status: Never smoked Constitutional: Initial Vital Signs Temperature (C) 38.2 C 06/05/18 20:20 Heart Rate 74 06/05/18 20:20 Respiratory Rate 19 06/05/18 20:20 Blood Pressure 123/67 H 06/05/18 20:20 O2 Sat (%) 94 06/05/18 20:20 O2 Delivery Mode Nasal Cannula O2 (L/minute) 3 Allergies/Adverse Reactions: bacitracin [From Neosporin] Allergy (Intermediate, Verified 06/04/18 18:15) Rash bacitracin zinc [From Neosporin] Allergy (Intermediate, Verified 06/04/18 18:15) Rash gramicidin D [From Neosporin] Allergy (Intermediate, Verified 06/04/18 18:15) Rash neomycin sulfate [From Neosporin] Allergy (Intermediate, Verified 06/04/18 18:15 ) Rash polymyxin B [From Neosporin] Allergy (Intermediate, Verified 06/04/18 18:15) Rash polymyxin B sulfate [From Neosporin] Allergy (Intermediate, Verified 06/04/18 18 :15) Rash esomeprazole magnesium [From Nexium] Allergy (Verified 06/04/18 18:15) Diarrhea lansoprazole [From Prevacid] Allergy (Verified 06/04/18 18:15) Diarrhea omeprazole [From Prilosec] Allergy (Verified 06/04/18 18:15) Diarrhea omeprazole magnesium [From Prilosec] Allergy (Verified 06/04/18 18:15) Diarrhea pantoprazole sodium [From Protonix] Allergy (Verified 06/04/18 18:15) Diarrhea ranitidine HCl [From Zantac] Allergy (Verified 06/04/18 18:15) Diarrhea ENVIRONMENTAL Allergy (Intermediate, Uncoded 12/31/14 21:09) Other-Enter Comments Home Medications: Medication Instructions Recorded Ascorbic Acid [Vitamin C 500 mg 500 mg PO DAILY 04/15/18 (*)] C/E/Zn/Cu/OM3/DHA/EPA/LUT/ZEAX 1 each PO BID 04/15/18 [Preservision Areds 2 Softgel] Calcium Carb W/Vit D [Calcium Carb 500 mg PO BIDMEAL 04/15/18 W/Vit D 500/200 (*)] Cholecalciferol Vit D3 [Vitamin D3 2,000 units PO DAILY 04/15/18 (*)] Cyanocobalamin [Vitamin B12 (*)] 1,000 mcg PO DAILY 04/15/18 Estrogens, Conjugated [Premarin] 0.45 mg PO DAILY 04/15/18 Fluticasone Nasal [Flonase Nasal 1 sprays NASAL DAILY PRN 04/15/18 [place]] Herbals/Supplements -Info Only 1 ea PO DAILY 04/15/18 Hydrocortisone [Cortef 10 mg (*)] 10 mg PO BIDMEAL 04/15/18 Labetalol HCl [Trandate 100 mg (*)] 50 mg PO DAILY 04/15/18 Levothyroxine [Synthroid 100 mcg 100 mcg PO DAILY06 04/15/18 (*)] Losartan Potassium [Cozaar 50 mg 100 mg PO DAILY 04/15/18 (*)] Methocarbamol [Robaxin 750 mg (*)] 750 mg PO QID PRN 04/15/18 Montelukast Sodium [Singulair 10 10 mg PO DAILY@1800 04/15/18 mg (*)] Multivitamins [Multivitamin (*)] 1 each PO DAILY 04/15/18 Pregabalin [Lyrica 150mg (*)] 150 mg PO BID 04/15/18 Rabeprazole Sodium 20 mg PO BID 04/15/18 amLODIPine BESYLATE [Amlodipine 5 mg PO HS 04/15/18 Besylate] metFORMIN HCL [Glucophage 500 mg 500 mg PO BIDMEAL 04/15/18 (*)] Labetalol HCl [Trandate 100 mg (*)] 100 mg PO HS 06/05/18 Medical Decision Making - Diagnostics Imaging Results: Imaging Impressions Chest X-Ray 06/05/18 20:50 Impression: Poor inspiratory effort, with increasing peribronchial wall thickening bilaterally. Increase in opacification at both lung bases, which could represent atelectasis or infiltrate. The heart size is mildly enlarged and stable. Other chronic findings, as above. Imaging: Discussed imaging studies w/ train caller Radiologist Differential Diagnosis: Differential for fever considered including but not limited to pneumonia, UTI, sepsis, cellulitis, septic joint. Consult/Admit Bed Type: [place] [id number] Critical Care Time: Critical care time spent by me, Dr. Jacoob, exclusively with the care of this patient was 35 minutes, exclusive of PA or CREATIVE COORDINATOR time and exclusive of separate procedures. The organ system at risk was pulmonary and infectious and I ordered IV fluids and IV antibiotics, supplemental oxygen and hospitalist consultation to stabilize the patient and prevent worsening of the patient's condition. - Data Points Laboratory Results: Laboratory Results 06/05/18 20:35 06/05/18 20:35 06/05/18 06/05/18 06/05/18 21:30 21:30 20:35 WBC RBC Hgb Hct MCV MCH MCHC RDW Plt Count MPV Neut % (Auto) Lymph % (Auto) [facility] [facility] % (Auto) Eos % (Auto) Baso % (Auto) Nucleat RBC Rel Count Absolute Neuts (auto) Absolute Lymphs (auto) Absolute Monos (auto) Absolute Eos (auto) Absolute Basos (auto) Absolute Nucleated RBC Immature Gran % Seg Neutrophils % Band Neutrophils % Lymphocytes % Monocytes % Eosinophils % Basophils % Metamyelocytes % Myelocytes % Promyelocytes % Blast Cells % Immature Gran # Absolute Seg Neuts Absolute Band Neuts Absolute Lymphocytes Absolute Monocytes Absolute Eosinophils Absolute Basophils Absolute Metamyelocyte Absolute Myelocytes Absolute Promyelocytes Absolute Plasma Cells Nucleated RBCs RBC/WBC/PLT Morphology Absolute Blast Cells Plasma Cells % Platelet Estimate Smear Review By PT INR APTT VBG Lactic Acid 0.9 mmol/L mmol/L (0.7-2.1) Sodium Potassium Chloride Carbon Dioxide Anion Gap BUN Creatinine Estimated GFR Glucose Calcium Total Bilirubin 1.2 mg/dL mg/dL (0.1-1.4) Nasal Influenza A PCR NEGATIVE FOR FLU A (NEGATIVE) Nasal Influenza B PCR NEGATIVE FOR FLU B (NEGATIVE) 06/05/18 06/05/18 06/05/18 20:35 20:35 20:35 WBC 15.07 10^3/uL H 10^3/uL (3.80-9.50) RBC 4.00 10^6/uL L 10^6/uL (4.18-5.33) Hgb 11.3 g/dL L g/dL (12.6-16.3) Hct 35.5 % L % (38.0-47.0) MCV 88.8 fL fL (81.5-99.8) MCH 28.3 pg pg (27.9-34.1) MCHC 31.8 g/dL L g/dL (32.4-36.7) RDW 14.1 % % (11.5-15.2) Plt Count 153 10^3/uL 10^3/uL (150-400) MPV 11.8 fL H fL (8.7-11.7) Neut % (Auto) Not Reported Lymph % (Auto) Not Reported [facility] % (Auto) Not Reported Eos % (Auto) Not Reported Baso % (Auto) Not Reported Nucleat RBC Rel Count Not Reported Absolute Neuts (auto) Not Reported Absolute Lymphs (auto) Not Reported Absolute Monos (auto) Not Reported Absolute Eos (auto) Not Reported Absolute Basos (auto) Not Reported Absolute Nucleated RBC Not Reported Immature Gran % Not Reported Seg Neutrophils % 61.0 % % Band Neutrophils % 2.0 % % Lymphocytes % 7.0 % % Monocytes % 26.0 % % Eosinophils % 0.0 % % Basophils % 1.0 % % Metamyelocytes % 3.0 % % Myelocytes % 0.0 % % Promyelocytes % 0.0 % % Blast Cells % 0.0 % % Immature Gran # Not Reported Absolute Seg Neuts 9.19 10^3/uL H 10^3/uL (1.70-6.50) Absolute Band Neuts 0.30 10^3/uL 10^3/uL (0.00-0.70) Absolute Lymphocytes 1.05 10^3/uL 10^3/uL (1.00-3.00) Absolute Monocytes 3.92 10^3/uL H 10^3/uL (0.30-0.80) Absolute Eosinophils 0.00 10^3/uL L 10^3/uL (0.03-0.40) Absolute Basophils 0.15 10^3/uL H 10^3/uL (0.02-0.10) Absolute Metamyelocyte 0.45 10^3/mL H 10^3/mL (0.00-0.00) Absolute Myelocytes 0.00 10^3/mL 10^3/mL (0.00-0.00) Absolute Promyelocytes 0.00 10^3/uL 10^3/uL (0.00-0.00) Absolute Plasma Cells 0.00 10^3/uL 10^3/uL (0.00-0.00) Nucleated RBCs 0 /100 WBC /100 WBC (0-0) RBC/WBC/PLT Morphology NORMAL (NORMAL) Absolute Blast Cells 0.00 10^3/uL 10^3/uL (0.00-0.00) Plasma Cells % 0.0 % % Platelet Estimate ADEQUATE (ADEQ) Smear Review By Pending PT 13.5 SEC SEC (12.0-15.0) INR 1.01 (0.83-1.16) APTT 37.9 SEC SEC (23.0-38.0) VBG Lactic Acid Sodium 128 mEq/L L mEq/L (135-145) Potassium 4.7 mEq/L mEq/L (3.5-5.2) Chloride 95 mEq/L L mEq/L (97-110) Carbon Dioxide 25 mEq/l mEq/l (22-31) Anion Gap 8 mEq/L mEq/L (6-14) BUN 20 mg/dL mg/dL (7-23) Creatinine 1.6 mg/dL H mg/dL (0.6-1.0) Estimated GFR 31 Glucose 122 mg/dL H mg/dL (70-100) Calcium 8.7 mg/dL mg/dL (8.5-10.4) Total Bilirubin Nasal Influenza A PCR Nasal Influenza B PCR Medications Given: Discontinued Medications Acetaminophen (Tylenol) 1,000 mg PO EDNOW ONE Stop: 06/05/18 20:37 Last Admin: 06/05/18 20:51 Dose: 1,000 mg Cefepime HCl 2 gm/ Sodium (Chloride) 100 mls @ 200 mls/hr IV EDNOW ONE PRN Reason: Protocol Stop: 06/05/18 22:26 Last Admin: 06/05/18 23:30 Dose: 100 mls Vancomycin/Sodium Chloride (Vancomycin 1 Gm (Premix)) 250 mls @ 250 mls/hr IV EDNOW ONE PRN Reason: Protocol Stop: 06/05/18 22:56 Last Admin: 06/05/18 22:14 Dose: 250 mls Departure - Departure Disposition: [facility] Inpatient Acute Clinical Impression: Hyponatremia Pneumonia Qualifiers: Pneumonia type: due to unspecified organism Laterality: bilateral Lung location : lower lobe of lung Qualified Code(s): J18.1 - Lobar pneumonia, unspecified organism Condition: Fair
[2018-06-05 20:59] LABS: PLATELET COUNT 153 10^3/uL (150-400)
[2018-06-05 21:37] LABS: INR 1.01 (0.83-1.16); PROTIME(PATIENT) 13.5 SEC (12.0-15.0)
[2018-06-05] MEDS ORDERED: NS 2,500 ML IV ONE (21:56)
[2018-06-05] MEDS ORDERED: CEFEPIME HCL 2 GM in NS 100 ML IV ONE (21:57)
[2018-06-05] MEDS ORDERED: VANCOMYCIN HCL/NORMAL SALINE 250 ML IV ONE (21:57)
[2018-06-05] MEDS ORDERED: ONDANSETRON DISINTEGRATING 4 MG TAB PO PRN (23:25)
[2018-06-05] MEDS ORDERED: ONDANSETRON 4 MG/2 ML VIAL IVP PRN (23:25)
--- NOTE | 2018-06-05 23:32 | PDGENHP ---
History and Physical - Chief Complaint Fever - History of Present Illness Jennifer Hassan is a 82 yo F with a PMHx of DM, CHF, Hx of DVT who presents to [facility] for fevers. She was seen in ED yesterday for R eye swelling and shoulder pain. She was discharged at that time. She reports that fevers have occured at home as well as pain in her L wrist. She denies any headaches, vision changes. History Information - Allergies/Home Medication List Allergies/Adverse Reactions: bacitracin [From Neosporin] Allergy (Intermediate, Verified 06/04/18 18:15) Rash bacitracin zinc [From Neosporin] Allergy (Intermediate, Verified 06/04/18 18:15) Rash gramicidin D [From Neosporin] Allergy (Intermediate, Verified 06/04/18 18:15) Rash neomycin sulfate [From Neosporin] Allergy (Intermediate, Verified 06/04/18 18:15 ) Rash polymyxin B [From Neosporin] Allergy (Intermediate, Verified 06/04/18 18:15) Rash polymyxin B sulfate [From Neosporin] Allergy (Intermediate, Verified 06/04/18 18 :15) Rash esomeprazole magnesium [From Nexium] Allergy (Verified 06/04/18 18:15) Diarrhea lansoprazole [From Prevacid] Allergy (Verified 06/04/18 18:15) Diarrhea omeprazole [From Prilosec] Allergy (Verified 06/04/18 18:15) Diarrhea omeprazole magnesium [From Prilosec] Allergy (Verified 06/04/18 18:15) Diarrhea pantoprazole sodium [From Protonix] Allergy (Verified 06/04/18 18:15) Diarrhea ranitidine HCl [From Zantac] Allergy (Verified 06/04/18 18:15) Diarrhea ENVIRONMENTAL Allergy (Intermediate, Uncoded 12/31/14 21:09) Other-Enter Comments Home Medications: Ascorbic Acid [Vitamin C 500 mg (*)] 500 mg PO DAILY 04/15/18 [Last Taken Unknown] C/E/Zn/Cu/OM3/DHA/EPA/LUT/ZEAX [Preservision Areds 2 Softgel] 1 each PO BID [Last Taken Unknown] Calcium Carb W/Vit D [Calcium Carb W/Vit D 500/200 (*)] 500 mg PO BIDMEAL [Last Taken Unknown] Cholecalciferol Vit D3 [Vitamin D3 (*)] 2,000 units PO DAILY 04/15/18 [Last Taken Unknown] Cyanocobalamin [Vitamin B12 (*)] 1,000 mcg PO DAILY 04/15/18 [Last Taken Unknown ] Estrogens, Conjugated [Premarin] 0.45 mg PO DAILY 04/15/18 [Last Taken Unknown] Fluticasone Nasal [Flonase Nasal [place]] 1 sprays NASAL DAILY PRN 04/15/18 [Last Taken Unknown] Herbals/Supplements -Info Only 1 ea PO DAILY 04/15/18 [Last Taken Unknown] Hydrocortisone [Cortef 10 mg (*)] 10 mg PO BIDMEAL 04/15/18 [Last Taken Unknown] Labetalol HCl [Trandate 100 mg (*)] 50 mg PO DAILY 04/15/18 [Last Taken Unknown] Levothyroxine [Synthroid 100 mcg (*)] 100 mcg PO DAILY06 04/15/18 [Last Taken Unknown] Losartan Potassium [Cozaar 50 mg (*)] 100 mg PO DAILY 04/15/18 [Last Taken Unknown] Methocarbamol [Robaxin 750 mg (*)] 750 mg PO QID PRN 04/15/18 [Last Taken Unknown] Montelukast Sodium [Singulair 10 mg (*)] 10 mg PO DAILY@1800 04/15/18 [Last Taken Unknown] Multivitamins [Multivitamin (*)] 1 each PO DAILY 04/15/18 [Last Taken Unknown] Pregabalin [Lyrica 150mg (*)] 150 mg PO BID 04/15/18 [Last Taken Unknown] Rabeprazole Sodium 20 mg PO BID 04/15/18 [Last Taken Unknown] amLODIPine BESYLATE [Amlodipine Besylate] 5 mg PO HS 04/15/18 [Last Taken Unknown] metFORMIN HCL [Glucophage 500 mg (*)] 500 mg PO BIDMEAL 04/15/18 [Last Taken Unknown] Labetalol HCl [Trandate 100 mg (*)] 100 mg PO HS 06/05/18 [Last Taken Unknown] I have personally reviewed and updated: family history, medical history, social history, surgical history - Past Medical History CHF (diastolic), diabetes type 2, DVT (left IJ--off AC), GERD, hypertension, hyperlipidemia Additional medical history: Long history of sacral pressure ulcer with MR assay and osteomyelitis in 2014. ESBL. Adrenal insufficiency. Pseudogout. Asthma. Remote history of upper extremity DVT. Spinal stenosis. Obstructive sleep apnea. Osteopenia. Irritable bowel syndrome. Pituitary microadenoma. C difficile colitis in February 2015. Chronic kidney disease stage 3 with baseline creatinine 1.1-1.4 - Surgical History Additional surgical history: primary closure of her sacral ulcer with flap in February of 2016. Left total hip replacement. Lumbar spinal injections. Diskectomy. Right carpal tunnel syndrome release. Basal cell carcinoma. Fibrous breast lumpectomy - Family History Positive for: non-pertinent Additional family history: both parents age 85, no recent sick family contacts - Social History Smoking Status: Never smoked Additional social history: currently residing at [facility] with her Review of Systems Review of Systems: ROS: 10pt was reviewed & negative except for what was stated in HPI & below Physical Exam Physical Exam: Temp Pulse Resp BP Pulse Ox 37.3 C 83 18 95/47 L 92 06/05/18 21:52 06/05/18 22:21 06/05/18 22:21 06/05/18 22:21 06/05/18 22:21 Constitutional: chronically ill appearing Eyes: PERRL, scleral injection Ears, Nose, Mouth, Throat: dry mucous membranes Cardiovascular: regular rate and rhythym Respiratory: no respiratory distress, reduced air movement Gastrointestinal: soft, non-tender abdomen Skin: warm Musculoskeletal: pain with ROM Neurologic: AAOx3 Psychiatric: interacting appropriately Lab Data & Imaging Review 06/05/18 20:35 06/05/18 20:35 WBC 15.07 10^3/uL (3.80-9.50) H 06/05/18 20:35 RBC 4.00 10^6/uL (4.18-5.33) L 06/05/18 20:35 Hgb 11.3 g/dL (12.6-16.3) L 06/05/18 20:35 Hct 35.5 % (38.0-47.0) L 06/05/18 20:35 MCV 88.8 fL (81.5-99.8) 06/05/18 20:35 MCH 28.3 pg (27.9-34.1) 06/05/18 20:35 MCHC 31.8 g/dL (32.4-36.7) L 06/05/18 20:35 RDW 14.1 % (11.5-15.2) 06/05/18 20:35 Plt Count 153 10^3/uL (150-400) 06/05/18 20:35 MPV 11.8 fL (8.7-11.7) H 06/05/18 20:35 Neut % (Auto) Not Reported 06/05/18 20:35 Lymph % (Auto) Not Reported 06/05/18 20:35 [place] % (Auto) Not Reported 06/05/18 20:35 Eos % (Auto) Not Reported 06/05/18 20:35 Baso % (Auto) Not Reported 06/05/18 20:35 Nucleat RBC Rel Count Not Reported 06/05/18 20:35 Absolute Neuts (auto) Not Reported 06/05/18 20:35 Absolute Lymphs (auto) Not Reported 06/05/18 20:35 Absolute Monos (auto) Not Reported 06/05/18 20:35 Absolute Eos (auto) Not Reported 06/05/18 20:35 Absolute Basos (auto) Not Reported 06/05/18 20:35 Absolute Nucleated RBC Not Reported 06/05/18 20:35 Immature Gran % Not Reported 06/05/18 20:35 Seg Neutrophils % 61.0 % 06/05/18 20:35 Band Neutrophils % 2.0 % 06/05/18 20:35 Lymphocytes % 7.0 % 06/05/18 20:35 Monocytes % 26.0 % 06/05/18 20:35 Eosinophils % 0.0 % 06/05/18 20:35 Basophils % 1.0 % 06/05/18 20:35 Metamyelocytes % 3.0 % 06/05/18 20:35 Myelocytes % 0.0 % 06/05/18 20:35 Promyelocytes % 0.0 % 06/05/18 20:35 Blast Cells % 0.0 % 06/05/18 20:35 Immature Gran # Not Reported 06/05/18 20:35 Absolute Seg Neuts 9.19 10^3/uL (1.70-6.50) H 06/05/18 20:35 Absolute Band Neuts 0.30 10^3/uL (0.00-0.70) 06/05/18 20:35 Absolute Lymphocytes 1.05 10^3/uL (1.00-3.00) 06/05/18 20:35 Absolute Monocytes 3.92 10^3/uL (0.30-0.80) H 06/05/18 20:35 Absolute Eosinophils 0.00 10^3/uL (0.03-0.40) L 06/05/18 20:35 Absolute Basophils 0.15 10^3/uL (0.02-0.10) H 06/05/18 20:35 Absolute Metamyelocyte 0.45 10^3/mL (0.00-0.00) H 06/05/18 20:35 Absolute Myelocytes 0.00 10^3/mL (0.00-0.00) 06/05/18 20:35 Absolute Promyelocytes 0.00 10^3/uL (0.00-0.00) 06/05/18 20:35 Absolute Plasma Cells 0.00 10^3/uL (0.00-0.00) 06/05/18 20:35 Nucleated RBCs 0 /100 WBC (0-0) 06/05/18 20:35 RBC/WBC/PLT Morphology NORMAL (NORMAL) 06/05/18 20:35 Absolute Blast Cells 0.00 10^3/uL (0.00-0.00) 06/05/18 20:35 Plasma Cells % 0.0 % 06/05/18 20:35 Platelet Estimate ADEQUATE (ADEQ) 06/05/18 20:35 PT 13.5 SEC (12.0-15.0) 06/05/18 20:35 INR 1.01 (0.83-1.16) 06/05/18 20:35 APTT 37.9 SEC (23.0-38.0) 06/05/18 20:35 VBG Lactic Acid 0.9 mmol/L (0.7-2.1) 06/05/18 21:30 Sodium 128 mEq/L (135-145) L 06/05/18 20:35 Potassium 4.7 mEq/L (3.5-5.2) 06/05/18 20:35 Chloride 95 mEq/L (97-110) L 06/05/18 20:35 Carbon Dioxide 25 mEq/l (22-31) 06/05/18 20:35 Anion Gap 8 mEq/L (6-14) 06/05/18 20:35 BUN 20 mg/dL (7-23) 06/05/18 20:35 Creatinine 1.6 mg/dL (0.6-1.0) H 06/05/18 20:35 Estimated GFR 31 06/05/18 20:35 Glucose 122 mg/dL (70-100) H 06/05/18 20:35 Calcium 8.7 mg/dL (8.5-10.4) 06/05/18 20:35 Total Bilirubin 1.2 mg/dL (0.1-1.4) 06/05/18 20:35 Nasal Influenza A PCR NEGATIVE FOR FLU A (NEGATIVE) 06/05/18 21:30 Nasal Influenza B PCR NEGATIVE FOR FLU B (NEGATIVE) 06/05/18 21:30 Assessment & Plan Assessment: Sepsis - Presenting with fever, WBC 15K, low normal BP, LA 0.9 - CXR showing opacification in bilateral lower lobes, reports chronic cough but no production recently - UA pending, admitted with Urosepsis in 03/2018 - Also possible component of cellulitis in LUE, LLE - Sepsis protocol initiated in ED with 2.5 L IVF given (30cc/kg), Vancomycin and Cefepime with blood cultures collected - Continue broad spectrum abx for now with Cefepime and Vancomycin - F/u culture data - Continue maintenance IVF overnight Hyponatremia (Acute) - Na 128 on admission, has been low in the past - In setting of sepsis - Continue IVF as above - Repeat Na in the AM Bacterial Conjunctivitis - R eye red with no preseptal component - Rx Ofloxacin drops, will continue HTN - Will hold home antihypertensives including Amlodipine, Labetalol, Losartan in setting of sepsis - Restart above meds as BP tolerates Hypothyroidism - Continue home Synthroid CKD - Cr 1.6 on admission, close to baseline - IVF as above - Continue to monitor VMP Diastolic heart failure - In setting of treating sepsis as above, will monitor fluid status closely, no diuretic on home med list Adrenal insufficiency - Continue home Hydrocortisone - Continue to monitor bp with sepsis and will initiate stress dose if becomes hypotensive T2DM - Holding home Metformin - SSI as IP FEN: IVF, Regular DVT PPx: SubQ Heparin Code: DNR Dispo: Admit to Medicine
[2018-06-05] MEDS ORDERED: D50W 25 GM/50 ML SYR IVP PRN (23:44)
[2018-06-06] MEDS ORDERED: HYDROmorphONE/DILAUDID 1 MG/ML INJ IVP PRN (02:35)
[2018-06-06] MEDS: NS 1,000 ML IV SCH ×2 (02:37→10:39)
[2018-06-06] MEDS: ACETAMINOPHEN 325 MG TAB PO PRN ×3 (02:38→15:32)
[2018-06-06] MEDS: oxyCODONE IR 5 MG TAB PO PRN ×3 (03:06→15:32)
[2018-06-06] MEDS: OFLOXACIN 0.3% 5ML OPHT DROPS RTEYE SCH ×6 (03:07→21:48)
[2018-06-06 05:28] LABS: PLATELET COUNT 138 10^3/uL (150-400)
[2018-06-06] MEDS: LEVOTHYROXINE 100 MCG TAB PO SCH (06:10)
[2018-06-06] MEDS: HEPARIN 5,000 UNIT/0.5 ML INJ SC SCH ×3 (06:10→21:49)
[2018-06-06] MEDS: PREGABALIN 150 MG CAP PO SCH ×2 (07:43→21:49)
[2018-06-06] MEDS: CALCIUM CARB W/VIT D 500 MG TAB PO SCH ×2 (07:43→17:53)
[2018-06-06] MEDS ORDERED: HYDROCORTISONE 10 MG TAB PO SCH (08:00)
[2018-06-06] MEDS ORDERED: CEFEPIME HCL 2 GM in NS 100 ML IV SCH (08:00)
--- NOTE | 2018-06-06 09:33 | PDMN ---
Medical Necessity Medical necessity: Pt meets INPT criteria per MD as of 06/05/18 and MCG M-160 Sepsis, without Focal Infection (est. LOS >2 MN for eval/tx of sepsis presenting with fever, WBC 15K, BP 95/47, hyponatremia, bacterial conjunctivitis ; comorbid htn, CKD, diastolic heart failure, DM, adrenal insufficiency).
--- NOTE | 2018-06-06 09:59 | ASMTCMCOM ---
CM Note CM Note Notes: Chart reviewed. Patient is 82 year old female admitted via ED for fever and sepsis, History significant for CHF, Diabetes, DVT, Sacral ulcer surgical flap. Last dc from this facility to [facility] in March. Needs to be determined. CM to follow. Plan: TBD Date Signed: 06/06/2018 09:58 AM Electronically Signed By:Quyen Camarena RN
[2018-06-06] MEDS: Estrogens, Conjugated [Premarin] 0.45 MG PO SCH (10:03)
[2018-06-06] MEDS: RABEPRAZOLE SODIUM 20 MG PO SCH ×2 (10:03→21:48)
[2018-06-06] MEDS: INSULIN LISPRO 100 UNIT/ML SC SCH ×3 (10:03→17:46)
--- NOTE | 2018-06-06 14:15 | HOSPPROG ---
Hospitalist Progress Note Assessment/Plan: 82-year-old with a history of diabetes who comes in with fevers. She denies any change in her cough or significant shortness of breath. She denies leg swelling or pain however she does have chronic edema and venous stasis. She denies any urinary symptoms. She has recently had a lot of dental work done over the last 4 months. # fever: Unclear etiology she certainly has bilateral infiltrates consistent with atelectasis or pneumonia on her chest x-ray but no cough. She has significant pyuria but no urinary symptoms. And she has left lower extremity erythema and swelling but no pain. She does have a leukocytosis and fever. At this point I will continue to monitor her on antibiotics and follow up on her cultures. * Continue IV antibiotics * Follow up chest x-ray tomorrow * Culture urine * Follow her left lower extremity erythema # cellulitis left lower extremity. 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 X-ray does show some atelectasis/infiltrates. She has a chronic cough which she states is unchanged. Will continue to monitor her oxygen needs and continue treatment for potential pneumonia. Will change her to a fluoroquinolones. # diabetes monitor blood sugars sliding scale insulin if needed # left shoulder pain with normal range of motion, doubt any septic joint. She does have a lot of muscle spasms in her posterior cervical paraspinous muscles and will continue her Robaxin. I do not think she needs needs any imaging at this time # left wrist pain with decent range of motion but mildly tender will follow her clinically for now # adrenal insufficiency on Cortef will increase dose for acute illness given her hypotension * Increased to 40 twice daily * Follow-up blood pressure # hypothyroid, on replacement last TSH the elevated at 5, will check free T4 # history of left internal jugular clot, status post treatment with Coumadin # chronic renal failure with baseline creatinine 1.5-1.8, essentially at baseline # diastolic dysfunction # DVT prophylaxis on heparin Subjective: Patient new to me and chart reviewed. Main complaint is shoulder and wrist pain as well as left neck pain. Has chronic cough says it is unchanged, no dysuria no leg pain Objective: Vital Signs Temp Pulse Resp BP Pulse Ox 36.3 C 77 16 137/67 H 98 06/06/18 11:33 06/06/18 11:33 06/06/18 11:33 06/06/18 11:33 06/06/18 11:33 Laboratory Results 06/06/18 03:45 06/06/18 03:45 06/05/18 06/06/18 06/07/18 05:59 05:59 05:59 Intake Total 3420 400 Output Total 240 300 Balance 3180 100 PT 13.5 SEC (12.0-15.0) 06/05/18 20:35 INR 1.01 (0.83-1.16) 06/05/18 20:35 - Physical Exam Constitutional: obese Eyes: PERRL Ears, Nose, Mouth, Throat: moist mucous membranes Cardiovascular: regular rate and rhythym Respiratory: no respiratory distress, clear to auscultation, reduced air movement Gastrointestinal: soft, non-tender abdomen Genitourinary: no bladder fullness Skin: warm Musculoskeletal: generalized weakness Psychiatric: interacting appropriately ICD10 Worksheet Patient Problems: Problems Problem Status Onset Dyspnea Acute Sepsis Acute Pneumonia Acute chronic disease mgmt/transitional care Acute Hemorrhage Acute Hypotension Acute CHF (congestive heart failure) Acute Leg edema Acute MRSA (methicillin resistant Staphylococcus aureus) Acute ~11/29/16 Decubitus ulcer of buttock Acute Hypertension Chronic Hypothyroid Chronic Diabetes Chronic Chronic pain Chronic Hypertensive urgency Acute Acute renal failure Acute Adrenal insufficiency Chronic Hyponatremia Acute C. difficile diarrhea Acute 03/01/15 Hypoxemia Acute Palliative care encounter Acute ESBL (extended spectrum beta-lactamase) producing bacteria infection Acute Weakness Acute UTI (urinary tract infection) Acute Dehydration Acute Cellulitis Acute
[2018-06-06] MEDS ORDERED: METHOCARBAMOL 750 MG TAB PO PRN (14:20)
[2018-06-06] MEDS: HYDROCORTISONE 10 MG TAB PO SCH (17:53)
[2018-06-06] MEDS: MONTELUKAST SODIUM 10 MG TAB PO SCH (17:53)
[2018-06-06] MEDS: PATCH REMOVAL 1 EA PATCH TD SCH (22:02)
[2018-06-06] MEDS: VANCOMYCIN HCL/NORMAL SALINE 250 ML IV SCH (22:52)
[2018-06-07] MEDS: OFLOXACIN 0.3% 5ML OPHT DROPS RTEYE SCH ×6 (02:55→22:02)
[2018-06-07 05:27] LABS: PLATELET COUNT 160 10^3/uL (150-400)
[2018-06-07] MEDS: HEPARIN 5,000 UNIT/0.5 ML INJ SC SCH ×3 (06:05→22:03)
[2018-06-07] MEDS: LEVOTHYROXINE 100 MCG TAB PO SCH (06:05)
[2018-06-07] MEDS: LIDOCAINE 4%/MENTHOL 1% PATCH TD PRN (08:10)
[2018-06-07] MEDS: HYDROCORTISONE 10 MG TAB PO SCH ×2 (08:11→17:28)
[2018-06-07] MEDS: PREGABALIN 150 MG CAP PO SCH ×2 (08:11→20:28)
[2018-06-07] MEDS: CALCIUM CARB W/VIT D 500 MG TAB PO SCH ×2 (08:11→17:28)
[2018-06-07] MEDS: RABEPRAZOLE SODIUM 20 MG PO SCH ×2 (08:12→20:29)
[2018-06-07] MEDS: Estrogens, Conjugated [Premarin] 0.45 MG PO SCH (08:12)
[2018-06-07] MEDS: INSULIN LISPRO 100 UNIT/ML SC SCH ×3 (08:28→17:28)
--- NOTE | 2018-06-07 13:23 | HOSPPROG ---
Hospitalist Progress Note Assessment/Plan: 82-year-old with a history of diabetes who comes in with fevers. She denies any change in her cough or significant shortness of breath. She denies leg swelling or pain however she does have chronic edema and venous stasis. She denies any urinary symptoms. She has recently had a lot of dental work done over the last 4 months. # fever: Unclear etiology she certainly has bilateral infiltrates consistent with atelectasis or pneumonia on her chest x-ray but no cough. She has significant pyuria but no urinary symptoms. And she has left lower extremity erythema and swelling but no pain. She does have a leukocytosis and fever. At this point I will continue to monitor her on antibiotics and follow up on her cultures. * Continue IV antibiotics * Follow up chest x-ray * Culture urine * Follow her left lower extremity erythema # cellulitis left lower extremity. 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 # acute hypoxic respiratory failure on oxygen. X-ray does show some atelectasis/infiltrates. She has a chronic cough which she states is unchanged. Will continue to monitor her oxygen needs and continue treatment for potential pneumonia. Will change her to a fluoroquinolones. * recheck chest xray. # diabetes monitor blood sugars sliding scale insulin if needed # left shoulder pain with normal range of motion, doubt any septic joint. She does have a lot of muscle spasms in her posterior cervical paraspinous muscles and will continue her Robaxin. xray is ok. # left wrist pain with decent range of motion but mildly tender will follow her clinically for now # adrenal insufficiency on Cortef will increase dose for acute illness given her hypotension * will taper her down on the increased dose. currently on 4omg BID, will taper down to her baseline of 10BID over then next couple days. * Follow-up blood pressure # hypothyroid, on replacement last TSH the elevated at 5, will check free T4 # history of left internal jugular clot, status post treatment with Coumadin * small amount of clot noted on US, likely residual. * Will continue heparin prophylaxis. * Will curbside heme re: treatment. # chronic renal failure with baseline creatinine 1.5-1.8, essentially at baseline # diastolic dysfunction # DVT prophylaxis on heparin Subjective: pt feels tired, breathing is stable. Continues to complain of left- sided shoulder and neck pain as well as left wrist pain. Objective: Vital Signs Temp Pulse Resp BP Pulse Ox 36.4 C 90 10 L 158/79 H 92 06/07/18 11:17 06/07/18 11:17 06/07/18 11:17 06/07/18 11:17 06/07/18 11:17 Laboratory Results 06/07/18 03:40 06/07/18 03:40 06/06/18 06/07/18 06/08/18 05:59 05:59 05:59 Intake Total 3420 3037 Output Total 240 1550 Balance 3180 1487 PT 13.5 SEC (12.0-15.0) 06/05/18 20:35 INR 1.01 (0.83-1.16) 06/05/18 20:35 - Physical Exam Constitutional: no apparent distress, obese Eyes: PERRL Ears, Nose, Mouth, Throat: moist mucous membranes Cardiovascular: regular rate and rhythym, edema (Bilateral edema left greater than right with erythema) Respiratory: no respiratory distress, clear to auscultation, reduced air movement (At the bases) Gastrointestinal: soft, non-tender abdomen Genitourinary: No fernandez in urethra Skin: erythema (Left lower extremity) Musculoskeletal: generalized weakness Neurologic: AAOx3 Psychiatric: interacting appropriately ICD10 Worksheet Patient Problems: Problems Problem Status Onset Dyspnea Acute Sepsis Acute Pneumonia Acute chronic disease mgmt/transitional care Acute Hemorrhage Acute Hypotension Acute CHF (congestive heart failure) Acute Leg edema Acute MRSA (methicillin resistant Staphylococcus aureus) Acute ~11/29/16 Decubitus ulcer of buttock Acute Hypertension Chronic Hypothyroid Chronic Diabetes Chronic Chronic pain Chronic Hypertensive urgency Acute Acute renal failure Acute Adrenal insufficiency Chronic Hyponatremia Acute C. difficile diarrhea Acute 03/01/15 Hypoxemia Acute Palliative care encounter Acute ESBL (extended spectrum beta-lactamase) producing bacteria infection Acute Weakness Acute UTI (urinary tract infection) Acute Dehydration Acute Cellulitis Acute
[2018-06-07] MEDS: oxyCODONE IR 5 MG TAB PO PRN ×2 (13:44→18:37)
[2018-06-07] MEDS: ACETAMINOPHEN 325 MG TAB PO PRN ×2 (13:44→18:37)
--- NOTE | 2018-06-07 16:52 | PCMIDPN ---
Assessment/Plan: Assessment/Plan: * Fever/leukocytosis: Most likely etiology is left lower extremity cellulitis. Patient with prior history of MRSA colonization. Repeat chest x-ray does not show features to suggest active pneumonia. In the absence of urinary symptoms, suspect UTI less likely contributing although she does have pyuria. Will continue vancomycin given prior history of MRSA. Elevate left lower extremity on 2 pillows. Will assess vancomycin trough today given baseline underlying chronic renal insufficiency. Continue to follow up blood cultures as well as white blood cell count and clinical findings over time. Initiate contact precautions as MRSA isolation was less than 1 year ago. * Left wrist pain: Suspect this is due to pseudogout based on prior history of pseudogout. Do not think findings related to septic arthritis. * Pulmonary infiltrates: Initial chest x-ray with possible bibasilar infiltrates which now have resolved. Suspect most likely related to atelectasis rather than pneumonia. Will discontinue levofloxacin based on this finding and prior history of C difficile would be of utility to avoid broad- spectrum antibiotics if feasible. * History of C difficile: No active diarrhea currently. Continue to follow. Time spent, greater than 35 min, which greater than half was spent in education/ counseling/coordination of care related to fever and leukocytosis as well as other problems in the assessment plan. Care coordinated with Dr. Alfonso and nursing staff as well as with patient and family. 06/07/18 16:48 Subjective: Patient known to me from prior care for bilateral lower extremity cellulitis in July. Initial Infectious Disease consultation at that time and my follow-up note were reviewed today. Patient with prior history of MRSA from wound culture in July. Now admitted with approximately 2-3 days of fever and chills. Associated with increasing redness over left lower extremity as well as left wrist and shoulder pain. No dysuria, urgency or frequency. No nausea, vomiting or diarrhea although she did have this preceding onset of fever with resolution prior to onset of fever. Patient empirically on vancomycin and levofloxacin for treatment of skin and soft tissue infection as well as possibility of pneumonia. She notes that she has chronic cough but has not experienced any worsening cough or shortness of breath. Patient also with known history of pseudogout in past. She believes this was in the shoulder but not the wrist. Given the above findings, Infectious Disease is now requested to assist in her ongoing management. Objective: Vital Signs Temp Pulse Resp BP Pulse Ox 36.7 C 93 18 168/102 H 95 06/07/18 16:13 06/07/18 16:13 06/07/18 16:13 06/07/18 16:13 06/07/18 16:13 Laboratory Results 06/07/18 03:40 06/07/18 03:40 06/06/18 06/07/18 06/08/18 05:59 05:59 05:59 Intake Total 3420 3037 480 Output Total 240 1550 500 Balance 3180 1487 -20 Vancomycin # 2 Levofloxacin # 1 Status post cefepime Blood cultures x2 no growth to date Urine culture pending Laboratory Tests 06/07/18 03:40 Total Bilirubin 0.6 AST 26 ALT 30 Alkaline Phosphatase 67 Chest x-ray with increased pulmonary vascularity - Physical Exam General Appearance: alert, no apparent distress, non-toxic EENT: No scleral icterus, No thrush, No conjunctival petechiae (Mild bilateral conjunctival injection) Respiratory: crackles (Bilateral bases), No respiratory distress Cardiac/Chest: regular rate, rhythm Extremities: inflammation (Left lower extremity with erythema laterally with small streak of lymphangitis lateral to knee; mild warmth without significant tenderness; edema present; no fluctuance or bulla; large with well-healed scar and skin graft medially) Skin: No embolic lesions Neuro/Psych: No confused ICD10 Worksheet Patient Problems: Problems Problem Status Onset Hyponatremia Acute Pneumonia Acute Acute renal failure Acute C. difficile diarrhea Acute 03/01/15 CHF (congestive heart failure) Acute Cellulitis Acute Decubitus ulcer of buttock Acute Dehydration Acute Dyspnea Acute ESBL (extended spectrum beta-lactamase) producing bacteria infection Acute Hemorrhage Acute Hypertensive urgency Acute Hypotension Acute Hypoxemia Acute Leg edema Acute MRSA (methicillin resistant Staphylococcus aureus) Acute ~11/29/16 Palliative care encounter Acute Sepsis Acute UTI (urinary tract infection) Acute Weakness Acute chronic disease mgmt/transitional care Acute Adrenal insufficiency Chronic Chronic pain Chronic Diabetes Chronic Hypertension Chronic Hypothyroid Chronic
[2018-06-07] MEDS: MONTELUKAST SODIUM 10 MG TAB PO SCH (17:28)
[2018-06-07] MEDS: PATCH REMOVAL 1 EA PATCH TD SCH (21:56)
[2018-06-07] MEDS: VANCOMYCIN HCL/NORMAL SALINE 250 ML IV SCH (21:57)
[2018-06-08] MEDS: oxyCODONE IR 5 MG TAB PO PRN ×4 (00:41→18:16)
[2018-06-08] MEDS: OFLOXACIN 0.3% 5ML OPHT DROPS RTEYE SCH ×6 (01:48→21:43)
[2018-06-08] MEDS: ACETAMINOPHEN 325 MG TAB PO PRN ×2 (03:38→11:39)
[2018-06-08 04:31] LABS: PLATELET COUNT 186 10^3/uL (150-400)
[2018-06-08] MEDS: LEVOTHYROXINE 100 MCG TAB PO SCH (05:12)
[2018-06-08] MEDS: HEPARIN 5,000 UNIT/0.5 ML INJ SC SCH ×3 (05:13→21:40)
[2018-06-08] MEDS ORDERED: LABETALOL HCL 100 MG TAB PO SCH (09:00)
[2018-06-08] MEDS: LIDOCAINE 4%/MENTHOL 1% PATCH TD PRN (09:09)
[2018-06-08] MEDS: PREGABALIN 150 MG CAP PO SCH ×2 (09:11→21:44)
[2018-06-08] MEDS: CALCIUM CARB W/VIT D 500 MG TAB PO SCH ×2 (09:11→17:55)
[2018-06-08] MEDS: metFORMIN HCL 500 MG TAB PO SCH ×2 (09:11→17:54)
[2018-06-08] MEDS: LOSARTAN POTASSIUM 50 MG TAB PO SCH (09:11)
[2018-06-08] MEDS: HYDROCORTISONE 10 MG TAB PO SCH ×2 (09:12→17:55)
[2018-06-08] MEDS: INSULIN LISPRO 100 UNIT/ML SC SCH ×3 (09:50→17:52)
--- NOTE | 2018-06-08 11:06 | PCMIDPN ---
Assessment/Plan: Assessment: Probable left lower extremity cellulitis. Patient with a history of MRSA colonization and indeed her urine culture shows colonization with MRSA this visit as well although in low colony counts which does not support urinary tract infection. Patient is on vancomycin monotherapy which would cover the left lower extremity cellulitis as well as a possible urinary tract infection. Trough levels are fine at 8.7. Plan to continue her vancomycin monotherapy and follow clinically over time. Plan: 1. Continue empiric vancomycin at present dose. 2. Follow up on appearance of left lower extremity. Subjective: Patient is resting comfortably in her hospital bed. She states she feels better than she did on admission. No new fevers. No new complaints about her left leg. Objective: Vancomycin # 3 Vital Signs Temp Pulse Resp BP Pulse Ox 36.7 C 89 18 200/106 H 94 06/08/18 07:15 06/08/18 07:15 06/08/18 07:15 06/08/18 07:15 06/08/18 07:15 Microbiology 06/06/18 06:00 Urine Culture - Final Urine,Clean Catch MRSA Laboratory Results 06/08/18 03:32 06/08/18 03:32 06/07/18 06/08/18 06/09/18 05:59 05:59 05:59 Intake Total 3037 480 Output Total 1550 4100 Balance 1487 -3620 - Physical Exam General Appearance: WD/WN, alert, no apparent distress, non-toxic Respiratory: lungs clear, normal breath sounds, No respiratory distress Cardiac/Chest: regular rate, rhythm, No tachycardia Skin: normal color, warm/dry, rash, erythema (Left lower extremity distal lower leg) Neuro/Psych: alert, normal mood/affect, oriented x 3 ICD10 Worksheet Patient Problems: Problems Problem Status Onset Hyponatremia Acute Pneumonia Acute Acute renal failure Acute C. difficile diarrhea Acute 03/01/15 CHF (congestive heart failure) Acute Cellulitis Acute Decubitus ulcer of buttock Acute Dehydration Acute Dyspnea Acute ESBL (extended spectrum beta-lactamase) producing bacteria infection Acute Hemorrhage Acute Hypertensive urgency Acute Hypotension Acute Hypoxemia Acute Leg edema Acute MRSA (methicillin resistant Staphylococcus aureus) Acute ~11/29/16 Palliative care encounter Acute Sepsis Acute UTI (urinary tract infection) Acute Weakness Acute chronic disease mgmt/transitional care Acute Adrenal insufficiency Chronic Chronic pain Chronic Diabetes Chronic Hypertension Chronic Hypothyroid Chronic
--- NOTE | 2018-06-08 14:01 | ASMTCMCOM ---
CM Note CM Note Notes: 06/08/2018 Case Management Note Met w/pt to discuss PT recommendation for SNF rehab. Pt in agreement. Faxed referrals to [facility] in [place] and [facility] in [place]. Pt has previous stay at [facility] in Nov. Provided brochures and list of SNF options. Discussed with MD. Anticipating d/c mid week. Case Management d/c poc: SNF rehab Case Management to follow. Date Signed: 06/08/2018 02:00 PM Electronically Signed By:Corrina Burkett RN
[2018-06-08] MEDS ORDERED: LACTULOSE 20 GM/30 ML UDCUP PO PRN (16:00)
[2018-06-08] MEDS ORDERED: MAGNESIUM HYDROXIDE 30 ML UDCUP PO PRN (16:00)
[2018-06-08] MEDS ORDERED: BISACODYL 10 MG SUPP PR PRN (16:00)
[2018-06-08] MEDS ORDERED: POLYETHYLENE GLYCOL 3350 17 GM PKT PO PRN (16:00)
[2018-06-08] MEDS: Estrogens, Conjugated [Premarin] 0.45 MG PO SCH (16:21)
--- NOTE | 2018-06-08 16:28 | HOSPPROG ---
Hospitalist Progress Note Assessment/Plan: 82-year-old with a history of diabetes who comes in with fevers. She denies any change in her cough or significant shortness of breath. She denies leg swelling or pain however she does have chronic edema and venous stasis. She denies any urinary symptoms. She has recently had a lot of dental work done over the last 4 months. # fever: Likely cellulitis, resolved # cellulitis left lower extremity. 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 # acute hypoxic respiratory failure on oxygen. X-ray does show some atelectasis/infiltrates. She has a chronic cough which she states is unchanged. Will continue to monitor her oxygen needs and continue treatment for potential pneumonia. Will change her to a fluoroquinolones. * chest xray looks slightly fluid long will give some lasix. # diabetes monitor blood sugars sliding scale insulin if needed # left shoulder pain with normal range of motion, doubt any septic joint. She does have a lot of muscle spasms in her posterior cervical paraspinous muscles and will continue her Robaxin. xray is ok. # left wrist pain with decent range of motion but mildly tender will follow her clinically for now # adrenal insufficiency on Cortef will increase dose for acute illness given her hypotension * will taper her down on the increased dose. currently on 4omg BID, will taper down to her baseline of 10BID over then next couple days. * Follow-up blood pressure # hypothyroid, on replacement last TSH the elevated at 5, will check free T4 # history of left internal jugular clot, status post treatment with Coumadin * small amount of clot noted on US, likely residual. * Will continue heparin prophylaxis. * Will curbside heme re: treatment. # chronic renal failure with baseline creatinine 1.5-1.8, essentially at baseline # diastolic dysfunction # DVT prophylaxis on heparin Subjective: still with shoulder pain Objective: Vital Signs Temp Pulse Resp BP Pulse Ox 36.6 C 91 16 196/113 H 97 06/08/18 15:55 06/08/18 15:55 06/08/18 15:55 06/08/18 15:55 06/08/18 15:55 Microbiology 06/06/18 06:00 Urine Culture - Final Urine,Clean Catch MRSA Laboratory Results 06/08/18 03:32 06/08/18 03:32 06/07/18 06/08/18 06/09/18 05:59 05:59 05:59 Intake Total 3037 480 840 Output Total 1550 4100 Balance 1487 -3620 840 PT 13.5 SEC (12.0-15.0) 06/05/18 20:35 INR 1.01 (0.83-1.16) 06/05/18 20:35 - Physical Exam Constitutional: obese Eyes: PERRL Cardiovascular: regular rate and rhythym, systolic murmur Respiratory: no respiratory distress, inspiratory crackles (bases) Gastrointestinal: normoactive bowel sounds Genitourinary: no bladder fullness Skin: warm, erythema (lle) Musculoskeletal: generalized weakness Neurologic: AAOx3 Psychiatric: interacting appropriately ICD10 Worksheet Patient Problems: Problems Problem Status Onset Dyspnea Acute Sepsis Acute Pneumonia Acute chronic disease mgmt/transitional care Acute Hemorrhage Acute Hypotension Acute CHF (congestive heart failure) Acute Leg edema Acute MRSA (methicillin resistant Staphylococcus aureus) Acute ~11/29/16 Decubitus ulcer of buttock Acute Hypertension Chronic Hypothyroid Chronic Diabetes Chronic Chronic pain Chronic Hypertensive urgency Acute Acute renal failure Acute Adrenal insufficiency Chronic Hyponatremia Acute C. difficile diarrhea Acute 03/01/15 Hypoxemia Acute Palliative care encounter Acute ESBL (extended spectrum beta-lactamase) producing bacteria infection Acute Weakness Acute UTI (urinary tract infection) Acute Dehydration Acute Cellulitis Acute
[2018-06-08] MEDS ORDERED: FUROSEMIDE 40 MG/4 ML VIAL IVP ONE (16:30)
[2018-06-08] MEDS: METHOCARBAMOL 750 MG TAB PO SCH ×2 (17:54→21:42)
[2018-06-08] MEDS: RABEPRAZOLE SODIUM 20 MG PO SCH ×2 (17:57→18:30)
[2018-06-08] MEDS: hydrALAZINE 20 MG/ML VIAL IVP PRN (18:02)
[2018-06-08] MEDS: MONTELUKAST SODIUM 10 MG TAB PO SCH (18:10)
[2018-06-08] MEDS ORDERED: amLODIPine BESYLATE 5 MG TAB PO SCH (21:00)
[2018-06-08] MEDS ORDERED: METHOCARBAMOL 750 MG TAB PO SCH (21:00)
[2018-06-08] MEDS: LABETALOL HCL 100 MG TAB PO SCH (21:41)
[2018-06-08] MEDS: PATCH REMOVAL 1 EA PATCH TD SCH (21:44)
[2018-06-08] MEDS: SENNOSIDES/DOCUSATE SODIUM TAB PO SCH (21:44)
[2018-06-08] MEDS: VANCOMYCIN HCL/NORMAL SALINE 250 ML IV SCH (21:46)
[2018-06-09] MEDS: OFLOXACIN 0.3% 5ML OPHT DROPS RTEYE SCH ×6 (02:20→22:14)
[2018-06-09] MEDS: HEPARIN 5,000 UNIT/0.5 ML INJ SC SCH ×3 (05:31→22:14)
[2018-06-09] MEDS: ACETAMINOPHEN 325 MG TAB PO PRN (05:31)
[2018-06-09] MEDS: METHOCARBAMOL 750 MG TAB PO SCH ×4 (05:32→22:07)
[2018-06-09] MEDS: LEVOTHYROXINE 100 MCG TAB PO SCH (05:32)
[2018-06-09] MEDS: RABEPRAZOLE SODIUM 20 MG PO SCH ×2 (06:21→18:06)
[2018-06-09] MEDS: LABETALOL HCL 100 MG TAB PO SCH ×2 (07:58→22:08)
[2018-06-09] MEDS: HYDROCORTISONE 10 MG TAB PO SCH ×2 (07:59→18:05)
[2018-06-09] MEDS: INSULIN LISPRO 100 UNIT/ML SC SCH ×3 (08:00→18:04)
[2018-06-09] MEDS: metFORMIN HCL 500 MG TAB PO SCH ×2 (08:00→18:05)
[2018-06-09] MEDS: CALCIUM CARB W/VIT D 500 MG TAB PO SCH ×2 (08:01→18:05)
[2018-06-09] MEDS: LOSARTAN POTASSIUM 50 MG TAB PO SCH (08:01)
[2018-06-09] MEDS: Estrogens, Conjugated [Premarin] 0.45 MG PO SCH (08:03)
[2018-06-09] MEDS: PREGABALIN 150 MG CAP PO SCH ×2 (08:09→22:08)
[2018-06-09] MEDS: SENNOSIDES/DOCUSATE SODIUM TAB PO SCH ×2 (08:09→22:08)
[2018-06-09] MEDS: LIDOCAINE 4%/MENTHOL 1% PATCH TD PRN (08:10)
[2018-06-09] MEDS: oxyCODONE IR 5 MG TAB PO PRN ×2 (08:31→12:47)
--- NOTE | 2018-06-09 11:59 | ASMTCMCOM ---
CM Note CM Note Notes: CM met w/ pt for dispo planning. [facility] and [facility] have both accepted. Pt would like to d/c to [facility] when medically stable. Updates sent to [facility]. CM notified [facility] that pt will be going to another facility. CM to follow. Plan: [facility] Date Signed: 06/09/2018 11:59 AM Electronically Signed By:ABRAN Feliz
--- NOTE | 2018-06-09 13:34 | HOSPPROG ---
Hospitalist Progress Note Assessment/Plan: 82-year-old with a history of diabetes who comes in with fevers. She denies any change in her cough or significant shortness of breath. She denies leg swelling or pain however she does have chronic edema and venous stasis. She denies any urinary symptoms. She has recently had a lot of dental work done over the last 4 months. # fever: Likely cellulitis, resolved # cellulitis left lower extremity. 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 * Possibly can complete coarse on PO abx, will defer to ID # acute hypoxic respiratory failure on oxygen. X-ray does show some atelectasis/infiltrates. She has a chronic cough which she states is unchanged. Will continue to monitor her oxygen needs and continue treatment for potential pneumonia. Will change her to a fluoroquinolones. * improved oxygen needs after lasix, will give additional dose today # diabetes monitor blood sugars sliding scale insulin if needed # left shoulder pain with normal range of motion, doubt any septic joint. She does have a lot of muscle spasms in her posterior cervical paraspinous muscles and will continue her Robaxin. xray is ok. Pain located on neck primarily and not shoulder joint, no improvement with steroid, muscle relaxants or lidoderm. * check MRI of c spine # left wrist pain with decent range of motion but mildly tender will follow her clinically for now, improved with increased steroids, likely pseudogout. # adrenal insufficiency on Cortef will increase dose for acute illness given her hypotension * will taper her down on the increased dose. decrease to 20 bid and dc on usual dose of 10bid at discharge. * Follow-up blood pressure # hypothyroid, on replacement last TSH the elevated at 5, will check free T4 # history of left internal jugular clot, status post treatment with Coumadin * small amount of clot noted on US, likely residual. * Will continue heparin prophylaxis. * doubt acute clot and doesn't need treatment, will check MRI of neck. doubt related. # chronic renal failure with baseline creatinine 1.5-1.8, essentially at baseline # diastolic dysfunction # DVT prophylaxis on heparin Subjective: stil complaining of left neck/shoulder pain, primarily neck Objective: Vital Signs Temp Pulse Resp BP Pulse Ox 36.3 C 83 18 154/78 H 95 06/09/18 11:47 06/09/18 11:47 06/09/18 11:47 06/09/18 11:47 06/09/18 11:47 Microbiology 06/06/18 06:00 Urine Culture - Final Urine,Clean Catch MRSA Laboratory Results 06/08/18 03:32 06/08/18 03:32 06/08/18 06/09/18 06/10/18 05:59 05:59 05:59 Intake Total 480 1490 Output Total 4100 725 600 Balance -3620 765 -600 PT 13.5 SEC (12.0-15.0) 06/05/18 20:35 INR 1.01 (0.83-1.16) 06/05/18 20:35 - Physical Exam Constitutional: obese Eyes: PERRL, EOMI Ears, Nose, Mouth, Throat: moist mucous membranes Cardiovascular: regular rate and rhythym Respiratory: no respiratory distress, inspiratory crackles Gastrointestinal: soft, non-tender abdomen Genitourinary: no bladder fullness Skin: warm, normal color Musculoskeletal: normal joint ROM (left shoulder), other (neck with decreased ROM and tenderness lateral neck/paraspinal on left. no masses noted.) Neurologic: AAOx3 Psychiatric: interacting appropriately, not anxious Lymph, Heme, Immunologic: no cervical LAD ICD10 Worksheet Patient Problems: Problems Problem Status Onset Dyspnea Acute Sepsis Acute Pneumonia Acute chronic disease mgmt/transitional care Acute Hemorrhage Acute Hypotension Acute CHF (congestive heart failure) Acute Leg edema Acute MRSA (methicillin resistant Staphylococcus aureus) Acute ~11/29/16 Decubitus ulcer of buttock Acute Hypertension Chronic Hypothyroid Chronic Diabetes Chronic Chronic pain Chronic Hypertensive urgency Acute Acute renal failure Acute Adrenal insufficiency Chronic Hyponatremia Acute C. difficile diarrhea Acute 03/01/15 Hypoxemia Acute Palliative care encounter Acute ESBL (extended spectrum beta-lactamase) producing bacteria infection Acute Weakness Acute UTI (urinary tract infection) Acute Dehydration Acute Cellulitis Acute
--- NOTE | 2018-06-09 17:57 | PCMIDPN ---
Assessment/Plan: Fever, leukocytosis and ARF at admit due to Possible LLE cellulitis: minimal changes remain or UTI with UCx + MRSA: blood cx remain negative, unclear if colonization or infection, no symptoms described today. Now on RA, doubt PNA Cr 1.1 today down from 1.7 1) currently on Vancomycin 1gm IV daily, trough on 06/07 ok. Cr continues to improve 2) PO stepdown difficult due to resistance pattern of MRSA, consider short course, possibly 7 days IV vancomycin 3) contact precautions meds Vancomycin 1gm IV daily #5 Subjective: L neck pain w/o associated weakness since hospitalization States that R eye swelling, loss of VA was reason for admit, but now resolved chronic diarrhea but states improved today Objective: Vital Signs Temp Pulse Resp BP Pulse Ox 36.7 C 86 18 147/65 H 97 06/09/18 16:10 06/09/18 16:10 06/09/18 16:10 06/09/18 16:10 06/09/18 16:10 Laboratory Results 06/08/18 03:32 06/08/18 03:32 06/08/18 06/09/18 06/10/18 05:59 05:59 05:59 Intake Total 480 1490 Output Total 4100 725 600 Balance -3620 765 -600 - Physical Exam General Appearance: alert, no apparent distress, obese, non-toxic EENT: other (no facial swelling or redness), No thrush Respiratory: lungs clear, No accessory muscle use Neck: supple Cardiac/Chest: regular rate, rhythm Extremities: inflammation (L anterior real w mild warmth associated. Posterior medial calf with healed incision) Abdomen: non-tender, soft Pelvic Exam: No fernandez Skin: No rash Neuro/Psych: alert, normal mood/affect, oriented x 3 - Time Spent With Patient Time Spent with Patient: greater than 25 minutes Time Spent with Patient: Greater than 25 minutes spent on this patients care, greater than 50% of time spent counseling, educating, and coordinating care regarding the above mentioned plan. ICD10 Worksheet Patient Problems: Problems Problem Status Onset Hyponatremia Acute Pneumonia Acute Acute renal failure Acute C. difficile diarrhea Acute 03/01/15 CHF (congestive heart failure) Acute Cellulitis Acute Decubitus ulcer of buttock Acute Dehydration Acute Dyspnea Acute ESBL (extended spectrum beta-lactamase) producing bacteria infection Acute Hemorrhage Acute Hypertensive urgency Acute Hypotension Acute Hypoxemia Acute Leg edema Acute MRSA (methicillin resistant Staphylococcus aureus) Acute ~11/29/16 Palliative care encounter Acute Sepsis Acute UTI (urinary tract infection) Acute Weakness Acute chronic disease mgmt/transitional care Acute Adrenal insufficiency Chronic Chronic pain Chronic Diabetes Chronic Hypertension Chronic Hypothyroid Chronic
[2018-06-09] MEDS: MONTELUKAST SODIUM 10 MG TAB PO SCH (18:13)
[2018-06-09] MEDS: VANCOMYCIN HCL/NORMAL SALINE 250 ML IV SCH (22:07)
[2018-06-09] MEDS: PATCH REMOVAL 1 EA PATCH TD SCH (22:13)
[2018-06-10] MEDS: ACETAMINOPHEN 325 MG TAB PO PRN (00:27)
[2018-06-10] MEDS: OFLOXACIN 0.3% 5ML OPHT DROPS RTEYE SCH ×6 (03:08→21:55)
[2018-06-10] MEDS: HEPARIN 5,000 UNIT/0.5 ML INJ SC SCH ×3 (06:16→21:55)
[2018-06-10] MEDS: METHOCARBAMOL 750 MG TAB PO SCH ×4 (06:16→21:54)
[2018-06-10] MEDS: LEVOTHYROXINE 100 MCG TAB PO SCH (06:16)
[2018-06-10] MEDS: RABEPRAZOLE SODIUM 20 MG PO SCH ×2 (06:16→18:03)
[2018-06-10] MEDS: SENNOSIDES/DOCUSATE SODIUM TAB PO SCH ×2 (08:42→21:55)
[2018-06-10] MEDS: CALCIUM CARB W/VIT D 500 MG TAB PO SCH ×2 (08:42→18:02)
[2018-06-10] MEDS: LABETALOL HCL 100 MG TAB PO SCH ×2 (08:42→21:54)
[2018-06-10] MEDS: LOSARTAN POTASSIUM 50 MG TAB PO SCH (08:43)
[2018-06-10] MEDS: PREGABALIN 150 MG CAP PO SCH ×2 (08:43→21:54)
[2018-06-10] MEDS: HYDROCORTISONE 10 MG TAB PO SCH ×2 (08:43→18:02)
[2018-06-10] MEDS: metFORMIN HCL 500 MG TAB PO SCH ×2 (08:43→18:02)
[2018-06-10] MEDS: INSULIN LISPRO 100 UNIT/ML SC SCH ×3 (08:44→18:15)
[2018-06-10] MEDS: Estrogens, Conjugated [Premarin] 0.45 MG PO SCH (08:45)
--- NOTE | 2018-06-10 11:01 | NEUSURGPN ---
Assessment/Plan: 82 yo female with neck pain/spasms. No UE symptoms. Admitted for fever and LLE cellulitis. ID following. On IV vancomycin MRI C-spine with degenerative changes most notably at C3/4 with stenosis - No surgical intervention advised at this time - Recommend PT/OT, muscle relaxants, NSAIDs/Tylenol, heat/ice - Once infection clears we can discuss the possibility of an KRISTOPHER for further neck pain relief - Patient may follow up as an outpatient. Will sign off and follow peripherally. Full consult note dictated. Patient seen by myself and Dr. Cintron. Subjective: Has chronic neck pain and spasms. Objective: Awake. Alert. PERRL. EOMI Facial expression symmetrical Muscle strength full at 5/5 Sensation intact - Physician Patient Seen by : [facility] Physical Exam - Vitals, I&O, Labs I and O 06/09/18 06/10/18 06/11/18 05:59 05:59 05:59 Intake Total 1490 Output Total 725 1100 Balance 765 -1100 Intake: Oral (ml) 1240 IV Infused (ml) 250 Vancomycin HCl/Normal 250 Saline 250 ml @ 250 mls/ hr IV Q24H [facility] Rx#: [id number] Output: Urine (ml) 725 1100 Incontinence 725 300 Toilet 800 Other: Intake Quantity Yes Yes Sufficient Output Comment Incontinence leaking around external catheter Number of Voids Incontinence 1 2 Toilet 1 Number of Stools Incontinence 1 Vital Signs Temp Pulse Resp BP Pulse Ox 36.9 C 77 18 177/90 H 99 06/10/18 08:39 06/10/18 08:42 06/10/18 08:39 06/10/18 08:43 06/10/18 08:39 Laboratory Results 06/08/18 03:32 06/08/18 03:32 ICD10 Worksheet Patient Problems: Problems Problem Status Onset Hyponatremia Acute Pneumonia Acute Acute renal failure Acute C. difficile diarrhea Acute 03/01/15 CHF (congestive heart failure) Acute Cellulitis Acute Decubitus ulcer of buttock Acute Dehydration Acute Dyspnea Acute ESBL (extended spectrum beta-lactamase) producing bacteria infection Acute Hemorrhage Acute Hypertensive urgency Acute Hypotension Acute Hypoxemia Acute Leg edema Acute MRSA (methicillin resistant Staphylococcus aureus) Acute ~11/29/16 Palliative care encounter Acute Sepsis Acute UTI (urinary tract infection) Acute Weakness Acute chronic disease mgmt/transitional care Acute Adrenal insufficiency Chronic Chronic pain Chronic Diabetes Chronic Hypertension Chronic Hypothyroid Chronic
[2018-06-10] MEDS: LIDOCAINE 4%/MENTHOL 1% PATCH TD PRN (11:47)
--- NOTE | 2018-06-10 12:32 | GCON ---
DATE OF CONSULTATION: 06/10/2018 HISTORY OF PRESENT ILLNESS: The patient is an 82-year-old female who presented to the hospital due t o fevers. According to the patient, she came to the hospital because she was confused and her husban d felt that she should come in. In reviewing the chart, patient was experiencing right eye swelling and shoulder pain. She is also experiencing neck pain that is at a tolerable level. Admits to inter mittent spasms. No upper extremity numbness, tingling, weakness, or pain. No lower extremity sympto ms. She has been using a walker for a while. She denies feeling off balance or unsteady when ambula ting. Denies falls. Admits to urinary urgency. PAST MEDICAL HISTORY: CHF, diabetes, DVT, GERD, hypertension, hyperlipidemia, asthma, spinal stenosi s, obstructive sleep apnea, irritable bowel syndrome, pituitary microadenoma, chronic kidney disease, pseudogout. PAST SURGICAL HISTORY: Left total hip replacement, diskectomy, right carpal tunnel release, basal ce ll carcinoma, breast lumpectomy. FAMILY HISTORY: No pertinent neurosurgical family history. SOCIAL HISTORY: Patient denies tobacco use. Currently resides in assisted living with her . REVIEW OF SYSTEMS: Negative, except for what is stated in the HPI. ALLERGIES: Bacitracin, Neosporin, Nexium, Prevacid, Prilosec, Protonix, Zantac. CURRENT HOME MEDICATIONS: Vitamin C, calcium carbonate with vitamin D, vitamin D3, vitamin B12, Rogelio geena, Flonase, multivitamin, Cortef, labetalol, Synthroid, Cozaar, Robaxin, Singulair, multivitamin, Lyrica, amlodipine, Glucophage. PHYSICAL EXAM: GENERAL: Patient was seen and examined, appears to be in no apparent distress. Mood and affect are appropriate. Alert and oriented. VITAL SIGNS: Blood pressure 177/90, heart rate 77 , respiration is 18, breathing 99% on 2 L nasal cannula, temperature 36.9. NEUROLOGIC: Extraocular movements are intact. Pupils equal and reactive. Facial expression is symmetrical. Tongue is midli ne with protrusion. Hearing is grossly intact. Speech is fluent without dysarthria. Muscle strengt h is well preserved in the upper and lower extremities at a 5/5. Sensation is intact to light touch. RESULTS: White count 8.29, hemoglobin 10.8, hematocrit 34.0, platelet count 186. PT 13.5, INR 1.01, PTT 37.9. MRI of the cervical spine: Prominent multilevel degenerative changes. There has been progression in canal stenosis and cord compression at C3, C4 with associated neuroforaminal impingement, disk herni ation at C7, T1 resulting in canal stenosis and cord compression. ASSESSMENT/PLAN: In summary, the patient is an 82-year-old female with neck pain and spasms without any upper extremity symptoms or myelopathic signs on exam. Patient's MRI of the cervical spine was r eviewed by myself and Dr. Charlotte Cintron. She has multilevel degenerative changes, most notably at C3, 4 with central stenosis. Patient is currently being treated for cellulitis and is on intravenous an tibiotics. At this point in time for her neck pain, we recommend conservative treatment with physical and occupa tional therapy, heat, ice, and anti-inflammatories or Tylenol. Once her infection clears, we can see her as an outpatient in the office to determine if she would benefit from any steroid injections to help further alleviate her ongoing neck pain. At this point in time, we do not feel she requires any surgical intervention with a decompression and fusion. The patient was seen by myself and Dr. Charlotte Cintron. She may follow up with us as an outpatient. We will sign off and follow peripherally. /[id number]/MODL
--- NOTE | 2018-06-10 14:18 | HOSPPROG ---
Hospitalist Progress Note Assessment/Plan: 82-year-old with a history of diabetes who comes in with fevers. She denies any change in her cough or significant shortness of breath. She denies leg swelling or pain however she does have chronic edema and venous stasis. She denies any urinary symptoms. She has recently had a lot of dental work done over the last 4 months. First encounter, chart reviewed. # fever: -cellulitis vs UTI with cx MRSA -cont Vanco -D/W Dr Barone # cellulitis left lower extremity. - History of MRSA will continue Vanco -Seems like the cause of fever, but minimal pain -improved # acute hypoxic respiratory failure -resolved -She has a chronic cough which she states is unchanged. -Will continue to monitor her oxygen needs -improved oxygen needs after lasix, # diabetes monitor blood sugars sliding scale insulin if needed # left shoulder pain with normal range of motion -She does have a lot of muscle spasms in her posterior cervical paraspinous muscles and will continue her Robaxin. -xray is ok. - Pain located on neck primarily and not shoulder joint, no improvement with steroid, muscle relaxants or lidoderm. -MRI of c spine shows changes -neurosurgery consult -likely conservative treatment # left wrist pain with decent range of motion but mildly tender will follow her clinically for now, improved with increased steroids, -likely pseudogout. # adrenal insufficiency on Cortef will increase dose for acute illness given her hypotension -will taper her down on the increased dose. decrease to 20 bid and dc on usual dose of 10bid at discharge. -Follow-up blood pressure # hypothyroid, -on replacement last TSH the elevated at 5 # history of left internal jugular clot, status post treatment with Coumadin -small amount of clot noted on US, likely residual. -Will continue heparin prophylaxis. -doubt acute clot and doesn't need treatment, will check MRI of neck. doubt related. # chronic renal failure with baseline creatinine 1.5-1.8, -essentially at baseline # diastolic dysfunction # DVT prophylaxis on heparin #Dispo -likely soon -await ID recs for treatment, IV vs PO abx -check labs Subjective: Up in the chair. Feels well. No pain. Still weak. Objective: Vital Signs Temp Pulse Resp BP Pulse Ox 37.1 C 85 18 112/56 L 96 06/10/18 11:28 06/10/18 11:28 06/10/18 11:28 06/10/18 11:28 06/10/18 11:28 Laboratory Results 06/08/18 03:32 06/08/18 03:32 06/09/18 06/10/18 06/11/18 05:59 05:59 05:59 Intake Total 1490 Output Total 725 1100 Balance 765 -1100 PT 13.5 SEC (12.0-15.0) 06/05/18 20:35 INR 1.01 (0.83-1.16) 06/05/18 20:35 - Physical Exam Constitutional: appears nourished, chronically ill appearing, obese Eyes: PERRL, anicteric sclera, EOMI Ears, Nose, Mouth, Throat: moist mucous membranes, hearing normal, ears appear normal Cardiovascular: regular rate and rhythym, No JVD, No edema Respiratory: no respiratory distress, no rales or rhonchi, reduced air movement Gastrointestinal: normoactive bowel sounds, No tenderness, No ascites Skin: warm, normal color, No mottled Musculoskeletal: normal joint ROM, no joint effusions, generalized weakness Neurologic: AAOx3 Psychiatric: interacting appropriately, not anxious, not encephalopathic ICD10 Worksheet Patient Problems: Problems Problem Status Onset Dyspnea Acute Sepsis Acute Pneumonia Acute chronic disease mgmt/transitional care Acute Hemorrhage Acute Hypotension Acute CHF (congestive heart failure) Acute Leg edema Acute MRSA (methicillin resistant Staphylococcus aureus) Acute ~11/29/16 Decubitus ulcer of buttock Acute Hypertension Chronic Hypothyroid Chronic Diabetes Chronic Chronic pain Chronic Hypertensive urgency Acute Acute renal failure Acute Adrenal insufficiency Chronic Hyponatremia Acute C. difficile diarrhea Acute 03/01/15 Hypoxemia Acute Palliative care encounter Acute ESBL (extended spectrum beta-lactamase) producing bacteria infection Acute Weakness Acute UTI (urinary tract infection) Acute Dehydration Acute Cellulitis Acute
--- NOTE | 2018-06-10 17:34 | PCMIDPN ---
Assessment/Plan: Assessment/Plan: * Fever/leukocytosis: No clearly defined etiology although considerations include left lower extremity cellulitis versus UTI although no urinary tract symptoms present at time of presentation making this less likely. Patient now clinically improved with vancomycin therapy. Will complete 7 days of therapy with last date being tomorrow. Have reviewed with pharmacy with plans to dose earlier in the day to allow for hospital discharge with slightly lower dose of 750 mg. Creatinine remains stable on vancomycin therapy. * Left wrist pain: Marked reduction in left wrist pain and improvement in range of motion. Suspect this is due to pseudogout based on prior history of pseudogout. * History of C difficile: No active diarrhea currently. Continue to follow. 06/10/18 17:30 Subjective: Patient feels significantly better. Left wrist pain significantly decreased. Chronic cough without interval change. No significant left lower extremity pain. Objective: Vital Signs Temp Pulse Resp BP Pulse Ox 37.2 C 79 18 136/68 H 94 06/10/18 17:25 06/10/18 17:25 06/10/18 17:25 06/10/18 17:25 06/10/18 17:25 Laboratory Results 06/08/18 03:32 06/10/18 15:25 06/09/18 06/10/18 06/11/18 05:59 05:59 05:59 Intake Total 1490 Output Total 725 1100 Balance 765 -1100 Vancomycin # 6 Blood cultures x2 no growth Urine culture 6000 CFU MRSA - Physical Exam General Appearance: alert, no apparent distress EENT: No scleral icterus, No conjunctival petechiae Respiratory: lungs clear, No respiratory distress Cardiac/Chest: regular rate, rhythm Extremities: inflammation (Left lower extremity erythema without interval change ; nontender with mild warmth) Abdomen: non-tender, No distended Back: No CVA tenderness ICD10 Worksheet Patient Problems: Problems Problem Status Onset Hyponatremia Acute Pneumonia Acute Acute renal failure Acute C. difficile diarrhea Acute 03/01/15 CHF (congestive heart failure) Acute Cellulitis Acute Decubitus ulcer of buttock Acute Dehydration Acute Dyspnea Acute ESBL (extended spectrum beta-lactamase) producing bacteria infection Acute Hemorrhage Acute Hypertensive urgency Acute Hypotension Acute Hypoxemia Acute Leg edema Acute MRSA (methicillin resistant Staphylococcus aureus) Acute ~11/29/16 Palliative care encounter Acute Sepsis Acute UTI (urinary tract infection) Acute Weakness Acute chronic disease mgmt/transitional care Acute Adrenal insufficiency Chronic Chronic pain Chronic Diabetes Chronic Hypertension Chronic Hypothyroid Chronic
[2018-06-10] MEDS: MONTELUKAST SODIUM 10 MG TAB PO SCH (18:01)
[2018-06-10] MEDS: VANCOMYCIN HCL/NORMAL SALINE 250 ML IV SCH (21:54)
[2018-06-10] MEDS: PATCH REMOVAL 1 EA PATCH TD SCH (21:56)
[2018-06-11] MEDS: OFLOXACIN 0.3% 5ML OPHT DROPS RTEYE SCH ×6 (03:16→20:07)
[2018-06-11] MEDS: LEVOTHYROXINE 100 MCG TAB PO SCH (05:39)
[2018-06-11] MEDS: METHOCARBAMOL 750 MG TAB PO SCH ×4 (05:39→20:08)
[2018-06-11] MEDS: HEPARIN 5,000 UNIT/0.5 ML INJ SC SCH ×3 (05:40→20:08)
[2018-06-11] MEDS: hydrALAZINE 20 MG/ML VIAL IVP PRN (05:40)
[2018-06-11] MEDS: CALCIUM CARB W/VIT D 500 MG TAB PO SCH ×2 (08:10→17:26)
[2018-06-11] MEDS: LOSARTAN POTASSIUM 50 MG TAB PO SCH (08:10)
[2018-06-11] MEDS: LABETALOL HCL 100 MG TAB PO SCH ×2 (08:10→20:08)
[2018-06-11] MEDS: metFORMIN HCL 500 MG TAB PO SCH ×2 (08:11→17:27)
[2018-06-11] MEDS: PREGABALIN 150 MG CAP PO SCH ×2 (08:11→20:08)
[2018-06-11] MEDS: HYDROCORTISONE 10 MG TAB PO SCH ×2 (08:11→17:26)
[2018-06-11] MEDS: Estrogens, Conjugated [Premarin] 0.45 MG PO SCH (08:13)
[2018-06-11] MEDS: RABEPRAZOLE SODIUM 20 MG PO SCH ×2 (08:13→17:31)
[2018-06-11] MEDS: INSULIN LISPRO 100 UNIT/ML SC SCH ×3 (08:16→17:28)
[2018-06-11] MEDS: oxyCODONE IR 5 MG TAB PO PRN ×2 (08:52→18:09)
[2018-06-11] MEDS: LIDOCAINE 4%/MENTHOL 1% PATCH TD PRN (08:52)
[2018-06-11] MEDS: ACETAMINOPHEN 325 MG TAB PO PRN ×2 (08:53→18:09)
[2018-06-11] MEDS: SENNOSIDES/DOCUSATE SODIUM TAB PO SCH ×2 (10:36→20:08)
--- NOTE | 2018-06-11 14:31 | HOSPPROG ---
Hospitalist Progress Note Assessment/Plan: 82-year-old with a history of diabetes who comes in with fevers. She denies any change in her cough or significant shortness of breath. She denies leg swelling or pain however she does have chronic edema and venous stasis. She denies any urinary symptoms. She has recently had a lot of dental work done over the last 4 months. # fever: -resolved -cellulitis vs UTI with cx MRSA -cont Vanco, last dose today # cellulitis left lower extremity - resolved -History of MRSA will continue Vanco -Seems like the cause of fever, but minimal pain # acute hypoxic respiratory failure -resolved -She has a chronic cough which she states is unchanged. -Will continue to monitor her oxygen needs -improved oxygen needs after lasix # diabetes monitor blood sugars sliding scale insulin if needed # left shoulder pain with normal range of motion -She does have a lot of muscle spasms in her posterior cervical paraspinous muscles and will continue her Robaxin. -xray is ok. -Pain located on neck primarily and not shoulder joint, no improvement with steroid, muscle relaxants or lidoderm. -MRI of c spine shows changes -neurosurgery consulted -conservative treatment # left wrist pain with decent range of motion but mildly tender will follow her clinically for now -likely pseudogout # adrenal insufficiency on Cortef, increased dose for acute illness given her hypotension -taper her down, now 10 bid at discharge. -Follow-up blood pressure # hypothyroid, -on replacement last TSH the elevated at 5 # history of left internal jugular clot, status post treatment with Coumadin -small amount of clot noted on US, likely residual. -Will continue heparin prophylaxis. # chronic renal failure with baseline creatinine 1.5-1.8, -essentially at baseline # diastolic dysfunction # DVT prophylaxis on heparin #Dispo -in am to SNF Subjective: Feeling well today. Some neck pain. No other concerns. Objective: Vital Signs Temp Pulse Resp BP Pulse Ox 36.5 C 68 16 158/70 H 96 06/11/18 11:39 06/11/18 11:39 06/11/18 11:39 06/11/18 11:39 06/11/18 11:39 Laboratory Results 06/08/18 03:32 06/10/18 15:25 06/10/18 06/11/18 06/12/18 05:59 05:59 05:59 Intake Total 720 Output Total 1100 950 Balance -1100 720 -950 PT 13.5 SEC (12.0-15.0) 06/05/18 20:35 INR 1.01 (0.83-1.16) 06/05/18 20:35 - Physical Exam Constitutional: chronically ill appearing, obese Eyes: PERRL, anicteric sclera Ears, Nose, Mouth, Throat: moist mucous membranes, hearing normal Cardiovascular: edema, No JVD Respiratory: no respiratory distress, reduced air movement Gastrointestinal: No tenderness, No ascites Skin: warm, normal color Musculoskeletal: no joint effusions, generalized weakness Neurologic: AAOx3 Psychiatric: interacting appropriately, not anxious ICD10 Worksheet Patient Problems: Problems Problem Status Onset Dyspnea Acute Sepsis Acute Pneumonia Acute chronic disease mgmt/transitional care Acute Hemorrhage Acute Hypotension Acute CHF (congestive heart failure) Acute Leg edema Acute MRSA (methicillin resistant Staphylococcus aureus) Acute ~11/29/16 Decubitus ulcer of buttock Acute Hypertension Chronic Hypothyroid Chronic Diabetes Chronic Chronic pain Chronic Hypertensive urgency Acute Acute renal failure Acute Adrenal insufficiency Chronic Hyponatremia Acute C. difficile diarrhea Acute 03/01/15 Hypoxemia Acute Palliative care encounter Acute ESBL (extended spectrum beta-lactamase) producing bacteria infection Acute Weakness Acute UTI (urinary tract infection) Acute Dehydration Acute Cellulitis Acute
[2018-06-11] MEDS ORDERED: VANCOMYCIN 750 MG in D5W 150 ML IV ONE (15:00)
[2018-06-11] MEDS: MONTELUKAST SODIUM 10 MG TAB PO SCH (17:26)
[2018-06-11] MEDS: PATCH REMOVAL 1 EA PATCH TD SCH (20:08)
[2018-06-12] MEDS: OFLOXACIN 0.3% 5ML OPHT DROPS RTEYE SCH ×4 (01:03→15:45)
[2018-06-12] MEDS: METHOCARBAMOL 750 MG TAB PO SCH ×3 (05:00→15:44)
[2018-06-12] MEDS: LEVOTHYROXINE 100 MCG TAB PO SCH (05:00)
[2018-06-12] MEDS: oxyCODONE IR 5 MG TAB PO PRN ×3 (05:00→15:44)
[2018-06-12] MEDS: HEPARIN 5,000 UNIT/0.5 ML INJ SC SCH ×2 (05:00→15:58)
[2018-06-12] MEDS: LOSARTAN POTASSIUM 50 MG TAB PO SCH (07:49)
[2018-06-12] MEDS: PREGABALIN 150 MG CAP PO SCH (07:50)
[2018-06-12] MEDS: metFORMIN HCL 500 MG TAB PO SCH (07:50)
[2018-06-12] MEDS: CALCIUM CARB W/VIT D 500 MG TAB PO SCH (07:50)
[2018-06-12] MEDS: LABETALOL HCL 100 MG TAB PO SCH (07:51)
[2018-06-12] MEDS: RABEPRAZOLE SODIUM 20 MG PO SCH (07:51)
[2018-06-12] MEDS: Estrogens, Conjugated [Premarin] 0.45 MG PO SCH (07:52)
[2018-06-12] MEDS: INSULIN LISPRO 100 UNIT/ML SC SCH ×2 (07:55→13:14)
[2018-06-12] MEDS ORDERED: HYDROCORTISONE 10 MG TAB PO SCH (09:00)
--- NOTE | 2018-06-12 10:21 | PDIAF ---
- Diagnosis Diagnosis: Fever Code Status: Full Code - Medication Management Discharge Medications: electronically signed and located in the Home Medication List. - Orders Services needed: Registered Nurse, Certified Attending Anesthesiologist, Physical Therapy, Occupational Therapy Isolation Type: Contact Isolation Diet Recommendation: no restrictions on diet - Labs/Radiology BMP Date: 06/15/18 - Follow Up Care Current Providers and Referrals: Brigette Suresh MD [Primary Care Provider] - As per Instructions
--- NOTE | 2018-06-12 10:26 | ASMTLACE ---
LACE Length of stay for Answers: 4-6 days current admission Acuity / Level of Answers: Yes Care: Did the patient have an inpatient admission? Comorbidities - select Answers: Chronic pulmonary disease all that apply Congestive heart failure Diabetes (uncontrolled or controlled) Mild liver or renal disease # of Emergency department Answers: 1-2 visits in the last 6 months Score: 15 Date Signed: 06/12/2018 10:26 AM Electronically Signed By:Yaquelin Barnhart RN
[2018-06-12] MEDS: LIDOCAINE 4%/MENTHOL 1% PATCH TD PRN (11:18)
[2018-06-12] MEDS: ACETAMINOPHEN 325 MG TAB PO PRN ×2 (11:19→15:44)
[2018-06-12] MEDS: SENNOSIDES/DOCUSATE SODIUM TAB PO SCH (11:30)
--- NOTE | 2018-06-12 12:37 | ASMTDCNOTE ---
Case Management Discharge Discharge Order Complete? Answers: Yes Patient to Obtain Answers: Other Notes: [facility] Transportation Arranged Answers: Other Notes: [facility] will Pick (Date 06/12/2018 04:30 PM & Time) Faxed Final Orders Answers: Yes Agency/Facility Transfer Answers: Yes Report Printed & Faxed to Receiving Agency Discharge Comments Notes: D/w , final orders faxed. Kervin at [facility] notified, RN to call report Date Signed: 06/12/2018 12:37 PM Electronically Signed By:Yaquelin Barnhart RN
[2018-06-12 16:05] VITALS: BP 147/62
--- NOTE | 2018-06-12 16:38 | GDS ---
ALL DIAGNOSES: 1. Fever. 2. Possible urinary tract infection. 3. Possible cellulitis. 4. Acute hypoxic respiratory failure, which has resolved. 5. Diabetes mellitus type 2. 6. Left shoulder pain. 7. Left wrist pain, possibly pseudogout. 8. Adrenal insufficiency, on chronic steroids. 9. Hypothyroid. 10. History of left internal jugular clot. 11. Chronic renal failure, at approximately baseline creatinine of 1.2. 12. Diastolic dysfunction. ALL CONSULTATIONS: Infectious Disease. HOSPITAL COURSE: This is an 82-year-old female, who was admitted with fevers. Infectious workup inc luded blood cultures, which have been negative. She did have an MRSA urine culture at a low colony c ount of 6000 CFU/mL. She had potentially a cellulitis, as well. She was seen by Infectious Disease. She has received a total of 7 days of IV vancomycin therapy. Clinically, she has improved. She freed s been afebrile essentially since her admission. Unclear if this represents bacteremia seeding her u rinary tract, which began as a cellulitis or other. She will be discharged to [facility] in stable co ndition. I have written to have her basic metabolic panel rechecked 3 days after discharge, given he r chronic kidney disease. She had an ultrasound, which showed mild residual IJ clot. She has been on heparin prophylaxis here but not full dose anticoagulation. She did complete a course of anticoagulation previously. I will place her on aspirin indefinitely, given the small amount of residual clot. There are no signs of an y pulmonary embolism at this time. FOLLOWUP: Dr. Suresh, within 1 week after being discharged from [facility] facility. BILLING: I spent more than 30 minutes on the day of discharge coordinating care. /[id number]/MODL
--- NOTE | 2018-06-13 17:36 | ASDISCHSUM ---
Discharge Information Plan Status:SNF Medically Cleared to Leave: Discharge Date:06/12/2018 05:05 PM CM D/C Disposition:Care Home Facility ADT D/C Disposition:Care Home Facility Projected Discharge Date:06/10/2018 11:00 AM Transportation at D/C:[facility] Van Discharge Delay Reason: Follow-Up Date:06/10/2018 11:00 AM Discharge Slot: Final Diagnosis: Placement Information Referral Type:*Retirement/SNF Referral ID:[id number] Provider Name:Luciana English Address 1:[address] Phone Number: Address 2: Fax Number: City:[place] Selection Factors: State:[place] Patient Contact Information Contact Name:GENE Relationship: Address:[address] City:[place] Alternate Phone: State/Zip Code:[place] [address] Email: Financial Information Financial Class:Medicare Primary Plan Desc:MEDICARE INPATIENT Primary Plan Number:[id number] Secondary Plan Desc:[employer] [facility][NOTE 3] Secondary Plan Number:[id number] Assessment Information LACE LACE Length of stay for Answers: 4-6 days current admission Acuity / Level of Answers: Yes Care: Did the patient have an inpatient admission? Comorbidities - select Answers: Chronic pulmonary disease all that apply Congestive heart failure Diabetes (uncontrolled or controlled) Mild liver or renal disease # of Emergency department Answers: 1-2 visits in the last 6 months Score: 15 Date Signed: 06/12/2018 10:26 AM Electronically Signed By:Yaquelin Barnhart RN [facility] CM Progress Note CM Note CM Note Notes: Chart reviewed. Patient is 82 year old female admitted via ED for fever and sepsis, History significant for CHF, Diabetes, DVT, Sacral ulcer surgical flap. Last dc from this facility to [facility] in March. Needs to be determined. CM to follow. Plan: TBD Date Signed: 06/06/2018 09:58 AM Electronically Signed By:Quyen Camarena RN [facility] CM Progress Note CM Note CM Note Notes: 06/08/2018 Case Management Note Met w/pt to discuss PT recommendation for SNF rehab. Pt in agreement. Faxed referrals to [facility] in [place] and [facility] in [place]. Pt has previous stay at [facility] in [place]. Provided brochures and list of SNF options. Discussed with MD. Anticipating d/c mid week. Case Management d/c poc: SNF rehab Case Management to follow. Date Signed: 06/08/2018 02:00 PM Electronically Signed By:Corrina Burkett RN [facility] CHRISTOPH Progress Note CM Note CM Note Notes: CM met w/ pt for dispo planning. [facility] and [facility] have both accepted. Pt would like to d/c to [facility] when medically stable. Updates sent to [facility]. CM notified [facility] that pt will be going to another facility. CM to follow. Plan: [facility] Date Signed: 06/09/2018 11:59 AM Electronically Signed By:ABRAN Feliz Case Management Discharge Plan Note Case Management Discharge Discharge Order Complete? Answers: Yes Patient to Obtain Answers: Other Notes: [facility] Transportation Arranged Answers: Other Notes: [facility] will Pick (Date 06/12/2018 04:30 PM & Time) Faxed Final Orders Answers: Yes Agency/Facility Transfer Answers: Yes Report Printed & Faxed to Receiving Agency Discharge Comments Notes: D/katelyn MCADAMS, final orders faxed. Kervin at [facility] notified, RN to call report Date Signed: 06/12/2018 12:37 PM Electronically Signed By:Yaquelin Barnhart RN Intervention Information Intervention Type:*IM-Signed Date of Service:06/12/2018 11:30 AM Patient Type:Inpatient Staff Member:Almita Schmidt Hours: Discipline: Severity: Comment:
--- NOTE | 2018-06-16 12:30 | PQFORM ---
PHYSICIAN QUERY FORM Needs Your Response This query form is being sent to you to assure this patient record is coded properly. Please respond to the question below: CRM MANAGER QUESTION: Dear Dr. Blanco, In reviewing this patient medical record, it is noted patient had the diagnosis of 'Sepsis.' Patient presented to ER with Fever, BP 85/45 and sepsis protocol was initiated. H&P notes patient had a fever with low BP and a WBC of 15.07, diagnosed with "sepsis." Noted in the Medical Necessity note patient met INPT criteria with diagnosis of "sepsis." In the 06/10 Hospitalist progress note under the addendum patients "sepsis-resolved." After study, should the diagnosis of "Sepsis, present on admission" be included in the Discharge Summary ? __x__ Yes No Clinically Undetermined Other (please specify) Thank you, MAGDALENO Brody HIM/Coding Dept. [phone] INSTRUCTIONS FOR RESPONSE: Answer question by clicking on the "Edit Document" button. Move cursor to area below the stars. When complete, hit "Save." Click on the "Sign" button, then click "Sign" again. Type in your PIN and hit "Enter." MTDD
== END 2018-06-12 17:05 | DRG 871 ==
LOC: EDUNIT# → F2W 06-06 02:23 → F3E 06-08 15:52
PROVIDERS: ADMIT Internal Medicine; ATTEND Internal Medicine
DX: A41.9 Sepsis, unspecified organism (principal); J96.01 Acute respiratory failure with hypoxia; L03.114 Cellulitis of left upper limb; L03.116 Cellulitis of left lower limb; E27.40 Unspecified adrenocortical insufficiency; N39.0 Urinary tract infection, site not specified; I13.0 Hypertensive heart and chronic kidney disease with heart failure and stage 1 through stage 4 chronic kidney disease, or unspecified chronic kidney disease; N18.9 Chronic kidney disease, unspecified; I50.9 Heart failure, unspecified; B95.62 Methicillin resistant Staphylococcus aureus infection as the cause of diseases classified elsewhere; E11.9 Type 2 diabetes mellitus without complications; M25.512 Pain in left shoulder; M10.9 Gout, unspecified; M25.532 Pain in left wrist; E03.9 Hypothyroidism, unspecified; K21.9 Gastro-esophageal reflux disease without esophagitis; E78.5 Hyperlipidemia, unspecified; H10.89 Other conjunctivitis; Z66 Do not resuscitate; Z86.718 Personal history of other venous thrombosis and embolism
CPT/HCPCS: 84484-ER; 96374; 97110-GO; 97116-GP; 97161-GP; 97166-GO; 97530-GO; 97530-GP; 97535-GO; J0360; J0692; J1170; J1644; J1815; J1940; J1956; J3370

== ENCOUNTER → 2018-07-02 | Outpatient (CLI) | payer OTHER, BC | LOC: BMCIMAGING 17:03 | PROVIDERS: ATTEND Physician Assistant | DX: R19.7 Diarrhea, unspecified (principal) ==